=== PATIENT | male | born 1940 | race Caucasian/White ===

== ENCOUNTER 2017-05-02 10:47 | Inpatient (IN) | payer MEDICARE, OTHER ==
[~2017-05-02] VITALS: Ht 167.6 cm; Wt 56.2 kg
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
[2017-05-02 11:37] LABS: BASO # 0.2 x10^3/uL (0.0-0.2); BASO % 1 % (0-3); EOS # 0.7 x10^3/uL (0.0-0.7); EOS % 4 % (0-3); HEMATOCRIT 43.5 % (39.0-53.0); HEMOGLOBIN 13.3 g/dL (13.0-17.5); LYMPH # 1.3 x10^3/uL (1.0-4.8); LYMPH % 8 % (24-48); MEAN CORPUSCULAR HEMOGLOBIN 23 pg (25-35); MEAN CORPUSCULAR HGB CONC 31 g/dL (31-37); MEAN CORPUSCULAR VOLUME 74 fL (79-100); MONO # 1.1 x10^3/uL (0.0-1.1); MONO % 7 % (0-9); NEUT # 12.2 x10^3uL (1.8-7.7); NEUT % 79 % (31-73); PLATELET COUNT 682 x10^3/uL (140-400); RED BLOOD COUNT 5.87 x10^6/uL (4.30-5.70); RED CELL DISTRIBUTION WIDTH 20.4 % (11.5-14.5); WHITE BLOOD COUNT 15.5 x10^3/uL (4.0-11.0)
[2017-05-02 11:49] LABS: ALBUMIN 3.2 g/dL (3.4-5.0); ALBUMIN/GLOBULIN RATIO 0.8 (1.0-1.7); CALCIUM 8.3 mg/dL (8.5-10.1); CREATININE 1.1 mg/dL (0.7-1.3); DIRECT BILIRUBIN 0.2 mg/dL (0.0-0.2); GFR 64.9; MAGNESIUM 1.8 mg/dL (1.8-2.4); POTASSIUM 3.6 mmol/L (3.5-5.1); TOTAL BILIRUBIN 0.5 mg/dL (0.2-1.0); TOTAL PROTEIN 7.1 g/dL (6.4-8.2)
[2017-05-02 11:50] LABS: ACETAMIN < 2 mcg/mL (10-30); SALIC 1.7 mg/dL (2.8-20.0)
[2017-05-02 11:51] LABS: ETHANOL < 10 mg/dL (0-10)
[2017-05-02 11:55] LABS: COLOR,URINE YELLOW
[2017-05-02 11:56] LABS: AMORPHOUS SEDIMENT,UR PRESENT /HPF; BACTERIA,URINE 0 /HPF (0-FEW); BILIRUBIN,URINE NEG (NEG); CLARITY,URINE CLEAR; GLUCOSE,URINE NEG (NEG); GRANULAR CASTS,URINE OCC /HPF; HYALINE CASTS, URINE OCC /HPF; NITRITE,URINE NEG (NEG); RBC,URINE 0 /HPF (0-2); SQUAMOUS EPITHELIAL CELL,UR OCC /LPF; UROBILINOGEN,URINE 0.2 mg/dL (0.2 mg/dL)
[2017-05-02] MEDS ORDERED: IV NORMAL SALINE 1,000ML 1,000 ML IV ONE (12:00)
[2017-05-02] MEDS ORDERED: HALOPERIDOL LACT 5 MG/ML VIAL. IVP ONE (12:00)
[2017-05-02] MEDS ORDERED: LORazepam 2 MG/ML VIAL IV ONE (12:00)
--- NOTE | 2017-05-02 12:10 | ACF ---
Admission Criteria Forms MENTAL STATUS CHANGE Clinical Indications for Inpatient Care (Place 'X' for any and all applicable criteria): Ongoing inpatient care may be needed for 1 or more of the following(1)(2)(3)(5)( 6): [ ]I. Suspected serious etiology (eg, medical disorder, MOLD SETTER event) of altered mental status [X]II. Danger to self or others not manageable at lower level of care [ ]III. Grave disability (eg, inability to perform self care necessary at lower level of care) [ ]IV. Agitation or inappropriate behavior interfering with care for primary condition (eg, attempting to discontinue lines or drains prematurely, unable to cooperate with respiratory care) [ ]V. Delirium [A] [D][E] as described by 1 or more of the following(26): [ ]a) Delirium due to alcohol or sedative [F] withdrawal [ ]b) Delirium of uncertain etiology that has not responded to appropriate empiric treatment [ ]c) Delirium that prevents performance of a life-sustaining function (eg, feeding or hydrating oneself) [ ]. General contraindications and/or Inappropriate clinical situations for Observational Care in patients with Mental Status Change, when ANY ONE of the following is required: [ ]a) Prediction of prolongation of LOS based on ANY ONE of the following may be considered as a contraindication for observational care 2, 3, 4, 5, 6, 7, 8, 9, 10, 11 [ ]i) Age > 65 yrs. [ ]ii) Patient arriving by ambulance [ ]iii) Patient with high acuity [ ]iv) Patient requiring vital sign monitoring [ ]v) Patient on IV medication [ ]b) Systolic blood pressures greater than or equal to 180mmHg 3, 12 [ ]c) Patient with altered mental status including delirium and other alteration of consciousness, (3) [ ]d) Patient whose discharge disposition will be to a usp home or rehabilitation home should not be managed in Emergency Department Observation Unit. CMS rule requires 3 days hospital stay before such placement.3,13 [ ]e) Patient with failure to thrive due to broad array of etiologies 3,16,17 [ ]f) Inability to ambulate 3,14 Extended stay beyond goal length of stay for the primary condition may be needed until ALL of the following are present(3)(5): [ ]a) Underlying medical etiology of mental status change is absent, or has been established and adequately treated [ ]b) Danger to self or others is absent or manageable at lower level of care. [ ]c) Behavior crisis management, including physical or chemical restraints, is not required or available at lower level of car [ ]d) Substance or alcohol withdrawal is absent or manageable at lower level of care. [ ]e) Behavioral symptoms (eg, agitation, somnolence, inappropriate behavior) are absent, or are manageable at lower level of care. The original [facility] [employer] content created by [employer] has been revised. The portions of the content which have been revised are identified through the use of italic text or in bold, and [facility] has neither reviewed nor approved the modified material. All other unmodified content is copyright [employer]. Please see references footnoted in the original [employer] edition 2016 Admission Criteria Met?: Yes JOSSUE PIÑA May 02, 2017 12:10
--- NOTE | 2017-05-02 12:13 | EKG ---
[address] [address] Test Date: 2017-05-02 Test Time: 11:12:56 Pat Name: BRITTANY HOLLINGSWORTH Department: Room: Gender: M Area Secretary: : [id number] Requested By: JHON ANDERSEN Order Number: [id number] Reading MD: Ben Ruano Measurements Intervals [place] Rate: 78 P: 54 IN: 150 QRS: 23 QRSD: 98 T: 46 QT: 378 QTc: 434 Interpretive Statements SINUS RHYTHM QRS(T) CONTOUR ABNORMALITY Electronically Signed On 05-27-2017 16:36:46 CDT by Ben Ruano
[2017-05-02 12:46] LABS: % BANDS 0 % (0-9); % BASOS 6 % (0-3); % EOS 3 % (0-5); % LYMPHS 6 % (24-48); % MONOS 2 % (0-10); % SEGS 83 % (35-66); ANISOCYTOSIS SLIGHT; HYPOCHROMIA SLIGHT; MICROCYTOSIS PRESENT; PLT ESTIMATE INCREASED (ADEQUATE)
[2017-05-02 12:47] LABS: OVALOCYTES PRESENT; TOXIC VACUOLATION PRESENT
[2017-05-02] MEDS ORDERED: METHYL SALICYLATE/MENTHOL TOPICAL OINTMENT 29GM TUBE. TP PRN (14:45)
[2017-05-02] MEDS ORDERED: MAG HYDROX/AL HYDROX/SIMETH 30 ML ORAL.SUSP PO PRN (14:45)
[2017-05-02] MEDS ORDERED: MAGNESIUM HYDROXIDE 2,400 MG/30 ML ORAL.SUSP. PO PRN (14:45)
[2017-05-02] MEDS ORDERED: HYDR500C16 PO (15:57)
[2017-05-02 16:23] VITALS: BP 142/76
--- NOTE | 2017-05-02 21:34 | PDOC ---
Exam Ivan Demential Exam: Ivan Note: Please also refer to the separate dictated note~for this date of service dictated separately.~Patient seen individually. Discussed the patient with Nursing staff reviewed the chart.~Reviewed interim history and current functioning. Reviewed vital signs,~Labs/ Radiology~and current medications noted below. Continue current treatment with the changes noted in the dictated addendum note Assessment: Vital Signs: Vital Signs Date Time Temp Pulse Resp B/P (MAP) Pulse Ox O2 Delivery O2 Flow Rate FiO2 05/02/17 16:23 97.9 78 18 142/76 (98) 97 05/02/17 11:00 Room Air Labs: Laboratory Tests Test 05/02/17 11:20 05/02/17 11:35 White Blood Count 15.5 x10^3/uL (4.0-11.0) H Red Blood Count 5.87 x10^6/uL (4.30-5.70) H Hemoglobin 13.3 g/dL (13.0-17.5) Hematocrit 43.5 % (39.0-53.0) Mean Corpuscular Volume 74 fL (79-100) L Mean Corpuscular Hemoglobin 23 pg (25-35) L Mean Corpuscular Hemoglobin Concent 31 g/dL (31-37) Red Cell Distribution Width 20.4 % (11.5-14.5) H Platelet Count 682 x10^3/uL (140-400) H Neutrophils (%) (Auto) 79 % (31-73) H Lymphocytes (%) (Auto) 8 % (24-48) L Monocytes (%) (Auto) 7 % (0-9) Eosinophils (%) (Auto) 4 % (0-3) H Basophils (%) (Auto) 1 % (0-3) Neutrophils # (Auto) 12.2 x10^3uL (1.8-7.7) H Lymphocytes # (Auto) 1.3 x10^3/uL (1.0-4.8) Monocytes # (Auto) 1.1 x10^3/uL (0.0-1.1) Eosinophils # (Auto) 0.7 x10^3/uL (0.0-0.7) Basophils # (Auto) 0.2 x10^3/uL (0.0-0.2) Segmented Neutrophils % 83 % (35-66) H Band Neutrophils % 0 % (0-9) Lymphocytes % 6 % (24-48) L Monocytes % 2 % (0-10) Eosinophils % 3 % (0-5) Basophils % 6 % (0-3) H Toxic Vacuolation Present Platelet Estimate Increased (ADEQUATE) Hypochromasia Slight Anisocytosis Slight Microcytosis Present Ovalocytes Present Sodium Level 140 mmol/L (136-145) Potassium Level 3.6 mmol/L (3.5-5.1) Chloride Level 105 mmol/L (98-107) Carbon Dioxide Level 27 mmol/L (21-32) Anion Gap 8 (6-14) Blood Urea Nitrogen 22 mg/dL (8-26) Creatinine 1.1 mg/dL (0.7-1.3) Estimated GFR (Cockcroft-Gault) 64.9 BUN/Creatinine Ratio 20 (6-20) Glucose Level 97 mg/dL (70-99) Calcium Level 8.3 mg/dL (8.5-10.1) L Magnesium Level 1.8 mg/dL (1.8-2.4) Iron Level 14 ug/dL (65-175) L Total Iron Binding Capacity 263 ug/dL (250-450) Iron Saturation 5 % (15-34) L Total Bilirubin 0.5 mg/dL (0.2-1.0) Direct Bilirubin 0.2 mg/dL (0.0-0.2) Aspartate Amino Transferase (AST) 16 U/L (15-37) Alanine Aminotransferase (ALT) 7 U/L (16-63) L Alkaline Phosphatase 117 U/L (46-116) H Troponin I Quantitative < 0.017 ng/mL (0-0.055) Total Protein 7.1 g/dL (6.4-8.2) Albumin 3.2 g/dL (3.4-5.0) L Albumin/Globulin Ratio 0.8 (1.0-1.7) L Salicylates Level 1.7 mg/dL (2.8-20.0) L Salicylate Last Dose Date Unk Salicylate Last Dose Time Unk Acetaminophen Level < 2 mcg/mL (10-30) L Acetaminophen Last Dose Date Unk Acetaminophen Last Dose Time Unk Ethyl Alcohol Level < 10 mg/dL (0-10) Urine Collection Type Unknown Urine Color Yellow Urine Clarity Clear Urine pH 5.0 Urine Specific [place] 1.025 Urine Protein 30 mg/dl (NEG-TRACE) Urine Glucose (UA) Neg mg/dL (NEG) Urine Ketones (Stick) Trace mg/dL (NEG) Urine Blood Neg (NEG) Urine Nitrite Neg (NEG) Urine Bilirubin Neg (NEG) Urine Urobilinogen Dipstick 0.2 mg/dL (0.2 mg/dL) Urine Leukocyte Esterase Neg (NEG) Urine RBC 0 /HPF (0-2) Urine WBC 1-4 /HPF (0-4) Urine Squamous Epithelial Cells Occ /LPF Urine Amorphous Sediment Present /HPF Urine Bacteria 0 /HPF (0-FEW) Urine Hyaline Casts Occ /HPF Urine Granular Casts Occ /HPF Urine Mucus Mod /LPF Current Medications: Meds: Current Medications Sodium Chloride 1,000 ml @ 1,000 mls/hr 1X ONCE IV ; Start 05/02/17 at 12:00; Stop 05/02/17 at 12:59; Status DC Haloperidol Lactate (Haldol) 5 mg 1X ONCE IVP ; Start 05/02/17 at 12:00; Stop at 12:01; Status DC Lorazepam (Ativan) 2 mg 1X ONCE IV ; Start 05/02/17 at 12:00; Stop 05/02/17 at 12 :01; Status DC Acetaminophen (Tylenol) 650 mg PRN Q6HRS PRN PO PAIN / TEMP; Start 05/02/17 at 14:45 Multi-Ingredient Ointment (Analgesic [place]) 1 savanna PRN QID PRN TP MUSCLE PAIN; Start 05/02/17 at 14:45 Al Hydroxide/Mg Hydroxide (Mylanta Plus Xs) 15 ml PRN AFTMEALHC PRN PO DYSPEPSIA; Start 05/02/17 at 14:45 Magnesium Hydroxide (Milk Of Magnesia) 2,400 mg PRN QHS PRN PO CONSTIPATION; Start 05/02/17 at 14:45 Olanzapine (ZyPREXA ZYDIS) 2.5 mg PRN Q2HR PRN PO PSYCHOSIS; Start 05/02/17 at 15:45 Hydroxyurea (Hydrea) 1,000 mg DAILY PO ; Start 05/03/17 at 09:00; Stop 05/03/17 at 09:00; Status DC Hydroxyurea (Hydrea) 1,000 mg DAILY PO ; Start 05/03/17 at 09:00 Active Scripts Active Reported Hydroxyurea 500 Mg Capsule 1,000 Mg PO DAILY CECILIA PARR MD May 02, 2017 21:34
[2017-05-03 06:23] VITALS: BP 150/79
[2017-05-03] MEDS: HYDROXYUREA 500 MG CAPSULE PO SCH (07:56)
[2017-05-03] MEDS ORDERED: HYDROXYUREA 500 MG CAPSULE PO SCH (09:00)
[2017-05-03] MEDS: ACETAMINOPHEN 325 MG TABLET PO PRN (09:13)
[2017-05-03 11:57] LABS: THYROID STIM HORMONE (TSH) 4.763 uIU/mL (0.358-3.740)
--- NOTE | 2017-05-03 15:59 | RAD ---
CT of the head without contrast, 05/03/2017: History: Mental status change There is moderate cerebral atrophy. There are mild patchy lucencies in the deep white matter bilaterally compatible with chronic ischemic change. The ventricles are mildly prominent on a compensatory basis. There is no shift of the midline structures. There is no evidence of acute intracranial hemorrhage or mass effect. IMPRESSION: 1. Moderate cerebral atrophy. 2. Mild bilateral dependent matter lucencies compatible with chronic ischemic change. 3. No acute intracranial abnormality is detected. PQRS Compliance Statement: One or more of the following individualized dose reduction techniques were utilized for this examination: 1. Automated exposure control 2. Adjustment of the mA and/or kV according to patient size 3. Use of iterative reconstruction technique
[2017-05-03 16:00] VITALS: BP 123/75
[2017-05-03] MEDS: CYPROHEPTADINE 4 MG TABLET. PO SCH (21:04)
--- NOTE | 2017-05-03 21:19 | PDOC ---
Exam Ivan Demential Exam: Ivan Note: Please also refer to the separate dictated note~for this date of service dictated separately.~Patient seen individually. Discussed the patient with Nursing staff reviewed the chart.~Reviewed interim history and current functioning. Reviewed vital signs,~Labs/ Radiology~and current medications noted below. Continue current treatment with the changes noted in the dictated addendum note Assessment: Vital Signs: Vital Signs Date Time Temp Pulse Resp B/P (MAP) Pulse Ox O2 Delivery O2 Flow Rate FiO2 05/03/17 16:00 97.7 67 16 123/75 (91) 99 05/02/17 11:00 Room Air I&O Intake and Output 05/03/17 07:00 Intake Total 120 ml Balance 120 ml Intake Oral 120 ml Current Medications: Meds: Current Medications Sodium Chloride 1,000 ml @ 1,000 mls/hr 1X ONCE IV ; Start 05/02/17 at 12:00; Stop 05/02/17 at 12:59; Status DC Haloperidol Lactate (Haldol) 5 mg 1X ONCE IVP ; Start 05/02/17 at 12:00; Stop at 12:01; Status DC Lorazepam (Ativan) 2 mg 1X ONCE IV ; Start 05/02/17 at 12:00; Stop 05/02/17 at 12 :01; Status DC Acetaminophen (Tylenol) 650 mg PRN Q6HRS PRN PO PAIN / TEMP Last administered on 05/03/17 09:13; Start 05/02/17 at 14:45 Multi-Ingredient Ointment (Analgesic [place]) 1 savanna PRN QID PRN TP MUSCLE PAIN; Start 05/02/17 at 14:45 Al Hydroxide/Mg Hydroxide (Mylanta Plus Xs) 15 ml PRN AFTMEALHC PRN PO DYSPEPSIA; Start 05/02/17 at 14:45 Magnesium Hydroxide (Milk Of Magnesia) 2,400 mg PRN QHS PRN PO CONSTIPATION; Start 05/02/17 at 14:45 Olanzapine (ZyPREXA ZYDIS) 2.5 mg PRN Q2HR PRN PO PSYCHOSIS Last administered on 05/03/17 21:04; Start 05/02/17 at 15:45 Hydroxyurea (Hydrea) 1,000 mg DAILY PO ; Start 05/03/17 at 09:00; Stop 05/03/17 at 09:00; Status DC Hydroxyurea (Hydrea) 1,000 mg DAILY PO Last administered on 05/03/17 07:56; Start 05/03/17 at 09:00 Aspirin (Oneil Aspirin) 325 mg DAILYWBKFT PO ; Start 05/04/17 at 08:00 Ferrous Sulfate (Feosol) 325 mg DAILYWBKFT PO ; Start 05/04/17 at 08:00 Cyproheptadine HCl (Periactin) 4 mg QHS PO Last administered on 05/03/17 21:04 ; Start 05/03/17 at 21:00 Active Scripts Active Reported Hydroxyurea 500 Mg Capsule 1,000 Mg PO DAILY Diagnosis: Problems: (1) Altered mental status CECILIA PARR MD May 03, 2017 21:19
[2017-05-04 06:48] VITALS: BP 128/66
[2017-05-04] MEDS: ASPIRIN 325 MG TABLET PO SCH (10:24)
[2017-05-04] MEDS: FERROUS SULFATE 325 MG TABLET PO SCH (10:24)
[2017-05-04] MEDS: HYDROXYUREA 500 MG CAPSULE PO SCH (10:25)
[2017-05-04 15:53] VITALS: BP 116/89
[2017-05-04] MEDS: MIRTAZAPINE 7.5 MG TABLET. PO SCH (19:41)
[2017-05-04] MEDS: CYPROHEPTADINE 4 MG TABLET. PO SCH (19:41)
--- NOTE | 2017-05-04 21:12 | PDOC ---
Exam Ivan Demential Exam: Ivan Note: Please also refer to the separate dictated note~for this date of service dictated separately.~Patient seen individually. Discussed the patient with Nursing staff reviewed the chart.~Reviewed interim history and current functioning. Reviewed vital signs,~Labs/ Radiology~and current medications noted below. Continue current treatment with the changes noted in the dictated addendum note Assessment: Vital Signs: Vital Signs Date Time Temp Pulse Resp B/P (MAP) Pulse Ox O2 Delivery O2 Flow Rate FiO2 05/04/17 15:53 98.1 66 16 116/89 (98) 96 Room Air I&O Intake and Output 05/04/17 07:00 Intake Total 840 ml Balance 840 ml Intake Oral 840 ml # Voids 4 Current Medications: Meds: Current Medications Sodium Chloride 1,000 ml @ 1,000 mls/hr 1X ONCE IV ; Start 05/02/17 at 12:00; Stop 05/02/17 at 12:59; Status DC Haloperidol Lactate (Haldol) 5 mg 1X ONCE IVP ; Start 05/02/17 at 12:00; Stop at 12:01; Status DC Lorazepam (Ativan) 2 mg 1X ONCE IV ; Start 05/02/17 at 12:00; Stop 05/02/17 at 12 :01; Status DC Acetaminophen (Tylenol) 650 mg PRN Q6HRS PRN PO PAIN / TEMP Last administered on 05/03/17 09:13; Start 05/02/17 at 14:45 Multi-Ingredient Ointment (Analgesic [place]) 1 savanna PRN QID PRN TP MUSCLE PAIN; Start 05/02/17 at 14:45 Al Hydroxide/Mg Hydroxide (Mylanta Plus Xs) 15 ml PRN AFTMEALHC PRN PO DYSPEPSIA; Start 05/02/17 at 14:45 Magnesium Hydroxide (Milk Of Magnesia) 2,400 mg PRN QHS PRN PO CONSTIPATION; Start 05/02/17 at 14:45 Olanzapine (ZyPREXA ZYDIS) 2.5 mg PRN Q2HR PRN PO PSYCHOSIS Last administered on 05/03/17 21:04; Start 05/02/17 at 15:45 Hydroxyurea (Hydrea) 1,000 mg DAILY PO ; Start 05/03/17 at 09:00; Stop 05/03/17 at 09:00; Status DC Hydroxyurea (Hydrea) 1,000 mg DAILY PO Last administered on 05/04/17 10:25; Start 05/03/17 at 09:00 Aspirin (Oneil Aspirin) 325 mg DAILYWBKFT PO Last administered on 05/04/17 10: 24; Start 05/04/17 at 08:00 Ferrous Sulfate (Feosol) 325 mg DAILYWBKFT PO Last administered on 05/04/17 10: 24; Start 05/04/17 at 08:00 Cyproheptadine HCl (Periactin) 4 mg QHS PO Last administered on 05/04/17 19:41 ; Start 05/03/17 at 21:00 Sertraline HCl (Zoloft) 25 mg DAILY PO ; Start 05/05/17 at 09:00 Mirtazapine (Remeron) 7.5 mg QHS PO Last administered on 05/04/17 19:41; Start 05/04/17 at 21:00 Active Scripts Active Reported Hydroxyurea 500 Mg Capsule 1,000 Mg PO DAILY Diagnosis: Problems: (1) Altered mental status (2) Anxiety disorder (3) Impulse control disorder (4) Dementia, vascular, with depression (5) Dementia, vascular, with delusions (6) Dementia in Alzheimer's disease with depression (7) Dementia in Alzheimer's disease with delusions CECILIA PARR MD May 04, 2017 21:12
[2017-05-05 06:06] VITALS: BP 147/82
[2017-05-05 07:58] LABS: BASO # 0.5 x10^3/uL (0.0-0.2); BASO % 3 % (0-3); EOS # 1.1 x10^3/uL (0.0-0.7); EOS % 8 % (0-3); HEMATOCRIT 41.9 % (39.0-53.0); HEMOGLOBIN 13.1 g/dL (13.0-17.5); LYMPH # 1.5 x10^3/uL (1.0-4.8); LYMPH % 10 % (24-48); MEAN CORPUSCULAR HEMOGLOBIN 23 pg (25-35); MEAN CORPUSCULAR HGB CONC 31 g/dL (31-37); MEAN CORPUSCULAR VOLUME 74 fL (79-100); MONO # 0.7 x10^3/uL (0.0-1.1); MONO % 5 % (0-9); NEUT # 11.2 x10^3uL (1.8-7.7); NEUT % 75 % (31-73); PLATELET COUNT 797 x10^3/uL (140-400); RED BLOOD COUNT 5.68 x10^6/uL (4.30-5.70); RED CELL DISTRIBUTION WIDTH 20.6 % (11.5-14.5)
[2017-05-05] MEDS: FERROUS SULFATE 325 MG TABLET PO SCH (08:02)
[2017-05-05] MEDS: ASPIRIN 325 MG TABLET PO SCH (08:02)
[2017-05-05] MEDS: HYDROXYUREA 500 MG CAPSULE PO SCH (08:09)
[2017-05-05 08:15] LABS: ALBUMIN/GLOBULIN RATIO 0.9 (1.0-1.7); CALCIUM 8.2 mg/dL (8.5-10.1); GFR 72.5; POTASSIUM 3.9 mmol/L (3.5-5.1); TOTAL BILIRUBIN 0.4 mg/dL (0.2-1.0); TOTAL PROTEIN 6.5 g/dL (6.4-8.2)
[2017-05-05 08:55] LABS: % BANDS 0 % (0-9); % BASOS 6 % (0-3); % EOS 6 % (0-5); % LYMPHS 17 % (24-48); % MONOS 4 % (0-10); % SEGS 67 % (35-66); ANISOCYTOSIS SLIGHT; HYPOCHROMIA PRESENT; MICROCYTOSIS PRESENT; PLT ESTIMATE INCREASED (ADEQUATE)
[2017-05-05 08:56] LABS: OVALOCYTES PRESENT
[2017-05-05] MEDS ORDERED: SERTRALINE 25 MG TABLET. PO SCH (09:00)
[2017-05-05 16:27] VITALS: BP 154/88
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
[2017-05-05] MEDS: traZODone 50 MG TABLET. PO PRN (20:28)
[2017-05-05] MEDS: MIRTAZAPINE 7.5 MG TABLET. PO SCH (20:28)
[2017-05-05] MEDS: CYPROHEPTADINE 4 MG TABLET. PO SCH (20:28)
--- NOTE | 2017-05-05 20:47 | PDOC ---
Exam Ivan Demential Exam: Ivan Note: Please also refer to the separate dictated note~for this date of service dictated separately.~Patient seen individually. Discussed the patient with Nursing staff reviewed the chart.~Reviewed interim history and current functioning. Reviewed vital signs,~Labs/ Radiology~and current medications noted below. Continue current treatment with the changes noted in the dictated addendum note Assessment: Vital Signs: Vital Signs Date Time Temp Pulse Resp B/P (MAP) Pulse Ox O2 Delivery O2 Flow Rate FiO2 05/05/17 16:27 97.6 62 18 154/88 (110) 99 05/04/17 15:53 Room Air I&O Intake and Output 05/05/17 07:00 Intake Total 720 ml Balance 720 ml Intake Oral 720 ml # Voids 2 Labs: Laboratory Tests Test 05/05/17 07:27 White Blood Count 15.0 x10^3/uL (4.0-11.0) H Red Blood Count 5.68 x10^6/uL (4.30-5.70) Hemoglobin 13.1 g/dL (13.0-17.5) Hematocrit 41.9 % (39.0-53.0) Mean Corpuscular Volume 74 fL (79-100) L Mean Corpuscular Hemoglobin 23 pg (25-35) L Mean Corpuscular Hemoglobin Concent 31 g/dL (31-37) Red Cell Distribution Width 20.6 % (11.5-14.5) H Platelet Count 797 x10^3/uL (140-400) H Neutrophils (%) (Auto) 75 % (31-73) H Lymphocytes (%) (Auto) 10 % (24-48) L Monocytes (%) (Auto) 5 % (0-9) Eosinophils (%) (Auto) 8 % (0-3) H Basophils (%) (Auto) 3 % (0-3) Neutrophils # (Auto) 11.2 x10^3uL (1.8-7.7) H Lymphocytes # (Auto) 1.5 x10^3/uL (1.0-4.8) Monocytes # (Auto) 0.7 x10^3/uL (0.0-1.1) Eosinophils # (Auto) 1.1 x10^3/uL (0.0-0.7) H Basophils # (Auto) 0.5 x10^3/uL (0.0-0.2) H Segmented Neutrophils % 67 % (35-66) H Band Neutrophils % 0 % (0-9) Lymphocytes % 17 % (24-48) L Monocytes % 4 % (0-10) Eosinophils % 6 % (0-5) H Basophils % 6 % (0-3) H Platelet Estimate Increased (ADEQUATE) Hypochromasia Present Anisocytosis Slight Microcytosis Present Ovalocytes Present Sodium Level 143 mmol/L (136-145) Potassium Level 3.9 mmol/L (3.5-5.1) Chloride Level 107 mmol/L (98-107) Carbon Dioxide Level 30 mmol/L (21-32) Anion Gap 6 (6-14) Blood Urea Nitrogen 15 mg/dL (8-26) Creatinine 1.0 mg/dL (0.7-1.3) Estimated GFR (Cockcroft-Gault) 72.5 BUN/Creatinine Ratio 15 (6-20) Glucose Level 91 mg/dL (70-99) Calcium Level 8.2 mg/dL (8.5-10.1) L Total Bilirubin 0.4 mg/dL (0.2-1.0) Aspartate Amino Transferase (AST) 9 U/L (15-37) L Alanine Aminotransferase (ALT) 8 U/L (16-63) L Alkaline Phosphatase 100 U/L (46-116) Total Protein 6.5 g/dL (6.4-8.2) Albumin 3.0 g/dL (3.4-5.0) L Albumin/Globulin Ratio 0.9 (1.0-1.7) L Free Thyroxine 0.91 ng/dL (0.76-1.46) Free Triiodothyronine (T3) pg/mL 1.96 pg/mL (2.18-3.98) L Current Medications: Meds: Current Medications Sodium Chloride 1,000 ml @ 1,000 mls/hr 1X ONCE IV ; Start 05/02/17 at 12:00; Stop 05/02/17 at 12:59; Status DC Haloperidol Lactate (Haldol) 5 mg 1X ONCE IVP ; Start 05/02/17 at 12:00; Stop at 12:01; Status DC Lorazepam (Ativan) 2 mg 1X ONCE IV ; Start 05/02/17 at 12:00; Stop 05/02/17 at 12 :01; Status DC Acetaminophen (Tylenol) 650 mg PRN Q6HRS PRN PO PAIN / TEMP Last administered on 05/03/17 09:13; Start 05/02/17 at 14:45 Multi-Ingredient Ointment (Analgesic [place]) 1 savanna PRN QID PRN TP MUSCLE PAIN; Start 05/02/17 at 14:45 Al Hydroxide/Mg Hydroxide (Mylanta Plus Xs) 15 ml PRN AFTMEALHC PRN PO DYSPEPSIA; Start 05/02/17 at 14:45 Magnesium Hydroxide (Milk Of Magnesia) 2,400 mg PRN QHS PRN PO CONSTIPATION; Start 05/02/17 at 14:45 Olanzapine (ZyPREXA ZYDIS) 2.5 mg PRN Q2HR PRN PO PSYCHOSIS Last administered on 05/05/17 01:34; Start 05/02/17 at 15:45 Hydroxyurea (Hydrea) 1,000 mg DAILY PO ; Start 05/03/17 at 09:00; Stop 05/03/17 at 09:00; Status DC Hydroxyurea (Hydrea) 1,000 mg DAILY PO Last administered on 05/05/17 08:09; Start 05/03/17 at 09:00 Aspirin (Oneil Aspirin) 325 mg DAILYWBKFT PO Last administered on 05/05/17 08: 02; Start 05/04/17 at 08:00 Ferrous Sulfate (Feosol) 325 mg DAILYWBKFT PO Last administered on 05/05/17 08: 02; Start 05/04/17 at 08:00 Cyproheptadine HCl (Periactin) 4 mg QHS PO Last administered on 05/05/17 20:28 ; Start 05/03/17 at 21:00 Sertraline HCl (Zoloft) 25 mg DAILY PO Last administered on 05/05/17 08:03; Start 05/05/17 at 09:00; Stop 05/05/17 at 18:27; Status DC Mirtazapine (Remeron) 7.5 mg QHS PO Last administered on 05/05/17 20:28; Start 05/04/17 at 21:00 Sertraline HCl (Zoloft) 50 mg DAILY PO ; Start 05/06/17 at 09:00 Trazodone HCl (Desyrel) 50 mg QHS PRN PO INSOMNIA, MAY REPEAT X1 Last administered on 05/05/17t 20:28; Start 05/05/17 at 18:30 Active Scripts Active Reported Hydroxyurea 500 Mg Capsule 1,000 Mg PO DAILY Diagnosis: Problems: (1) Altered mental status (2) Anxiety disorder (3) Impulse control disorder (4) Dementia, vascular, with depression (5) Dementia, vascular, with delusions (6) Dementia in Alzheimer's disease with depression (7) Dementia in Alzheimer's disease with delusions CECILIA PARR MD May 05, 2017 20:47
[2017-05-06 06:01] VITALS: BP 140/77
[2017-05-06] MEDS: FERROUS SULFATE 325 MG TABLET PO SCH (08:07)
[2017-05-06] MEDS: HYDROXYUREA 500 MG CAPSULE PO SCH (08:07)
[2017-05-06] MEDS: ASPIRIN 325 MG TABLET PO SCH (08:07)
[2017-05-06] MEDS: SERTRALINE 25 MG TABLET. PO SCH (08:08)
[2017-05-06 16:13] VITALS: BP 131/71
--- NOTE | 2017-05-06 19:53 | PDOC ---
Exam Ivan Demential Exam: Ivan Note: Please also refer to the separate dictated note~for this date of service dictated separately.~Patient seen individually. Discussed the patient with Nursing staff reviewed the chart.~Reviewed interim history and current functioning. Reviewed vital signs,~Labs/ Radiology~and current medications noted below. Continue current treatment with the changes noted in the dictated addendum note Assessment: Vital Signs: Vital Signs Date Time Temp Pulse Resp B/P (MAP) Pulse Ox O2 Delivery O2 Flow Rate FiO2 05/06/17 16:13 97.8 75 18 131/71 (91) 96 05/04/17 15:53 Room Air I&O Intake and Output 05/06/17 07:00 Intake Total 1260 ml Balance 1260 ml Intake Oral 1260 ml Current Medications: Meds: Current Medications Sodium Chloride 1,000 ml @ 1,000 mls/hr 1X ONCE IV ; Start 05/02/17 at 12:00; Stop 05/02/17 at 12:59; Status DC Haloperidol Lactate (Haldol) 5 mg 1X ONCE IVP ; Start 05/02/17 at 12:00; Stop at 12:01; Status DC Lorazepam (Ativan) 2 mg 1X ONCE IV ; Start 05/02/17 at 12:00; Stop 05/02/17 at 12 :01; Status DC Acetaminophen (Tylenol) 650 mg PRN Q6HRS PRN PO PAIN / TEMP Last administered on 05/03/17 09:13; Start 05/02/17 at 14:45 Multi-Ingredient Ointment (Analgesic [place]) 1 savanna PRN QID PRN TP MUSCLE PAIN; Start 05/02/17 at 14:45 Al Hydroxide/Mg Hydroxide (Mylanta Plus Xs) 15 ml PRN AFTMEALHC PRN PO DYSPEPSIA; Start 05/02/17 at 14:45 Magnesium Hydroxide (Milk Of Magnesia) 2,400 mg PRN QHS PRN PO CONSTIPATION; Start 05/02/17 at 14:45 Olanzapine (ZyPREXA ZYDIS) 2.5 mg PRN Q2HR PRN PO PSYCHOSIS Last administered on 05/05/17 01:34; Start 05/02/17 at 15:45 Hydroxyurea (Hydrea) 1,000 mg DAILY PO ; Start 05/03/17 at 09:00; Stop 05/03/17 at 09:00; Status DC Hydroxyurea (Hydrea) 1,000 mg DAILY PO Last administered on 05/06/17 08:07; Start 05/03/17 at 09:00 Aspirin (Oneil Aspirin) 325 mg DAILYWBKFT PO Last administered on 05/06/17 08: 07; Start 05/04/17 at 08:00 Ferrous Sulfate (Feosol) 325 mg DAILYWBKFT PO Last administered on 05/06/17 08: 07; Start 05/04/17 at 08:00; Stop 05/06/17 at 18:23; Status DC Cyproheptadine HCl (Periactin) 4 mg QHS PO Last administered on 05/05/17 20:28 ; Start 05/03/17 at 21:00 Sertraline HCl (Zoloft) 25 mg DAILY PO Last administered on 05/05/17 08:03; Start 05/05/17 at 09:00; Stop 05/05/17 at 18:27; Status DC Mirtazapine (Remeron) 7.5 mg QHS PO Last administered on 05/05/17 20:28; Start 05/04/17 at 21:00 Sertraline HCl (Zoloft) 50 mg DAILY PO Last administered on 05/06/17 08:08; Start 05/06/17 at 09:00 Trazodone HCl (Desyrel) 50 mg QHS PRN PO INSOMNIA, MAY REPEAT X1 Last administered on 05/05/17 20:28; Start 05/05/17 at 18:30 Active Scripts Active Reported Hydroxyurea 500 Mg Capsule 1,000 Mg PO DAILY Diagnosis: Problems: (1) Anxiety disorder (2) Altered mental status (3) Impulse control disorder (4) Dementia, vascular, with depression (5) Dementia, vascular, with delusions (6) Dementia in Alzheimer's disease with depression (7) Dementia in Alzheimer's disease with delusions CECILIA PARR MD May 06, 2017 19:53
[2017-05-06] MEDS: CYPROHEPTADINE 4 MG TABLET. PO SCH (20:48)
[2017-05-06] MEDS: MIRTAZAPINE 7.5 MG TABLET. PO SCH (20:48)
[2017-05-07 06:10] VITALS: BP 163/83
[2017-05-07] MEDS: ASPIRIN 325 MG TABLET PO SCH (08:06)
[2017-05-07] MEDS: SERTRALINE 25 MG TABLET. PO SCH (08:07)
[2017-05-07] MEDS: HYDROXYUREA 500 MG CAPSULE PO SCH (08:08)
[2017-05-07 15:32] VITALS: BP 157/74
[2017-05-07] MEDS: traZODone 50 MG TABLET. PO PRN (19:22)
[2017-05-07] MEDS: MIRTAZAPINE 7.5 MG TABLET. PO SCH (19:22)
[2017-05-07] MEDS: CYPROHEPTADINE 4 MG TABLET. PO SCH (19:22)
--- NOTE | 2017-05-07 20:15 | PDOC ---
Exam Ivan Demential Exam: Ivan Note: Please also refer to the separate dictated note~for this date of service dictated separately.~Patient seen individually. Discussed the patient with Nursing staff reviewed the chart.~Reviewed interim history and current functioning. Reviewed vital signs,~Labs/ Radiology~and current medications noted below. Continue current treatment with the changes noted in the dictated addendum note S/O: This is a late entry for date of service 05/04/2017. This note covers elements not covered in my initial note of May 04. I met with the patient in the evening of May 04. Per nursing report, the patient remains confused. Otherwise, pleasant, cooperative. Does not answer questions. No PRNs have been given. He slept 4 hours. Last night, he was agitated, received a PRN Zyprexa with positive results. Review of Systems: No CV, , Pulmonary, Eye, ENT system symptoms on review. Reliability poor. MSE: Oriented to himself. Insight, judgment, recent and remote memory, attention, concentration, fund of knowledge are poor consistent with his diagnosis. Imp: Major neurocognitive disorder, Alzheimer's vascular with delusion, depression, behavioral disturbance. Anxiety disorder, unspecified. Impulse control disorder, unspecified. Plan: Continue Zyprexa p.r.n., Periactin 4 mg h.s. Start Remeron 7.5 mg h.s. since he slept 4 hours and this should help both the insomnia and anxiety. Start Zoloft 25 mg a day. I do not see a benefit from adding cholinesterase inhibitor or Namenda at this stage of his dementia. Adjust further as clinically indicated. Assessment: Vital Signs: Vital Signs Date Time Temp Pulse Resp B/P (MAP) Pulse Ox O2 Delivery O2 Flow Rate FiO2 05/07/17 15:32 98.2 65 20 157/74 (101) 96 05/07/17 06:10 Room Air I&O Intake and Output 05/07/17 07:00 Intake Total 1080 ml Balance 1080 ml Intake Oral 1080 ml Current Medications: Meds: Current Medications Sodium Chloride 1,000 ml @ 1,000 mls/hr 1X ONCE IV ; Start 05/02/17 at 12:00; Stop 05/02/17 at 12:59; Status DC Haloperidol Lactate (Haldol) 5 mg 1X ONCE IVP ; Start 05/02/17 at 12:00; Stop at 12:01; Status DC Lorazepam (Ativan) 2 mg 1X ONCE IV ; Start 05/02/17 at 12:00; Stop 05/02/17 at 12 :01; Status DC Acetaminophen (Tylenol) 650 mg PRN Q6HRS PRN PO PAIN / TEMP Last administered on 05/03/17 09:13; Start 05/02/17 at 14:45 Multi-Ingredient Ointment (Analgesic [place]) 1 savanna PRN QID PRN TP MUSCLE PAIN; Start 05/02/17 at 14:45 Al Hydroxide/Mg Hydroxide (Mylanta Plus Xs) 15 ml PRN AFTMEALHC PRN PO DYSPEPSIA; Start 05/02/17 at 14:45 Magnesium Hydroxide (Milk Of Magnesia) 2,400 mg PRN QHS PRN PO CONSTIPATION; Start 05/02/17 at 14:45 Olanzapine (ZyPREXA ZYDIS) 2.5 mg PRN Q2HR PRN PO PSYCHOSIS Last administered on 05/05/17 01:34; Start 05/02/17 at 15:45 Hydroxyurea (Hydrea) 1,000 mg DAILY PO ; Start 05/03/17 at 09:00; Stop 05/03/17 at 09:00; Status DC Hydroxyurea (Hydrea) 1,000 mg DAILY PO Last administered on 05/07/17 08:08; Start 05/03/17 at 09:00 Aspirin (Oneil Aspirin) 325 mg DAILYWBKFT PO Last administered on 05/07/17 08: 06; Start 05/04/17 at 08:00 Ferrous Sulfate (Feosol) 325 mg DAILYWBKFT PO Last administered on 05/06/17 08: 07; Start 05/04/17 at 08:00; Stop 05/06/17 at 18:23; Status DC Cyproheptadine HCl (Periactin) 4 mg QHS PO Last administered on 05/07/17 19:22 ; Start 05/03/17 at 21:00 Sertraline HCl (Zoloft) 25 mg DAILY PO Last administered on 05/05/17 08:03; Start 05/05/17 at 09:00; Stop 05/05/17 at 18:27; Status DC Mirtazapine (Remeron) 7.5 mg QHS PO Last administered on 05/07/17 19:22; Start 05/04/17 at 21:00 Sertraline HCl (Zoloft) 50 mg DAILY PO Last administered on 05/07/17 08:07; Start 05/06/17 at 09:00; Stop 05/07/17 at 13:23; Status DC Trazodone HCl (Desyrel) 50 mg QHS PRN PO INSOMNIA, MAY REPEAT X1 Last administered on 05/07/17 19:22; Start 05/05/17 at 18:30 Sertraline HCl (Zoloft) 50 mg DAILY PO ; Start 05/08/17 at 09:00 Active Scripts Active Reported Hydroxyurea 500 Mg Capsule 1,000 Mg PO DAILY CECILIA PARR MD May 07, 2017 20:15
--- NOTE | 2017-05-07 20:50 | PDOC ---
Exam Ivan Demential Exam: Ivan Note: Please also refer to the separate dictated note~for this date of service dictated separately.~Patient seen individually. Discussed the patient with Nursing staff reviewed the chart.~Reviewed interim history and current functioning. Reviewed vital signs,~Labs/ Radiology~and current medications noted below. Continue current treatment with the changes noted in the dictated addendum note DATE OF SERVICE: 05/05/2017. PSYCHIATRIC PROGRESS NOTE This is a late entry for Date of Service 05/05/2017. The patient seen individually on rounds the evening of 05/05/2017. Discussed with nursing staff. Reviewed the chart. Per nursing report last night the patient was having active hallucination, seeing little boys in the light sockets and today he was seeing them in the wall. I met with the patient evening of 05/05/2017. No CV, , pulmonary, eye , ENT systems symptoms on review. Reliability poor. MENTAL STATUS EXAM: Oriented to herself. Insight and judgment, recent and remote memory, attention and concentration, fund of knowledge poor consistent with his diagnoses mentioned in my initial note. PLAN: The patient slept just 2-1/2 hours last night. Will add trazodone 50 mg h.s. p.r.n. insomnia, may repeat x1. Increase Zoloft from 25 mg a day to 50 mg a day. Continue Remeron 7.5 mg h.s., Zyprexa p.r.n. Assessment: Vital Signs: Vital Signs Date Time Temp Pulse Resp B/P (MAP) Pulse Ox O2 Delivery O2 Flow Rate FiO2 05/07/17 15:32 98.2 65 20 157/74 (101) 96 05/07/17 06:10 Room Air I&O Intake and Output 05/07/17 07:00 Intake Total 1080 ml Balance 1080 ml Intake Oral 1080 ml Current Medications: Meds: Current Medications Sodium Chloride 1,000 ml @ 1,000 mls/hr 1X ONCE IV ; Start 05/02/17 at 12:00; Stop 05/02/17 at 12:59; Status DC Haloperidol Lactate (Haldol) 5 mg 1X ONCE IVP ; Start 05/02/17 at 12:00; Stop at 12:01; Status DC Lorazepam (Ativan) 2 mg 1X ONCE IV ; Start 05/02/17 at 12:00; Stop 05/02/17 at 12 :01; Status DC Acetaminophen (Tylenol) 650 mg PRN Q6HRS PRN PO PAIN / TEMP Last administered on 05/03/17 09:13; Start 05/02/17 at 14:45 Multi-Ingredient Ointment (Analgesic [place]) 1 savanna PRN QID PRN TP MUSCLE PAIN; Start 05/02/17 at 14:45 Al Hydroxide/Mg Hydroxide (Mylanta Plus Xs) 15 ml PRN AFTMEALHC PRN PO DYSPEPSIA; Start 05/02/17 at 14:45 Magnesium Hydroxide (Milk Of Magnesia) 2,400 mg PRN QHS PRN PO CONSTIPATION; Start 05/02/17 at 14:45 Olanzapine (ZyPREXA ZYDIS) 2.5 mg PRN Q2HR PRN PO PSYCHOSIS Last administered on 05/05/17 01:34; Start 05/02/17 at 15:45 Hydroxyurea (Hydrea) 1,000 mg DAILY PO ; Start 05/03/17 at 09:00; Stop 05/03/17 at 09:00; Status DC Hydroxyurea (Hydrea) 1,000 mg DAILY PO Last administered on 05/07/17 08:08; Start 05/03/17 at 09:00 Aspirin (Oneil Aspirin) 325 mg DAILYWBKFT PO Last administered on 05/07/17 08: 06; Start 05/04/17 at 08:00 Ferrous Sulfate (Feosol) 325 mg DAILYWBKFT PO Last administered on 05/06/17 08: 07; Start 05/04/17 at 08:00; Stop 05/06/17 at 18:23; Status DC Cyproheptadine HCl (Periactin) 4 mg QHS PO Last administered on 05/07/17 19:22 ; Start 05/03/17 at 21:00 Sertraline HCl (Zoloft) 25 mg DAILY PO Last administered on 05/05/17 08:03; Start 05/05/17 at 09:00; Stop 05/05/17 at 18:27; Status DC Mirtazapine (Remeron) 7.5 mg QHS PO Last administered on 05/07/17 19:22; Start 05/04/17 at 21:00 Sertraline HCl (Zoloft) 50 mg DAILY PO Last administered on 05/07/17 08:07; Start 05/06/17 at 09:00; Stop 05/07/17 at 13:23; Status DC Trazodone HCl (Desyrel) 50 mg QHS PRN PO INSOMNIA, MAY REPEAT X1 Last administered on 05/07/17 19:22; Start 05/05/17 at 18:30 Sertraline HCl (Zoloft) 50 mg DAILY PO ; Start 05/08/17 at 09:00 Active Scripts Active Reported Hydroxyurea 500 Mg Capsule 1,000 Mg PO DAILY CECILIA PARR MD May 07, 2017 20:50
--- NOTE | 2017-05-07 21:18 | PDOC ---
Exam Ivan Demential Exam: Ivan Note: Please also refer to the separate dictated note~for this date of service dictated separately.~Patient seen individually. Discussed the patient with Nursing staff reviewed the chart.~Reviewed interim history and current functioning. Reviewed vital signs,~Labs/ Radiology~and current medications noted below. Continue current treatment with the changes noted in the dictated addendum note Assessment: Vital Signs: Vital Signs Date Time Temp Pulse Resp B/P (MAP) Pulse Ox O2 Delivery O2 Flow Rate FiO2 05/07/17 15:32 98.2 65 20 157/74 (101) 96 05/07/17 06:10 Room Air I&O Intake and Output 05/07/17 07:00 Intake Total 1080 ml Balance 1080 ml Intake Oral 1080 ml Current Medications: Meds: Current Medications Sodium Chloride 1,000 ml @ 1,000 mls/hr 1X ONCE IV ; Start 05/02/17 at 12:00; Stop 05/02/17 at 12:59; Status DC Haloperidol Lactate (Haldol) 5 mg 1X ONCE IVP ; Start 05/02/17 at 12:00; Stop at 12:01; Status DC Lorazepam (Ativan) 2 mg 1X ONCE IV ; Start 05/02/17 at 12:00; Stop 05/02/17 at 12 :01; Status DC Acetaminophen (Tylenol) 650 mg PRN Q6HRS PRN PO PAIN / TEMP Last administered on 05/03/17 09:13; Start 05/02/17 at 14:45 Multi-Ingredient Ointment (Analgesic [place]) 1 savanna PRN QID PRN TP MUSCLE PAIN; Start 05/02/17 at 14:45 Al Hydroxide/Mg Hydroxide (Mylanta Plus Xs) 15 ml PRN AFTMEALHC PRN PO DYSPEPSIA; Start 05/02/17 at 14:45 Magnesium Hydroxide (Milk Of Magnesia) 2,400 mg PRN QHS PRN PO CONSTIPATION; Start 05/02/17 at 14:45 Olanzapine (ZyPREXA ZYDIS) 2.5 mg PRN Q2HR PRN PO PSYCHOSIS Last administered on 05/05/17 01:34; Start 05/02/17 at 15:45 Hydroxyurea (Hydrea) 1,000 mg DAILY PO ; Start 05/03/17 at 09:00; Stop 05/03/17 at 09:00; Status DC Hydroxyurea (Hydrea) 1,000 mg DAILY PO Last administered on 05/07/17 08:08; Start 05/03/17 at 09:00 Aspirin (Oneil Aspirin) 325 mg DAILYWBKFT PO Last administered on 05/07/17 08: 06; Start 05/04/17 at 08:00 Ferrous Sulfate (Feosol) 325 mg DAILYWBKFT PO Last administered on 05/06/17 08: 07; Start 05/04/17 at 08:00; Stop 05/06/17 at 18:23; Status DC Cyproheptadine HCl (Periactin) 4 mg QHS PO Last administered on 05/07/17 19:22 ; Start 05/03/17 at 21:00 Sertraline HCl (Zoloft) 25 mg DAILY PO Last administered on 05/05/17 08:03; Start 05/05/17 at 09:00; Stop 05/05/17 at 18:27; Status DC Mirtazapine (Remeron) 7.5 mg QHS PO Last administered on 05/07/17 19:22; Start 05/04/17 at 21:00 Sertraline HCl (Zoloft) 50 mg DAILY PO Last administered on 05/07/17 08:07; Start 05/06/17 at 09:00; Stop 05/07/17 at 13:23; Status DC Trazodone HCl (Desyrel) 50 mg QHS PRN PO INSOMNIA, MAY REPEAT X1 Last administered on 05/07/17 19:22; Start 05/05/17 at 18:30 Sertraline HCl (Zoloft) 50 mg DAILY PO ; Start 05/08/17 at 09:00 Active Scripts Active Reported Hydroxyurea 500 Mg Capsule 1,000 Mg PO DAILY Diagnosis: Problems: (1) Altered mental status (2) Anxiety disorder (3) Impulse control disorder (4) Dementia, vascular, with depression (5) Dementia, vascular, with delusions (6) Dementia in Alzheimer's disease with depression (7) Dementia in Alzheimer's disease with delusions CECILIA PARR MD May 07, 2017 21:18
[2017-05-08 05:48] VITALS: BP 141/77
[2017-05-08] MEDS: ASPIRIN 325 MG TABLET PO SCH (08:18)
[2017-05-08] MEDS: HYDROXYUREA 500 MG CAPSULE PO SCH (08:19)
[2017-05-08] MEDS: SERTRALINE 50 MG TABLET. PO SCH (08:19)
[2017-05-08 13:47] LABS: BASO # 0.4 x10^3/uL (0.0-0.2); BASO % 3 % (0-3); EOS # 0.8 x10^3/uL (0.0-0.7); EOS % 6 % (0-3); HEMATOCRIT 43.7 % (39.0-53.0); HEMOGLOBIN 13.7 g/dL (13.0-17.5); LYMPH # 1.5 x10^3/uL (1.0-4.8); LYMPH % 10 % (24-48); MEAN CORPUSCULAR HEMOGLOBIN 23 pg (25-35); MEAN CORPUSCULAR HGB CONC 31 g/dL (31-37); MEAN CORPUSCULAR VOLUME 74 fL (79-100); MONO # 0.4 x10^3/uL (0.0-1.1); MONO % 3 % (0-9); NEUT # 11.7 x10^3uL (1.8-7.7); NEUT % 79 % (31-73); RED BLOOD COUNT 5.87 x10^6/uL (4.30-5.70); RED CELL DISTRIBUTION WIDTH 20.4 % (11.5-14.5); WHITE BLOOD COUNT 14.8 x10^3/uL (4.0-11.0)
[2017-05-08 13:53] LABS: ALBUMIN 3.5 g/dL (3.4-5.0); ALBUMIN/GLOBULIN RATIO 0.9 (1.0-1.7); CALCIUM 8.6 mg/dL (8.5-10.1); CREATININE 1.2 mg/dL (0.7-1.3); GFR 58.7; PLATELET COUNT 1172 x10^3/uL (140-400); POTASSIUM 4.7 mmol/L (3.5-5.1); TOTAL BILIRUBIN 0.4 mg/dL (0.2-1.0); TOTAL PROTEIN 7.4 g/dL (6.4-8.2)
[2017-05-08 15:59] VITALS: BP 133/77
--- NOTE | 2017-05-08 20:10 | PDOC ---
Exam Ivan Demential Exam: Ivan Note: Please also refer to the separate dictated note~for this date of service dictated separately.~Patient seen individually. Discussed the patient with Nursing staff reviewed the chart.~Reviewed interim history and current functioning. Reviewed vital signs,~Labs/ Radiology~and current medications noted below. Continue current treatment with the changes noted in the dictated addendum note Assessment: Vital Signs: Vital Signs Date Time Temp Pulse Resp B/P (MAP) Pulse Ox O2 Delivery O2 Flow Rate FiO2 05/08/17 15:59 98.2 67 16 133/77 (95) 95 05/07/17 06:10 Room Air I&O Intake and Output 05/08/17 07:00 Intake Total 1440 ml Balance 1440 ml Intake Oral 1440 ml Labs: Laboratory Tests Test 05/08/17 13:15 White Blood Count 14.8 x10^3/uL (4.0-11.0) H Red Blood Count 5.87 x10^6/uL (4.30-5.70) H Hemoglobin 13.7 g/dL (13.0-17.5) Hematocrit 43.7 % (39.0-53.0) Mean Corpuscular Volume 74 fL (79-100) L Mean Corpuscular Hemoglobin 23 pg (25-35) L Mean Corpuscular Hemoglobin Concent 31 g/dL (31-37) Red Cell Distribution Width 20.4 % (11.5-14.5) H Platelet Count 1172 x10^3/uL (140-400) *H Neutrophils (%) (Auto) 79 % (31-73) H Lymphocytes (%) (Auto) 10 % (24-48) L Monocytes (%) (Auto) 3 % (0-9) Eosinophils (%) (Auto) 6 % (0-3) H Basophils (%) (Auto) 3 % (0-3) Neutrophils # (Auto) 11.7 x10^3uL (1.8-7.7) H Lymphocytes # (Auto) 1.5 x10^3/uL (1.0-4.8) Monocytes # (Auto) 0.4 x10^3/uL (0.0-1.1) Eosinophils # (Auto) 0.8 x10^3/uL (0.0-0.7) H Basophils # (Auto) 0.4 x10^3/uL (0.0-0.2) H Sodium Level 140 mmol/L (136-145) Potassium Level 4.7 mmol/L (3.5-5.1) Chloride Level 102 mmol/L (98-107) Carbon Dioxide Level 33 mmol/L (21-32) H Anion Gap 5 (6-14) L Blood Urea Nitrogen 23 mg/dL (8-26) Creatinine 1.2 mg/dL (0.7-1.3) Estimated GFR (Cockcroft-Gault) 58.7 BUN/Creatinine Ratio 19 (6-20) Glucose Level 104 mg/dL (70-99) H Calcium Level 8.6 mg/dL (8.5-10.1) Total Bilirubin 0.4 mg/dL (0.2-1.0) Aspartate Amino Transferase (AST) 15 U/L (15-37) Alanine Aminotransferase (ALT) 10 U/L (16-63) L Alkaline Phosphatase 111 U/L (46-116) Total Protein 7.4 g/dL (6.4-8.2) Albumin 3.5 g/dL (3.4-5.0) Albumin/Globulin Ratio 0.9 (1.0-1.7) L Current Medications: Meds: Current Medications Sodium Chloride 1,000 ml @ 1,000 mls/hr 1X ONCE IV ; Start 05/02/17 at 12:00; Stop 05/02/17 at 12:59; Status DC Haloperidol Lactate (Haldol) 5 mg 1X ONCE IVP ; Start 05/02/17 at 12:00; Stop at 12:01; Status DC Lorazepam (Ativan) 2 mg 1X ONCE IV ; Start 05/02/17 at 12:00; Stop 05/02/17 at 12 :01; Status DC Acetaminophen (Tylenol) 650 mg PRN Q6HRS PRN PO PAIN / TEMP Last administered on 05/03/17t 09:13; Start 05/02/17 at 14:45 Multi-Ingredient Ointment (Analgesic [place]) 1 savanna PRN QID PRN TP MUSCLE PAIN; Start 05/02/17 at 14:45 Al Hydroxide/Mg Hydroxide (Mylanta Plus Xs) 15 ml PRN AFTMEALHC PRN PO DYSPEPSIA; Start 05/02/17 at 14:45 Magnesium Hydroxide (Milk Of Magnesia) 2,400 mg PRN QHS PRN PO CONSTIPATION; Start 05/02/17 at 14:45 Olanzapine (ZyPREXA ZYDIS) 2.5 mg PRN Q2HR PRN PO PSYCHOSIS Last administered on 05/05/17 01:34; Start 05/02/17 at 15:45 Hydroxyurea (Hydrea) 1,000 mg DAILY PO ; Start 05/03/17 at 09:00; Stop 05/03/17 at 09:00; Status DC Hydroxyurea (Hydrea) 1,000 mg DAILY PO Last administered on 05/08/17 08:19; Start 05/03/17 at 09:00; Stop 05/08/17 at 16:14; Status DC Aspirin (Oneil Aspirin) 325 mg DAILYWBKFT PO Last administered on 05/08/17 08: 18; Start 05/04/17 at 08:00 Ferrous Sulfate (Feosol) 325 mg DAILYWBKFT PO Last administered on 05/06/17 08: 07; Start 05/04/17 at 08:00; Stop 05/06/17 at 18:23; Status DC Cyproheptadine HCl (Periactin) 4 mg QHS PO Last administered on 05/07/17 19:22 ; Start 05/03/17 at 21:00 Sertraline HCl (Zoloft) 25 mg DAILY PO Last administered on 05/05/17 08:03; Start 05/05/17 at 09:00; Stop 05/05/17 at 18:27; Status DC Mirtazapine (Remeron) 7.5 mg QHS PO Last administered on 05/07/17 19:22; Start 05/04/17 at 21:00 Sertraline HCl (Zoloft) 50 mg DAILY PO Last administered on 05/07/17 08:07; Start 05/06/17 at 09:00; Stop 05/07/17 at 13:23; Status DC Trazodone HCl (Desyrel) 50 mg QHS PRN PO INSOMNIA, MAY REPEAT X1 Last administered on 05/07/17 19:22; Start 05/05/17 at 18:30 Sertraline HCl (Zoloft) 50 mg DAILY PO Last administered on 05/08/17 08:19; Start 05/08/17 at 09:00 Hydroxyurea (Hydrea) 1,500 mg DAILY PO ; Start 05/09/17 at 09:00 Active Scripts Active Reported Hydroxyurea 500 Mg Capsule 1,000 Mg PO DAILY Diagnosis: Problems: (1) Altered mental status (2) Anxiety disorder (3) Impulse control disorder (4) Dementia, vascular, with depression (5) Dementia, vascular, with delusions (6) Dementia in Alzheimer's disease with depression (7) Dementia in Alzheimer's disease with delusions CECILIA PARR MD May 08, 2017 20:09
[2017-05-08] MEDS: MIRTAZAPINE 7.5 MG TABLET. PO SCH (21:14)
[2017-05-08] MEDS: CYPROHEPTADINE 4 MG TABLET. PO SCH (21:14)
[2017-05-09 06:14] VITALS: BP 135/71
[2017-05-09] MEDS: SERTRALINE 50 MG TABLET. PO SCH (08:34)
[2017-05-09] MEDS: ASPIRIN 325 MG TABLET PO SCH (08:34)
[2017-05-09] MEDS: HYDROXYUREA 500 MG CAPSULE PO SCH (08:37)
[2017-05-09 15:55] VITALS: BP 138/70
[2017-05-09] MEDS: CYPROHEPTADINE 4 MG TABLET. PO SCH (20:01)
[2017-05-09] MEDS: MIRTAZAPINE 7.5 MG TABLET. PO SCH (20:01)
[2017-05-09] MEDS: traZODone 50 MG TABLET. PO PRN (20:01)
--- NOTE | 2017-05-09 23:22 | PDOC ---
Exam Ivan Demential Exam: Ivan Note: Please also refer to the separate dictated note~for this date of service dictated separately.~Patient seen individually. Discussed the patient with Nursing staff reviewed the chart.~Reviewed interim history and current functioning. Reviewed vital signs,~Labs/ Radiology~and current medications noted below. Continue current treatment with the changes noted in the dictated addendum note Assessment: Vital Signs: Vital Signs Date Time Temp Pulse Resp B/P (MAP) Pulse Ox O2 Delivery O2 Flow Rate FiO2 05/09/17 15:55 98.0 70 18 138/70 (92) 96 Room Air I&O Intake and Output 05/09/17 07:00 Intake Total 960 ml Balance 960 ml Intake Oral 960 ml # Voids 1 Current Medications: Meds: Current Medications Sodium Chloride 1,000 ml @ 1,000 mls/hr 1X ONCE IV ; Start 05/02/17 at 12:00; Stop 05/02/17 at 12:59; Status DC Haloperidol Lactate (Haldol) 5 mg 1X ONCE IVP ; Start 05/02/17 at 12:00; Stop at 12:01; Status DC Lorazepam (Ativan) 2 mg 1X ONCE IV ; Start 05/02/17 at 12:00; Stop 05/02/17 at 12 :01; Status DC Acetaminophen (Tylenol) 650 mg PRN Q6HRS PRN PO PAIN / TEMP Last administered on 05/03/17 09:13; Start 05/02/17 at 14:45 Multi-Ingredient Ointment (Analgesic [place]) 1 savanna PRN QID PRN TP MUSCLE PAIN; Start 05/02/17 at 14:45 Al Hydroxide/Mg Hydroxide (Mylanta Plus Xs) 15 ml PRN AFTMEALHC PRN PO DYSPEPSIA; Start 05/02/17 at 14:45 Magnesium Hydroxide (Milk Of Magnesia) 2,400 mg PRN QHS PRN PO CONSTIPATION; Start 05/02/17 at 14:45 Olanzapine (ZyPREXA ZYDIS) 2.5 mg PRN Q2HR PRN PO PSYCHOSIS Last administered on 05/05/17 01:34; Start 05/02/17 at 15:45 Hydroxyurea (Hydrea) 1,000 mg DAILY PO ; Start 05/03/17 at 09:00; Stop 05/03/17 at 09:00; Status DC Hydroxyurea (Hydrea) 1,000 mg DAILY PO Last administered on 05/08/17 08:19; Start 05/03/17 at 09:00; Stop 05/08/17 at 16:14; Status DC Aspirin (Oneli Aspirin) 325 mg DAILYWBKFT PO Last administered on 05/09/17 08: 34; Start 05/04/17 at 08:00 Ferrous Sulfate (Feosol) 325 mg DAILYWBKFT PO Last administered on 05/06/17 08: 07; Start 05/04/17 at 08:00; Stop 05/06/17 at 18:23; Status DC Cyproheptadine HCl (Periactin) 4 mg QHS PO Last administered on 05/09/17 20:01 ; Start 05/03/17 at 21:00 Sertraline HCl (Zoloft) 25 mg DAILY PO Last administered on 05/05/17 08:03; Start 05/05/17 at 09:00; Stop 05/05/17 at 18:27; Status DC Mirtazapine (Remeron) 7.5 mg QHS PO Last administered on 05/09/17 20:01; Start 05/04/17 at 21:00 Sertraline HCl (Zoloft) 50 mg DAILY PO Last administered on 05/07/17 08:07; Start 05/06/17 at 09:00; Stop 05/07/17 at 13:23; Status DC Trazodone HCl (Desyrel) 50 mg QHS PRN PO INSOMNIA, MAY REPEAT X1 Last administered on 05/09/17 20:01; Start 05/05/17 at 18:30 Sertraline HCl (Zoloft) 50 mg DAILY PO Last administered on 05/09/17 08:34; Start 05/08/17 at 09:00 Hydroxyurea (Hydrea) 1,500 mg DAILY PO Last administered on 05/09/17 08:37; Start 05/09/17 at 09:00 Active Scripts Active Reported Hydroxyurea 500 Mg Capsule 1,000 Mg PO DAILY Diagnosis: Problems: (1) Altered mental status (2) Anxiety disorder (3) Impulse control disorder (4) Dementia, vascular, with depression (5) Dementia, vascular, with delusions (6) Dementia in Alzheimer's disease with depression (7) Dementia in Alzheimer's disease with delusions CECILIA PARR MD May 09, 2017 23:22
[2017-05-10 06:27] VITALS: BP 156/78
[2017-05-10] MEDS: SERTRALINE 50 MG TABLET. PO SCH (07:59)
[2017-05-10] MEDS: ASPIRIN 325 MG TABLET PO SCH (07:59)
[2017-05-10] MEDS: HYDROXYUREA 500 MG CAPSULE PO SCH (08:00)
[2017-05-10 16:46] VITALS: BP 135/69
--- NOTE | 2017-05-10 20:19 | PDOC ---
Exam Ivan Demential Exam: Ivan Note: Please also refer to the separate dictated note~for this date of service dictated separately.~Patient seen individually. Discussed the patient with Nursing staff reviewed the chart.~Reviewed interim history and current functioning. Reviewed vital signs,~Labs/ Radiology~and current medications noted below. Continue current treatment with the changes noted in the dictated addendum note Assessment: Vital Signs: Vital Signs Date Time Temp Pulse Resp B/P (MAP) Pulse Ox O2 Delivery O2 Flow Rate FiO2 05/10/17 16:46 98.7 77 20 135/69 (91) 98 05/10/17 06:27 Room Air I&O Intake and Output 05/10/17 07:00 Intake Total 960 ml Balance 960 ml Intake Oral 960 ml # Voids 1 Current Medications: Meds: Current Medications Sodium Chloride 1,000 ml @ 1,000 mls/hr 1X ONCE IV ; Start 05/02/17 at 12:00; Stop 05/02/17 at 12:59; Status DC Haloperidol Lactate (Haldol) 5 mg 1X ONCE IVP ; Start 05/02/17 at 12:00; Stop at 12:01; Status DC Lorazepam (Ativan) 2 mg 1X ONCE IV ; Start 05/02/17 at 12:00; Stop 05/02/17 at 12 :01; Status DC Acetaminophen (Tylenol) 650 mg PRN Q6HRS PRN PO PAIN / TEMP Last administered on 05/03/17 09:13; Start 05/02/17 at 14:45 Multi-Ingredient Ointment (Analgesic [place]) 1 savanna PRN QID PRN TP MUSCLE PAIN; Start 05/02/17 at 14:45 Al Hydroxide/Mg Hydroxide (Mylanta Plus Xs) 15 ml PRN AFTMEALHC PRN PO DYSPEPSIA; Start 05/02/17 at 14:45 Magnesium Hydroxide (Milk Of Magnesia) 2,400 mg PRN QHS PRN PO CONSTIPATION; Start 05/02/17 at 14:45 Olanzapine (ZyPREXA ZYDIS) 2.5 mg PRN Q2HR PRN PO PSYCHOSIS Last administered on 05/05/17 01:34; Start 05/02/17 at 15:45 Hydroxyurea (Hydrea) 1,000 mg DAILY PO ; Start 05/03/17 at 09:00; Stop 05/03/17 at 09:00; Status DC Hydroxyurea (Hydrea) 1,000 mg DAILY PO Last administered on 05/08/17 08:19; Start 05/03/17 at 09:00; Stop 05/08/17 at 16:14; Status DC Aspirin (Oneil Aspirin) 325 mg DAILYWBKFT PO Last administered on 05/10/17 07: 59; Start 05/04/17 at 08:00 Ferrous Sulfate (Feosol) 325 mg DAILYWBKFT PO Last administered on 05/06/17 08: 07; Start 05/04/17 at 08:00; Stop 05/06/17 at 18:23; Status DC Cyproheptadine HCl (Periactin) 4 mg QHS PO Last administered on 05/09/17 20:01 ; Start 05/03/17 at 21:00 Sertraline HCl (Zoloft) 25 mg DAILY PO Last administered on 05/05/17 08:03; Start 05/05/17 at 09:00; Stop 05/05/17 at 18:27; Status DC Mirtazapine (Remeron) 7.5 mg QHS PO Last administered on 05/09/17 20:01; Start 05/04/17 at 21:00 Sertraline HCl (Zoloft) 50 mg DAILY PO Last administered on 05/07/17 08:07; Start 05/06/17 at 09:00; Stop 05/07/17 at 13:23; Status DC Trazodone HCl (Desyrel) 50 mg QHS PRN PO INSOMNIA, MAY REPEAT X1 Last administered on 05/09/17 20:01; Start 05/05/17 at 18:30 Sertraline HCl (Zoloft) 50 mg DAILY PO Last administered on 05/10/17 07:59; Start 05/08/17 at 09:00 Hydroxyurea (Hydrea) 1,500 mg DAILY PO Last administered on 05/10/17 08:00; Start 05/09/17 at 09:00 Active Scripts Active Reported Hydroxyurea 500 Mg Capsule 1,000 Mg PO DAILY Diagnosis: Problems: (1) Anxiety disorder (2) Altered mental status (3) Impulse control disorder (4) Dementia, vascular, with depression (5) Dementia, vascular, with delusions (6) Dementia in Alzheimer's disease with depression (7) Dementia in Alzheimer's disease with delusions CECILIA PARR MD May 10, 2017 20:18
[2017-05-10] MEDS: CYPROHEPTADINE 4 MG TABLET. PO SCH (20:29)
[2017-05-10] MEDS: traZODone 50 MG TABLET. PO PRN (20:29)
[2017-05-10] MEDS: MIRTAZAPINE 7.5 MG TABLET. PO SCH (20:29)
[2017-05-11 05:56] VITALS: BP 121/70
[2017-05-11 06:43] LABS: BASO # 0.4 x10^3/uL (0.0-0.2); BASO % 4 % (0-3); EOS # 0.5 x10^3/uL (0.0-0.7); EOS % 6 % (0-3); HEMATOCRIT 45.1 % (39.0-53.0); HEMOGLOBIN 14.2 g/dL (13.0-17.5); LYMPH # 1.3 x10^3/uL (1.0-4.8); LYMPH % 16 % (24-48); MEAN CORPUSCULAR HEMOGLOBIN 23 pg (25-35); MEAN CORPUSCULAR HGB CONC 31 g/dL (31-37); MEAN CORPUSCULAR VOLUME 74 fL (79-100); MONO # 0.2 x10^3/uL (0.0-1.1); MONO % 3 % (0-9); NEUT # 6.1 x10^3uL (1.8-7.7); NEUT % 71 % (31-73); RED BLOOD COUNT 6.06 x10^6/uL (4.30-5.70); RED CELL DISTRIBUTION WIDTH 20.4 % (11.5-14.5); WHITE BLOOD COUNT 8.5 x10^3/uL (4.0-11.0)
[2017-05-11 06:55] LABS: ALBUMIN 3.4 g/dL (3.4-5.0); ALBUMIN/GLOBULIN RATIO 0.9 (1.0-1.7); CALCIUM 8.7 mg/dL (8.5-10.1); CREATININE 1.1 mg/dL (0.7-1.3); GFR 64.9; POTASSIUM 4.5 mmol/L (3.5-5.1); TOTAL BILIRUBIN 0.8 mg/dL (0.2-1.0); TOTAL PROTEIN 7.2 g/dL (6.4-8.2)
[2017-05-11] MEDS: ASPIRIN 325 MG TABLET PO SCH (08:30)
[2017-05-11 08:33] LABS: PLT ESTIMATE INCREASED (ADEQUATE)
[2017-05-11] MEDS: HYDROXYUREA 500 MG CAPSULE PO SCH (08:35)
[2017-05-11] MEDS: SERTRALINE 50 MG TABLET. PO SCH (08:35)
[2017-05-11 08:38] LABS: ANISOCYTOSIS MOD; POIKILOCYTOSIS MOD
[2017-05-11 08:39] LABS: OVALOCYTES MOD; TEAR DROP CELLS OCC
[2017-05-11 08:40] LABS: HYPOCHROMIA SLIGHT; MICROCYTOSIS SLIGHT
[2017-05-11 08:41] LABS: POLYCHROMASIA SLIGHT
[2017-05-11 15:38] VITALS: BP 133/73
[2017-05-11] MEDS: MIRTAZAPINE 7.5 MG TABLET. PO SCH (19:28)
[2017-05-11] MEDS: CYPROHEPTADINE 4 MG TABLET. PO SCH (19:28)
--- NOTE | 2017-05-11 20:23 | PDOC ---
Exam Ivan Demential Exam: Ivan Note: Please also refer to the separate dictated note~for this date of service dictated separately.~Patient seen individually. Discussed the patient with Nursing staff reviewed the chart.~Reviewed interim history and current functioning. Reviewed vital signs,~Labs/ Radiology~and current medications noted below. Continue current treatment with the changes noted in the dictated addendum note Assessment: Vital Signs: Vital Signs Date Time Temp Pulse Resp B/P (MAP) Pulse Ox O2 Delivery O2 Flow Rate FiO2 05/11/17 15:38 98.5 72 18 133/73 (93) 96 05/10/17 06:27 Room Air I&O Intake and Output 05/11/17 07:00 Intake Total 1200 ml Balance 1200 ml Intake Oral 1200 ml Labs: Laboratory Tests Test 05/11/17 06:21 White Blood Count 8.5 x10^3/uL (4.0-11.0) Red Blood Count 6.06 x10^6/uL (4.30-5.70) H Hemoglobin 14.2 g/dL (13.0-17.5) Hematocrit 45.1 % (39.0-53.0) Mean Corpuscular Volume 74 fL (79-100) L Mean Corpuscular Hemoglobin 23 pg (25-35) L Mean Corpuscular Hemoglobin Concent 31 g/dL (31-37) Red Cell Distribution Width 20.4 % (11.5-14.5) H Platelet Count 1065 x10^3/uL (140-400) *H Neutrophils (%) (Auto) 71 % (31-73) Lymphocytes (%) (Auto) 16 % (24-48) L Monocytes (%) (Auto) 3 % (0-9) Eosinophils (%) (Auto) 6 % (0-3) H Basophils (%) (Auto) 4 % (0-3) H Neutrophils # (Auto) 6.1 x10^3uL (1.8-7.7) Lymphocytes # (Auto) 1.3 x10^3/uL (1.0-4.8) Monocytes # (Auto) 0.2 x10^3/uL (0.0-1.1) Eosinophils # (Auto) 0.5 x10^3/uL (0.0-0.7) Basophils # (Auto) 0.4 x10^3/uL (0.0-0.2) H Platelet Estimate Increased (ADEQUATE) Large Platelets Few Giant Platelets Occ Polychromasia Slight Hypochromasia Slight Poikilocytosis Mod Anisocytosis Mod Microcytosis Slight Tear Drop Cells Occ Ovalocytes Mod Sodium Level 141 mmol/L (136-145) Potassium Level 4.5 mmol/L (3.5-5.1) Chloride Level 104 mmol/L (98-107) Carbon Dioxide Level 33 mmol/L (21-32) H Anion Gap 4 (6-14) L Blood Urea Nitrogen 22 mg/dL (8-26) Creatinine 1.1 mg/dL (0.7-1.3) Estimated GFR (Cockcroft-Gault) 64.9 BUN/Creatinine Ratio 20 (6-20) Glucose Level 88 mg/dL (70-99) Calcium Level 8.7 mg/dL (8.5-10.1) Total Bilirubin 0.8 mg/dL (0.2-1.0) Aspartate Amino Transferase (AST) 17 U/L (15-37) Alanine Aminotransferase (ALT) 9 U/L (16-63) L Alkaline Phosphatase 99 U/L (46-116) Total Protein 7.2 g/dL (6.4-8.2) Albumin 3.4 g/dL (3.4-5.0) Albumin/Globulin Ratio 0.9 (1.0-1.7) L Current Medications: Meds: Current Medications Sodium Chloride 1,000 ml @ 1,000 mls/hr 1X ONCE IV ; Start 05/02/17 at 12:00; Stop 05/02/17 at 12:59; Status DC Haloperidol Lactate (Haldol) 5 mg 1X ONCE IVP ; Start 05/02/17 at 12:00; Stop at 12:01; Status DC Lorazepam (Ativan) 2 mg 1X ONCE IV ; Start 05/02/17 at 12:00; Stop 05/02/17 at 12 :01; Status DC Acetaminophen (Tylenol) 650 mg PRN Q6HRS PRN PO PAIN / TEMP Last administered on 05/03/17t 09:13; Start 05/02/17 at 14:45 Multi-Ingredient Ointment (Analgesic [place]) 1 savanna PRN QID PRN TP MUSCLE PAIN; Start 05/02/17 at 14:45 Al Hydroxide/Mg Hydroxide (Mylanta Plus Xs) 15 ml PRN AFTMEALHC PRN PO DYSPEPSIA; Start 05/02/17 at 14:45 Magnesium Hydroxide (Milk Of Magnesia) 2,400 mg PRN QHS PRN PO CONSTIPATION; Start 05/02/17 at 14:45 Olanzapine (ZyPREXA ZYDIS) 2.5 mg PRN Q2HR PRN PO PSYCHOSIS Last administered on 05/11/17 19:29; Start 05/02/17 at 15:45 Hydroxyurea (Hydrea) 1,000 mg DAILY PO ; Start 05/03/17 at 09:00; Stop 05/03/17 at 09:00; Status DC Hydroxyurea (Hydrea) 1,000 mg DAILY PO Last administered on 05/08/17 08:19; Start 05/03/17 at 09:00; Stop 05/08/17 at 16:14; Status DC Aspirin (Oneil Aspirin) 325 mg DAILYWBKFT PO Last administered on 05/11/17 08: 30; Start 05/04/17 at 08:00 Ferrous Sulfate (Feosol) 325 mg DAILYWBKFT PO Last administered on 05/06/17 08: 07; Start 05/04/17 at 08:00; Stop 05/06/17 at 18:23; Status DC Cyproheptadine HCl (Periactin) 4 mg QHS PO Last administered on 05/11/17 19:28 ; Start 05/03/17 at 21:00 Sertraline HCl (Zoloft) 25 mg DAILY PO Last administered on 05/05/17 08:03; Start 05/05/17 at 09:00; Stop 05/05/17 at 18:27; Status DC Mirtazapine (Remeron) 7.5 mg QHS PO Last administered on 05/11/17 19:28; Start 05/04/17 at 21:00 Sertraline HCl (Zoloft) 50 mg DAILY PO Last administered on 05/07/17 08:07; Start 05/06/17 at 09:00; Stop 05/07/17 at 13:23; Status DC Trazodone HCl (Desyrel) 50 mg QHS PRN PO INSOMNIA, MAY REPEAT X1 Last administered on 7/9/17at 20:29; Start 05/05/17 at 18:30 Sertraline HCl (Zoloft) 50 mg DAILY PO Last administered on 05/11/17 08:35; Start 05/08/17 at 09:00 Hydroxyurea (Hydrea) 1,500 mg DAILY PO Last administered on 05/11/17 08:35; Start 05/09/17 at 09:00 Active Scripts Active Reported Hydroxyurea 500 Mg Capsule 1,000 Mg PO DAILY Diagnosis: Problems: (1) Altered mental status (2) Anxiety disorder (3) Impulse control disorder (4) Dementia, vascular, with depression (5) Dementia, vascular, with delusions (6) Dementia in Alzheimer's disease with depression (7) Dementia in Alzheimer's disease with delusions CECILIA PARR MD May 11, 2017 20:23
--- NOTE | 2017-05-11 21:03 | PDOC ---
Exam Ivan Demential Exam: Ivan Note: Please also refer to the separate dictated note~for this date of service dictated separately.~Patient seen individually. Discussed the patient with Nursing staff reviewed the chart.~Reviewed interim history and current functioning. Reviewed vital signs,~Labs/ Radiology~and current medications noted below. Continue current treatment with the changes noted in the dictated addendum note PSYCHIATRIC PROGRESS NOTE This is a late entry for Date of Service 05/06/2017. The patient seen individually. Discussed with nursing staff. Reviewed the chart evening of May 06, 2017. This note covers elements not covered in my initial of 05/06/2017. Per nursing report the patient had no hallucinations last night or today. Somewhat delusional this morning. Blamed his daughter for putting him here, somewhat intrusive. Slept 5-1/2 hours, received trazodone. No CV, , pulmonary, eye, ENT systems symptoms on review. Reliability poor. MENTAL STATUS EXAM: Oriented to himself. Insight and judgment, recent and remote memory, attention and concentration, fund of knowledge poor consistent with his diagnoses mentioned in my initial note. PLAN: Continue psychotropics mentioned in my initial note, adjust as clinically indicated. Assessment: Vital Signs: Vital Signs Date Time Temp Pulse Resp B/P (MAP) Pulse Ox O2 Delivery O2 Flow Rate FiO2 05/11/17 15:38 98.5 72 18 133/73 (93) 96 05/10/17 06:27 Room Air I&O Intake and Output 05/11/17 07:00 Intake Total 1200 ml Balance 1200 ml Intake Oral 1200 ml Labs: Laboratory Tests Test 05/11/17 06:21 White Blood Count 8.5 x10^3/uL (4.0-11.0) Red Blood Count 6.06 x10^6/uL (4.30-5.70) H Hemoglobin 14.2 g/dL (13.0-17.5) Hematocrit 45.1 % (39.0-53.0) Mean Corpuscular Volume 74 fL (79-100) L Mean Corpuscular Hemoglobin 23 pg (25-35) L Mean Corpuscular Hemoglobin Concent 31 g/dL (31-37) Red Cell Distribution Width 20.4 % (11.5-14.5) H Platelet Count 1065 x10^3/uL (140-400) *H Neutrophils (%) (Auto) 71 % (31-73) Lymphocytes (%) (Auto) 16 % (24-48) L Monocytes (%) (Auto) 3 % (0-9) Eosinophils (%) (Auto) 6 % (0-3) H Basophils (%) (Auto) 4 % (0-3) H Neutrophils # (Auto) 6.1 x10^3uL (1.8-7.7) Lymphocytes # (Auto) 1.3 x10^3/uL (1.0-4.8) Monocytes # (Auto) 0.2 x10^3/uL (0.0-1.1) Eosinophils # (Auto) 0.5 x10^3/uL (0.0-0.7) Basophils # (Auto) 0.4 x10^3/uL (0.0-0.2) H Platelet Estimate Increased (ADEQUATE) Large Platelets Few Giant Platelets Occ Polychromasia Slight Hypochromasia Slight Poikilocytosis Mod Anisocytosis Mod Microcytosis Slight Tear Drop Cells Occ Ovalocytes Mod Sodium Level 141 mmol/L (136-145) Potassium Level 4.5 mmol/L (3.5-5.1) Chloride Level 104 mmol/L (98-107) Carbon Dioxide Level 33 mmol/L (21-32) H Anion Gap 4 (6-14) L Blood Urea Nitrogen 22 mg/dL (8-26) Creatinine 1.1 mg/dL (0.7-1.3) Estimated GFR (Cockcroft-Gault) 64.9 BUN/Creatinine Ratio 20 (6-20) Glucose Level 88 mg/dL (70-99) Calcium Level 8.7 mg/dL (8.5-10.1) Total Bilirubin 0.8 mg/dL (0.2-1.0) Aspartate Amino Transferase (AST) 17 U/L (15-37) Alanine Aminotransferase (ALT) 9 U/L (16-63) L Alkaline Phosphatase 99 U/L (46-116) Total Protein 7.2 g/dL (6.4-8.2) Albumin 3.4 g/dL (3.4-5.0) Albumin/Globulin Ratio 0.9 (1.0-1.7) L Current Medications: Meds: Current Medications Sodium Chloride 1,000 ml @ 1,000 mls/hr 1X ONCE IV ; Start 05/02/17 at 12:00; Stop 05/02/17 at 12:59; Status DC Haloperidol Lactate (Haldol) 5 mg 1X ONCE IVP ; Start 05/02/17 at 12:00; Stop at 12:01; Status DC Lorazepam (Ativan) 2 mg 1X ONCE IV ; Start 05/02/17 at 12:00; Stop 05/02/17 at 12 :01; Status DC Acetaminophen (Tylenol) 650 mg PRN Q6HRS PRN PO PAIN / TEMP Last administered on 05/03/17 09:13; Start 05/02/17 at 14:45 Multi-Ingredient Ointment (Analgesic [place]) 1 savanna PRN QID PRN TP MUSCLE PAIN; Start 05/02/17 at 14:45 Al Hydroxide/Mg Hydroxide (Mylanta Plus Xs) 15 ml PRN AFTMEALHC PRN PO DYSPEPSIA; Start 05/02/17 at 14:45 Magnesium Hydroxide (Milk Of Magnesia) 2,400 mg PRN QHS PRN PO CONSTIPATION; Start 05/02/17 at 14:45 Olanzapine (ZyPREXA ZYDIS) 2.5 mg PRN Q2HR PRN PO PSYCHOSIS Last administered on 05/11/17 19:29; Start 05/02/17 at 15:45 Hydroxyurea (Hydrea) 1,000 mg DAILY PO ; Start 05/03/17 at 09:00; Stop 05/03/17 at 09:00; Status DC Hydroxyurea (Hydrea) 1,000 mg DAILY PO Last administered on 05/08/17 08:19; Start 05/03/17 at 09:00; Stop 05/08/17 at 16:14; Status DC Aspirin (Oneil Aspirin) 325 mg DAILYWBKFT PO Last administered on 05/11/17 08: 30; Start 05/04/17 at 08:00 Ferrous Sulfate (Feosol) 325 mg DAILYWBKFT PO Last administered on 05/06/17 08: 07; Start 05/04/17 at 08:00; Stop 05/06/17 at 18:23; Status DC Cyproheptadine HCl (Periactin) 4 mg QHS PO Last administered on 05/11/17 19:28 ; Start 05/03/17 at 21:00 Sertraline HCl (Zoloft) 25 mg DAILY PO Last administered on 05/05/17 08:03; Start 05/05/17 at 09:00; Stop 05/05/17 at 18:27; Status DC Mirtazapine (Remeron) 7.5 mg QHS PO Last administered on 05/11/17 19:28; Start 05/04/17 at 21:00 Sertraline HCl (Zoloft) 50 mg DAILY PO Last administered on 05/07/17 08:07; Start 05/06/17 at 09:00; Stop 05/07/17 at 13:23; Status DC Trazodone HCl (Desyrel) 50 mg QHS PRN PO INSOMNIA, MAY REPEAT X1 Last administered on 05/10/17 20:29; Start 05/05/17 at 18:30 Sertraline HCl (Zoloft) 50 mg DAILY PO Last administered on 05/11/17 08:35; Start 05/08/17 at 09:00 Hydroxyurea (Hydrea) 1,500 mg DAILY PO Last administered on 05/11/17 08:35; Start 05/09/17 at 09:00 Active Scripts Active Reported Hydroxyurea 500 Mg Capsule 1,000 Mg PO DAILY CECILIA PARR MD May 11, 2017 21:03
[2017-05-12 06:08] VITALS: BP 146/84
[2017-05-12] MEDS: ASPIRIN 325 MG TABLET PO SCH (08:07)
[2017-05-12] MEDS: SERTRALINE 50 MG TABLET. PO SCH (08:07)
[2017-05-12] MEDS: HYDROXYUREA 500 MG CAPSULE PO SCH (08:07)
[2017-05-12 10:34] LABS: PLATELET COUNT 1065 x10^3/uL (140-400)
[2017-05-12 16:01] VITALS: BP 149/82
[2017-05-12] MEDS: MIRTAZAPINE 7.5 MG TABLET. PO SCH (19:40)
[2017-05-12] MEDS: CYPROHEPTADINE 4 MG TABLET. PO SCH (19:40)
--- NOTE | 2017-05-12 20:16 | PDOC ---
Exam Ivan Demential Exam: Ivan Note: Please also refer to the separate dictated note~for this date of service dictated separately.~Patient seen individually. Discussed the patient with Nursing staff reviewed the chart.~Reviewed interim history and current functioning. Reviewed vital signs,~Labs/ Radiology~and current medications noted below. Continue current treatment with the changes noted in the dictated addendum note Assessment: Vital Signs: Vital Signs Date Time Temp Pulse Resp B/P (MAP) Pulse Ox O2 Delivery O2 Flow Rate FiO2 05/12/17 16:01 97.4 77 16 149/82 (104) 97 Room Air I&O Intake and Output 05/12/17 07:00 Intake Total 1640 ml Balance 1640 ml Intake Oral 1640 ml Current Medications: Meds: Current Medications Sodium Chloride 1,000 ml @ 1,000 mls/hr 1X ONCE IV ; Start 05/02/17 at 12:00; Stop 05/02/17 at 12:59; Status DC Haloperidol Lactate (Haldol) 5 mg 1X ONCE IVP ; Start 05/02/17 at 12:00; Stop at 12:01; Status DC Lorazepam (Ativan) 2 mg 1X ONCE IV ; Start 05/02/17 at 12:00; Stop 05/02/17 at 12 :01; Status DC Acetaminophen (Tylenol) 650 mg PRN Q6HRS PRN PO PAIN / TEMP Last administered on 05/03/17 09:13; Start 05/02/17 at 14:45 Multi-Ingredient Ointment (Analgesic [place]) 1 savanna PRN QID PRN TP MUSCLE PAIN; Start 05/02/17 at 14:45 Al Hydroxide/Mg Hydroxide (Mylanta Plus Xs) 15 ml PRN AFTMEALHC PRN PO DYSPEPSIA; Start 05/02/17 at 14:45 Magnesium Hydroxide (Milk Of Magnesia) 2,400 mg PRN QHS PRN PO CONSTIPATION; Start 05/02/17 at 14:45 Olanzapine (ZyPREXA ZYDIS) 2.5 mg PRN Q2HR PRN PO PSYCHOSIS Last administered on 05/11/17 19:29; Start 05/02/17 at 15:45 Hydroxyurea (Hydrea) 1,000 mg DAILY PO ; Start 05/03/17 at 09:00; Stop 05/03/17 at 09:00; Status DC Hydroxyurea (Hydrea) 1,000 mg DAILY PO Last administered on 05/08/17 08:19; Start 05/03/17 at 09:00; Stop 05/08/17 at 16:14; Status DC Aspirin (Oneil Aspirin) 325 mg DAILYWBKFT PO Last administered on 05/12/17 08: 07; Start 05/04/17 at 08:00 Ferrous Sulfate (Feosol) 325 mg DAILYWBKFT PO Last administered on 05/06/17 08: 07; Start 05/04/17 at 08:00; Stop 05/06/17 at 18:23; Status DC Cyproheptadine HCl (Periactin) 4 mg QHS PO Last administered on 05/12/17 19:40 ; Start 05/03/17 at 21:00 Sertraline HCl (Zoloft) 25 mg DAILY PO Last administered on 05/05/17 08:03; Start 05/05/17 at 09:00; Stop 05/05/17 at 18:27; Status DC Mirtazapine (Remeron) 7.5 mg QHS PO Last administered on 05/12/17 19:40; Start 05/04/17 at 21:00 Sertraline HCl (Zoloft) 50 mg DAILY PO Last administered on 05/07/17 08:07; Start 05/06/17 at 09:00; Stop 05/07/17 at 13:23; Status DC Trazodone HCl (Desyrel) 50 mg QHS PRN PO INSOMNIA, MAY REPEAT X1 Last administered on 05/10/17 20:29; Start 05/05/17 at 18:30 Sertraline HCl (Zoloft) 50 mg DAILY PO Last administered on 05/12/17 08:07; Start 05/08/17 at 09:00 Hydroxyurea (Hydrea) 1,500 mg DAILY PO Last administered on 05/12/17 08:07; Start 05/09/17 at 09:00 Active Scripts Active Reported Hydroxyurea 500 Mg Capsule 1,000 Mg PO DAILY Diagnosis: Problems: (1) Anxiety disorder (2) Impulse control disorder (3) Dementia, vascular, with depression (4) Dementia, vascular, with delusions (5) Dementia in Alzheimer's disease with depression (6) Dementia in Alzheimer's disease with delusions KESHAV,MAN M MD May 12, 2017 20:16
--- NOTE | 2017-05-12 20:52 | PDOC ---
Exam Ivan Demential Exam: Ivan Note: Please also refer to the separate dictated note~for this date of service dictated separately.~Patient seen individually. Discussed the patient with Nursing staff reviewed the chart.~Reviewed interim history and current functioning. Reviewed vital signs,~Labs/ Radiology~and current medications noted below. Continue current treatment with the changes noted in the dictated addendum note S/O: This is a late entry for date of service 05/07/2017 and covers elements not covered in my initial note. The patient was staffed with the entire team in morning of 05/07/2017 and seen individually in evening of 05/07/2017. At the treatment team meeting, we had a lengthy meeting with the patient's daughter, Lynnette, attending. Reviewed at length the patient's progress and diagnosis. 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 We discussed at length living arrangements at home, safety issues, and placement options. Sleeping about 4 hours on average, he slept 6 hours previous night. Review of Systems: No CV, , Pulmonary, Eye, ENT system symptoms on review. Reliability is poor. MSE: Oriented to himself. Insight, judgment, and recent and remote memory. Attention and concentration. Fund of knowledge poor. Consistent with his diagnosis mentioned in my initial note. Plan: Continue current psychotropics, differ medical management to Dr. Cast/ Dr. Gamez. Adjust further as clinically indicated. Assessment: Vital Signs: Vital Signs Date Time Temp Pulse Resp B/P (MAP) Pulse Ox O2 Delivery O2 Flow Rate FiO2 05/12/17 16:01 97.4 77 16 149/82 (104) 97 Room Air I&O Intake and Output 05/12/17 07:00 Intake Total 1640 ml Balance 1640 ml Intake Oral 1640 ml Current Medications: Meds: Current Medications Sodium Chloride 1,000 ml @ 1,000 mls/hr 1X ONCE IV ; Start 05/02/17 at 12:00; Stop 05/02/17 at 12:59; Status DC Haloperidol Lactate (Haldol) 5 mg 1X ONCE IVP ; Start 05/02/17 at 12:00; Stop at 12:01; Status DC Lorazepam (Ativan) 2 mg 1X ONCE IV ; Start 05/02/17 at 12:00; Stop 05/02/17 at 12 :01; Status DC Acetaminophen (Tylenol) 650 mg PRN Q6HRS PRN PO PAIN / TEMP Last administered on 05/03/17 09:13; Start 05/02/17 at 14:45 Multi-Ingredient Ointment (Analgesic [place]) 1 savanna PRN QID PRN TP MUSCLE PAIN; Start 05/02/17 at 14:45 Al Hydroxide/Mg Hydroxide (Mylanta Plus Xs) 15 ml PRN AFTMEALHC PRN PO DYSPEPSIA; Start 05/02/17 at 14:45 Magnesium Hydroxide (Milk Of Magnesia) 2,400 mg PRN QHS PRN PO CONSTIPATION; Start 05/02/17 at 14:45 Olanzapine (ZyPREXA ZYDIS) 2.5 mg PRN Q2HR PRN PO PSYCHOSIS Last administered on 05/11/17 19:29; Start 05/02/17 at 15:45 Hydroxyurea (Hydrea) 1,000 mg DAILY PO ; Start 05/03/17 at 09:00; Stop 05/03/17 at 09:00; Status DC Hydroxyurea (Hydrea) 1,000 mg DAILY PO Last administered on 05/08/17 08:19; Start 05/03/17 at 09:00; Stop 05/08/17 at 16:14; Status DC Aspirin (Oneil Aspirin) 325 mg DAILYWBKFT PO Last administered on 05/12/17 08: 07; Start 05/04/17 at 08:00 Ferrous Sulfate (Feosol) 325 mg DAILYWBKFT PO Last administered on 05/06/17 08: 07; Start 05/04/17 at 08:00; Stop 05/06/17 at 18:23; Status DC Cyproheptadine HCl (Periactin) 4 mg QHS PO Last administered on 05/12/17 19:40 ; Start 05/03/17 at 21:00 Sertraline HCl (Zoloft) 25 mg DAILY PO Last administered on 05/05/17 08:03; Start 05/05/17 at 09:00; Stop 05/05/17 at 18:27; Status DC Mirtazapine (Remeron) 7.5 mg QHS PO Last administered on 05/12/17 19:40; Start 05/04/17 at 21:00 Sertraline HCl (Zoloft) 50 mg DAILY PO Last administered on 05/07/17 08:07; Start 05/06/17 at 09:00; Stop 05/07/17 at 13:23; Status DC Trazodone HCl (Desyrel) 50 mg QHS PRN PO INSOMNIA, MAY REPEAT X1 Last administered on 05/10/17 20:29; Start 05/05/17 at 18:30 Sertraline HCl (Zoloft) 50 mg DAILY PO Last administered on 05/12/17 08:07; Start 05/08/17 at 09:00 Hydroxyurea (Hydrea) 1,500 mg DAILY PO Last administered on 05/12/17 08:07; Start 05/09/17 at 09:00 Active Scripts Active Reported Hydroxyurea 500 Mg Capsule 1,000 Mg PO DAILY CECILIA PRAR MD May 12, 2017 20:52
--- NOTE | 2017-05-12 21:25 | PDOC ---
Exam Ivan Demential Exam: Ivan Note: Please also refer to the separate dictated note~for this date of service dictated separately.~Patient seen individually. Discussed the patient with Nursing staff reviewed the chart.~Reviewed interim history and current functioning. Reviewed vital signs,~Labs/ Radiology~and current medications noted below. Continue current treatment with the changes noted in the dictated addendum note S/O: This is a late entry for date of service 05/08/2017. The patient was seen individually in the evening of May 08, discussed with nursing staff, and reviewed the chart. This note covers elements not covered in my initial note. Per nursing report, the patient's platelet count is elevated. Dr. Gamez is addressing this. He has been confused, but not aggressive. Review of Systems: No CV, , Pulmonary, Eye, ENT system symptoms on review. Reliability poor. MSE: Oriented to himself. Insight, judgment, recent and remote memory, attention, concentration, fund of knowledge are poor consistent with his diagnosis. He is otherwise pleasant, cooperative, and following me around the unit. Labs: Reviewed. Imp: Unchanged from initial note. Plan: Continue psychotropics mentioned in my initial note. Adjust as indicated. Assessment: Vital Signs: Vital Signs Date Time Temp Pulse Resp B/P (MAP) Pulse Ox O2 Delivery O2 Flow Rate FiO2 05/12/17 16:01 97.4 77 16 149/82 (104) 97 Room Air I&O Intake and Output 05/12/17 07:00 Intake Total 1640 ml Balance 1640 ml Intake Oral 1640 ml Current Medications: Meds: Current Medications Sodium Chloride 1,000 ml @ 1,000 mls/hr 1X ONCE IV ; Start 05/02/17 at 12:00; Stop 05/02/17 at 12:59; Status DC Haloperidol Lactate (Haldol) 5 mg 1X ONCE IVP ; Start 05/02/17 at 12:00; Stop at 12:01; Status DC Lorazepam (Ativan) 2 mg 1X ONCE IV ; Start 05/02/17 at 12:00; Stop 05/02/17 at 12 :01; Status DC Acetaminophen (Tylenol) 650 mg PRN Q6HRS PRN PO PAIN / TEMP Last administered on 05/03/17t 09:13; Start 05/02/17 at 14:45 Multi-Ingredient Ointment (Analgesic [place]) 1 savanna PRN QID PRN TP MUSCLE PAIN; Start 05/02/17 at 14:45 Al Hydroxide/Mg Hydroxide (Mylanta Plus Xs) 15 ml PRN AFTMEALHC PRN PO DYSPEPSIA; Start 05/02/17 at 14:45 Magnesium Hydroxide (Milk Of Magnesia) 2,400 mg PRN QHS PRN PO CONSTIPATION; Start 05/02/17 at 14:45 Olanzapine (ZyPREXA ZYDIS) 2.5 mg PRN Q2HR PRN PO PSYCHOSIS Last administered on 05/11/17 19:29; Start 05/02/17 at 15:45 Hydroxyurea (Hydrea) 1,000 mg DAILY PO ; Start 05/03/17 at 09:00; Stop 05/03/17 at 09:00; Status DC Hydroxyurea (Hydrea) 1,000 mg DAILY PO Last administered on 05/08/17 08:19; Start 05/03/17 at 09:00; Stop 05/08/17 at 16:14; Status DC Aspirin (Oneil Aspirin) 325 mg DAILYWBKFT PO Last administered on 05/12/17 08: 07; Start 05/04/17 at 08:00 Ferrous Sulfate (Feosol) 325 mg DAILYWBKFT PO Last administered on 05/06/17 08: 07; Start 05/04/17 at 08:00; Stop 05/06/17 at 18:23; Status DC Cyproheptadine HCl (Periactin) 4 mg QHS PO Last administered on 05/12/17 19:40 ; Start 05/03/17 at 21:00 Sertraline HCl (Zoloft) 25 mg DAILY PO Last administered on 05/05/17 08:03; Start 05/05/17 at 09:00; Stop 05/05/17 at 18:27; Status DC Mirtazapine (Remeron) 7.5 mg QHS PO Last administered on 05/12/17 19:40; Start 05/04/17 at 21:00 Sertraline HCl (Zoloft) 50 mg DAILY PO Last administered on 05/07/17 08:07; Start 05/06/17 at 09:00; Stop 05/07/17 at 13:23; Status DC Trazodone HCl (Desyrel) 50 mg QHS PRN PO INSOMNIA, MAY REPEAT X1 Last administered on 05/10/17 20:29; Start 05/05/17 at 18:30 Sertraline HCl (Zoloft) 50 mg DAILY PO Last administered on 05/12/17 08:07; Start 05/08/17 at 09:00 Hydroxyurea (Hydrea) 1,500 mg DAILY PO Last administered on 05/12/17 08:07; Start 05/09/17 at 09:00 Active Scripts Active Reported Hydroxyurea 500 Mg Capsule 1,000 Mg PO DAILY CECILIA PARR MD May 12, 2017 21:25
[2017-05-13 05:56] VITALS: BP 138/65
[2017-05-13] MEDS: HYDROXYUREA 500 MG CAPSULE PO SCH (08:02)
[2017-05-13] MEDS: ASPIRIN 325 MG TABLET PO SCH (08:03)
[2017-05-13] MEDS: SERTRALINE 50 MG TABLET. PO SCH (08:03)
[2017-05-13 16:11] VITALS: BP 131/81
--- NOTE | 2017-05-13 19:54 | PDOC ---
Exam Ivan Demential Exam: Ivan Note: Please also refer to the separate dictated note~for this date of service dictated separately.~Patient seen individually. Discussed the patient with Nursing staff reviewed the chart.~Reviewed interim history and current functioning. Reviewed vital signs,~Labs/ Radiology~and current medications noted below. Continue current treatment with the changes noted in the dictated addendum note Assessment: Vital Signs: Vital Signs Date Time Temp Pulse Resp B/P (MAP) Pulse Ox O2 Delivery O2 Flow Rate FiO2 05/13/17 16:11 98.1 71 16 131/81 (98) 95 Room Air I&O Intake and Output 05/13/17 07:00 Intake Total 1520 ml Balance 1520 ml Intake Oral 1520 ml Current Medications: Meds: Current Medications Sodium Chloride 1,000 ml @ 1,000 mls/hr 1X ONCE IV ; Start 05/02/17 at 12:00; Stop 05/02/17 at 12:59; Status DC Haloperidol Lactate (Haldol) 5 mg 1X ONCE IVP ; Start 05/02/17 at 12:00; Stop at 12:01; Status DC Lorazepam (Ativan) 2 mg 1X ONCE IV ; Start 05/02/17 at 12:00; Stop 05/02/17 at 12 :01; Status DC Acetaminophen (Tylenol) 650 mg PRN Q6HRS PRN PO PAIN / TEMP Last administered on 05/03/17 09:13; Start 05/02/17 at 14:45 Multi-Ingredient Ointment (Analgesic [place]) 1 savanna PRN QID PRN TP MUSCLE PAIN; Start 05/02/17 at 14:45 Al Hydroxide/Mg Hydroxide (Mylanta Plus Xs) 15 ml PRN AFTMEALHC PRN PO DYSPEPSIA; Start 05/02/17 at 14:45 Magnesium Hydroxide (Milk Of Magnesia) 2,400 mg PRN QHS PRN PO CONSTIPATION; Start 05/02/17 at 14:45 Olanzapine (ZyPREXA ZYDIS) 2.5 mg PRN Q2HR PRN PO PSYCHOSIS Last administered on 05/11/17 19:29; Start 05/02/17 at 15:45 Hydroxyurea (Hydrea) 1,000 mg DAILY PO ; Start 05/03/17 at 09:00; Stop 05/03/17 at 09:00; Status DC Hydroxyurea (Hydrea) 1,000 mg DAILY PO Last administered on 05/08/17 08:19; Start 05/03/17 at 09:00; Stop 05/08/17 at 16:14; Status DC Aspirin (Oneil Aspirin) 325 mg DAILYWBKFT PO Last administered on 05/13/17 08: 03; Start 05/04/17 at 08:00 Ferrous Sulfate (Feosol) 325 mg DAILYWBKFT PO Last administered on 05/06/17 08: 07; Start 05/04/17 at 08:00; Stop 05/06/17 at 18:23; Status DC Cyproheptadine HCl (Periactin) 4 mg QHS PO Last administered on 05/12/17 19:40 ; Start 05/03/17 at 21:00 Sertraline HCl (Zoloft) 25 mg DAILY PO Last administered on 05/05/17 08:03; Start 05/05/17 at 09:00; Stop 05/05/17 at 18:27; Status DC Mirtazapine (Remeron) 7.5 mg QHS PO Last administered on 05/12/17 19:40; Start 05/04/17 at 21:00 Sertraline HCl (Zoloft) 50 mg DAILY PO Last administered on 05/07/17 08:07; Start 05/06/17 at 09:00; Stop 05/07/17 at 13:23; Status DC Trazodone HCl (Desyrel) 50 mg QHS PRN PO INSOMNIA, MAY REPEAT X1 Last administered on 05/10/17 20:29; Start 05/05/17 at 18:30 Sertraline HCl (Zoloft) 50 mg DAILY PO Last administered on 05/13/17 08:03; Start 05/08/17 at 09:00 Hydroxyurea (Hydrea) 1,500 mg DAILY PO Last administered on 05/13/17 08:02; Start 05/09/17 at 09:00 Buspirone HCl (Buspar) 5 mg BID92 PO ; Start 05/14/17 at 09:00 Active Scripts Active Reported Hydroxyurea 500 Mg Capsule 1,000 Mg PO DAILY Diagnosis: Problems: (1) Altered mental status (2) Anxiety disorder (3) Impulse control disorder (4) Dementia, vascular, with depression (5) Dementia, vascular, with delusions (6) Dementia in Alzheimer's disease with depression (7) Dementia in Alzheimer's disease with delusions CECILIA PARR MD May 13, 2017 19:54
[2017-05-13] MEDS: CYPROHEPTADINE 4 MG TABLET. PO SCH (20:13)
[2017-05-13] MEDS: MIRTAZAPINE 7.5 MG TABLET. PO SCH (20:13)
[2017-05-13] MEDS: traZODone 50 MG TABLET. PO PRN (20:13)
--- NOTE | 2017-05-13 20:21 | PDOC ---
Exam Ivan Demential Exam: Ivan Note: Please also refer to the separate dictated note~for this date of service dictated separately.~Patient seen individually. Discussed the patient with Nursing staff reviewed the chart.~Reviewed interim history and current functioning. Reviewed vital signs,~Labs/ Radiology~and current medications noted below. Continue current treatment with the changes noted in the dictated addendum note S/O: This is a late entry for date of service 05/09/2017 and covers elements not covered in my initial note. I met with the patient on the evening of . Per nursing note, the patient is pleasantly confused, compliant, and cooperative. No hallucinations noted. He has been wandering. No CV, , Pulmonary, Eye, ENT system symptoms on review. Reliability poor. MSE: Oriented to himself. Insight, judgment, recent and remote memory, attention and concentration, fund of knowledge are poor consistent with his diagnosis mentioned in my initial note. Plan: Continue psychotropics mentioned in my initial note and adjust further as clinically indicated. Assessment: Vital Signs: Vital Signs Date Time Temp Pulse Resp B/P (MAP) Pulse Ox O2 Delivery O2 Flow Rate FiO2 05/13/17 16:11 98.1 71 16 131/81 (98) 95 Room Air I&O Intake and Output 05/13/17 07:00 Intake Total 1520 ml Balance 1520 ml Intake Oral 1520 ml Current Medications: Meds: Current Medications Sodium Chloride 1,000 ml @ 1,000 mls/hr 1X ONCE IV ; Start 05/02/17 at 12:00; Stop 05/02/17 at 12:59; Status DC Haloperidol Lactate (Haldol) 5 mg 1X ONCE IVP ; Start 05/02/17 at 12:00; Stop at 12:01; Status DC Lorazepam (Ativan) 2 mg 1X ONCE IV ; Start 05/02/17 at 12:00; Stop 05/02/17 at 12 :01; Status DC Acetaminophen (Tylenol) 650 mg PRN Q6HRS PRN PO PAIN / TEMP Last administered on 05/03/17t 09:13; Start 05/02/17 at 14:45 Multi-Ingredient Ointment (Analgesic [place]) 1 savanna PRN QID PRN TP MUSCLE PAIN; Start 05/02/17 at 14:45 Al Hydroxide/Mg Hydroxide (Mylanta Plus Xs) 15 ml PRN AFTMEALHC PRN PO DYSPEPSIA; Start 05/02/17 at 14:45 Magnesium Hydroxide (Milk Of Magnesia) 2,400 mg PRN QHS PRN PO CONSTIPATION; Start 05/02/17 at 14:45 Olanzapine (ZyPREXA ZYDIS) 2.5 mg PRN Q2HR PRN PO PSYCHOSIS Last administered on 05/11/17 19:29; Start 05/02/17 at 15:45 Hydroxyurea (Hydrea) 1,000 mg DAILY PO ; Start 05/03/17 at 09:00; Stop 05/03/17 at 09:00; Status DC Hydroxyurea (Hydrea) 1,000 mg DAILY PO Last administered on 05/08/17 08:19; Start 05/03/17 at 09:00; Stop 05/08/17 at 16:14; Status DC Aspirin (Oneil Aspirin) 325 mg DAILYWBKFT PO Last administered on 05/13/17 08: 03; Start 05/04/17 at 08:00 Ferrous Sulfate (Feosol) 325 mg DAILYWBKFT PO Last administered on 05/06/17 08: 07; Start 05/04/17 at 08:00; Stop 05/06/17 at 18:23; Status DC Cyproheptadine HCl (Periactin) 4 mg QHS PO Last administered on 05/13/17 20:13 ; Start 05/03/17 at 21:00 Sertraline HCl (Zoloft) 25 mg DAILY PO Last administered on 05/05/17 08:03; Start 05/05/17 at 09:00; Stop 05/05/17 at 18:27; Status DC Mirtazapine (Remeron) 7.5 mg QHS PO Last administered on 05/13/17 20:13; Start 05/04/17 at 21:00 Sertraline HCl (Zoloft) 50 mg DAILY PO Last administered on 05/07/17 08:07; Start 05/06/17 at 09:00; Stop 05/07/17 at 13:23; Status DC Trazodone HCl (Desyrel) 50 mg QHS PRN PO INSOMNIA, MAY REPEAT X1 Last administered on 05/13/17 20:13; Start 05/05/17 at 18:30 Sertraline HCl (Zoloft) 50 mg DAILY PO Last administered on 05/13/17 08:03; Start 05/08/17 at 09:00 Hydroxyurea (Hydrea) 1,500 mg DAILY PO Last administered on 05/13/17 08:02; Start 05/09/17 at 09:00 Buspirone HCl (Buspar) 5 mg BID92 PO ; Start 05/14/17 at 09:00 Active Scripts Active Reported Hydroxyurea 500 Mg Capsule 1,000 Mg PO DAILY CECILIA PARR MD May 13, 2017 20:21
--- NOTE | 2017-05-13 20:56 | PDOC ---
Exam Ivan Demential Exam: Ivan Note: Please also refer to the separate dictated note~for this date of service dictated separately.~Patient seen individually. Discussed the patient with Nursing staff reviewed the chart.~Reviewed interim history and current functioning. Reviewed vital signs,~Labs/ Radiology~and current medications noted below. Continue current treatment with the changes noted in the dictated addendum note S/O: This is a late entry for date of service 05/10/2017 and covers elements not covered in my initial note. The patient was seen individually in the evening of 05/10/2017. Per nursing report, the patient is presently confused, compliant, cooperative, and no hallucinations noted. Review of Systems: No CV, , Pulmonary, Eye, ENT system symptoms on review. Reliability poor. MSE: Oriented to himself. Insight, judgment, recent and remote memory, attention, concentration, fund of knowledge are poor consistent with his diagnosis mentioned in my initial note. Plan: Continue psychotropics mentioned in my initial note and transition to a lower level of care early this week. Assessment: Vital Signs: Vital Signs Date Time Temp Pulse Resp B/P (MAP) Pulse Ox O2 Delivery O2 Flow Rate FiO2 05/13/17 16:11 98.1 71 16 131/81 (98) 95 Room Air I&O Intake and Output 05/13/17 07:00 Intake Total 1520 ml Balance 1520 ml Intake Oral 1520 ml Current Medications: Meds: Current Medications Sodium Chloride 1,000 ml @ 1,000 mls/hr 1X ONCE IV ; Start 05/02/17 at 12:00; Stop 05/02/17 at 12:59; Status DC Haloperidol Lactate (Haldol) 5 mg 1X ONCE IVP ; Start 05/02/17 at 12:00; Stop at 12:01; Status DC Lorazepam (Ativan) 2 mg 1X ONCE IV ; Start 05/02/17 at 12:00; Stop 05/02/17 at 12 :01; Status DC Acetaminophen (Tylenol) 650 mg PRN Q6HRS PRN PO PAIN / TEMP Last administered on 05/03/17t 09:13; Start 05/02/17 at 14:45 Multi-Ingredient Ointment (Analgesic [place]) 1 [place] PRN QID PRN TP MUSCLE PAIN; Start 05/02/17 at 14:45 Al Hydroxide/Mg Hydroxide (Mylanta Plus Xs) 15 ml PRN AFTMEALHC PRN PO DYSPEPSIA; Start 05/02/17 at 14:45 Magnesium Hydroxide (Milk Of Magnesia) 2,400 mg PRN QHS PRN PO CONSTIPATION; Start 05/02/17 at 14:45 Olanzapine (ZyPREXA ZYDIS) 2.5 mg PRN Q2HR PRN PO PSYCHOSIS Last administered on 05/11/17 19:29; Start 05/02/17 at 15:45 Hydroxyurea (Hydrea) 1,000 mg DAILY PO ; Start 05/03/17 at 09:00; Stop 05/03/17 at 09:00; Status DC Hydroxyurea (Hydrea) 1,000 mg DAILY PO Last administered on 05/08/17 08:19; Start 05/03/17 at 09:00; Stop 05/08/17 at 16:14; Status DC Aspirin (Oneil Aspirin) 325 mg DAILYWBKFT PO Last administered on 05/13/17 08: 03; Start 05/04/17 at 08:00 Ferrous Sulfate (Feosol) 325 mg DAILYWBKFT PO Last administered on 05/06/17 08: 07; Start 05/04/17 at 08:00; Stop 05/06/17 at 18:23; Status DC Cyproheptadine HCl (Periactin) 4 mg QHS PO Last administered on 05/13/17 20:13 ; Start 05/03/17 at 21:00 Sertraline HCl (Zoloft) 25 mg DAILY PO Last administered on 05/05/17 08:03; Start 05/05/17 at 09:00; Stop 05/05/17 at 18:27; Status DC Mirtazapine (Remeron) 7.5 mg QHS PO Last administered on 05/13/17 20:13; Start 05/04/17 at 21:00 Sertraline HCl (Zoloft) 50 mg DAILY PO Last administered on 05/07/17 08:07; Start 05/06/17 at 09:00; Stop 05/07/17 at 13:23; Status DC Trazodone HCl (Desyrel) 50 mg QHS PRN PO INSOMNIA, MAY REPEAT X1 Last administered on 05/13/17 20:13; Start 05/05/17 at 18:30 Sertraline HCl (Zoloft) 50 mg DAILY PO Last administered on 05/13/17 08:03; Start 05/08/17 at 09:00 Hydroxyurea (Hydrea) 1,500 mg DAILY PO Last administered on 05/13/17 08:02; Start 05/09/17 at 09:00 Buspirone HCl (Buspar) 5 mg BID92 PO ; Start 05/14/17 at 09:00 Active Scripts Active Reported Hydroxyurea 500 Mg Capsule 1,000 Mg PO DAILY CECILIA PARR MD May 13, 2017 20:56
[2017-05-13] MEDS ORDERED: MAGN2400 PO (23:55)
[2017-05-13] MEDS ORDERED: SERT50TA PO (23:55)
[2017-05-13] MEDS ORDERED: OLAN5TAB9 PO (23:55)
[2017-05-13] MEDS ORDERED: BUSP5TAB PO (23:55)
[2017-05-13] MEDS ORDERED: CYPR4TAB37 PO (23:55)
[2017-05-13] MEDS ORDERED: METH29OI TP (23:55)
[2017-05-13] MEDS ORDERED: MAG30ORA2 PO (23:55)
[2017-05-13] MEDS ORDERED: ASPI325T8 PO (23:55)
[2017-05-13] MEDS ORDERED: ACET325T9 PO (23:55)
[2017-05-13] MEDS ORDERED: TRAZ50TA15 PO (23:55)
[2017-05-13] MEDS ORDERED: MIRT15TA PO (23:55)
[2017-05-14 05:59] VITALS: BP 119/63
[2017-05-14 06:47] LABS: BASO # 0.3 x10^3/uL (0.0-0.2); BASO % 6 % (0-3); EOS # 0.3 x10^3/uL (0.0-0.7); EOS % 6 % (0-3); HEMATOCRIT 42.2 % (39.0-53.0); HEMOGLOBIN 13.1 g/dL (13.0-17.5); LYMPH # 1.1 x10^3/uL (1.0-4.8); LYMPH % 19 % (24-48); MEAN CORPUSCULAR HEMOGLOBIN 23 pg (25-35); MEAN CORPUSCULAR HGB CONC 31 g/dL (31-37); MEAN CORPUSCULAR VOLUME 74 fL (79-100); MONO # 0.1 x10^3/uL (0.0-1.1); MONO % 2 % (0-9); NEUT # 3.8 x10^3uL (1.8-7.7); NEUT % 67 % (31-73); PLATELET COUNT 757 x10^3/uL (140-400); RED BLOOD COUNT 5.68 x10^6/uL (4.30-5.70); RED CELL DISTRIBUTION WIDTH 20.8 % (11.5-14.5); WHITE BLOOD COUNT 5.6 x10^3/uL (4.0-11.0)
[2017-05-14 07:01] LABS: ALBUMIN 3.3 g/dL (3.4-5.0); ALBUMIN/GLOBULIN RATIO 0.9 (1.0-1.7); CALCIUM 8.3 mg/dL (8.5-10.1); CREATININE 0.9 mg/dL (0.7-1.3); GFR 81.8; POTASSIUM 4.1 mmol/L (3.5-5.1); TOTAL BILIRUBIN 0.6 mg/dL (0.2-1.0); TOTAL PROTEIN 6.8 g/dL (6.4-8.2)
[2017-05-14] MEDS: HYDROXYUREA 500 MG CAPSULE PO SCH (08:30)
[2017-05-14] MEDS: SERTRALINE 50 MG TABLET. PO SCH (08:30)
[2017-05-14] MEDS: ASPIRIN 325 MG TABLET PO SCH (08:30)
[2017-05-14] MEDS ORDERED: busPIRone 5 MG TABLET. PO SCH (09:00)
[2017-05-14] MEDS: busPIRone 5 MG TABLET. PO SCH (14:32)
[2017-05-14 15:35] VITALS: BP 127/74
[2017-05-14] MEDS: MIRTAZAPINE 7.5 MG TABLET. PO SCH (20:00)
[2017-05-14] MEDS: CYPROHEPTADINE 4 MG TABLET. PO SCH (20:00)
[2017-05-14] MEDS: traZODone 50 MG TABLET. PO PRN (20:01)
--- NOTE | 2017-05-14 20:06 | PDOC ---
Exam Ivan Demential Exam: Ivan Note: Please also refer to the separate dictated note~for this date of service dictated separately.~Patient seen individually. Discussed the patient with Nursing staff reviewed the chart.~Reviewed interim history and current functioning. Reviewed vital signs,~Labs/ Radiology~and current medications noted below. Continue current treatment with the changes noted in the dictated addendum note Assessment: Vital Signs: Vital Signs Date Time Temp Pulse Resp B/P (MAP) Pulse Ox O2 Delivery O2 Flow Rate FiO2 05/14/17 15:35 98.1 66 18 127/74 (91) 96 05/13/17 16:11 Room Air I&O Intake and Output 05/14/17 07:00 Intake Total 1040 ml Balance 1040 ml Intake Oral 1040 ml Labs: Laboratory Tests Test 05/14/17 06:30 White Blood Count 5.6 x10^3/uL (4.0-11.0) Red Blood Count 5.68 x10^6/uL (4.30-5.70) Hemoglobin 13.1 g/dL (13.0-17.5) Hematocrit 42.2 % (39.0-53.0) Mean Corpuscular Volume 74 fL (79-100) L Mean Corpuscular Hemoglobin 23 pg (25-35) L Mean Corpuscular Hemoglobin Concent 31 g/dL (31-37) Red Cell Distribution Width 20.8 % (11.5-14.5) H Platelet Count 757 x10^3/uL (140-400) H Neutrophils (%) (Auto) 67 % (31-73) Lymphocytes (%) (Auto) 19 % (24-48) L Monocytes (%) (Auto) 2 % (0-9) Eosinophils (%) (Auto) 6 % (0-3) H Basophils (%) (Auto) 6 % (0-3) H Neutrophils # (Auto) 3.8 x10^3uL (1.8-7.7) Lymphocytes # (Auto) 1.1 x10^3/uL (1.0-4.8) Monocytes # (Auto) 0.1 x10^3/uL (0.0-1.1) Eosinophils # (Auto) 0.3 x10^3/uL (0.0-0.7) Basophils # (Auto) 0.3 x10^3/uL (0.0-0.2) H Sodium Level 139 mmol/L (136-145) Potassium Level 4.1 mmol/L (3.5-5.1) Chloride Level 104 mmol/L (98-107) Carbon Dioxide Level 30 mmol/L (21-32) Anion Gap 5 (6-14) L Blood Urea Nitrogen 27 mg/dL (8-26) H Creatinine 0.9 mg/dL (0.7-1.3) Estimated GFR (Cockcroft-Gault) 81.8 BUN/Creatinine Ratio 30 (6-20) H Glucose Level 93 mg/dL (70-99) Calcium Level 8.3 mg/dL (8.5-10.1) L Total Bilirubin 0.6 mg/dL (0.2-1.0) Aspartate Amino Transferase (AST) 10 U/L (15-37) L Alanine Aminotransferase (ALT) 11 U/L (16-63) L Alkaline Phosphatase 83 U/L (46-116) Total Protein 6.8 g/dL (6.4-8.2) Albumin 3.3 g/dL (3.4-5.0) L Albumin/Globulin Ratio 0.9 (1.0-1.7) L Current Medications: Meds: Current Medications Sodium Chloride 1,000 ml @ 1,000 mls/hr 1X ONCE IV ; Start 05/02/17 at 12:00; Stop 05/02/17 at 12:59; Status DC Haloperidol Lactate (Haldol) 5 mg 1X ONCE IVP ; Start 05/02/17 at 12:00; Stop at 12:01; Status DC Lorazepam (Ativan) 2 mg 1X ONCE IV ; Start 05/02/17 at 12:00; Stop 05/02/17 at 12 :01; Status DC Acetaminophen (Tylenol) 650 mg PRN Q6HRS PRN PO PAIN / TEMP Last administered on 05/03/17 09:13; Start 05/02/17 at 14:45 Multi-Ingredient Ointment (Analgesic [place]) 1 mia PRN QID PRN TP MUSCLE PAIN; Start 05/02/17 at 14:45 Al Hydroxide/Mg Hydroxide (Mylanta Plus Xs) 15 ml PRN AFTMEALHC PRN PO DYSPEPSIA Last administered on 05/14/17 11:46; Start 05/02/17 at 14:45 Magnesium Hydroxide (Milk Of Magnesia) 2,400 mg PRN QHS PRN PO CONSTIPATION; Start 05/02/17 at 14:45 Olanzapine (ZyPREXA ZYDIS) 2.5 mg PRN Q2HR PRN PO PSYCHOSIS Last administered on 05/11/17 19:29; Start 05/02/17 at 15:45 Hydroxyurea (Hydrea) 1,000 mg DAILY PO ; Start 05/03/17 at 09:00; Stop 05/03/17 at 09:00; Status DC Hydroxyurea (Hydrea) 1,000 mg DAILY PO Last administered on 05/08/17 08:19; Start 05/03/17 at 09:00; Stop 05/08/17 at 16:14; Status DC Aspirin (Oneil Aspirin) 325 mg DAILYWBKFT PO Last administered on 05/14/17 08: 30; Start 05/04/17 at 08:00 Ferrous Sulfate (Feosol) 325 mg DAILYWBKFT PO Last administered on 05/06/17 08: 07; Start 05/04/17 at 08:00; Stop 05/06/17 at 18:23; Status DC Cyproheptadine HCl (Periactin) 4 mg QHS PO Last administered on 05/14/17 20:00 ; Start 05/03/17 at 21:00 Sertraline HCl (Zoloft) 25 mg DAILY PO Last administered on 05/05/17 08:03; Start 05/05/17 at 09:00; Stop 05/05/17 at 18:27; Status DC Mirtazapine (Remeron) 7.5 mg QHS PO Last administered on 05/14/17 20:00; Start 05/04/17 at 21:00 Sertraline HCl (Zoloft) 50 mg DAILY PO Last administered on 05/07/17 08:07; Start 05/06/17 at 09:00; Stop 05/07/17 at 13:23; Status DC Trazodone HCl (Desyrel) 50 mg QHS PRN PO INSOMNIA, MAY REPEAT X1 Last administered on 05/14/17 20:01; Start 05/05/17 at 18:30 Sertraline HCl (Zoloft) 50 mg DAILY PO Last administered on 05/14/17 08:30; Start 05/08/17 at 09:00 Hydroxyurea (Hydrea) 1,500 mg DAILY PO Last administered on 05/14/17 08:30; Start 05/09/17 at 09:00 Buspirone HCl (Buspar) 5 mg BID92 PO Last administered on 05/14/17 09:35; Start 05/14/17 at 09:00; Stop 05/14/17 at 09:43; Status DC Buspirone HCl (Buspar) 10 mg BID92 PO Last administered on 05/14/17 14:32; Start 05/14/17 at 14:00 Active Scripts Active Reported Trazodone Hcl 50 Mg Tablet 50 Mg PO PRN QHS PRN Buspirone Hcl 5 Mg Tablet 5 Mg PO BID92 Zoloft (Sertraline Hcl) 50 Mg Tablet 50 Mg PO DAILY Olanzapine 5 Mg Tablet 2.5 Mg PO PRN Q2HR PRN Remeron (Mirtazapine) 15 Mg Tablet 7.5 Mg PO QHS Analgesic [place] (Methyl Salicylate/Menthol) 28 Gm Oint...g. 1 Mia TP PRN QID PRN Milk Of Magnesia (Magnesium Hydroxide) 2,400 Mg/10 Ml Oral.susp 2,400 Mg PO PRN QHS PRN Mag-Al Plus Xs Suspension (Mag Hydrox/Al Hydrox/Simeth) 30 Ml Oral.susp 15 Ml PO PRN AFTMEALHC PRN Cyproheptadine Hcl 4 Mg Tablet 4 Mg PO QHS Aspirin 325 Mg Tablet 325 Mg PO DAILYWBKFT Tylenol (Acetaminophen) 325 Mg Tablet 650 Mg PO PRN Q6HRS PRN Hydroxyurea 500 Mg Capsule 1,500 Mg PO DAILY Diagnosis: Problems: (1) Altered mental status (2) Anxiety disorder (3) Impulse control disorder (4) Dementia, vascular, with depression (5) Dementia, vascular, with delusions (6) Dementia in Alzheimer's disease with depression (7) Dementia in Alzheimer's disease with delusions CECILIA PARR MD May 14, 2017 20:06
--- NOTE | 2017-05-14 20:29 | PDOC ---
Exam Ivan Demential Exam: Ivan Note: Please also refer to the separate dictated note~for this date of service dictated separately.~Patient seen individually. Discussed the patient with Nursing staff reviewed the chart.~Reviewed interim history and current functioning. Reviewed vital signs,~Labs/ Radiology~and current medications noted below. Continue current treatment with the changes noted in the dictated addendum note S/O: This is a late entry for 05/11/2017 and covers elements not covered in my initial note. Met with the patient on the evening of 05/11/2017. The patient did well last night, remains confused but otherwise cooperative and pleasant during the day today, not aggressive. Platelets are critical, we will differ to Dr. Cast. Review of Systems: No CV, , Pulmonary, Eye system symptoms on review. Reliability is poor. MSE: Oriented to himself. Insight and judgment, recent and remote memory, attention and concentration, fund of knowledge poor consistent with his diagnosis mentioned in my initial note. PLAN: Continue current psychotropics, adjust as indicated. Assessment: Vital Signs: Vital Signs Date Time Temp Pulse Resp B/P (MAP) Pulse Ox O2 Delivery O2 Flow Rate FiO2 05/14/17 15:35 98.1 66 18 127/74 (91) 96 05/13/17 16:11 Room Air I&O Intake and Output 05/14/17 07:00 Intake Total 1040 ml Balance 1040 ml Intake Oral 1040 ml Labs: Laboratory Tests Test 05/14/17 06:30 White Blood Count 5.6 x10^3/uL (4.0-11.0) Red Blood Count 5.68 x10^6/uL (4.30-5.70) Hemoglobin 13.1 g/dL (13.0-17.5) Hematocrit 42.2 % (39.0-53.0) Mean Corpuscular Volume 74 fL (79-100) L Mean Corpuscular Hemoglobin 23 pg (25-35) L Mean Corpuscular Hemoglobin Concent 31 g/dL (31-37) Red Cell Distribution Width 20.8 % (11.5-14.5) H Platelet Count 757 x10^3/uL (140-400) H Neutrophils (%) (Auto) 67 % (31-73) Lymphocytes (%) (Auto) 19 % (24-48) L Monocytes (%) (Auto) 2 % (0-9) Eosinophils (%) (Auto) 6 % (0-3) H Basophils (%) (Auto) 6 % (0-3) H Neutrophils # (Auto) 3.8 x10^3uL (1.8-7.7) Lymphocytes # (Auto) 1.1 x10^3/uL (1.0-4.8) Monocytes # (Auto) 0.1 x10^3/uL (0.0-1.1) Eosinophils # (Auto) 0.3 x10^3/uL (0.0-0.7) Basophils # (Auto) 0.3 x10^3/uL (0.0-0.2) H Sodium Level 139 mmol/L (136-145) Potassium Level 4.1 mmol/L (3.5-5.1) Chloride Level 104 mmol/L (98-107) Carbon Dioxide Level 30 mmol/L (21-32) Anion Gap 5 (6-14) L Blood Urea Nitrogen 27 mg/dL (8-26) H Creatinine 0.9 mg/dL (0.7-1.3) Estimated GFR (Cockcroft-Gault) 81.8 BUN/Creatinine Ratio 30 (6-20) H Glucose Level 93 mg/dL (70-99) Calcium Level 8.3 mg/dL (8.5-10.1) L Total Bilirubin 0.6 mg/dL (0.2-1.0) Aspartate Amino Transferase (AST) 10 U/L (15-37) L Alanine Aminotransferase (ALT) 11 U/L (16-63) L Alkaline Phosphatase 83 U/L (46-116) Total Protein 6.8 g/dL (6.4-8.2) Albumin 3.3 g/dL (3.4-5.0) L Albumin/Globulin Ratio 0.9 (1.0-1.7) L Current Medications: Meds: Current Medications Sodium Chloride 1,000 ml @ 1,000 mls/hr 1X ONCE IV ; Start 05/02/17 at 12:00; Stop 05/02/17 at 12:59; Status DC Haloperidol Lactate (Haldol) 5 mg 1X ONCE IVP ; Start 05/02/17 at 12:00; Stop at 12:01; Status DC Lorazepam (Ativan) 2 mg 1X ONCE IV ; Start 05/02/17 at 12:00; Stop 05/02/17 at 12 :01; Status DC Acetaminophen (Tylenol) 650 mg PRN Q6HRS PRN PO PAIN / TEMP Last administered on 05/03/17 09:13; Start 05/02/17 at 14:45 Multi-Ingredient Ointment (Analgesic [place]) 1 mia PRN QID PRN TP MUSCLE PAIN; Start 05/02/17 at 14:45 Al Hydroxide/Mg Hydroxide (Mylanta Plus Xs) 15 ml PRN AFTMEALHC PRN PO DYSPEPSIA Last administered on 05/14/17 11:46; Start 05/02/17 at 14:45 Magnesium Hydroxide (Milk Of Magnesia) 2,400 mg PRN QHS PRN PO CONSTIPATION; Start 05/02/17 at 14:45 Olanzapine (ZyPREXA ZYDIS) 2.5 mg PRN Q2HR PRN PO PSYCHOSIS Last administered on 05/11/17 19:29; Start 05/02/17 at 15:45 Hydroxyurea (Hydrea) 1,000 mg DAILY PO ; Start 05/03/17 at 09:00; Stop 05/03/17 at 09:00; Status DC Hydroxyurea (Hydrea) 1,000 mg DAILY PO Last administered on 05/08/17 08:19; Start 05/03/17 at 09:00; Stop 05/08/17 at 16:14; Status DC Aspirin (Oneil Aspirin) 325 mg DAILYWBKFT PO Last administered on 05/14/17 08: 30; Start 05/04/17 at 08:00 Ferrous Sulfate (Feosol) 325 mg DAILYWBKFT PO Last administered on 05/06/17 08: 07; Start 05/04/17 at 08:00; Stop 05/06/17 at 18:23; Status DC Cyproheptadine HCl (Periactin) 4 mg QHS PO Last administered on 05/14/17 20:00 ; Start 05/03/17 at 21:00 Sertraline HCl (Zoloft) 25 mg DAILY PO Last administered on 05/05/17 08:03; Start 05/05/17 at 09:00; Stop 05/05/17 at 18:27; Status DC Mirtazapine (Remeron) 7.5 mg QHS PO Last administered on 05/14/17 20:00; Start 05/04/17 at 21:00 Sertraline HCl (Zoloft) 50 mg DAILY PO Last administered on 05/07/17 08:07; Start 05/06/17 at 09:00; Stop 05/07/17 at 13:23; Status DC Trazodone HCl (Desyrel) 50 mg QHS PRN PO INSOMNIA, MAY REPEAT X1 Last administered on 05/14/17 20:01; Start 05/05/17 at 18:30 Sertraline HCl (Zoloft) 50 mg DAILY PO Last administered on 05/14/17 08:30; Start 05/08/17 at 09:00 Hydroxyurea (Hydrea) 1,500 mg DAILY PO Last administered on 05/14/17 08:30; Start 05/09/17 at 09:00 Buspirone HCl (Buspar) 5 mg BID92 PO Last administered on 05/14/17 09:35; Start 05/14/17 at 09:00; Stop 05/14/17 at 09:43; Status DC Buspirone HCl (Buspar) 10 mg BID92 PO Last administered on 05/14/17 14:32; Start 05/14/17 at 14:00 Active Scripts Active Reported Trazodone Hcl 50 Mg Tablet 50 Mg PO PRN QHS PRN Buspirone Hcl 5 Mg Tablet 5 Mg PO BID92 Zoloft (Sertraline Hcl) 50 Mg Tablet 50 Mg PO DAILY Olanzapine 5 Mg Tablet 2.5 Mg PO PRN Q2HR PRN Remeron (Mirtazapine) 15 Mg Tablet 7.5 Mg PO QHS Analgesic [place] (Methyl Salicylate/Menthol) 28 Gm Oint...g. 1 Mia TP PRN QID PRN Milk Of Magnesia (Magnesium Hydroxide) 2,400 Mg/10 Ml Oral.susp 2,400 Mg PO PRN QHS PRN Mag-Al Plus Xs Suspension (Mag Hydrox/Al Hydrox/Simeth) 30 Ml Oral.susp 15 Ml PO PRN AFTMEALHC PRN Cyproheptadine Hcl 4 Mg Tablet 4 Mg PO QHS Aspirin 325 Mg Tablet 325 Mg PO DAILYWBKFT Tylenol (Acetaminophen) 325 Mg Tablet 650 Mg PO PRN Q6HRS PRN Hydroxyurea 500 Mg Capsule 1,500 Mg PO DAILY CECILIA PARR MD May 14, 2017 20:29
--- NOTE | 2017-05-14 21:02 | PDOC ---
Exam Ivan Demential Exam: Ivan Note: Please also refer to the separate dictated note~for this date of service dictated separately.~Patient seen individually. Discussed the patient with Nursing staff reviewed the chart.~Reviewed interim history and current functioning. Reviewed vital signs,~Labs/ Radiology~and current medications noted below. Continue current treatment with the changes noted in the dictated addendum note S/O: This is a late entry for date of service 05/12/2017 and covers elements not covered in my initial note. The patient was seen individually on the evening of 05/12/2017. The patient remains withdrawn, but not agitated and aggressive. He is certainly quite confused and met with him in his room. Review of Systems: No CV, , Eye, ENT, Pulmonary system symptoms on review. Reliability poor. MSE: Oriented to himself. Insight, judgment, recent and remote memory, attention and concentration, and fund of knowledge poor consistent with his diagnosis mentioned in my initial note. Plan: Continue current psychotropics. Transition to lower level of care as soon as arranged by social service staff. Assessment: Vital Signs: Vital Signs Date Time Temp Pulse Resp B/P (MAP) Pulse Ox O2 Delivery O2 Flow Rate FiO2 05/14/17 15:35 98.1 66 18 127/74 (91) 96 05/13/17 16:11 Room Air I&O Intake and Output 05/14/17 07:00 Intake Total 1040 ml Balance 1040 ml Intake Oral 1040 ml Labs: Laboratory Tests Test 05/14/17 06:30 White Blood Count 5.6 x10^3/uL (4.0-11.0) Red Blood Count 5.68 x10^6/uL (4.30-5.70) Hemoglobin 13.1 g/dL (13.0-17.5) Hematocrit 42.2 % (39.0-53.0) Mean Corpuscular Volume 74 fL (79-100) L Mean Corpuscular Hemoglobin 23 pg (25-35) L Mean Corpuscular Hemoglobin Concent 31 g/dL (31-37) Red Cell Distribution Width 20.8 % (11.5-14.5) H Platelet Count 757 x10^3/uL (140-400) H Neutrophils (%) (Auto) 67 % (31-73) Lymphocytes (%) (Auto) 19 % (24-48) L Monocytes (%) (Auto) 2 % (0-9) Eosinophils (%) (Auto) 6 % (0-3) H Basophils (%) (Auto) 6 % (0-3) H Neutrophils # (Auto) 3.8 x10^3uL (1.8-7.7) Lymphocytes # (Auto) 1.1 x10^3/uL (1.0-4.8) Monocytes # (Auto) 0.1 x10^3/uL (0.0-1.1) Eosinophils # (Auto) 0.3 x10^3/uL (0.0-0.7) Basophils # (Auto) 0.3 x10^3/uL (0.0-0.2) H Sodium Level 139 mmol/L (136-145) Potassium Level 4.1 mmol/L (3.5-5.1) Chloride Level 104 mmol/L (98-107) Carbon Dioxide Level 30 mmol/L (21-32) Anion Gap 5 (6-14) L Blood Urea Nitrogen 27 mg/dL (8-26) H Creatinine 0.9 mg/dL (0.7-1.3) Estimated GFR (Cockcroft-Gault) 81.8 BUN/Creatinine Ratio 30 (6-20) H Glucose Level 93 mg/dL (70-99) Calcium Level 8.3 mg/dL (8.5-10.1) L Total Bilirubin 0.6 mg/dL (0.2-1.0) Aspartate Amino Transferase (AST) 10 U/L (15-37) L Alanine Aminotransferase (ALT) 11 U/L (16-63) L Alkaline Phosphatase 83 U/L (46-116) Total Protein 6.8 g/dL (6.4-8.2) Albumin 3.3 g/dL (3.4-5.0) L Albumin/Globulin Ratio 0.9 (1.0-1.7) L Current Medications: Meds: Current Medications Sodium Chloride 1,000 ml @ 1,000 mls/hr 1X ONCE IV ; Start 05/02/17 at 12:00; Stop 05/02/17 at 12:59; Status DC Haloperidol Lactate (Haldol) 5 mg 1X ONCE IVP ; Start 05/02/17 at 12:00; Stop at 12:01; Status DC Lorazepam (Ativan) 2 mg 1X ONCE IV ; Start 05/02/17 at 12:00; Stop 05/02/17 at 12 :01; Status DC Acetaminophen (Tylenol) 650 mg PRN Q6HRS PRN PO PAIN / TEMP Last administered on 05/03/17 09:13; Start 05/02/17 at 14:45 Multi-Ingredient Ointment (Analgesic [place]) 1 mia PRN QID PRN TP MUSCLE PAIN; Start 05/02/17 at 14:45 Al Hydroxide/Mg Hydroxide (Mylanta Plus Xs) 15 ml PRN AFTMEALHC PRN PO DYSPEPSIA Last administered on 05/14/17 11:46; Start 05/02/17 at 14:45 Magnesium Hydroxide (Milk Of Magnesia) 2,400 mg PRN QHS PRN PO CONSTIPATION; Start 05/02/17 at 14:45 Olanzapine (ZyPREXA ZYDIS) 2.5 mg PRN Q2HR PRN PO PSYCHOSIS Last administered on 05/11/17 19:29; Start 05/02/17 at 15:45 Hydroxyurea (Hydrea) 1,000 mg DAILY PO ; Start 05/03/17 at 09:00; Stop 05/03/17 at 09:00; Status DC Hydroxyurea (Hydrea) 1,000 mg DAILY PO Last administered on 05/08/17 08:19; Start 05/03/17 at 09:00; Stop 05/08/17 at 16:14; Status DC Aspirin (Oneil Aspirin) 325 mg DAILYWBKFT PO Last administered on 05/14/17 08: 30; Start 05/04/17 at 08:00 Ferrous Sulfate (Feosol) 325 mg DAILYWBKFT PO Last administered on 05/06/17 08: 07; Start 05/04/17 at 08:00; Stop 05/06/17 at 18:23; Status DC Cyproheptadine HCl (Periactin) 4 mg QHS PO Last administered on 05/14/17 20:00 ; Start 05/03/17 at 21:00 Sertraline HCl (Zoloft) 25 mg DAILY PO Last administered on 05/05/17 08:03; Start 05/05/17 at 09:00; Stop 05/05/17 at 18:27; Status DC Mirtazapine (Remeron) 7.5 mg QHS PO Last administered on 05/14/17 20:00; Start 05/04/17 at 21:00 Sertraline HCl (Zoloft) 50 mg DAILY PO Last administered on 05/07/17 08:07; Start 05/06/17 at 09:00; Stop 05/07/17 at 13:23; Status DC Trazodone HCl (Desyrel) 50 mg QHS PRN PO INSOMNIA, MAY REPEAT X1 Last administered on 05/14/17 20:01; Start 05/05/17 at 18:30 Sertraline HCl (Zoloft) 50 mg DAILY PO Last administered on 05/14/17 08:30; Start 05/08/17 at 09:00 Hydroxyurea (Hydrea) 1,500 mg DAILY PO Last administered on 05/14/17 08:30; Start 05/09/17 at 09:00 Buspirone HCl (Buspar) 5 mg BID92 PO Last administered on 05/14/17 09:35; Start 05/14/17 at 09:00; Stop 05/14/17 at 09:43; Status DC Buspirone HCl (Buspar) 10 mg BID92 PO Last administered on 05/14/17 14:32; Start 05/14/17 at 14:00 Active Scripts Active Reported Trazodone Hcl 50 Mg Tablet 50 Mg PO PRN QHS PRN Buspirone Hcl 5 Mg Tablet 5 Mg PO BID92 Zoloft (Sertraline Hcl) 50 Mg Tablet 50 Mg PO DAILY Olanzapine 5 Mg Tablet 2.5 Mg PO PRN Q2HR PRN Remeron (Mirtazapine) 15 Mg Tablet 7.5 Mg PO QHS Analgesic [place] (Methyl Salicylate/Menthol) 28 Gm Oint...g. 1 Mia TP PRN QID PRN Milk Of Magnesia (Magnesium Hydroxide) 2,400 Mg/10 Ml Oral.susp 2,400 Mg PO PRN QHS PRN Mag-Al Plus Xs Suspension (Mag Hydrox/Al Hydrox/Simeth) 30 Ml Oral.susp 15 Ml PO PRN AFTMEALHC PRN Cyproheptadine Hcl 4 Mg Tablet 4 Mg PO QHS Aspirin 325 Mg Tablet 325 Mg PO DAILYWBKFT Tylenol (Acetaminophen) 325 Mg Tablet 650 Mg PO PRN Q6HRS PRN Hydroxyurea 500 Mg Capsule 1,500 Mg PO DAILY CECILIA PARR MD May 14, 2017 21:02
[2017-05-15 06:24] VITALS: BP 136/76
[2017-05-15] MEDS: busPIRone 5 MG TABLET. PO SCH ×2 (07:48→13:29)
[2017-05-15] MEDS: ASPIRIN 325 MG TABLET PO SCH (07:48)
[2017-05-15] MEDS: SERTRALINE 50 MG TABLET. PO SCH (07:48)
[2017-05-15] MEDS: HYDROXYUREA 500 MG CAPSULE PO SCH (07:49)
[2017-05-15 16:34] VITALS: BP 128/72
[2017-05-15] MEDS: CYPROHEPTADINE 4 MG TABLET. PO SCH (19:48)
[2017-05-15] MEDS: MIRTAZAPINE 7.5 MG TABLET. PO SCH (19:48)
[2017-05-15] MEDS: traZODone 50 MG TABLET. PO PRN (19:48)
--- NOTE | 2017-05-15 20:09 | PDOC ---
Exam Ivan Demential Exam: Ivan Note: Please also refer to the separate dictated note~for this date of service dictated separately.~Patient seen individually. Discussed the patient with Nursing staff reviewed the chart.~Reviewed interim history and current functioning. Reviewed vital signs,~Labs/ Radiology~and current medications noted below. Continue current treatment with the changes noted in the dictated addendum note Assessment: Vital Signs: Vital Signs Date Time Temp Pulse Resp B/P (MAP) Pulse Ox O2 Delivery O2 Flow Rate FiO2 05/15/17 16:34 98.2 69 18 128/72 (90) 96 05/13/17 16:11 Room Air I&O Intake and Output 05/15/17 07:00 Intake Total 1160 ml Balance 1160 ml Intake Oral 1160 ml # Voids 1 Current Medications: Meds: Current Medications Sodium Chloride 1,000 ml @ 1,000 mls/hr 1X ONCE IV ; Start 05/02/17 at 12:00; Stop 05/02/17 at 12:59; Status DC Haloperidol Lactate (Haldol) 5 mg 1X ONCE IVP ; Start 05/02/17 at 12:00; Stop at 12:01; Status DC Lorazepam (Ativan) 2 mg 1X ONCE IV ; Start 05/02/17 at 12:00; Stop 05/02/17 at 12 :01; Status DC Acetaminophen (Tylenol) 650 mg PRN Q6HRS PRN PO PAIN / TEMP Last administered on 05/03/17 09:13; Start 05/02/17 at 14:45 Multi-Ingredient Ointment (Analgesic [place]) 1 mia PRN QID PRN TP MUSCLE PAIN; Start 05/02/17 at 14:45 Al Hydroxide/Mg Hydroxide (Mylanta Plus Xs) 15 ml PRN AFTMEALHC PRN PO DYSPEPSIA Last administered on 05/14/17 11:46; Start 05/02/17 at 14:45 Magnesium Hydroxide (Milk Of Magnesia) 2,400 mg PRN QHS PRN PO CONSTIPATION; Start 05/02/17 at 14:45 Olanzapine (ZyPREXA ZYDIS) 2.5 mg PRN Q2HR PRN PO PSYCHOSIS Last administered on 05/11/17 19:29; Start 05/02/17 at 15:45 Hydroxyurea (Hydrea) 1,000 mg DAILY PO ; Start 05/03/17 at 09:00; Stop 05/03/17 at 09:00; Status DC Hydroxyurea (Hydrea) 1,000 mg DAILY PO Last administered on 05/08/17 08:19; Start 05/03/17 at 09:00; Stop 05/08/17 at 16:14; Status DC Aspirin (Oneil Aspirin) 325 mg DAILYWBKFT PO Last administered on 05/15/17 07: 48; Start 05/04/17 at 08:00 Ferrous Sulfate (Feosol) 325 mg DAILYWBKFT PO Last administered on 05/06/17 08: 07; Start 05/04/17 at 08:00; Stop 05/06/17 at 18:23; Status DC Cyproheptadine HCl (Periactin) 4 mg QHS PO Last administered on 05/15/17 19:48 ; Start 05/03/17 at 21:00 Sertraline HCl (Zoloft) 25 mg DAILY PO Last administered on 05/05/17 08:03; Start 05/05/17 at 09:00; Stop 05/05/17 at 18:27; Status DC Mirtazapine (Remeron) 7.5 mg QHS PO Last administered on 05/15/17 19:48; Start 05/04/17 at 21:00 Sertraline HCl (Zoloft) 50 mg DAILY PO Last administered on 05/07/17 08:07; Start 05/06/17 at 09:00; Stop 05/07/17 at 13:23; Status DC Trazodone HCl (Desyrel) 50 mg QHS PRN PO INSOMNIA, MAY REPEAT X1 Last administered on 05/15/17 19:48; Start 05/05/17 at 18:30 Sertraline HCl (Zoloft) 50 mg DAILY PO Last administered on 05/15/17 07:48; Start 05/08/17 at 09:00 Hydroxyurea (Hydrea) 1,500 mg DAILY PO Last administered on 05/15/17 07:49; Start 05/09/17 at 09:00 Buspirone HCl (Buspar) 5 mg BID92 PO Last administered on 05/14/17 09:35; Start 05/14/17 at 09:00; Stop 05/14/17 at 09:43; Status DC Buspirone HCl (Buspar) 10 mg BID92 PO Last administered on 05/15/17t 13:29; Start 05/14/17 at 14:00 Active Scripts Active Reported Trazodone Hcl 50 Mg Tablet 50 Mg PO PRN QHS PRN Buspirone Hcl 5 Mg Tablet 5 Mg PO [id number] Zoloft (Sertraline Hcl) 50 Mg Tablet 50 Mg PO DAILY Olanzapine 5 Mg Tablet 2.5 Mg PO PRN Q2HR PRN Remeron (Mirtazapine) 15 Mg Tablet 7.5 Mg PO QHS Analgesic [place] (Methyl Salicylate/Menthol) 28 Gm Oint...g. 1 Mia TP PRN QID PRN Milk Of Magnesia (Magnesium Hydroxide) 2,400 Mg/10 Ml Oral.susp 2,400 Mg PO PRN QHS PRN Mag-Al Plus Xs Suspension (Mag Hydrox/Al Hydrox/Simeth) 30 Ml Oral.susp 15 Ml PO PRN AFTMEALHC PRN Cyproheptadine Hcl 4 Mg Tablet 4 Mg PO QHS Aspirin 325 Mg Tablet 325 Mg PO DAILYWBKFT Tylenol (Acetaminophen) 325 Mg Tablet 650 Mg PO PRN Q6HRS PRN Hydroxyurea 500 Mg Capsule 1,500 Mg PO DAILY Diagnosis: Problems: (1) Altered mental status (2) Anxiety disorder (3) Impulse control disorder (4) Dementia, vascular, with depression (5) Dementia, vascular, with delusions (6) Dementia in Alzheimer's disease with depression (7) Dementia in Alzheimer's disease with delusions CECILIA PARR MD May 15, 2017 20:08
--- NOTE | 2017-05-15 20:44 | PDOC ---
Exam Ivan Demential Exam: Ivan Note: Please also refer to the separate dictated note~for this date of service dictated separately.~Patient seen individually. Discussed the patient with Nursing staff reviewed the chart.~Reviewed interim history and current functioning. Reviewed vital signs,~Labs/ Radiology~and current medications noted below. Continue current treatment with the changes noted in the dictated addendum note S/O: This is late entry on 05/13/2017 covers elements not covered in my initial note. I met with the patient on evening of 05/13/2017. The patient remains confused, slept 6 hours, somewhat suspicious, anxious especially when his daughter visited. He believes she is stealing from him and the daughter shared with staff that he made vague suicidal statements wanting to kill himself , but certainly did reiterate this as I questioned him and as the nursing staff have questioned him. Review of systems: No CV, , Pulmonary, Eye, ENT system symptoms on review. Reliability is poor. MSE: Oriented to himself. Insight, judgment, recent and remote memory, attention, concentration, fund of knowledge is poor, consistent with his diagnosis mentioned in my initial note. Impression: Unchanged from initial note. Plan: Continue current psychotropics. Assessment: Vital Signs: Vital Signs Date Time Temp Pulse Resp B/P (MAP) Pulse Ox O2 Delivery O2 Flow Rate FiO2 05/15/17 16:34 98.2 69 18 128/72 (90) 96 05/13/17 16:11 Room Air I&O Intake and Output 05/15/17 07:00 Intake Total 1160 ml Balance 1160 ml Intake Oral 1160 ml # Voids 1 Current Medications: Meds: Current Medications Sodium Chloride 1,000 ml @ 1,000 mls/hr 1X ONCE IV ; Start 05/02/17 at 12:00; Stop 05/02/17 at 12:59; Status DC Haloperidol Lactate (Haldol) 5 mg 1X ONCE IVP ; Start 05/02/17 at 12:00; Stop at 12:01; Status DC Lorazepam (Ativan) 2 mg 1X ONCE IV ; Start 05/02/17 at 12:00; Stop 05/02/17 at 12 :01; Status DC Acetaminophen (Tylenol) 650 mg PRN Q6HRS PRN PO PAIN / TEMP Last administered on 05/03/17 09:13; Start 05/02/17 at 14:45 Multi-Ingredient Ointment (Analgesic [place]) 1 mia PRN QID PRN TP MUSCLE PAIN; Start 05/02/17 at 14:45 Al Hydroxide/Mg Hydroxide (Mylanta Plus Xs) 15 ml PRN AFTMEALHC PRN PO DYSPEPSIA Last administered on 05/14/17 11:46; Start 05/02/17 at 14:45 Magnesium Hydroxide (Milk Of Magnesia) 2,400 mg PRN QHS PRN PO CONSTIPATION; Start 05/02/17 at 14:45 Olanzapine (ZyPREXA ZYDIS) 2.5 mg PRN Q2HR PRN PO PSYCHOSIS Last administered on 05/11/17 19:29; Start 05/02/17 at 15:45 Hydroxyurea (Hydrea) 1,000 mg DAILY PO ; Start 05/03/17 at 09:00; Stop 05/03/17 at 09:00; Status DC Hydroxyurea (Hydrea) 1,000 mg DAILY PO Last administered on 05/08/17 08:19; Start 05/03/17 at 09:00; Stop 05/08/17 at 16:14; Status DC Aspirin (Oneil Aspirin) 325 mg DAILYWBKFT PO Last administered on 05/15/17 07: 48; Start 05/04/17 at 08:00 Ferrous Sulfate (Feosol) 325 mg DAILYWBKFT PO Last administered on 05/06/17 08: 07; Start 05/04/17 at 08:00; Stop 05/06/17 at 18:23; Status DC Cyproheptadine HCl (Periactin) 4 mg QHS PO Last administered on 05/15/17 19:48 ; Start 05/03/17 at 21:00 Sertraline HCl (Zoloft) 25 mg DAILY PO Last administered on 05/05/17 08:03; Start 05/05/17 at 09:00; Stop 05/05/17 at 18:27; Status DC Mirtazapine (Remeron) 7.5 mg QHS PO Last administered on 05/15/17 19:48; Start 05/04/17 at 21:00 Sertraline HCl (Zoloft) 50 mg DAILY PO Last administered on 7/6/17at 08:07; Start 05/06/17 at 09:00; Stop 05/07/17 at 13:23; Status DC Trazodone HCl (Desyrel) 50 mg QHS PRN PO INSOMNIA, MAY REPEAT X1 Last administered on 05/15/17 19:48; Start 05/05/17 at 18:30 Sertraline HCl (Zoloft) 50 mg DAILY PO Last administered on 05/15/17 07:48; Start 05/08/17 at 09:00 Hydroxyurea (Hydrea) 1,500 mg DAILY PO Last administered on 05/15/17 07:49; Start 05/09/17 at 09:00 Buspirone HCl (Buspar) 5 mg BID92 PO Last administered on 05/14/17 09:35; Start 05/14/17 at 09:00; Stop 05/14/17 at 09:43; Status DC Buspirone HCl (Buspar) 10 mg BID92 PO Last administered on 05/15/17 13:29; Start 05/14/17 at 14:00 Active Scripts Active Reported Trazodone Hcl 50 Mg Tablet 50 Mg PO PRN QHS PRN Buspirone Hcl 5 Mg Tablet 5 Mg PO BID92 Zoloft (Sertraline Hcl) 50 Mg Tablet 50 Mg PO DAILY Olanzapine 5 Mg Tablet 2.5 Mg PO PRN Q2HR PRN Remeron (Mirtazapine) 15 Mg Tablet 7.5 Mg PO QHS Analgesic [place] (Methyl Salicylate/Menthol) 28 Gm Oint...g. 1 Mia TP PRN QID PRN Milk Of Magnesia (Magnesium Hydroxide) 2,400 Mg/10 Ml Oral.susp 2,400 Mg PO PRN QHS PRN Mag-Al Plus Xs Suspension (Mag Hydrox/Al Hydrox/Simeth) 30 Ml Oral.susp 15 Ml PO PRN AFTMEALHC PRN Cyproheptadine Hcl 4 Mg Tablet 4 Mg PO QHS Aspirin 325 Mg Tablet 325 Mg PO DAILYWBKFT Tylenol (Acetaminophen) 325 Mg Tablet 650 Mg PO PRN Q6HRS PRN Hydroxyurea 500 Mg Capsule 1,500 Mg PO DAILY CECILIA PARR MD May 15, 2017 20:44
[2017-05-16 06:08] VITALS: BP 114/63
[2017-05-16] MEDS: ASPIRIN 325 MG TABLET PO SCH (08:10)
[2017-05-16] MEDS: SERTRALINE 50 MG TABLET. PO SCH (08:10)
[2017-05-16] MEDS: busPIRone 5 MG TABLET. PO SCH ×2 (08:10→13:06)
[2017-05-16] MEDS: HYDROXYUREA 500 MG CAPSULE PO SCH (08:14)
[2017-05-16 16:15] VITALS: BP 148/74
--- NOTE | 2017-05-16 19:34 | PDOC ---
Exam Ivan Demential Exam: Ivan Note: ~Patient seen individually. Discussed the patient with Nursing staff reviewed the chart.~Reviewed interim history and current functioning. Reviewed vital signs,~Labs/ Radiology~and current medications noted below. Continue current treatment with the changes noted I met with the patient evening of 05/16. Per nursing report patient remains confused gets paranoid about his daughter but otherwise seems appropriate other than his significant memory deficits. Review of systems: No CVA GI pulmonary EYE ENT system symptoms on review. Reliability poor due to his dementia. Mental status examination: Patient is oriented to himself. Insight and judgment recent and remote memory attention concentration fund of knowledge are poor consistent with his diagnosis. No active psychotic symptoms other then when conversing about his daughter. No suicidal or homicidal ideation. Intellect impaired consequent to his dementia Plan: Continue current psychotropics mentioned below. Transition to a lower level of care early next week Assessment: Vital Signs: Vital Signs Date Time Temp Pulse Resp B/P (MAP) Pulse Ox O2 Delivery O2 Flow Rate FiO2 05/16/17 16:15 97.6 73 20 148/74 (98) 95 Room Air I&O Intake and Output 05/16/17 07:00 Intake Total 1440 ml Balance 1440 ml Intake Oral 1440 ml Current Medications: Meds: Current Medications Sodium Chloride 1,000 ml @ 1,000 mls/hr 1X ONCE IV ; Start 05/02/17 at 12:00; Stop 05/02/17 at 12:59; Status DC Haloperidol Lactate (Haldol) 5 mg 1X ONCE IVP ; Start 05/02/17 at 12:00; Stop at 12:01; Status DC Lorazepam (Ativan) 2 mg 1X ONCE IV ; Start 05/02/17 at 12:00; Stop 05/02/17 at 12 :01; Status DC Acetaminophen (Tylenol) 650 mg PRN Q6HRS PRN PO PAIN / TEMP Last administered on 05/03/17 09:13; Start 05/02/17 at 14:45 Multi-Ingredient Ointment (Analgesic [place]) 1 mia PRN QID PRN TP MUSCLE PAIN; Start 05/02/17 at 14:45 Al Hydroxide/Mg Hydroxide (Mylanta Plus Xs) 15 ml PRN AFTMEALHC PRN PO DYSPEPSIA Last administered on 05/14/17 11:46; Start 05/02/17 at 14:45 Magnesium Hydroxide (Milk Of Magnesia) 2,400 mg PRN QHS PRN PO CONSTIPATION; Start 05/02/17 at 14:45 Olanzapine (ZyPREXA ZYDIS) 2.5 mg PRN Q2HR PRN PO PSYCHOSIS Last administered on 05/11/17 19:29; Start 05/02/17 at 15:45 Hydroxyurea (Hydrea) 1,000 mg DAILY PO ; Start 05/03/17 at 09:00; Stop 05/03/17 at 09:00; Status DC Hydroxyurea (Hydrea) 1,000 mg DAILY PO Last administered on 05/08/17 08:19; Start 05/03/17 at 09:00; Stop 05/08/17 at 16:14; Status DC Aspirin (Oneil Aspirin) 325 mg DAILYWBKFT PO Last administered on 05/16/17 08: 10; Start 05/04/17 at 08:00 Ferrous Sulfate (Feosol) 325 mg DAILYWBKFT PO Last administered on 05/06/17 08: 07; Start 05/04/17 at 08:00; Stop 05/06/17 at 18:23; Status DC Cyproheptadine HCl (Periactin) 4 mg QHS PO Last administered on 05/15/17 19:48 ; Start 05/03/17 at 21:00 Sertraline HCl (Zoloft) 25 mg DAILY PO Last administered on 05/05/17 08:03; Start 05/05/17 at 09:00; Stop 05/05/17 at 18:27; Status DC Mirtazapine (Remeron) 7.5 mg QHS PO Last administered on 05/15/17 19:48; Start 05/04/17 at 21:00 Sertraline HCl (Zoloft) 50 mg DAILY PO Last administered on 05/07/17 08:07; Start 05/06/17 at 09:00; Stop 05/07/17 at 13:23; Status DC Trazodone HCl (Desyrel) 50 mg QHS PRN PO INSOMNIA, MAY REPEAT X1 Last administered on 05/15/17 19:48; Start 05/05/17 at 18:30 Sertraline HCl (Zoloft) 50 mg DAILY PO Last administered on 05/16/17 08:10; Start 05/08/17 at 09:00 Hydroxyurea (Hydrea) 1,500 mg DAILY PO Last administered on 05/16/17 08:14; Start 05/09/17 at 09:00 Buspirone HCl (Buspar) 5 mg BID92 PO Last administered on 05/14/17 09:35; Start 05/14/17 at 09:00; Stop 05/14/17 at 09:43; Status DC Buspirone HCl (Buspar) 10 mg BID92 PO Last administered on 05/16/17 13:06; Start 05/14/17 at 14:00 Active Scripts Active Reported Trazodone Hcl 50 Mg Tablet 50 Mg PO PRN QHS PRN Buspirone Hcl 5 Mg Tablet 5 Mg PO BID92 Zoloft (Sertraline Hcl) 50 Mg Tablet 50 Mg PO DAILY Olanzapine 5 Mg Tablet 2.5 Mg PO PRN Q2HR PRN Remeron (Mirtazapine) 15 Mg Tablet 7.5 Mg PO QHS Analgesic [place] (Methyl Salicylate/Menthol) 28 Gm Oint...g. 1 Mia TP PRN QID PRN Milk Of Magnesia (Magnesium Hydroxide) 2,400 Mg/10 Ml Oral.susp 2,400 Mg PO PRN QHS PRN Mag-Al Plus Xs Suspension (Mag Hydrox/Al Hydrox/Simeth) 30 Ml Oral.susp 15 Ml PO PRN AFTMEALHC PRN Cyproheptadine Hcl 4 Mg Tablet 4 Mg PO QHS Aspirin 325 Mg Tablet 325 Mg PO DAILYWBKFT Tylenol (Acetaminophen) 325 Mg Tablet 650 Mg PO PRN Q6HRS PRN Hydroxyurea 500 Mg Capsule 1,500 Mg PO DAILY Diagnosis: Problems: (1) Dementia in Alzheimer's disease with delusions (2) Dementia in Alzheimer's disease with depression (3) Dementia, vascular, with delusions (4) Dementia, vascular, with depression (5) Impulse control disorder (6) Anxiety disorder CECILIA PARR MD May 16, 2017 19:34
[2017-05-16] MEDS: MIRTAZAPINE 7.5 MG TABLET. PO SCH (19:36)
[2017-05-16] MEDS: CYPROHEPTADINE 4 MG TABLET. PO SCH (19:36)
[2017-05-16] MEDS: traZODone 50 MG TABLET. PO PRN (19:36)
[2017-05-17 06:42] VITALS: BP 151/90
[2017-05-17] MEDS: ASPIRIN 325 MG TABLET PO SCH (07:30)
[2017-05-17] MEDS: busPIRone 5 MG TABLET. PO SCH ×2 (07:30→13:35)
[2017-05-17] MEDS: SERTRALINE 50 MG TABLET. PO SCH (07:30)
[2017-05-17] MEDS: HYDROXYUREA 500 MG CAPSULE PO SCH (07:36)
[2017-05-17 10:19] LABS: BASO # 0.3 x10^3/uL (0.0-0.2); BASO % 9 % (0-3); EOS # 0.2 x10^3/uL (0.0-0.7); EOS % 5 % (0-3); HEMATOCRIT 42.3 % (39.0-53.0); HEMOGLOBIN 13.1 g/dL (13.0-17.5); LYMPH % 31 % (24-48); MEAN CORPUSCULAR HEMOGLOBIN 23 pg (25-35); MEAN CORPUSCULAR HGB CONC 31 g/dL (31-37); MEAN CORPUSCULAR VOLUME 75 fL (79-100); MONO # 0.1 x10^3/uL (0.0-1.1); MONO % 2 % (0-9); NEUT # 1.7 x10^3uL (1.8-7.7); NEUT % 53 % (31-73); PLATELET COUNT 448 x10^3/uL (140-400); RED BLOOD COUNT 5.66 x10^6/uL (4.30-5.70); RED CELL DISTRIBUTION WIDTH 20.6 % (11.5-14.5); WHITE BLOOD COUNT 3.2 x10^3/uL (4.0-11.0)
[2017-05-17 10:35] LABS: ALBUMIN 3.4 g/dL (3.4-5.0); ALBUMIN/GLOBULIN RATIO 0.9 (1.0-1.7); CALCIUM 8.6 mg/dL (8.5-10.1); CREATININE 1.2 mg/dL (0.7-1.3); GFR 58.7; TOTAL BILIRUBIN 0.6 mg/dL (0.2-1.0)
[2017-05-17 16:01] VITALS: BP 128/71
[2017-05-17] MEDS: traZODone 50 MG TABLET. PO PRN (19:15)
[2017-05-17] MEDS: CYPROHEPTADINE 4 MG TABLET. PO SCH (19:15)
[2017-05-17] MEDS: MIRTAZAPINE 7.5 MG TABLET. PO SCH (19:15)
--- NOTE | 2017-05-17 20:06 | PDOC ---
Exam Ivan Demential Exam: Ivan Note: Please also refer to the separate dictated note~for this date of service dictated separately.~Patient seen individually. Discussed the patient with Nursing staff reviewed the chart.~Reviewed interim history and current functioning. Reviewed vital signs,~Labs/ Radiology~and current medications noted below. Continue current treatment with the changes noted in the dictated addendum note Assessment: Vital Signs: Vital Signs Date Time Temp Pulse Resp B/P (MAP) Pulse Ox O2 Delivery O2 Flow Rate FiO2 05/17/17 16:01 98.4 76 18 128/71 (90) 96 05/16/17 16:15 Room Air I&O Intake and Output 05/17/17 07:00 Intake Total 1020 ml Balance 1020 ml Intake Oral 1020 ml Labs: Laboratory Tests Test 05/17/17 09:27 White Blood Count 3.2 x10^3/uL (4.0-11.0) L Red Blood Count 5.66 x10^6/uL (4.30-5.70) Hemoglobin 13.1 g/dL (13.0-17.5) Hematocrit 42.3 % (39.0-53.0) Mean Corpuscular Volume 75 fL (79-100) L Mean Corpuscular Hemoglobin 23 pg (25-35) L Mean Corpuscular Hemoglobin Concent 31 g/dL (31-37) Red Cell Distribution Width 20.6 % (11.5-14.5) H Platelet Count 448 x10^3/uL (140-400) H Neutrophils (%) (Auto) 53 % (31-73) Lymphocytes (%) (Auto) 31 % (24-48) Monocytes (%) (Auto) 2 % (0-9) Eosinophils (%) (Auto) 5 % (0-3) H Basophils (%) (Auto) 9 % (0-3) H Neutrophils # (Auto) 1.7 x10^3uL (1.8-7.7) L Lymphocytes # (Auto) 1.0 x10^3/uL (1.0-4.8) Monocytes # (Auto) 0.1 x10^3/uL (0.0-1.1) Eosinophils # (Auto) 0.2 x10^3/uL (0.0-0.7) Basophils # (Auto) 0.3 x10^3/uL (0.0-0.2) H Sodium Level 139 mmol/L (136-145) Potassium Level 4.0 mmol/L (3.5-5.1) Chloride Level 104 mmol/L (98-107) Carbon Dioxide Level 29 mmol/L (21-32) Anion Gap 6 (6-14) Blood Urea Nitrogen 27 mg/dL (8-26) H Creatinine 1.2 mg/dL (0.7-1.3) Estimated GFR (Cockcroft-Gault) 58.7 BUN/Creatinine Ratio 23 (6-20) H Glucose Level 97 mg/dL (70-99) Calcium Level 8.6 mg/dL (8.5-10.1) Total Bilirubin 0.6 mg/dL (0.2-1.0) Aspartate Amino Transferase (AST) 13 U/L (15-37) L Alanine Aminotransferase (ALT) 13 U/L (16-63) L Alkaline Phosphatase 79 U/L (46-116) Total Protein 7.0 g/dL (6.4-8.2) Albumin 3.4 g/dL (3.4-5.0) Albumin/Globulin Ratio 0.9 (1.0-1.7) L Current Medications: Meds: Current Medications Sodium Chloride 1,000 ml @ 1,000 mls/hr 1X ONCE IV ; Start 05/02/17 at 12:00; Stop 05/02/17 at 12:59; Status DC Haloperidol Lactate (Haldol) 5 mg 1X ONCE IVP ; Start 05/02/17 at 12:00; Stop at 12:01; Status DC Lorazepam (Ativan) 2 mg 1X ONCE IV ; Start 05/02/17 at 12:00; Stop 05/02/17 at 12 :01; Status DC Acetaminophen (Tylenol) 650 mg PRN Q6HRS PRN PO PAIN / TEMP Last administered on 05/03/17 09:13; Start 05/02/17 at 14:45 Multi-Ingredient Ointment (Analgesic [place]) 1 mia PRN QID PRN TP MUSCLE PAIN; Start 05/02/17 at 14:45 Al Hydroxide/Mg Hydroxide (Mylanta Plus Xs) 15 ml PRN AFTMEALHC PRN PO DYSPEPSIA Last administered on 05/14/17 11:46; Start 05/02/17 at 14:45 Magnesium Hydroxide (Milk Of Magnesia) 2,400 mg PRN QHS PRN PO CONSTIPATION; Start 05/02/17 at 14:45 Olanzapine (ZyPREXA ZYDIS) 2.5 mg PRN Q2HR PRN PO PSYCHOSIS Last administered on 05/11/17 19:29; Start 05/02/17 at 15:45 Hydroxyurea (Hydrea) 1,000 mg DAILY PO ; Start 05/03/17 at 09:00; Stop 05/03/17 at 09:00; Status DC Hydroxyurea (Hydrea) 1,000 mg DAILY PO Last administered on 05/08/17 08:19; Start 05/03/17 at 09:00; Stop 05/08/17 at 16:14; Status DC Aspirin (Oneil Aspirin) 325 mg DAILYWBKFT PO Last administered on 05/17/17 07: 30; Start 05/04/17 at 08:00 Ferrous Sulfate (Feosol) 325 mg DAILYWBKFT PO Last administered on 05/06/17 08: 07; Start 05/04/17 at 08:00; Stop 05/06/17 at 18:23; Status DC Cyproheptadine HCl (Periactin) 4 mg QHS PO Last administered on 05/17/17 19:15 ; Start 05/03/17 at 21:00 Sertraline HCl (Zoloft) 25 mg DAILY PO Last administered on 05/05/17 08:03; Start 05/05/17 at 09:00; Stop 05/05/17 at 18:27; Status DC Mirtazapine (Remeron) 7.5 mg QHS PO Last administered on 05/17/17 19:15; Start 05/04/17 at 21:00 Sertraline HCl (Zoloft) 50 mg DAILY PO Last administered on 05/07/17 08:07; Start 05/06/17 at 09:00; Stop 05/07/17 at 13:23; Status DC Trazodone HCl (Desyrel) 50 mg QHS PRN PO INSOMNIA, MAY REPEAT X1 Last administered on 05/17/17 19:15; Start 05/05/17 at 18:30 Sertraline HCl (Zoloft) 50 mg DAILY PO Last administered on 05/17/17 07:30; Start 05/08/17 at 09:00 Hydroxyurea (Hydrea) 1,500 mg DAILY PO Last administered on 05/17/17 07:36; Start 05/09/17 at 09:00 Buspirone HCl (Buspar) 5 mg BID92 PO Last administered on 05/14/17 09:35; Start 05/14/17 at 09:00; Stop 05/14/17 at 09:43; Status DC Buspirone HCl (Buspar) 10 mg BID92 PO Last administered on 05/17/17 13:35; Start 05/14/17 at 14:00 Active Scripts Active Reported Trazodone Hcl 50 Mg Tablet 50 Mg PO PRN QHS PRN Buspirone Hcl 5 Mg Tablet 5 Mg PO BID92 Zoloft (Sertraline Hcl) 50 Mg Tablet 50 Mg PO DAILY Olanzapine 5 Mg Tablet 2.5 Mg PO PRN Q2HR PRN Remeron (Mirtazapine) 15 Mg Tablet 7.5 Mg PO QHS Analgesic [place] (Methyl Salicylate/Menthol) 28 Gm Oint...g. 1 Mia TP PRN QID PRN Milk Of Magnesia (Magnesium Hydroxide) 2,400 Mg/10 Ml Oral.susp 2,400 Mg PO PRN QHS PRN Mag-Al Plus Xs Suspension (Mag Hydrox/Al Hydrox/Simeth) 30 Ml Oral.susp 15 Ml PO PRN AFTMEALHC PRN Cyproheptadine Hcl 4 Mg Tablet 4 Mg PO QHS Aspirin 325 Mg Tablet 325 Mg PO DAILYWBKFT Tylenol (Acetaminophen) 325 Mg Tablet 650 Mg PO PRN Q6HRS PRN Hydroxyurea 500 Mg Capsule 1,500 Mg PO DAILY Diagnosis: Problems: (1) Altered mental status (2) Anxiety disorder (3) Impulse control disorder (4) Dementia, vascular, with depression (5) Dementia, vascular, with delusions (6) Dementia in Alzheimer's disease with depression (7) Dementia in Alzheimer's disease with delusions CECILIA PARR MD May 17, 2017 20:06
[2017-05-18 06:11] VITALS: BP 124/58
[2017-05-18] MEDS: busPIRone 5 MG TABLET. PO SCH ×2 (08:12→14:41)
[2017-05-18] MEDS: ASPIRIN 325 MG TABLET PO SCH (08:12)
[2017-05-18] MEDS: SERTRALINE 50 MG TABLET. PO SCH (08:12)
[2017-05-18] MEDS: HYDROXYUREA 500 MG CAPSULE PO SCH (08:17)
[2017-05-18 15:32] VITALS: BP 133/82
[2017-05-18] MEDS: CYPROHEPTADINE 4 MG TABLET. PO SCH (19:48)
[2017-05-18] MEDS: MIRTAZAPINE 7.5 MG TABLET. PO SCH (19:48)
--- NOTE | 2017-05-18 20:09 | PDOC ---
Exam Ivan Demential Exam: Ivan Note: Please also refer to the separate dictated note~for this date of service dictated separately.~Patient seen individually. Discussed the patient with Nursing staff reviewed the chart.~Reviewed interim history and current functioning. Reviewed vital signs,~Labs/ Radiology~and current medications noted below. Continue current treatment with the changes noted in the dictated addendum note Assessment: Vital Signs: Vital Signs Date Time Temp Pulse Resp B/P (MAP) Pulse Ox O2 Delivery O2 Flow Rate FiO2 05/18/17 15:32 98.4 84 20 133/82 (99) 96 Room Air I&O Intake and Output 05/18/17 07:00 Intake Total 960 ml Balance 960 ml Intake Oral 960 ml # Bowel Movements 1 Current Medications: Meds: Current Medications Sodium Chloride 1,000 ml @ 1,000 mls/hr 1X ONCE IV ; Start 05/02/17 at 12:00; Stop 05/02/17 at 12:59; Status DC Haloperidol Lactate (Haldol) 5 mg 1X ONCE IVP ; Start 05/02/17 at 12:00; Stop at 12:01; Status DC Lorazepam (Ativan) 2 mg 1X ONCE IV ; Start 05/02/17 at 12:00; Stop 05/02/17 at 12 :01; Status DC Acetaminophen (Tylenol) 650 mg PRN Q6HRS PRN PO PAIN / TEMP Last administered on 05/03/17 09:13; Start 05/02/17 at 14:45 Multi-Ingredient Ointment (Analgesic [place]) 1 mia PRN QID PRN TP MUSCLE PAIN; Start 05/02/17 at 14:45 Al Hydroxide/Mg Hydroxide (Mylanta Plus Xs) 15 ml PRN AFTMEALHC PRN PO DYSPEPSIA Last administered on 05/14/17 11:46; Start 05/02/17 at 14:45 Magnesium Hydroxide (Milk Of Magnesia) 2,400 mg PRN QHS PRN PO CONSTIPATION; Start 05/02/17 at 14:45 Olanzapine (ZyPREXA ZYDIS) 2.5 mg PRN Q2HR PRN PO PSYCHOSIS Last administered on 05/11/17 19:29; Start 05/02/17 at 15:45 Hydroxyurea (Hydrea) 1,000 mg DAILY PO ; Start 05/03/17 at 09:00; Stop 05/03/17 at 09:00; Status DC Hydroxyurea (Hydrea) 1,000 mg DAILY PO Last administered on 05/08/17 08:19; Start 05/03/17 at 09:00; Stop 05/08/17 at 16:14; Status DC Aspirin (Oneil Aspirin) 325 mg DAILYWBKFT PO Last administered on 05/18/17 08: 12; Start 05/04/17 at 08:00 Ferrous Sulfate (Feosol) 325 mg DAILYWBKFT PO Last administered on 05/06/17 08: 07; Start 05/04/17 at 08:00; Stop 05/06/17 at 18:23; Status DC Cyproheptadine HCl (Periactin) 4 mg QHS PO Last administered on 05/18/17 19:48 ; Start 05/03/17 at 21:00 Sertraline HCl (Zoloft) 25 mg DAILY PO Last administered on 05/05/17 08:03; Start 05/05/17 at 09:00; Stop 05/05/17 at 18:27; Status DC Mirtazapine (Remeron) 7.5 mg QHS PO Last administered on 05/18/17 19:48; Start 05/04/17 at 21:00 Sertraline HCl (Zoloft) 50 mg DAILY PO Last administered on 05/07/17 08:07; Start 05/06/17 at 09:00; Stop 05/07/17 at 13:23; Status DC Trazodone HCl (Desyrel) 50 mg QHS PRN PO INSOMNIA, MAY REPEAT X1 Last administered on 05/17/17 19:15; Start 05/05/17 at 18:30 Sertraline HCl (Zoloft) 50 mg DAILY PO Last administered on 05/18/17 08:12; Start 05/08/17 at 09:00 Hydroxyurea (Hydrea) 1,500 mg DAILY PO Last administered on 05/18/17 08:17; Start 05/09/17 at 09:00 Buspirone HCl (Buspar) 5 mg BID92 PO Last administered on 05/14/17 09:35; Start 05/14/17 at 09:00; Stop 05/14/17 at 09:43; Status DC Buspirone HCl (Buspar) 10 mg BID92 PO Last administered on 05/18/17t 14:41; Start 05/14/17 at 14:00 Active Scripts Active Reported Trazodone Hcl 50 Mg Tablet 50 Mg PO PRN QHS PRN Buspirone Hcl 5 Mg Tablet 5 Mg PO [id number] Zoloft (Sertraline Hcl) 50 Mg Tablet 50 Mg PO DAILY Olanzapine 5 Mg Tablet 2.5 Mg PO PRN Q2HR PRN Remeron (Mirtazapine) 15 Mg Tablet 7.5 Mg PO QHS Analgesic [place] (Methyl Salicylate/Menthol) 28 Gm Oint...g. 1 Mia TP PRN QID PRN Milk Of Magnesia (Magnesium Hydroxide) 2,400 Mg/10 Ml Oral.susp 2,400 Mg PO PRN QHS PRN Mag-Al Plus Xs Suspension (Mag Hydrox/Al Hydrox/Simeth) 30 Ml Oral.susp 15 Ml PO PRN AFTMEALHC PRN Cyproheptadine Hcl 4 Mg Tablet 4 Mg PO QHS Aspirin 325 Mg Tablet 325 Mg PO [id number] Tylenol (Acetaminophen) 325 Mg Tablet 650 Mg PO PRN Q6HRS PRN Hydroxyurea 500 Mg Capsule 1,500 Mg PO DAILY Diagnosis: Problems: (1) Anxiety disorder (2) Altered mental status (3) Impulse control disorder (4) Dementia, vascular, with depression (5) Dementia, vascular, with delusions (6) Dementia in Alzheimer's disease with depression (7) Dementia in Alzheimer's disease with delusions CECILIA PARR MD May 18, 2017 20:09
--- NOTE | 2017-05-18 20:45 | PDOC ---
Exam Ivan Demential Exam: Ivan Note: Please also refer to the separate dictated note~for this date of service dictated separately.~Patient seen individually. Discussed the patient with Nursing staff reviewed the chart.~Reviewed interim history and current functioning. Reviewed vital signs,~Labs/ Radiology~and current medications noted below. Continue current treatment with the changes noted in the dictated addendum note S/O: This is a late entry for 05/14/2017 and covers elements not covered in my initial note. The patient's staff had treatment team meeting with the entire team morning of May 14 and seen individually in the evening of May 14. Appetite is 90% and sleeping about 5 hours. Review of Systems: Ambulation impaired. No CV, , Pulmonary, Eye, ENT system symptoms on review. Reliability poor. MSE: Oriented to himself. Insight, judgment, recent and remote memory, attention, concentration, and fund of knowledge are poor consistent with his diagnosis mentioned in my initial note. Plan: Increase BuSpar from 5 mg twice a day to 10 mg twice a day. Rest of psychotropics continued, unchanged. Assessment: Vital Signs: Vital Signs Date Time Temp Pulse Resp B/P (MAP) Pulse Ox O2 Delivery O2 Flow Rate FiO2 05/18/17 15:32 98.4 84 20 133/82 (99) 96 Room Air I&O Intake and Output 05/18/17 07:00 Intake Total 960 ml Balance 960 ml Intake Oral 960 ml # Bowel Movements 1 Current Medications: Meds: Current Medications Sodium Chloride 1,000 ml @ 1,000 mls/hr 1X ONCE IV ; Start 05/02/17 at 12:00; Stop 05/02/17 at 12:59; Status DC Haloperidol Lactate (Haldol) 5 mg 1X ONCE IVP ; Start 05/02/17 at 12:00; Stop at 12:01; Status DC Lorazepam (Ativan) 2 mg 1X ONCE IV ; Start 05/02/17 at 12:00; Stop 05/02/17 at 12 :01; Status DC Acetaminophen (Tylenol) 650 mg PRN Q6HRS PRN PO PAIN / TEMP Last administered on 05/03/17t 09:13; Start 05/02/17 at 14:45 Multi-Ingredient Ointment (Analgesic [place]) 1 mia PRN QID PRN TP MUSCLE PAIN; Start 05/02/17 at 14:45 Al Hydroxide/Mg Hydroxide (Mylanta Plus Xs) 15 ml PRN AFTMEALHC PRN PO DYSPEPSIA Last administered on 05/14/17 11:46; Start 05/02/17 at 14:45 Magnesium Hydroxide (Milk Of Magnesia) 2,400 mg PRN QHS PRN PO CONSTIPATION; Start 05/02/17 at 14:45 Olanzapine (ZyPREXA ZYDIS) 2.5 mg PRN Q2HR PRN PO PSYCHOSIS Last administered on 05/11/17 19:29; Start 05/02/17 at 15:45 Hydroxyurea (Hydrea) 1,000 mg DAILY PO ; Start 05/03/17 at 09:00; Stop 05/03/17 at 09:00; Status DC Hydroxyurea (Hydrea) 1,000 mg DAILY PO Last administered on 05/08/17 08:19; Start 05/03/17 at 09:00; Stop 05/08/17 at 16:14; Status DC Aspirin (Oneil Aspirin) 325 mg DAILYWBKFT PO Last administered on 05/18/17 08: 12; Start 05/04/17 at 08:00 Ferrous Sulfate (Feosol) 325 mg DAILYWBKFT PO Last administered on 05/06/17 08: 07; Start 05/04/17 at 08:00; Stop 05/06/17 at 18:23; Status DC Cyproheptadine HCl (Periactin) 4 mg QHS PO Last administered on 05/18/17 19:48 ; Start 05/03/17 at 21:00 Sertraline HCl (Zoloft) 25 mg DAILY PO Last administered on 05/05/17 08:03; Start 05/05/17 at 09:00; Stop 05/05/17 at 18:27; Status DC Mirtazapine (Remeron) 7.5 mg QHS PO Last administered on 05/18/17 19:48; Start 05/04/17 at 21:00 Sertraline HCl (Zoloft) 50 mg DAILY PO Last administered on 05/07/17 08:07; Start 05/06/17 at 09:00; Stop 05/07/17 at 13:23; Status DC Trazodone HCl (Desyrel) 50 mg QHS PRN PO INSOMNIA, MAY REPEAT X1 Last administered on 05/17/17 19:15; Start 05/05/17 at 18:30 Sertraline HCl (Zoloft) 50 mg DAILY PO Last administered on 05/18/17 08:12; Start 05/08/17 at 09:00 Hydroxyurea (Hydrea) 1,500 mg DAILY PO Last administered on 05/18/17 08:17; Start 05/09/17 at 09:00 Buspirone HCl (Buspar) 5 mg BID92 PO Last administered on 05/14/17 09:35; Start 05/14/17 at 09:00; Stop 05/14/17 at 09:43; Status DC Buspirone HCl (Buspar) 10 mg BID92 PO Last administered on 05/18/17 14:41; Start 05/14/17 at 14:00 Active Scripts Active Reported Trazodone Hcl 50 Mg Tablet 50 Mg PO PRN QHS PRN Buspirone Hcl 5 Mg Tablet 5 Mg PO BID92 Zoloft (Sertraline Hcl) 50 Mg Tablet 50 Mg PO DAILY Olanzapine 5 Mg Tablet 2.5 Mg PO PRN Q2HR PRN Remeron (Mirtazapine) 15 Mg Tablet 7.5 Mg PO QHS Analgesic [place] (Methyl Salicylate/Menthol) 28 Gm Oint...g. 1 Mia TP PRN QID PRN Milk Of Magnesia (Magnesium Hydroxide) 2,400 Mg/10 Ml Oral.susp 2,400 Mg PO PRN QHS PRN Mag-Al Plus Xs Suspension (Mag Hydrox/Al Hydrox/Simeth) 30 Ml Oral.susp 15 Ml PO PRN AFTMEALHC PRN Cyproheptadine Hcl 4 Mg Tablet 4 Mg PO QHS Aspirin 325 Mg Tablet 325 Mg PO DAILYWBKFT Tylenol (Acetaminophen) 325 Mg Tablet 650 Mg PO PRN Q6HRS PRN Hydroxyurea 500 Mg Capsule 1,500 Mg PO DAILY CECILIA PARR MD May 18, 2017 20:45
[2017-05-19 05:56] VITALS: BP 135/78
[2017-05-19] MEDS: busPIRone 5 MG TABLET. PO SCH ×2 (07:45→15:01)
[2017-05-19] MEDS: SERTRALINE 50 MG TABLET. PO SCH (07:45)
[2017-05-19] MEDS: HYDROXYUREA 500 MG CAPSULE PO SCH (07:46)
[2017-05-19] MEDS: ASPIRIN 325 MG TABLET PO SCH (07:46)
[2017-05-19 16:07] VITALS: BP 152/79
[2017-05-19] MEDS: CYPROHEPTADINE 4 MG TABLET. PO SCH (20:02)
[2017-05-19] MEDS: MIRTAZAPINE 7.5 MG TABLET. PO SCH (20:02)
[2017-05-19] MEDS: traZODone 50 MG TABLET. PO PRN (20:02)
--- NOTE | 2017-05-19 20:32 | PDOC ---
Exam Ivan Demential Exam: Ivan Note: Please also refer to the separate dictated note~for this date of service dictated separately.~Patient seen individually. Discussed the patient with Nursing staff reviewed the chart.~Reviewed interim history and current functioning. Reviewed vital signs,~Labs/ Radiology~and current medications noted below. Continue current treatment with the changes noted in the dictated addendum note Assessment: Vital Signs: Vital Signs Date Time Temp Pulse Resp B/P (MAP) Pulse Ox O2 Delivery O2 Flow Rate FiO2 05/19/17 16:07 98.0 84 18 152/79 (103) 98 05/18/17 15:32 Room Air I&O Intake and Output 05/19/17 07:00 Intake Total 1200 ml Balance 1200 ml Intake Oral 1200 ml Current Medications: Meds: Current Medications Sodium Chloride 1,000 ml @ 1,000 mls/hr 1X ONCE IV ; Start 05/02/17 at 12:00; Stop 05/02/17 at 12:59; Status DC Haloperidol Lactate (Haldol) 5 mg 1X ONCE IVP ; Start 05/02/17 at 12:00; Stop at 12:01; Status DC Lorazepam (Ativan) 2 mg 1X ONCE IV ; Start 05/02/17 at 12:00; Stop 05/02/17 at 12 :01; Status DC Acetaminophen (Tylenol) 650 mg PRN Q6HRS PRN PO PAIN / TEMP Last administered on 05/03/17 09:13; Start 05/02/17 at 14:45 Multi-Ingredient Ointment (Analgesic [place]) 1 mia PRN QID PRN TP MUSCLE PAIN; Start 05/02/17 at 14:45 Al Hydroxide/Mg Hydroxide (Mylanta Plus Xs) 15 ml PRN AFTMEALHC PRN PO DYSPEPSIA Last administered on 05/14/17 11:46; Start 05/02/17 at 14:45 Magnesium Hydroxide (Milk Of Magnesia) 2,400 mg PRN QHS PRN PO CONSTIPATION; Start 05/02/17 at 14:45 Olanzapine (ZyPREXA ZYDIS) 2.5 mg PRN Q2HR PRN PO PSYCHOSIS Last administered on 05/11/17 19:29; Start 05/02/17 at 15:45 Hydroxyurea (Hydrea) 1,000 mg DAILY PO ; Start 05/03/17 at 09:00; Stop 05/03/17 at 09:00; Status DC Hydroxyurea (Hydrea) 1,000 mg DAILY PO Last administered on 05/08/17 08:19; Start 05/03/17 at 09:00; Stop 05/08/17 at 16:14; Status DC Aspirin (Oneil Aspirin) 325 mg DAILYWBKFT PO Last administered on 05/19/17 07: 46; Start 05/04/17 at 08:00 Ferrous Sulfate (Feosol) 325 mg DAILYWBKFT PO Last administered on 05/06/17 08: 07; Start 05/04/17 at 08:00; Stop 05/06/17 at 18:23; Status DC Cyproheptadine HCl (Periactin) 4 mg QHS PO Last administered on 05/19/17 20:02 ; Start 05/03/17 at 21:00 Sertraline HCl (Zoloft) 25 mg DAILY PO Last administered on 05/05/17 08:03; Start 05/05/17 at 09:00; Stop 05/05/17 at 18:27; Status DC Mirtazapine (Remeron) 7.5 mg QHS PO Last administered on 05/19/17 20:02; Start 05/04/17 at 21:00 Sertraline HCl (Zoloft) 50 mg DAILY PO Last administered on 05/07/17 08:07; Start 05/06/17 at 09:00; Stop 05/07/17 at 13:23; Status DC Trazodone HCl (Desyrel) 50 mg QHS PRN PO INSOMNIA, MAY REPEAT X1 Last administered on 05/19/17 20:02; Start 05/05/17 at 18:30 Sertraline HCl (Zoloft) 50 mg DAILY PO Last administered on 05/19/17 07:45; Start 05/08/17 at 09:00 Hydroxyurea (Hydrea) 1,500 mg DAILY PO Last administered on 05/18/17 08:17; Start 05/09/17 at 09:00 Buspirone HCl (Buspar) 5 mg BID92 PO Last administered on 05/14/17 09:35; Start 05/14/17 at 09:00; Stop 05/14/17 at 09:43; Status DC Buspirone HCl (Buspar) 10 mg BID92 PO Last administered on 05/19/17t 15:01; Start 05/14/17 at 14:00 Active Scripts Active Reported Trazodone Hcl 50 Mg Tablet 50 Mg PO PRN QHS PRN Buspirone Hcl 5 Mg Tablet 5 Mg PO BID92 Zoloft (Sertraline Hcl) 50 Mg Tablet 50 Mg PO DAILY Olanzapine 5 Mg Tablet 2.5 Mg PO PRN Q2HR PRN Remeron (Mirtazapine) 15 Mg Tablet 7.5 Mg PO QHS Analgesic [place] (Methyl Salicylate/Menthol) 28 Gm Oint...g. 1 Mia TP PRN QID PRN Milk Of Magnesia (Magnesium Hydroxide) 2,400 Mg/10 Ml Oral.susp 2,400 Mg PO PRN QHS PRN Mag-Al Plus Xs Suspension (Mag Hydrox/Al Hydrox/Simeth) 30 Ml Oral.susp 15 Ml PO PRN AFTMEALHC PRN Cyproheptadine Hcl 4 Mg Tablet 4 Mg PO QHS Aspirin 325 Mg Tablet 325 Mg PO DAILYWBKFT Tylenol (Acetaminophen) 325 Mg Tablet 650 Mg PO PRN Q6HRS PRN Hydroxyurea 500 Mg Capsule 1,500 Mg PO DAILY Diagnosis: Problems: (1) Altered mental status (2) Anxiety disorder (3) Impulse control disorder (4) Dementia, vascular, with depression (5) Dementia, vascular, with delusions (6) Dementia in Alzheimer's disease with depression (7) Dementia in Alzheimer's disease with delusions CECILIA PARR MD May 19, 2017 20:32
[2017-05-20 05:30] VITALS: BP 104/68
[2017-05-20 07:04] LABS: BASO # 0.3 x10^3/uL (0.0-0.2); BASO % 9 % (0-3); EOS # 0.1 x10^3/uL (0.0-0.7); EOS % 5 % (0-3); HEMATOCRIT 42.1 % (39.0-53.0); HEMOGLOBIN 12.9 g/dL (13.0-17.5); LYMPH # 1.5 x10^3/uL (1.0-4.8); LYMPH % 50 % (24-48); MEAN CORPUSCULAR HEMOGLOBIN 23 pg (25-35); MEAN CORPUSCULAR HGB CONC 31 g/dL (31-37); MEAN CORPUSCULAR VOLUME 76 fL (79-100); MONO # 0.1 x10^3/uL (0.0-1.1); MONO % 3 % (0-9); NEUT % 33 % (31-73); PLATELET COUNT 219 x10^3/uL (140-400); RED BLOOD COUNT 5.53 x10^6/uL (4.30-5.70); WHITE BLOOD COUNT 2.9 x10^3/uL (4.0-11.0)
[2017-05-20 07:18] LABS: ALBUMIN 3.4 g/dL (3.4-5.0); CALCIUM 8.6 mg/dL (8.5-10.1); CREATININE 1.1 mg/dL (0.7-1.3); GFR 64.9; POTASSIUM 4.4 mmol/L (3.5-5.1); TOTAL BILIRUBIN 0.7 mg/dL (0.2-1.0); TOTAL PROTEIN 6.9 g/dL (6.4-8.2)
[2017-05-20] MEDS: HYDROXYUREA 500 MG CAPSULE PO SCH (09:00)
[2017-05-20] MEDS: SERTRALINE 50 MG TABLET. PO SCH (09:07)
[2017-05-20] MEDS: busPIRone 5 MG TABLET. PO SCH ×2 (09:07→14:00)
[2017-05-20] MEDS: ASPIRIN 325 MG TABLET PO SCH (09:07)
[2017-05-20 16:01] VITALS: BP 136/81
[2017-05-20] MEDS: MIRTAZAPINE 7.5 MG TABLET. PO SCH (19:27)
[2017-05-20] MEDS: traZODone 50 MG TABLET. PO PRN (19:27)
[2017-05-20] MEDS: CYPROHEPTADINE 4 MG TABLET. PO SCH (19:27)
[2017-05-20] MEDS: FAMOTIDINE 20 MG TABLET PO SCH (19:37)
--- NOTE | 2017-05-20 20:29 | PDOC ---
Exam Ivan Demential Exam: Ivan Note: Please also refer to the separate dictated note~for this date of service dictated separately.~Patient seen individually. Discussed the patient with Nursing staff reviewed the chart.~Reviewed interim history and current functioning. Reviewed vital signs,~Labs/ Radiology~and current medications noted below. Continue current treatment with the changes noted in the dictated addendum note Patient was seen individually the evening of 05/20. Per nursing report he remains confused with short-term memory deficits but otherwise not aggressive. He has been ruminating less about his daughter and less paranoia is evident regarding his daughter. Review of systems no CV GI/ pulmonary eye ENT integumentary system symptoms on review. Reliability poor. Mental status examination: Patient is oriented to himself. Insight and judgment recent remote memory attention concentration fund of knowledge are poor consistent with his diagnosis. Speech is coherent thought processes somewhat lose memory is impaired. No active suicidal or homicidal ideation. Impression: As noted below Plan: Continue current psychotropics mentioned below alternative placement is being sought by social service staff. Assessment: Vital Signs: Vital Signs Date Time Temp Pulse Resp B/P (MAP) Pulse Ox O2 Delivery O2 Flow Rate FiO2 05/20/17 16:01 97.6 66 18 136/81 (99) 97 05/18/17 15:32 Room Air I&O Intake and Output 05/20/17 07:00 Intake Total 960 ml Balance 960 ml Intake Oral 960 ml Labs: Laboratory Tests Test 05/20/17 06:39 White Blood Count 2.9 x10^3/uL (4.0-11.0) L Red Blood Count 5.53 x10^6/uL (4.30-5.70) Hemoglobin 12.9 g/dL (13.0-17.5) L Hematocrit 42.1 % (39.0-53.0) Mean Corpuscular Volume 76 fL (79-100) L Mean Corpuscular Hemoglobin 23 pg (25-35) L Mean Corpuscular Hemoglobin Concent 31 g/dL (31-37) Red Cell Distribution Width 21.0 % (11.5-14.5) H Platelet Count 219 x10^3/uL (140-400) Neutrophils (%) (Auto) 33 % (31-73) Lymphocytes (%) (Auto) 50 % (24-48) H Monocytes (%) (Auto) 3 % (0-9) Eosinophils (%) (Auto) 5 % (0-3) H Basophils (%) (Auto) 9 % (0-3) H Neutrophils # (Auto) 1.0 x10^3uL (1.8-7.7) L Lymphocytes # (Auto) 1.5 x10^3/uL (1.0-4.8) Monocytes # (Auto) 0.1 x10^3/uL (0.0-1.1) Eosinophils # (Auto) 0.1 x10^3/uL (0.0-0.7) Basophils # (Auto) 0.3 x10^3/uL (0.0-0.2) H Sodium Level 140 mmol/L (136-145) Potassium Level 4.4 mmol/L (3.5-5.1) Chloride Level 103 mmol/L (98-107) Carbon Dioxide Level 31 mmol/L (21-32) Anion Gap 6 (6-14) Blood Urea Nitrogen 22 mg/dL (8-26) Creatinine 1.1 mg/dL (0.7-1.3) Estimated GFR (Cockcroft-Gault) 64.9 BUN/Creatinine Ratio 20 (6-20) Glucose Level 90 mg/dL (70-99) Calcium Level 8.6 mg/dL (8.5-10.1) Total Bilirubin 0.7 mg/dL (0.2-1.0) Aspartate Amino Transferase (AST) 16 U/L (15-37) Alanine Aminotransferase (ALT) 15 U/L (16-63) L Alkaline Phosphatase 81 U/L (46-116) Total Protein 6.9 g/dL (6.4-8.2) Albumin 3.4 g/dL (3.4-5.0) Albumin/Globulin Ratio 1.0 (1.0-1.7) Current Medications: Meds: Current Medications Sodium Chloride 1,000 ml @ 1,000 mls/hr 1X ONCE IV ; Start 05/02/17 at 12:00; Stop 05/02/17 at 12:59; Status DC Haloperidol Lactate (Haldol) 5 mg 1X ONCE IVP ; Start 05/02/17 at 12:00; Stop at 12:01; Status DC Lorazepam (Ativan) 2 mg 1X ONCE IV ; Start 05/02/17 at 12:00; Stop 05/02/17 at 12 :01; Status DC Acetaminophen (Tylenol) 650 mg PRN Q6HRS PRN PO PAIN / TEMP Last administered on 05/03/17 09:13; Start 05/02/17 at 14:45 Multi-Ingredient Ointment (Analgesic [place]) 1 mia PRN QID PRN TP MUSCLE PAIN; Start 05/02/17 at 14:45 Al Hydroxide/Mg Hydroxide (Mylanta Plus Xs) 15 ml PRN AFTMEALHC PRN PO DYSPEPSIA Last administered on 05/14/17 11:46; Start 05/02/17 at 14:45 Magnesium Hydroxide (Milk Of Magnesia) 2,400 mg PRN QHS PRN PO CONSTIPATION; Start 05/02/17 at 14:45 Olanzapine (ZyPREXA ZYDIS) 2.5 mg PRN Q2HR PRN PO PSYCHOSIS Last administered on 05/11/17 19:29; Start 05/02/17 at 15:45 Hydroxyurea (Hydrea) 1,000 mg DAILY PO ; Start 05/03/17 at 09:00; Stop 05/03/17 at 09:00; Status DC Hydroxyurea (Hydrea) 1,000 mg DAILY PO Last administered on 05/08/17 08:19; Start 05/03/17 at 09:00; Stop 05/08/17 at 16:14; Status DC Aspirin (Oneil Aspirin) 325 mg DAILYWBKFT PO Last administered on 05/20/17 09: 07; Start 05/04/17 at 08:00 Ferrous Sulfate (Feosol) 325 mg DAILYWBKFT PO Last administered on 05/06/17 08: 07; Start 05/04/17 at 08:00; Stop 05/06/17 at 18:23; Status DC Cyproheptadine HCl (Periactin) 4 mg QHS PO Last administered on 05/20/17 19:27 ; Start 05/03/17 at 21:00 Sertraline HCl (Zoloft) 25 mg DAILY PO Last administered on 05/05/17 08:03; Start 05/05/17 at 09:00; Stop 05/05/17 at 18:27; Status DC Mirtazapine (Remeron) 7.5 mg QHS PO Last administered on 05/20/17 19:27; Start 05/04/17 at 21:00 Sertraline HCl (Zoloft) 50 mg DAILY PO Last administered on 05/07/17 08:07; Start 05/06/17 at 09:00; Stop 05/07/17 at 13:23; Status DC Trazodone HCl (Desyrel) 50 mg QHS PRN PO INSOMNIA, MAY REPEAT X1 Last administered on 05/20/17 19:27; Start 05/05/17 at 18:30 Sertraline HCl (Zoloft) 50 mg DAILY PO Last administered on 05/20/17 09:07; Start 05/08/17 at 09:00 Hydroxyurea (Hydrea) 1,500 mg DAILY PO Last administered on 05/18/17 08:17; Start 05/09/17 at 09:00 Buspirone HCl (Buspar) 5 mg BID92 PO Last administered on 05/14/17 09:35; Start 05/14/17 at 09:00; Stop 05/14/17 at 09:43; Status DC Buspirone HCl (Buspar) 10 mg BID92 PO Last administered on 05/20/17 14:00; Start 05/14/17 at 14:00 Famotidine (Pepcid) 20 mg BID PO Last administered on 05/20/17 19:37; Start at 21:00 Active Scripts Active Reported Trazodone Hcl 50 Mg Tablet 50 Mg PO PRN QHS PRN Buspirone Hcl 5 Mg Tablet 5 Mg PO BID92 Zoloft (Sertraline Hcl) 50 Mg Tablet 50 Mg PO DAILY Olanzapine 5 Mg Tablet 2.5 Mg PO PRN Q2HR PRN Remeron (Mirtazapine) 15 Mg Tablet 7.5 Mg PO QHS Analgesic [place] (Methyl Salicylate/Menthol) 28 Gm Oint...g. 1 Mia TP PRN QID PRN Milk Of Magnesia (Magnesium Hydroxide) 2,400 Mg/10 Ml Oral.susp 2,400 Mg PO PRN QHS PRN Mag-Al Plus Xs Suspension (Mag Hydrox/Al Hydrox/Simeth) 30 Ml Oral.susp 15 Ml PO PRN AFTMEALHC PRN Cyproheptadine Hcl 4 Mg Tablet 4 Mg PO QHS Aspirin 325 Mg Tablet 325 Mg PO DAILYWBKFT Tylenol (Acetaminophen) 325 Mg Tablet 650 Mg PO PRN Q6HRS PRN Hydroxyurea 500 Mg Capsule 1,500 Mg PO DAILY Diagnosis: Problems: (1) Altered mental status (2) Anxiety disorder (3) Impulse control disorder (4) Dementia, vascular, with depression (5) Dementia, vascular, with delusions (6) Dementia in Alzheimer's disease with depression (7) Dementia in Alzheimer's disease with delusions CECILIA PARR MD May 20, 2017 20:29
--- NOTE | 2017-05-20 20:52 | PDOC ---
Exam Ivan Demential Exam: Ivan Note: Please also refer to the separate dictated note~for this date of service dictated separately.~Patient seen individually. Discussed the patient with Nursing staff reviewed the chart.~Reviewed interim history and current functioning. Reviewed vital signs,~Labs/ Radiology~and current medications noted below. Continue current treatment with the changes noted in the dictated addendum note S/O: This is a late entry for May 15 covers elements not covered in my initial note. I met with patient in the evening of May 15. The patient remains confused, forgetful, but otherwise pleasant, gets agitated, somewhat delusional if the topic of his daughter, Maida, is brought up. He believes she is stolen from him. His son visited and he did well during this visit. Discussed the social service staff, placement is still being secured in coordination with the daughter, which has been somewhat challenging per social service report. Yesterday, he was exit-seeking on May 14 but not May 15. I met with him in his room. Review of Systems: No CV, , Eye, ENT, Pulmonary system symptoms on review. Reliability poor. MSE: Oriented to himself. Insight, judgment, recent and remote memory, attention, concentration, and fund of knowledge are poor consistent with his diagnosis mentioned in my initial note. Plan: Continue current psychotropics and adjust as clinically indicated. Assessment: Vital Signs: Vital Signs Date Time Temp Pulse Resp B/P (MAP) Pulse Ox O2 Delivery O2 Flow Rate FiO2 05/20/17 16:01 97.6 66 18 136/81 (99) 97 05/18/17 15:32 Room Air I&O Intake and Output 05/20/17 07:00 Intake Total 960 ml Balance 960 ml Intake Oral 960 ml Labs: Laboratory Tests Test 05/20/17 06:39 White Blood Count 2.9 x10^3/uL (4.0-11.0) L Red Blood Count 5.53 x10^6/uL (4.30-5.70) Hemoglobin 12.9 g/dL (13.0-17.5) L Hematocrit 42.1 % (39.0-53.0) Mean Corpuscular Volume 76 fL (79-100) L Mean Corpuscular Hemoglobin 23 pg (25-35) L Mean Corpuscular Hemoglobin Concent 31 g/dL (31-37) Red Cell Distribution Width 21.0 % (11.5-14.5) H Platelet Count 219 x10^3/uL (140-400) Neutrophils (%) (Auto) 33 % (31-73) Lymphocytes (%) (Auto) 50 % (24-48) H Monocytes (%) (Auto) 3 % (0-9) Eosinophils (%) (Auto) 5 % (0-3) H Basophils (%) (Auto) 9 % (0-3) H Neutrophils # (Auto) 1.0 x10^3uL (1.8-7.7) L Lymphocytes # (Auto) 1.5 x10^3/uL (1.0-4.8) Monocytes # (Auto) 0.1 x10^3/uL (0.0-1.1) Eosinophils # (Auto) 0.1 x10^3/uL (0.0-0.7) Basophils # (Auto) 0.3 x10^3/uL (0.0-0.2) H Sodium Level 140 mmol/L (136-145) Potassium Level 4.4 mmol/L (3.5-5.1) Chloride Level 103 mmol/L (98-107) Carbon Dioxide Level 31 mmol/L (21-32) Anion Gap 6 (6-14) Blood Urea Nitrogen 22 mg/dL (8-26) Creatinine 1.1 mg/dL (0.7-1.3) Estimated GFR (Cockcroft-Gault) 64.9 BUN/Creatinine Ratio 20 (6-20) Glucose Level 90 mg/dL (70-99) Calcium Level 8.6 mg/dL (8.5-10.1) Total Bilirubin 0.7 mg/dL (0.2-1.0) Aspartate Amino Transferase (AST) 16 U/L (15-37) Alanine Aminotransferase (ALT) 15 U/L (16-63) L Alkaline Phosphatase 81 U/L (46-116) Total Protein 6.9 g/dL (6.4-8.2) Albumin 3.4 g/dL (3.4-5.0) Albumin/Globulin Ratio 1.0 (1.0-1.7) Current Medications: Meds: Current Medications Sodium Chloride 1,000 ml @ 1,000 mls/hr 1X ONCE IV ; Start 05/02/17 at 12:00; Stop 05/02/17 at 12:59; Status DC Haloperidol Lactate (Haldol) 5 mg 1X ONCE IVP ; Start 05/02/17 at 12:00; Stop at 12:01; Status DC Lorazepam (Ativan) 2 mg 1X ONCE IV ; Start 05/02/17 at 12:00; Stop 05/02/17 at 12 :01; Status DC Acetaminophen (Tylenol) 650 mg PRN Q6HRS PRN PO PAIN / TEMP Last administered on 05/03/17 09:13; Start 05/02/17 at 14:45 Multi-Ingredient Ointment (Analgesic [place]) 1 mia PRN QID PRN TP MUSCLE PAIN; Start 05/02/17 at 14:45 Al Hydroxide/Mg Hydroxide (Mylanta Plus Xs) 15 ml PRN AFTMEALHC PRN PO DYSPEPSIA Last administered on 05/14/17 11:46; Start 05/02/17 at 14:45 Magnesium Hydroxide (Milk Of Magnesia) 2,400 mg PRN QHS PRN PO CONSTIPATION; Start 05/02/17 at 14:45 Olanzapine (ZyPREXA ZYDIS) 2.5 mg PRN Q2HR PRN PO PSYCHOSIS Last administered on 05/11/17 19:29; Start 05/02/17 at 15:45 Hydroxyurea (Hydrea) 1,000 mg DAILY PO ; Start 05/03/17 at 09:00; Stop 05/03/17 at 09:00; Status DC Hydroxyurea (Hydrea) 1,000 mg DAILY PO Last administered on 05/08/17 08:19; Start 05/03/17 at 09:00; Stop 05/08/17 at 16:14; Status DC Aspirin (Oneil Aspirin) 325 mg DAILYWBKFT PO Last administered on 05/20/17 09: 07; Start 05/04/17 at 08:00 Ferrous Sulfate (Feosol) 325 mg DAILYWBKFT PO Last administered on 05/06/17 08: 07; Start 05/04/17 at 08:00; Stop 05/06/17 at 18:23; Status DC Cyproheptadine HCl (Periactin) 4 mg QHS PO Last administered on 05/20/17 19:27 ; Start 05/03/17 at 21:00 Sertraline HCl (Zoloft) 25 mg DAILY PO Last administered on 05/05/17 08:03; Start 05/05/17 at 09:00; Stop 05/05/17 at 18:27; Status DC Mirtazapine (Remeron) 7.5 mg QHS PO Last administered on 05/20/17 19:27; Start 05/04/17 at 21:00 Sertraline HCl (Zoloft) 50 mg DAILY PO Last administered on 05/07/17 08:07; Start 05/06/17 at 09:00; Stop 05/07/17 at 13:23; Status DC Trazodone HCl (Desyrel) 50 mg QHS PRN PO INSOMNIA, MAY REPEAT X1 Last administered on 05/20/17 19:27; Start 05/05/17 at 18:30 Sertraline HCl (Zoloft) 50 mg DAILY PO Last administered on 05/20/17 09:07; Start 05/08/17 at 09:00 Hydroxyurea (Hydrea) 1,500 mg DAILY PO Last administered on 05/18/17 08:17; Start 05/09/17 at 09:00 Buspirone HCl (Buspar) 5 mg BID92 PO Last administered on 05/14/17 09:35; Start 05/14/17 at 09:00; Stop 05/14/17 at 09:43; Status DC Buspirone HCl (Buspar) 10 mg BID92 PO Last administered on 05/20/17 14:00; Start 05/14/17 at 14:00 Famotidine (Pepcid) 20 mg BID PO Last administered on 05/20/17 19:37; Start at 21:00 Active Scripts Active Reported Trazodone Hcl 50 Mg Tablet 50 Mg PO PRN QHS PRN Buspirone Hcl 5 Mg Tablet 5 Mg PO [id number] Zoloft (Sertraline Hcl) 50 Mg Tablet 50 Mg PO DAILY Olanzapine 5 Mg Tablet 2.5 Mg PO PRN Q2HR PRN Remeron (Mirtazapine) 15 Mg Tablet 7.5 Mg PO QHS Analgesic [place] (Methyl Salicylate/Menthol) 28 Gm Oint...g. 1 Mia TP PRN QID PRN Milk Of Magnesia (Magnesium Hydroxide) 2,400 Mg/10 Ml Oral.susp 2,400 Mg PO PRN QHS PRN Mag-Al Plus Xs Suspension (Mag Hydrox/Al Hydrox/Simeth) 30 Ml Oral.susp 15 Ml PO PRN AFTMEALHC PRN Cyproheptadine Hcl 4 Mg Tablet 4 Mg PO QHS Aspirin 325 Mg Tablet 325 Mg PO DAILYWBKFT Tylenol (Acetaminophen) 325 Mg Tablet 650 Mg PO PRN Q6HRS PRN Hydroxyurea 500 Mg Capsule 1,500 Mg PO DAILY CECILIA PARR MD May 20, 2017 20:52
--- NOTE | 2017-05-20 21:23 | PDOC ---
Exam Ivan Demential Exam: Ivan Note: Please also refer to the separate dictated note~for this date of service dictated separately.~Patient seen individually. Discussed the patient with Nursing staff reviewed the chart.~Reviewed interim history and current functioning. Reviewed vital signs,~Labs/ Radiology~and current medications noted below. Continue current treatment with the changes noted in the dictated addendum note S/O: This is a late entry for date of service 05/17/2017. I met with the patient individually on evening of May 17, discussed with nursing staff, and reviewed the chart. Per nursing report, the patient slept 6 hours last night. Less agitated when daughter visited him this afternoon which is an improvement. Platelets have reduced. I will defer to Dr. Gamez. This note covers elements not covered in my initial note. Review of Systems: No CV, , Pulmonary, Eye, ENT system symptoms on review. Reliability poor. MSE: Oriented to himself. Insight and judgment, recent and remote memory, attention and concentration, fund of knowledge poor consistent with his diagnosis. Plan: Reviewed current psychotropics, drug interactions, favor no change at this time. Assessment: Vital Signs: Vital Signs Date Time Temp Pulse Resp B/P (MAP) Pulse Ox O2 Delivery O2 Flow Rate FiO2 05/20/17 16:01 97.6 66 18 136/81 (99) 97 05/18/17 15:32 Room Air I&O Intake and Output 05/20/17 07:00 Intake Total 960 ml Balance 960 ml Intake Oral 960 ml Labs: Laboratory Tests Test 05/20/17 06:39 White Blood Count 2.9 x10^3/uL (4.0-11.0) L Red Blood Count 5.53 x10^6/uL (4.30-5.70) Hemoglobin 12.9 g/dL (13.0-17.5) L Hematocrit 42.1 % (39.0-53.0) Mean Corpuscular Volume 76 fL (79-100) L Mean Corpuscular Hemoglobin 23 pg (25-35) L Mean Corpuscular Hemoglobin Concent 31 g/dL (31-37) Red Cell Distribution Width 21.0 % (11.5-14.5) H Platelet Count 219 x10^3/uL (140-400) Neutrophils (%) (Auto) 33 % (31-73) Lymphocytes (%) (Auto) 50 % (24-48) H Monocytes (%) (Auto) 3 % (0-9) Eosinophils (%) (Auto) 5 % (0-3) H Basophils (%) (Auto) 9 % (0-3) H Neutrophils # (Auto) 1.0 x10^3uL (1.8-7.7) L Lymphocytes # (Auto) 1.5 x10^3/uL (1.0-4.8) Monocytes # (Auto) 0.1 x10^3/uL (0.0-1.1) Eosinophils # (Auto) 0.1 x10^3/uL (0.0-0.7) Basophils # (Auto) 0.3 x10^3/uL (0.0-0.2) H Sodium Level 140 mmol/L (136-145) Potassium Level 4.4 mmol/L (3.5-5.1) Chloride Level 103 mmol/L (98-107) Carbon Dioxide Level 31 mmol/L (21-32) Anion Gap 6 (6-14) Blood Urea Nitrogen 22 mg/dL (8-26) Creatinine 1.1 mg/dL (0.7-1.3) Estimated GFR (Cockcroft-Gault) 64.9 BUN/Creatinine Ratio 20 (6-20) Glucose Level 90 mg/dL (70-99) Calcium Level 8.6 mg/dL (8.5-10.1) Total Bilirubin 0.7 mg/dL (0.2-1.0) Aspartate Amino Transferase (AST) 16 U/L (15-37) Alanine Aminotransferase (ALT) 15 U/L (16-63) L Alkaline Phosphatase 81 U/L (46-116) Total Protein 6.9 g/dL (6.4-8.2) Albumin 3.4 g/dL (3.4-5.0) Albumin/Globulin Ratio 1.0 (1.0-1.7) Current Medications: Meds: Current Medications Sodium Chloride 1,000 ml @ 1,000 mls/hr 1X ONCE IV ; Start 05/02/17 at 12:00; Stop 05/02/17 at 12:59; Status DC Haloperidol Lactate (Haldol) 5 mg 1X ONCE IVP ; Start 05/02/17 at 12:00; Stop at 12:01; Status DC Lorazepam (Ativan) 2 mg 1X ONCE IV ; Start 05/02/17 at 12:00; Stop 05/02/17 at 12 :01; Status DC Acetaminophen (Tylenol) 650 mg PRN Q6HRS PRN PO PAIN / TEMP Last administered on 05/03/17 09:13; Start 05/02/17 at 14:45 Multi-Ingredient Ointment (Analgesic [place]) 1 mia PRN QID PRN TP MUSCLE PAIN; Start 05/02/17 at 14:45 Al Hydroxide/Mg Hydroxide (Mylanta Plus Xs) 15 ml PRN AFTMEALHC PRN PO DYSPEPSIA Last administered on 05/14/17 11:46; Start 05/02/17 at 14:45 Magnesium Hydroxide (Milk Of Magnesia) 2,400 mg PRN QHS PRN PO CONSTIPATION; Start 05/02/17 at 14:45 Olanzapine (ZyPREXA ZYDIS) 2.5 mg PRN Q2HR PRN PO PSYCHOSIS Last administered on 05/11/17 19:29; Start 05/02/17 at 15:45 Hydroxyurea (Hydrea) 1,000 mg DAILY PO ; Start 05/03/17 at 09:00; Stop 05/03/17 at 09:00; Status DC Hydroxyurea (Hydrea) 1,000 mg DAILY PO Last administered on 05/08/17 08:19; Start 05/03/17 at 09:00; Stop 05/08/17 at 16:14; Status DC Aspirin (Oneil Aspirin) 325 mg DAILYWBKFT PO Last administered on 05/20/17 09: 07; Start 05/04/17 at 08:00 Ferrous Sulfate (Feosol) 325 mg DAILYWBKFT PO Last administered on 05/06/17 08: 07; Start 05/04/17 at 08:00; Stop 05/06/17 at 18:23; Status DC Cyproheptadine HCl (Periactin) 4 mg QHS PO Last administered on 05/20/17 19:27 ; Start 05/03/17 at 21:00 Sertraline HCl (Zoloft) 25 mg DAILY PO Last administered on 05/05/17 08:03; Start 05/05/17 at 09:00; Stop 05/05/17 at 18:27; Status DC Mirtazapine (Remeron) 7.5 mg QHS PO Last administered on 05/20/17 19:27; Start 05/04/17 at 21:00 Sertraline HCl (Zoloft) 50 mg DAILY PO Last administered on 05/07/17 08:07; Start 05/06/17 at 09:00; Stop 05/07/17 at 13:23; Status DC Trazodone HCl (Desyrel) 50 mg QHS PRN PO INSOMNIA, MAY REPEAT X1 Last administered on 05/20/17 19:27; Start 05/05/17 at 18:30 Sertraline HCl (Zoloft) 50 mg DAILY PO Last administered on 05/20/17 09:07; Start 05/08/17 at 09:00 Hydroxyurea (Hydrea) 1,500 mg DAILY PO Last administered on 05/18/17 08:17; Start 05/09/17 at 09:00 Buspirone HCl (Buspar) 5 mg BID92 PO Last administered on 05/14/17 09:35; Start 05/14/17 at 09:00; Stop 05/14/17 at 09:43; Status DC Buspirone HCl (Buspar) 10 mg BID92 PO Last administered on 05/20/17 14:00; Start 05/14/17 at 14:00 Famotidine (Pepcid) 20 mg BID PO Last administered on 05/20/17 19:37; Start at 21:00 Active Scripts Active Reported Trazodone Hcl 50 Mg Tablet 50 Mg PO PRN QHS PRN Buspirone Hcl 5 Mg Tablet 5 Mg PO [id number] Zoloft (Sertraline Hcl) 50 Mg Tablet 50 Mg PO DAILY Olanzapine 5 Mg Tablet 2.5 Mg PO PRN Q2HR PRN Remeron (Mirtazapine) 15 Mg Tablet 7.5 Mg PO QHS Analgesic [place] (Methyl Salicylate/Menthol) 28 Gm Oint...g. 1 Mia TP PRN QID PRN Milk Of Magnesia (Magnesium Hydroxide) 2,400 Mg/10 Ml Oral.susp 2,400 Mg PO PRN QHS PRN Mag-Al Plus Xs Suspension (Mag Hydrox/Al Hydrox/Simeth) 30 Ml Oral.susp 15 Ml PO PRN AFTMEALHC PRN Cyproheptadine Hcl 4 Mg Tablet 4 Mg PO QHS Aspirin 325 Mg Tablet 325 Mg PO DAILYWBKFT Tylenol (Acetaminophen) 325 Mg Tablet 650 Mg PO PRN Q6HRS PRN Hydroxyurea 500 Mg Capsule 1,500 Mg PO DAILY CECILIA PARR MD May 20, 2017 21:23
[2017-05-21 05:37] VITALS: BP 135/79
[2017-05-21] MEDS: HYDROXYUREA 500 MG CAPSULE PO SCH (09:00)
[2017-05-21] MEDS: ASPIRIN 325 MG TABLET PO SCH (09:43)
[2017-05-21] MEDS: FAMOTIDINE 20 MG TABLET PO SCH ×2 (09:43→19:42)
[2017-05-21] MEDS: busPIRone 5 MG TABLET. PO SCH (09:43)
[2017-05-21] MEDS: SERTRALINE 50 MG TABLET. PO SCH (09:43)
[2017-05-21] MEDS: busPIRone 10 MG TABLET. PO SCH (14:19)
[2017-05-21 16:04] VITALS: BP 130/72
[2017-05-21] MEDS: traZODone 50 MG TABLET. PO PRN (19:42)
[2017-05-21] MEDS: MIRTAZAPINE 7.5 MG TABLET. PO SCH (19:42)
[2017-05-21] MEDS: CYPROHEPTADINE 4 MG TABLET. PO SCH (19:42)
--- NOTE | 2017-05-21 20:08 | PDOC ---
Exam Ivan Demential Exam: Ivan Note: Please also refer to the separate dictated note~for this date of service dictated separately.~Patient seen individually. Discussed the patient with Nursing staff reviewed the chart.~Reviewed interim history and current functioning. Reviewed vital signs,~Labs/ Radiology~and current medications noted below. Continue current treatment with the changes noted in the dictated addendum note Assessment: Vital Signs: Vital Signs Date Time Temp Pulse Resp B/P (MAP) Pulse Ox O2 Delivery O2 Flow Rate FiO2 05/21/17 16:04 97.2 83 20 130/72 (91) 96 05/18/17 15:32 Room Air I&O Intake and Output 05/21/17 07:00 Intake Total 660 ml Balance 660 ml Intake Oral 660 ml # Bowel Movements 1 Current Medications: Meds: Current Medications Sodium Chloride 1,000 ml @ 1,000 mls/hr 1X ONCE IV ; Start 05/02/17 at 12:00; Stop 05/02/17 at 12:59; Status DC Haloperidol Lactate (Haldol) 5 mg 1X ONCE IVP ; Start 05/02/17 at 12:00; Stop at 12:01; Status DC Lorazepam (Ativan) 2 mg 1X ONCE IV ; Start 05/02/17 at 12:00; Stop 05/02/17 at 12 :01; Status DC Acetaminophen (Tylenol) 650 mg PRN Q6HRS PRN PO PAIN / TEMP Last administered on 05/03/17 09:13; Start 05/02/17 at 14:45 Multi-Ingredient Ointment (Analgesic [place]) 1 mia PRN QID PRN TP MUSCLE PAIN; Start 05/02/17 at 14:45 Al Hydroxide/Mg Hydroxide (Mylanta Plus Xs) 15 ml PRN AFTMEALHC PRN PO DYSPEPSIA Last administered on 05/14/17 11:46; Start 05/02/17 at 14:45 Magnesium Hydroxide (Milk Of Magnesia) 2,400 mg PRN QHS PRN PO CONSTIPATION; Start 05/02/17 at 14:45 Olanzapine (ZyPREXA ZYDIS) 2.5 mg PRN Q2HR PRN PO PSYCHOSIS Last administered on 05/11/17 19:29; Start 05/02/17 at 15:45 Hydroxyurea (Hydrea) 1,000 mg DAILY PO ; Start 05/03/17 at 09:00; Stop 05/03/17 at 09:00; Status DC Hydroxyurea (Hydrea) 1,000 mg DAILY PO Last administered on 05/08/17 08:19; Start 05/03/17 at 09:00; Stop 05/08/17 at 16:14; Status DC Aspirin (Oneil Aspirin) 325 mg DAILYWBKFT PO Last administered on 05/21/17 09: 43; Start 05/04/17 at 08:00 Ferrous Sulfate (Feosol) 325 mg DAILYWBKFT PO Last administered on 05/06/17 08: 07; Start 05/04/17 at 08:00; Stop 05/06/17 at 18:23; Status DC Cyproheptadine HCl (Periactin) 4 mg QHS PO Last administered on 05/21/17 19:42 ; Start 05/03/17 at 21:00 Sertraline HCl (Zoloft) 25 mg DAILY PO Last administered on 05/05/17 08:03; Start 05/05/17 at 09:00; Stop 05/05/17 at 18:27; Status DC Mirtazapine (Remeron) 7.5 mg QHS PO Last administered on 05/21/17 19:42; Start 05/04/17 at 21:00 Sertraline HCl (Zoloft) 50 mg DAILY PO Last administered on 05/07/17 08:07; Start 05/06/17 at 09:00; Stop 05/07/17 at 13:23; Status DC Trazodone HCl (Desyrel) 50 mg QHS PRN PO INSOMNIA, MAY REPEAT X1 Last administered on 05/21/17 19:42; Start 05/05/17 at 18:30 Sertraline HCl (Zoloft) 50 mg DAILY PO Last administered on 05/21/17 09:43; Start 05/08/17 at 09:00 Hydroxyurea (Hydrea) 1,500 mg DAILY PO Last administered on 05/18/17 08:17; Start 05/09/17 at 09:00; Stop 05/21/17 at 11:11; Status DC Buspirone HCl (Buspar) 5 mg BID92 PO Last administered on 05/14/17 09:35; Start 05/14/17 at 09:00; Stop 05/14/17 at 09:43; Status DC Buspirone HCl (Buspar) 10 mg BID92 PO Last administered on 05/21/17 09:43; Start 05/14/17 at 14:00; Stop 05/21/17 at 09:51; Status DC Famotidine (Pepcid) 20 mg BID PO Last administered on 05/21/17 19:42; Start at 21:00 Buspirone HCl (Buspar) 10 mg BID92 PO Last administered on 05/21/17 14:19; Start 05/21/17 at 14:00 Hydroxyurea (Hydrea) 500 mg DAILY PO ; Start 05/22/17 at 09:00; Status Future Hold Active Scripts Active Reported Trazodone Hcl 50 Mg Tablet 50 Mg PO PRN QHS PRN Buspirone Hcl 5 Mg Tablet 5 Mg PO [id number] Zoloft (Sertraline Hcl) 50 Mg Tablet 50 Mg PO DAILY Olanzapine 5 Mg Tablet 2.5 Mg PO PRN Q2HR PRN Remeron (Mirtazapine) 15 Mg Tablet 7.5 Mg PO QHS Analgesic [place] (Methyl Salicylate/Menthol) 28 Gm Oint...g. 1 Mia TP PRN QID PRN Milk Of Magnesia (Magnesium Hydroxide) 2,400 Mg/10 Ml Oral.susp 2,400 Mg PO PRN QHS PRN Mag-Al Plus Xs Suspension (Mag Hydrox/Al Hydrox/Simeth) 30 Ml Oral.susp 15 Ml PO PRN AFTMEALHC PRN Cyproheptadine Hcl 4 Mg Tablet 4 Mg PO QHS Aspirin 325 Mg Tablet 325 Mg PO DAILYWBKFT Tylenol (Acetaminophen) 325 Mg Tablet 650 Mg PO PRN Q6HRS PRN Hydroxyurea 500 Mg Capsule 1,500 Mg PO DAILY Diagnosis: Problems: (1) Altered mental status (2) Anxiety disorder (3) Impulse control disorder (4) Dementia, vascular, with depression (5) Dementia, vascular, with delusions (6) Dementia in Alzheimer's disease with depression (7) Dementia in Alzheimer's disease with delusions CECILIA PARR MD May 21, 2017 20:08
--- NOTE | 2017-05-21 21:08 | PDOC ---
Exam Ivan Demential Exam: Ivan Note: Please also refer to the separate dictated note~for this date of service dictated separately.~Patient seen individually. Discussed the patient with Nursing staff reviewed the chart.~Reviewed interim history and current functioning. Reviewed vital signs,~Labs/ Radiology~and current medications noted below. Continue current treatment with the changes noted in the dictated addendum note S/O: This is a late entry of May 18 covers element not covered in my initial note. Per nursing report, the patient remains confused, did well till family visited. He is paranoid and delusional as I met with him, believing a lady stealing his things and mistakes his daughter for being some other lady. Review of systems: No CV, , Pulmonary, Eye, ENT system symptoms on review. Reliability poor. MSE: Oriented to himself, insight, judgment, recent, remote memory, attention, concentration, and fund of knowledge are poor consistent with his diagnosis mentioned in my initial note. Plan: Continued current psychotropics. Transition to [facility] tomorrow. Assessment: Vital Signs: Vital Signs Date Time Temp Pulse Resp B/P (MAP) Pulse Ox O2 Delivery O2 Flow Rate FiO2 05/21/17 16:04 97.2 83 20 130/72 (91) 96 05/18/17 15:32 Room Air I&O Intake and Output 05/21/17 07:00 Intake Total 660 ml Balance 660 ml Intake Oral 660 ml # Bowel Movements 1 Current Medications: Meds: Current Medications Sodium Chloride 1,000 ml @ 1,000 mls/hr 1X ONCE IV ; Start 05/02/17 at 12:00; Stop 05/02/17 at 12:59; Status DC Haloperidol Lactate (Haldol) 5 mg 1X ONCE IVP ; Start 05/02/17 at 12:00; Stop at 12:01; Status DC Lorazepam (Ativan) 2 mg 1X ONCE IV ; Start 05/02/17 at 12:00; Stop 05/02/17 at 12 :01; Status DC Acetaminophen (Tylenol) 650 mg PRN Q6HRS PRN PO PAIN / TEMP Last administered on 05/03/17t 09:13; Start 05/02/17 at 14:45 Multi-Ingredient Ointment (Analgesic [place]) 1 mia PRN QID PRN TP MUSCLE PAIN; Start 05/02/17 at 14:45 Al Hydroxide/Mg Hydroxide (Mylanta Plus Xs) 15 ml PRN AFTMEALHC PRN PO DYSPEPSIA Last administered on 05/14/17 11:46; Start 05/02/17 at 14:45 Magnesium Hydroxide (Milk Of Magnesia) 2,400 mg PRN QHS PRN PO CONSTIPATION; Start 05/02/17 at 14:45 Olanzapine (ZyPREXA ZYDIS) 2.5 mg PRN Q2HR PRN PO PSYCHOSIS Last administered on 05/11/17 19:29; Start 05/02/17 at 15:45 Hydroxyurea (Hydrea) 1,000 mg DAILY PO ; Start 05/03/17 at 09:00; Stop 05/03/17 at 09:00; Status DC Hydroxyurea (Hydrea) 1,000 mg DAILY PO Last administered on 05/08/17 08:19; Start 05/03/17 at 09:00; Stop 05/08/17 at 16:14; Status DC Aspirin (Oneil Aspirin) 325 mg DAILYWBKFT PO Last administered on 05/21/17 09: 43; Start 05/04/17 at 08:00 Ferrous Sulfate (Feosol) 325 mg DAILYWBKFT PO Last administered on 05/06/17 08: 07; Start 05/04/17 at 08:00; Stop 05/06/17 at 18:23; Status DC Cyproheptadine HCl (Periactin) 4 mg QHS PO Last administered on 05/21/17 19:42 ; Start 05/03/17 at 21:00 Sertraline HCl (Zoloft) 25 mg DAILY PO Last administered on 05/05/17 08:03; Start 05/05/17 at 09:00; Stop 05/05/17 at 18:27; Status DC Mirtazapine (Remeron) 7.5 mg QHS PO Last administered on 05/21/17 19:42; Start 05/04/17 at 21:00 Sertraline HCl (Zoloft) 50 mg DAILY PO Last administered on 05/07/17 08:07; Start 05/06/17 at 09:00; Stop 05/07/17 at 13:23; Status DC Trazodone HCl (Desyrel) 50 mg QHS PRN PO INSOMNIA, MAY REPEAT X1 Last administered on 05/21/17 19:42; Start 05/05/17 at 18:30 Sertraline HCl (Zoloft) 50 mg DAILY PO Last administered on 05/21/17 09:43; Start 05/08/17 at 09:00 Hydroxyurea (Hydrea) 1,500 mg DAILY PO Last administered on 05/18/17 08:17; Start 05/09/17 at 09:00; Stop 05/21/17 at 11:11; Status DC Buspirone HCl (Buspar) 5 mg BID92 PO Last administered on 05/14/17 09:35; Start 05/14/17 at 09:00; Stop 05/14/17 at 09:43; Status DC Buspirone HCl (Buspar) 10 mg BID92 PO Last administered on 05/21/17 09:43; Start 05/14/17 at 14:00; Stop 05/21/17 at 09:51; Status DC Famotidine (Pepcid) 20 mg BID PO Last administered on 05/21/17 19:42; Start at 21:00 Buspirone HCl (Buspar) 10 mg BID92 PO Last administered on 05/21/17 14:19; Start 05/21/17 at 14:00 Hydroxyurea (Hydrea) 500 mg DAILY PO ; Start 05/22/17 at 09:00; Status Future Hold Active Scripts Active Reported Trazodone Hcl 50 Mg Tablet 50 Mg PO PRN QHS PRN Buspirone Hcl 5 Mg Tablet 5 Mg PO BID92 Zoloft (Sertraline Hcl) 50 Mg Tablet 50 Mg PO DAILY Olanzapine 5 Mg Tablet 2.5 Mg PO PRN Q2HR PRN Remeron (Mirtazapine) 15 Mg Tablet 7.5 Mg PO QHS Analgesic [place] (Methyl Salicylate/Menthol) 28 Gm Oint...g. 1 Mia TP PRN QID PRN Milk Of Magnesia (Magnesium Hydroxide) 2,400 Mg/10 Ml Oral.susp 2,400 Mg PO PRN QHS PRN Mag-Al Plus Xs Suspension (Mag Hydrox/Al Hydrox/Simeth) 30 Ml Oral.susp 15 Ml PO PRN AFTMEALHC PRN Cyproheptadine Hcl 4 Mg Tablet 4 Mg PO QHS Aspirin 325 Mg Tablet 325 Mg PO DAILYWBKFT Tylenol (Acetaminophen) 325 Mg Tablet 650 Mg PO PRN Q6HRS PRN Hydroxyurea 500 Mg Capsule 1,500 Mg PO DAILY CECILIA PARR MD May 21, 2017 21:08
[2017-05-22 06:08] LABS: BASO # 0.2 x10^3/uL (0.0-0.2); BASO % 9 % (0-3); EOS # 0.1 x10^3/uL (0.0-0.7); EOS % 4 % (0-3); HEMATOCRIT 40.1 % (39.0-53.0); HEMOGLOBIN 12.3 g/dL (13.0-17.5); LYMPH # 1.2 x10^3/uL (1.0-4.8); LYMPH % 52 % (24-48); MEAN CORPUSCULAR HEMOGLOBIN 23 pg (25-35); MEAN CORPUSCULAR HGB CONC 31 g/dL (31-37); MEAN CORPUSCULAR VOLUME 75 fL (79-100); MONO # 0.1 x10^3/uL (0.0-1.1); MONO % 4 % (0-9); NEUT # 0.7 x10^3uL (1.8-7.7); NEUT % 31 % (31-73); PLATELET COUNT 104 x10^3/uL (140-400); RED BLOOD COUNT 5.39 x10^6/uL (4.30-5.70); RED CELL DISTRIBUTION WIDTH 20.9 % (11.5-14.5); WHITE BLOOD COUNT 2.4 x10^3/uL (4.0-11.0)
[2017-05-22 06:23] LABS: ALBUMIN 3.2 g/dL (3.4-5.0); ALBUMIN/GLOBULIN RATIO 0.9 (1.0-1.7); CALCIUM 8.3 mg/dL (8.5-10.1); CREATININE 1.1 mg/dL (0.7-1.3); GFR 64.9; POTASSIUM 4.2 mmol/L (3.5-5.1); TOTAL BILIRUBIN 0.6 mg/dL (0.2-1.0); TOTAL PROTEIN 6.8 g/dL (6.4-8.2)
[2017-05-22 06:29] VITALS: BP 117/76
[2017-05-22] MEDS ORDERED: HYDROXYUREA 500 MG CAPSULE PO SCH (09:00)
[2017-05-22] MEDS: FAMOTIDINE 20 MG TABLET PO SCH ×2 (09:03→19:52)
[2017-05-22] MEDS: SERTRALINE 50 MG TABLET. PO SCH (09:03)
[2017-05-22] MEDS: ASPIRIN 325 MG TABLET PO SCH (09:03)
[2017-05-22] MEDS: busPIRone 10 MG TABLET. PO SCH ×2 (09:03→14:05)
[2017-05-22 15:53] VITALS: BP 135/77
[2017-05-22] MEDS: CYPROHEPTADINE 4 MG TABLET. PO SCH (19:52)
[2017-05-22] MEDS: MIRTAZAPINE 7.5 MG TABLET. PO SCH (19:52)
[2017-05-22] MEDS: traZODone 50 MG TABLET. PO PRN (19:53)
--- NOTE | 2017-05-22 21:59 | PDOC ---
Exam Ivan Demential Exam: Ivan Note: Please also refer to the separate dictated note~for this date of service dictated separately.~Patient seen individually. Discussed the patient with Nursing staff reviewed the chart.~Reviewed interim history and current functioning. Reviewed vital signs,~Labs/ Radiology~and current medications noted below. Continue current treatment with the changes noted in the dictated addendum note Assessment: Vital Signs: Vital Signs Date Time Temp Pulse Resp B/P (MAP) Pulse Ox O2 Delivery O2 Flow Rate FiO2 05/22/17 15:53 98.8 58 19 135/77 (96) 96 05/18/17 15:32 Room Air I&O Intake and Output 05/22/17 07:00 Intake Total 1440 ml Balance 1440 ml Intake Oral 1440 ml # Bowel Movements 1 Labs: Laboratory Tests Test 05/22/17 05:57 White Blood Count 2.4 x10^3/uL (4.0-11.0) L Red Blood Count 5.39 x10^6/uL (4.30-5.70) Hemoglobin 12.3 g/dL (13.0-17.5) L Hematocrit 40.1 % (39.0-53.0) Mean Corpuscular Volume 75 fL (79-100) L Mean Corpuscular Hemoglobin 23 pg (25-35) L Mean Corpuscular Hemoglobin Concent 31 g/dL (31-37) Red Cell Distribution Width 20.9 % (11.5-14.5) H Platelet Count 104 x10^3/uL (140-400) L Neutrophils (%) (Auto) 31 % (31-73) Lymphocytes (%) (Auto) 52 % (24-48) H Monocytes (%) (Auto) 4 % (0-9) Eosinophils (%) (Auto) 4 % (0-3) H Basophils (%) (Auto) 9 % (0-3) H Neutrophils # (Auto) 0.7 x10^3uL (1.8-7.7) L Lymphocytes # (Auto) 1.2 x10^3/uL (1.0-4.8) Monocytes # (Auto) 0.1 x10^3/uL (0.0-1.1) Eosinophils # (Auto) 0.1 x10^3/uL (0.0-0.7) Basophils # (Auto) 0.2 x10^3/uL (0.0-0.2) Sodium Level 140 mmol/L (136-145) Potassium Level 4.2 mmol/L (3.5-5.1) Chloride Level 105 mmol/L (98-107) Carbon Dioxide Level 30 mmol/L (21-32) Anion Gap 5 (6-14) L Blood Urea Nitrogen 24 mg/dL (8-26) Creatinine 1.1 mg/dL (0.7-1.3) Estimated GFR (Cockcroft-Gault) 64.9 BUN/Creatinine Ratio 22 (6-20) H Glucose Level 90 mg/dL (70-99) Calcium Level 8.3 mg/dL (8.5-10.1) L Magnesium Level 1.8 mg/dL (1.8-2.4) Total Bilirubin 0.6 mg/dL (0.2-1.0) Aspartate Amino Transferase (AST) 16 U/L (15-37) Alanine Aminotransferase (ALT) 18 U/L (16-63) Alkaline Phosphatase 87 U/L (46-116) Total Protein 6.8 g/dL (6.4-8.2) Albumin 3.2 g/dL (3.4-5.0) L Albumin/Globulin Ratio 0.9 (1.0-1.7) L Current Medications: Meds: Current Medications Sodium Chloride 1,000 ml @ 1,000 mls/hr 1X ONCE IV ; Start 05/02/17 at 12:00; Stop 05/02/17 at 12:59; Status DC Haloperidol Lactate (Haldol) 5 mg 1X ONCE IVP ; Start 05/02/17 at 12:00; Stop at 12:01; Status DC Lorazepam (Ativan) 2 mg 1X ONCE IV ; Start 05/02/17 at 12:00; Stop 05/02/17 at 12 :01; Status DC Acetaminophen (Tylenol) 650 mg PRN Q6HRS PRN PO PAIN / TEMP Last administered on 05/03/17t 09:13; Start 05/02/17 at 14:45 Multi-Ingredient Ointment (Analgesic [place]) 1 mia PRN QID PRN TP MUSCLE PAIN; Start 05/02/17 at 14:45 Al Hydroxide/Mg Hydroxide (Mylanta Plus Xs) 15 ml PRN AFTMEALHC PRN PO DYSPEPSIA Last administered on 05/14/17 11:46; Start 05/02/17 at 14:45 Magnesium Hydroxide (Milk Of Magnesia) 2,400 mg PRN QHS PRN PO CONSTIPATION; Start 05/02/17 at 14:45 Olanzapine (ZyPREXA ZYDIS) 2.5 mg PRN Q2HR PRN PO PSYCHOSIS Last administered on 05/11/17 19:29; Start 05/02/17 at 15:45 Hydroxyurea (Hydrea) 1,000 mg DAILY PO ; Start 05/03/17 at 09:00; Stop 05/03/17 at 09:00; Status DC Hydroxyurea (Hydrea) 1,000 mg DAILY PO Last administered on 05/08/17 08:19; Start 05/03/17 at 09:00; Stop 05/08/17 at 16:14; Status DC Aspirin (Oneil Aspirin) 325 mg DAILYWBKFT PO Last administered on 05/22/17 09: 03; Start 05/04/17 at 08:00 Ferrous Sulfate (Feosol) 325 mg DAILYWBKFT PO Last administered on 05/06/17 08: 07; Start 05/04/17 at 08:00; Stop 05/06/17 at 18:23; Status DC Cyproheptadine HCl (Periactin) 4 mg QHS PO Last administered on 05/22/17 19:52 ; Start 05/03/17 at 21:00 Sertraline HCl (Zoloft) 25 mg DAILY PO Last administered on 05/05/17 08:03; Start 05/05/17 at 09:00; Stop 05/05/17 at 18:27; Status DC Mirtazapine (Remeron) 7.5 mg QHS PO Last administered on 05/22/17 19:52; Start 05/04/17 at 21:00 Sertraline HCl (Zoloft) 50 mg DAILY PO Last administered on 05/07/17 08:07; Start 05/06/17 at 09:00; Stop 05/07/17 at 13:23; Status DC Trazodone HCl (Desyrel) 50 mg QHS PRN PO INSOMNIA, MAY REPEAT X1 Last administered on 05/22/17 19:53; Start 05/05/17 at 18:30 Sertraline HCl (Zoloft) 50 mg DAILY PO Last administered on 05/22/17 09:03; Start 05/08/17 at 09:00 Hydroxyurea (Hydrea) 1,500 mg DAILY PO Last administered on 05/18/17 08:17; Start 05/09/17 at 09:00; Stop 05/21/17 at 11:11; Status DC Buspirone HCl (Buspar) 5 mg BID92 PO Last administered on 05/14/17 09:35; Start 05/14/17 at 09:00; Stop 05/14/17 at 09:43; Status DC Buspirone HCl (Buspar) 10 mg BID92 PO Last administered on 05/21/17 09:43; Start 05/14/17 at 14:00; Stop 05/21/17 at 09:51; Status DC Famotidine (Pepcid) 20 mg BID PO Last administered on 05/22/17 19:52; Start at 21:00 Buspirone HCl (Buspar) 10 mg BID92 PO Last administered on 05/22/17 14:05; Start 05/21/17 at 14:00 Hydroxyurea (Hydrea) 500 mg DAILY PO ; Start 05/22/17 at 09:00; Status Future Hold Active Scripts Active Reported Trazodone Hcl 50 Mg Tablet 50 Mg PO PRN QHS PRN Buspirone Hcl 5 Mg Tablet 5 Mg PO [id number] Zoloft (Sertraline Hcl) 50 Mg Tablet 50 Mg PO DAILY Olanzapine 5 Mg Tablet 2.5 Mg PO PRN Q2HR PRN Remeron (Mirtazapine) 15 Mg Tablet 7.5 Mg PO QHS Analgesic [place] (Methyl Salicylate/Menthol) 28 Gm Oint...g. 1 Mia TP PRN QID PRN Milk Of Magnesia (Magnesium Hydroxide) 2,400 Mg/10 Ml Oral.susp 2,400 Mg PO PRN QHS PRN Mag-Al Plus Xs Suspension (Mag Hydrox/Al Hydrox/Simeth) 30 Ml Oral.susp 15 Ml PO PRN AFTMEALHC PRN Cyproheptadine Hcl 4 Mg Tablet 4 Mg PO QHS Aspirin 325 Mg Tablet 325 Mg PO DAILYWBKFT Tylenol (Acetaminophen) 325 Mg Tablet 650 Mg PO PRN Q6HRS PRN Hydroxyurea 500 Mg Capsule 1,500 Mg PO DAILY Diagnosis: Problems: (1) Altered mental status (2) Anxiety disorder (3) Impulse control disorder (4) Dementia, vascular, with depression (5) Dementia, vascular, with delusions (6) Dementia in Alzheimer's disease with depression (7) Dementia in Alzheimer's disease with delusions CECILIA PARR MD May 22, 2017 21:59
--- NOTE | 2017-05-22 22:20 | PN ---
DATE: 05/21/2017 This note covers the elements not covered in my initial note. SUBJECTIVE: The patient was seen individually evening of 05/21/2017 staffed at a treatment team meeting with the entire team morning of 05/21/2017. Review of the patient's diagnosis, progress, placement options, social service staff and looking at another fpc placements since prior one failed. In the meantime, he has been cooperative, confused, gets agitated with his daughter, otherwise, redirectable. REVIEW OF SYSTEMS: No CV, , eye, ENT or pulmonary system symptoms on review. Reliability poor. MENTAL STATUS EXAM: Oriented to herself. Insight, judgment, recent and remote memory, attention, concentration, fund of knowledge poor, consistent with his diagnosis mentioned in my initial note. PLAN: Continue current psychotropics. Adjust as indicated. MAN Gerard PARR MD DR: INDIRA/jose alberto JOB#: [id number] / [id number]
[2017-05-23 05:56] VITALS: BP 120/69
[2017-05-23] MEDS: SERTRALINE 50 MG TABLET. PO SCH (08:04)
[2017-05-23] MEDS: ASPIRIN 325 MG TABLET PO SCH (08:04)
[2017-05-23] MEDS: FAMOTIDINE 20 MG TABLET PO SCH ×2 (08:04→19:33)
[2017-05-23] MEDS: busPIRone 10 MG TABLET. PO SCH ×2 (08:04→13:53)
--- NOTE | 2017-05-23 09:56 | PN ---
DATE: 05/22/2017 This late entry 05/22/2017 covers elements not covered in my initial note. SUBJECTIVE: The patient was seen individually evening of 05/22/2017. Overall, he has been calmer, remains confused, little paranoid, suspicious, as I met with him at some length individually. REVIEW OF SYSTEMS: No CV, , pulmonary, eye, ENT system symptoms on review. Reliability poor. He has not been aggressive per nursing report. MENTAL STATUS EXAM: Oriented to himself. Insight, judgment, recent and remote memory, attention, concentration, fund of knowledge poor, consistent with his diagnosis mentioned in my initial note. PLAN: Continue current psychotropics. Adjust further as clinically indicated. MAN Gerard PARR MD DR: INDIRA/jose alberto JOB#: [id number] / [id number]
--- NOTE | 2017-05-23 11:49 | PDOC ---
Exam Ivan Demential Exam: Ivan Note: Please also refer to the separate dictated note~for this date of service dictated separately.~Patient seen individually. Discussed the patient with Nursing staff reviewed the chart.~Reviewed interim history and current functioning. Reviewed vital signs,~Labs/ Radiology~and current medications noted below. Continue current treatment with the changes noted in the dictated addendum note Assessment: Vital Signs: Vital Signs Date Time Temp Pulse Resp B/P (MAP) Pulse Ox O2 Delivery O2 Flow Rate FiO2 05/23/17 05:56 98.2 64 20 120/69 (86) 97 05/18/17 15:32 Room Air I&O Intake and Output 05/23/17 07:00 Intake Total 1440 ml Balance 1440 ml Intake Oral 1440 ml Current Medications: Meds: Current Medications Sodium Chloride 1,000 ml @ 1,000 mls/hr 1X ONCE IV ; Start 05/02/17 at 12:00; Stop 05/02/17 at 12:59; Status DC Haloperidol Lactate (Haldol) 5 mg 1X ONCE IVP ; Start 05/02/17 at 12:00; Stop at 12:01; Status DC Lorazepam (Ativan) 2 mg 1X ONCE IV ; Start 05/02/17 at 12:00; Stop 05/02/17 at 12 :01; Status DC Acetaminophen (Tylenol) 650 mg PRN Q6HRS PRN PO PAIN / TEMP Last administered on 05/03/17 09:13; Start 05/02/17 at 14:45 Multi-Ingredient Ointment (Analgesic [place]) 1 mia PRN QID PRN TP MUSCLE PAIN; Start 05/02/17 at 14:45 Al Hydroxide/Mg Hydroxide (Mylanta Plus Xs) 15 ml PRN AFTMEALHC PRN PO DYSPEPSIA Last administered on 05/14/17 11:46; Start 05/02/17 at 14:45 Magnesium Hydroxide (Milk Of Magnesia) 2,400 mg PRN QHS PRN PO CONSTIPATION; Start 05/02/17 at 14:45 Olanzapine (ZyPREXA ZYDIS) 2.5 mg PRN Q2HR PRN PO PSYCHOSIS Last administered on 05/11/17 19:29; Start 05/02/17 at 15:45 Hydroxyurea (Hydrea) 1,000 mg DAILY PO ; Start 05/03/17 at 09:00; Stop 05/03/17 at 09:00; Status DC Hydroxyurea (Hydrea) 1,000 mg DAILY PO Last administered on 05/08/17 08:19; Start 05/03/17 at 09:00; Stop 05/08/17 at 16:14; Status DC Aspirin (Oneil Aspirin) 325 mg DAILYWBKFT PO Last administered on 05/23/17 08: 04; Start 05/04/17 at 08:00 Ferrous Sulfate (Feosol) 325 mg DAILYWBKFT PO Last administered on 05/06/17 08: 07; Start 05/04/17 at 08:00; Stop 05/06/17 at 18:23; Status DC Cyproheptadine HCl (Periactin) 4 mg QHS PO Last administered on 05/22/17 19:52 ; Start 05/03/17 at 21:00 Sertraline HCl (Zoloft) 25 mg DAILY PO Last administered on 05/05/17 08:03; Start 05/05/17 at 09:00; Stop 05/05/17 at 18:27; Status DC Mirtazapine (Remeron) 7.5 mg QHS PO Last administered on 05/22/17 19:52; Start 05/04/17 at 21:00 Sertraline HCl (Zoloft) 50 mg DAILY PO Last administered on 05/07/17 08:07; Start 05/06/17 at 09:00; Stop 05/07/17 at 13:23; Status DC Trazodone HCl (Desyrel) 50 mg QHS PRN PO INSOMNIA, MAY REPEAT X1 Last administered on 05/22/17 19:53; Start 05/05/17 at 18:30 Sertraline HCl (Zoloft) 50 mg DAILY PO Last administered on 05/23/17 08:04; Start 05/08/17 at 09:00 Hydroxyurea (Hydrea) 1,500 mg DAILY PO Last administered on 05/18/17 08:17; Start 05/09/17 at 09:00; Stop 05/21/17 at 11:11; Status DC Buspirone HCl (Buspar) 5 mg BID92 PO Last administered on 05/14/17 09:35; Start 05/14/17 at 09:00; Stop 05/14/17 at 09:43; Status DC Buspirone HCl (Buspar) 10 mg BID92 PO Last administered on 05/21/17 09:43; Start 05/14/17 at 14:00; Stop 05/21/17 at 09:51; Status DC Famotidine (Pepcid) 20 mg BID PO Last administered on 05/23/17 08:04; Start at 21:00 Buspirone HCl (Buspar) 10 mg BID92 PO Last administered on 05/23/17 08:04; Start 05/21/17 at 14:00 Hydroxyurea (Hydrea) 500 mg DAILY PO ; Start 05/22/17 at 09:00; Status Future Hold Active Scripts Active Reported Trazodone Hcl 50 Mg Tablet 50 Mg PO PRN QHS PRN Buspirone Hcl 5 Mg Tablet 5 Mg PO BID92 Zoloft (Sertraline Hcl) 50 Mg Tablet 50 Mg PO DAILY Olanzapine 5 Mg Tablet 2.5 Mg PO PRN Q2HR PRN Remeron (Mirtazapine) 15 Mg Tablet 7.5 Mg PO QHS Analgesic [place] (Methyl Salicylate/Menthol) 28 Gm Oint...g. 1 Mia TP PRN QID PRN Milk Of Magnesia (Magnesium Hydroxide) 2,400 Mg/10 Ml Oral.susp 2,400 Mg PO PRN QHS PRN Mag-Al Plus Xs Suspension (Mag Hydrox/Al Hydrox/Simeth) 30 Ml Oral.susp 15 Ml PO PRN AFTMEALHC PRN Cyproheptadine Hcl 4 Mg Tablet 4 Mg PO QHS Aspirin 325 Mg Tablet 325 Mg PO DAILYWBKFT Tylenol (Acetaminophen) 325 Mg Tablet 650 Mg PO PRN Q6HRS PRN Hydroxyurea 500 Mg Capsule 1,500 Mg PO DAILY Diagnosis: Problems: (1) Altered mental status (2) Anxiety disorder (3) Impulse control disorder (4) Dementia, vascular, with depression (5) Dementia, vascular, with delusions (6) Dementia in Alzheimer's disease with depression (7) Dementia in Alzheimer's disease with delusions CECILIA PARR MD May 23, 2017 11:49
[2017-05-23 15:33] VITALS: BP 124/79
[2017-05-23] MEDS: CYPROHEPTADINE 4 MG TABLET. PO SCH (19:33)
[2017-05-23] MEDS: MIRTAZAPINE 7.5 MG TABLET. PO SCH (19:33)
[2017-05-23] MEDS: traZODone 50 MG TABLET. PO PRN (19:33)
[2017-05-24 06:01] VITALS: BP 126/72
[2017-05-24] MEDS: ASPIRIN 325 MG TABLET PO SCH (07:44)
[2017-05-24] MEDS: busPIRone 10 MG TABLET. PO SCH ×2 (07:45→13:33)
[2017-05-24] MEDS: FAMOTIDINE 20 MG TABLET PO SCH ×2 (07:45→19:23)
[2017-05-24] MEDS: SERTRALINE 50 MG TABLET. PO SCH (07:45)
--- NOTE | 2017-05-24 11:10 | PN ---
DATE: 05/23/2017 This is late entry 05/23/2017, covers elements not covered in my initial note. SUBJECTIVE: The patient was seen individually evening of 05/23/2017. He remains confused, gets little paranoid about his daughter, resistive to medications morning of 05/23/2017, the rest of the day, he did better. REVIEW OF SYSTEMS: No CV, , pulmonary, eye, ENT system symptoms on review. Reliability poor. MENTAL STATUS EXAM: Oriented to himself. Insight, judgment, recent and remote memory, attention, concentration, fund of knowledge poor, consistent with his diagnosis mentioned in my initial note. PLAN: Continue current psychotropics, Zyprexa p.r.n., Periactin, Zoloft, Remeron, BuSpar, trazodone, may adjust further as clinically indicated. MAN Gerard PARR MD DR: INDIRA/jose alberto JOB#: [id number] / [id number]
[2017-05-24 16:06] VITALS: BP 150/76
[2017-05-24] MEDS: CYPROHEPTADINE 4 MG TABLET. PO SCH (19:23)
[2017-05-24] MEDS: MIRTAZAPINE 7.5 MG TABLET. PO SCH (19:23)
[2017-05-24] MEDS: traZODone 50 MG TABLET. PO PRN (19:24)
--- NOTE | 2017-05-24 19:56 | PDOC ---
Exam Ivan Demential Exam: Ivan Note: Please also refer to the separate dictated note~for this date of service dictated separately.~Patient seen individually. Discussed the patient with Nursing staff reviewed the chart.~Reviewed interim history and current functioning. Reviewed vital signs,~Labs/ Radiology~and current medications noted below. Continue current treatment with the changes noted in the dictated addendum note Assessment: Vital Signs: Vital Signs Date Time Temp Pulse Resp B/P (MAP) Pulse Ox O2 Delivery O2 Flow Rate FiO2 05/24/17 16:06 97.5 84 20 150/76 (100) 95 05/18/17 15:32 Room Air I&O Intake and Output 05/24/17 07:00 Intake Total 960 ml Balance 960 ml Intake Oral 960 ml # Voids 2 Current Medications: Meds: Current Medications Sodium Chloride 1,000 ml @ 1,000 mls/hr 1X ONCE IV ; Start 05/02/17 at 12:00; Stop 05/02/17 at 12:59; Status DC Haloperidol Lactate (Haldol) 5 mg 1X ONCE IVP ; Start 05/02/17 at 12:00; Stop at 12:01; Status DC Lorazepam (Ativan) 2 mg 1X ONCE IV ; Start 05/02/17 at 12:00; Stop 05/02/17 at 12 :01; Status DC Acetaminophen (Tylenol) 650 mg PRN Q6HRS PRN PO PAIN / TEMP Last administered on 05/03/17 09:13; Start 05/02/17 at 14:45 Multi-Ingredient Ointment (Analgesic [place]) 1 mia PRN QID PRN TP MUSCLE PAIN; Start 05/02/17 at 14:45 Al Hydroxide/Mg Hydroxide (Mylanta Plus Xs) 15 ml PRN AFTMEALHC PRN PO DYSPEPSIA Last administered on 05/14/17 11:46; Start 05/02/17 at 14:45 Magnesium Hydroxide (Milk Of Magnesia) 2,400 mg PRN QHS PRN PO CONSTIPATION; Start 05/02/17 at 14:45 Olanzapine (ZyPREXA ZYDIS) 2.5 mg PRN Q2HR PRN PO PSYCHOSIS Last administered on 05/11/17 19:29; Start 05/02/17 at 15:45 Hydroxyurea (Hydrea) 1,000 mg DAILY PO ; Start 05/03/17 at 09:00; Stop 05/03/17 at 09:00; Status DC Hydroxyurea (Hydrea) 1,000 mg DAILY PO Last administered on 05/08/17 08:19; Start 05/03/17 at 09:00; Stop 05/08/17 at 16:14; Status DC Aspirin (Oneil Aspirin) 325 mg DAILYWBKFT PO Last administered on 05/24/17 07: 44; Start 05/04/17 at 08:00 Ferrous Sulfate (Feosol) 325 mg DAILYWBKFT PO Last administered on 05/06/17 08: 07; Start 05/04/17 at 08:00; Stop 05/06/17 at 18:23; Status DC Cyproheptadine HCl (Periactin) 4 mg QHS PO Last administered on 05/24/17 19:23 ; Start 05/03/17 at 21:00 Sertraline HCl (Zoloft) 25 mg DAILY PO Last administered on 05/05/17 08:03; Start 05/05/17 at 09:00; Stop 05/05/17 at 18:27; Status DC Mirtazapine (Remeron) 7.5 mg QHS PO Last administered on 05/24/17 19:23; Start 05/04/17 at 21:00 Sertraline HCl (Zoloft) 50 mg DAILY PO Last administered on 05/07/17 08:07; Start 05/06/17 at 09:00; Stop 05/07/17 at 13:23; Status DC Trazodone HCl (Desyrel) 50 mg QHS PRN PO INSOMNIA, MAY REPEAT X1 Last administered on 05/24/17 19:24; Start 05/05/17 at 18:30 Sertraline HCl (Zoloft) 50 mg DAILY PO Last administered on 05/24/17 07:45; Start 05/08/17 at 09:00 Hydroxyurea (Hydrea) 1,500 mg DAILY PO Last administered on 05/18/17 08:17; Start 05/09/17 at 09:00; Stop 05/21/17 at 11:11; Status DC Buspirone HCl (Buspar) 5 mg BID92 PO Last administered on 05/14/17 09:35; Start 05/14/17 at 09:00; Stop 05/14/17 at 09:43; Status DC Buspirone HCl (Buspar) 10 mg BID92 PO Last administered on 05/21/17 09:43; Start 05/14/17 at 14:00; Stop 05/21/17 at 09:51; Status DC Famotidine (Pepcid) 20 mg BID PO Last administered on 05/24/17 19:23; Start at 21:00 Buspirone HCl (Buspar) 10 mg BID92 PO Last administered on 05/24/17 13:33; Start 05/21/17 at 14:00 Hydroxyurea (Hydrea) 500 mg DAILY PO ; Start 05/22/17 at 09:00; Status Future Hold Active Scripts Active Reported Trazodone Hcl 50 Mg Tablet 50 Mg PO PRN QHS PRN Buspirone Hcl 5 Mg Tablet 5 Mg PO BID92 Zoloft (Sertraline Hcl) 50 Mg Tablet 50 Mg PO DAILY Olanzapine 5 Mg Tablet 2.5 Mg PO PRN Q2HR PRN Remeron (Mirtazapine) 15 Mg Tablet 7.5 Mg PO QHS Analgesic [place] (Methyl Salicylate/Menthol) 28 Gm Oint...g. 1 Mia TP PRN QID PRN Milk Of Magnesia (Magnesium Hydroxide) 2,400 Mg/10 Ml Oral.susp 2,400 Mg PO PRN QHS PRN Mag-Al Plus Xs Suspension (Mag Hydrox/Al Hydrox/Simeth) 30 Ml Oral.susp 15 Ml PO PRN AFTMEALHC PRN Cyproheptadine Hcl 4 Mg Tablet 4 Mg PO QHS Aspirin 325 Mg Tablet 325 Mg PO DAILYWBKFT Tylenol (Acetaminophen) 325 Mg Tablet 650 Mg PO PRN Q6HRS PRN Hydroxyurea 500 Mg Capsule 1,500 Mg PO DAILY Diagnosis: Problems: (1) Anxiety disorder (2) Impulse control disorder (3) Dementia, vascular, with depression (4) Dementia, vascular, with delusions (5) Dementia in Alzheimer's disease with depression (6) Dementia in Alzheimer's disease with delusions CECILIA PARR MD May 24, 2017 19:56
--- NOTE | 2017-05-24 20:35 | PDOC ---
Exam Ivan Demential Exam: Ivan Note: Please also refer to the separate dictated note~for this date of service dictated separately.~Patient seen individually. Discussed the patient with Nursing staff reviewed the chart.~Reviewed interim history and current functioning. Reviewed vital signs,~Labs/ Radiology~and current medications noted below. Continue current treatment with the changes noted in the dictated addendum note S/O: This is a late entry for date of service May 19 and covers the elements not covered in my initial note of May 19. The patient was seen individually evening of May 19. Per nursing report the patient has been confused, wandering, still gets delusional about his daughter but, otherwise, better. Review of Systems: No CV, , Pulmonary, Eye, ENT system symptoms on review. Reliability is poor. MSE: Oriented to himself. Insight and judgment, recent and remote memory, attention and concentration, fund of knowledge poor consistent with his diagnosis mentioned in my initial note. Plan: Continue current psychotropics. Transition to a lower level of care as soon as arranged by social service staff. Assessment: Vital Signs: Vital Signs Date Time Temp Pulse Resp B/P (MAP) Pulse Ox O2 Delivery O2 Flow Rate FiO2 05/24/17 16:06 97.5 84 20 150/76 (100) 95 05/18/17 15:32 Room Air I&O Intake and Output 05/24/17 07:00 Intake Total 960 ml Balance 960 ml Intake Oral 960 ml # Voids 2 Current Medications: Meds: Current Medications Sodium Chloride 1,000 ml @ 1,000 mls/hr 1X ONCE IV ; Start 05/02/17 at 12:00; Stop 05/02/17 at 12:59; Status DC Haloperidol Lactate (Haldol) 5 mg 1X ONCE IVP ; Start 05/02/17 at 12:00; Stop at 12:01; Status DC Lorazepam (Ativan) 2 mg 1X ONCE IV ; Start 05/02/17 at 12:00; Stop 05/02/17 at 12 :01; Status DC Acetaminophen (Tylenol) 650 mg PRN Q6HRS PRN PO PAIN / TEMP Last administered on 05/03/17t 09:13; Start 05/02/17 at 14:45 Multi-Ingredient Ointment (Analgesic [place]) 1 mia PRN QID PRN TP MUSCLE PAIN; Start 05/02/17 at 14:45 Al Hydroxide/Mg Hydroxide (Mylanta Plus Xs) 15 ml PRN AFTMEALHC PRN PO DYSPEPSIA Last administered on 05/14/17 11:46; Start 05/02/17 at 14:45 Magnesium Hydroxide (Milk Of Magnesia) 2,400 mg PRN QHS PRN PO CONSTIPATION; Start 05/02/17 at 14:45 Olanzapine (ZyPREXA ZYDIS) 2.5 mg PRN Q2HR PRN PO PSYCHOSIS Last administered on 05/11/17 19:29; Start 05/02/17 at 15:45 Hydroxyurea (Hydrea) 1,000 mg DAILY PO ; Start 05/03/17 at 09:00; Stop 05/03/17 at 09:00; Status DC Hydroxyurea (Hydrea) 1,000 mg DAILY PO Last administered on 05/08/17 08:19; Start 05/03/17 at 09:00; Stop 05/08/17 at 16:14; Status DC Aspirin (Oneil Aspirin) 325 mg DAILYWBKFT PO Last administered on 05/24/17 07: 44; Start 05/04/17 at 08:00 Ferrous Sulfate (Feosol) 325 mg DAILYWBKFT PO Last administered on 05/06/17 08: 07; Start 05/04/17 at 08:00; Stop 05/06/17 at 18:23; Status DC Cyproheptadine HCl (Periactin) 4 mg QHS PO Last administered on 05/24/17 19:23 ; Start 05/03/17 at 21:00 Sertraline HCl (Zoloft) 25 mg DAILY PO Last administered on 05/05/17 08:03; Start 05/05/17 at 09:00; Stop 05/05/17 at 18:27; Status DC Mirtazapine (Remeron) 7.5 mg QHS PO Last administered on 05/24/17 19:23; Start 05/04/17 at 21:00 Sertraline HCl (Zoloft) 50 mg DAILY PO Last administered on 05/07/17 08:07; Start 05/06/17 at 09:00; Stop 05/07/17 at 13:23; Status DC Trazodone HCl (Desyrel) 50 mg QHS PRN PO INSOMNIA, MAY REPEAT X1 Last administered on 05/24/17 19:24; Start 05/05/17 at 18:30 Sertraline HCl (Zoloft) 50 mg DAILY PO Last administered on 05/24/17 07:45; Start 05/08/17 at 09:00 Hydroxyurea (Hydrea) 1,500 mg DAILY PO Last administered on 05/18/17 08:17; Start 05/09/17 at 09:00; Stop 05/21/17 at 11:11; Status DC Buspirone HCl (Buspar) 5 mg BID92 PO Last administered on 05/14/17 09:35; Start 05/14/17 at 09:00; Stop 05/14/17 at 09:43; Status DC Buspirone HCl (Buspar) 10 mg BID92 PO Last administered on 05/21/17 09:43; Start 05/14/17 at 14:00; Stop 05/21/17 at 09:51; Status DC Famotidine (Pepcid) 20 mg BID PO Last administered on 05/24/17 19:23; Start at 21:00 Buspirone HCl (Buspar) 10 mg BID92 PO Last administered on 05/24/17 13:33; Start 05/21/17 at 14:00 Hydroxyurea (Hydrea) 500 mg DAILY PO ; Start 05/22/17 at 09:00; Status Future Hold Active Scripts Active Reported Trazodone Hcl 50 Mg Tablet 50 Mg PO PRN QHS PRN Buspirone Hcl 5 Mg Tablet 5 Mg PO BID92 Zoloft (Sertraline Hcl) 50 Mg Tablet 50 Mg PO DAILY Olanzapine 5 Mg Tablet 2.5 Mg PO PRN Q2HR PRN Remeron (Mirtazapine) 15 Mg Tablet 7.5 Mg PO QHS Analgesic [place] (Methyl Salicylate/Menthol) 28 Gm Oint...g. 1 Mia TP PRN QID PRN Milk Of Magnesia (Magnesium Hydroxide) 2,400 Mg/10 Ml Oral.susp 2,400 Mg PO PRN QHS PRN Mag-Al Plus Xs Suspension (Mag Hydrox/Al Hydrox/Simeth) 30 Ml Oral.susp 15 Ml PO PRN AFTMEALHC PRN Cyproheptadine Hcl 4 Mg Tablet 4 Mg PO QHS Aspirin 325 Mg Tablet 325 Mg PO DAILYWBKFT Tylenol (Acetaminophen) 325 Mg Tablet 650 Mg PO PRN Q6HRS PRN Hydroxyurea 500 Mg Capsule 1,500 Mg PO DAILY CECILIA PARR MD May 24, 2017 20:34
[2017-05-25] MEDS ORDERED: FAMO20TA5 PO (00:26)
[2017-05-25] MEDS ORDERED: MAGN400O7 PO (00:27)
[2017-05-25] MEDS ORDERED: BUSP10TA PO (00:30)
[2017-05-25 06:33] VITALS: BP 121/61
[2017-05-25 07:04] LABS: BASO # 0.1 x10^3/uL (0.0-0.2); BASO % 1 % (0-3); EOS # 0.2 x10^3/uL (0.0-0.7); EOS % 5 % (0-3); HEMATOCRIT 42.8 % (39.0-53.0); HEMOGLOBIN 13.5 g/dL (13.0-17.5); LYMPH # 1.2 x10^3/uL (1.0-4.8); LYMPH % 29 % (24-48); MEAN CORPUSCULAR HEMOGLOBIN 24 pg (25-35); MEAN CORPUSCULAR HGB CONC 32 g/dL (31-37); MEAN CORPUSCULAR VOLUME 75 fL (79-100); MONO # 0.2 x10^3/uL (0.0-1.1); MONO % 6 % (0-9); NEUT # 2.5 x10^3uL (1.8-7.7); NEUT % 58 % (31-73); RED BLOOD COUNT 5.68 x10^6/uL (4.30-5.70); RED CELL DISTRIBUTION WIDTH 21.9 % (11.5-14.5)
[2017-05-25 07:20] LABS: ALBUMIN 3.6 g/dL (3.4-5.0); ALBUMIN/GLOBULIN RATIO 0.9 (1.0-1.7); CALCIUM 8.7 mg/dL (8.5-10.1); CREATININE 1.2 mg/dL (0.7-1.3); GFR 58.7; POTASSIUM 4.4 mmol/L (3.5-5.1); TOTAL BILIRUBIN 0.5 mg/dL (0.2-1.0); TOTAL PROTEIN 7.5 g/dL (6.4-8.2)
[2017-05-25] MEDS: FAMOTIDINE 20 MG TABLET PO SCH ×2 (08:12→20:14)
[2017-05-25] MEDS: SERTRALINE 50 MG TABLET. PO SCH (08:12)
[2017-05-25] MEDS: ASPIRIN 325 MG TABLET PO SCH (08:12)
[2017-05-25] MEDS: busPIRone 10 MG TABLET. PO SCH ×2 (08:12→12:40)
[2017-05-25 11:16] LABS: WHITE BLOOD COUNT 4.2 x10^3/uL (4.0-11.0)
[2017-05-25 11:39] LABS: % BANDS 3 % (0-9); % BASOS 5 % (0-3); % EOS 5 % (0-5); % LYMPHS 35 % (24-48); % MONOS 3 % (0-10); % SEGS 48 % (35-66); PLT ESTIMATE DECREASED (ADEQUATE)
[2017-05-25 11:40] LABS: ANISOCYTOSIS MOD; HYPOCHROMIA SLIGHT; MICROCYTOSIS SLIGHT; OVALOCYTES MOD; POIKILOCYTOSIS MOD; TEAR DROP CELLS OCC
[2017-05-25] MEDS: CHOLECALCIFEROL (VITAMIN D3) 1,000 UNIT TABLET PO SCH (12:40)
[2017-05-25 16:34] VITALS: BP 114/74
--- NOTE | 2017-05-25 19:49 | PDOC ---
Exam Ivan Demential Exam: Ivan Note: Please also refer to the separate dictated note~for this date of service dictated separately.~Patient seen individually. Discussed the patient with Nursing staff reviewed the chart.~Reviewed interim history and current functioning. Reviewed vital signs,~Labs/ Radiology~and current medications noted below. Continue current treatment with the changes noted in the dictated addendum note Assessment: Vital Signs: Vital Signs Date Time Temp Pulse Resp B/P (MAP) Pulse Ox O2 Delivery O2 Flow Rate FiO2 05/25/17 16:34 97.7 86 20 114/74 (87) 97 Room Air I&O Intake and Output 05/25/17 07:00 Intake Total 1320 ml Balance 1320 ml Intake Oral 1320 ml Labs: Laboratory Tests Test 05/25/17 06:34 White Blood Count 4.2 x10^3/uL (4.0-11.0) # Red Blood Count 5.68 x10^6/uL (4.30-5.70) Hemoglobin 13.5 g/dL (13.0-17.5) Hematocrit 42.8 % (39.0-53.0) Mean Corpuscular Volume 75 fL (79-100) L Mean Corpuscular Hemoglobin 24 pg (25-35) L Mean Corpuscular Hemoglobin Concent 32 g/dL (31-37) Red Cell Distribution Width 21.9 % (11.5-14.5) H Platelet Count 36 x10^3/uL (140-400) L Neutrophils (%) (Auto) 58 % (31-73) Lymphocytes (%) (Auto) 29 % (24-48) Monocytes (%) (Auto) 6 % (0-9) Eosinophils (%) (Auto) 5 % (0-3) H Basophils (%) (Auto) 1 % (0-3) Neutrophils # (Auto) 2.5 x10^3uL (1.8-7.7) Lymphocytes # (Auto) 1.2 x10^3/uL (1.0-4.8) Monocytes # (Auto) 0.2 x10^3/uL (0.0-1.1) Eosinophils # (Auto) 0.2 x10^3/uL (0.0-0.7) Basophils # (Auto) 0.1 x10^3/uL (0.0-0.2) Segmented Neutrophils % 48 % (35-66) Band Neutrophils % 3 % (0-9) Lymphocytes % 35 % (24-48) Monocytes % 3 % (0-10) Eosinophils % 5 % (0-5) Basophils % 5 % (0-3) H Platelet Estimate Decreased (ADEQUATE) Large Platelets Occ Hypochromasia Slight Poikilocytosis Mod Anisocytosis Mod Microcytosis Slight Tear Drop Cells Occ Ovalocytes Mod Sodium Level 141 mmol/L (136-145) Potassium Level 4.4 mmol/L (3.5-5.1) Chloride Level 103 mmol/L (98-107) Carbon Dioxide Level 34 mmol/L (21-32) H Anion Gap 4 (6-14) L Blood Urea Nitrogen 20 mg/dL (8-26) Creatinine 1.2 mg/dL (0.7-1.3) Estimated GFR (Cockcroft-Gault) 58.7 BUN/Creatinine Ratio 17 (6-20) Glucose Level 87 mg/dL (70-99) Calcium Level 8.7 mg/dL (8.5-10.1) Total Bilirubin 0.5 mg/dL (0.2-1.0) Aspartate Amino Transferase (AST) 19 U/L (15-37) Alanine Aminotransferase (ALT) 24 U/L (16-63) Alkaline Phosphatase 103 U/L (46-116) Total Protein 7.5 g/dL (6.4-8.2) Albumin 3.6 g/dL (3.4-5.0) Albumin/Globulin Ratio 0.9 (1.0-1.7) L Current Medications: Meds: Current Medications Sodium Chloride 1,000 ml @ 1,000 mls/hr 1X ONCE IV ; Start 05/02/17 at 12:00; Stop 05/02/17 at 12:59; Status DC Haloperidol Lactate (Haldol) 5 mg 1X ONCE IVP ; Start 05/02/17 at 12:00; Stop at 12:01; Status DC Lorazepam (Ativan) 2 mg 1X ONCE IV ; Start 05/02/17 at 12:00; Stop 05/02/17 at 12 :01; Status DC Acetaminophen (Tylenol) 650 mg PRN Q6HRS PRN PO PAIN / TEMP Last administered on 05/03/17t 09:13; Start 05/02/17 at 14:45 Multi-Ingredient Ointment (Analgesic [place]) 1 mia PRN QID PRN TP MUSCLE PAIN; Start 05/02/17 at 14:45 Al Hydroxide/Mg Hydroxide (Mylanta Plus Xs) 15 ml PRN AFTMEALHC PRN PO DYSPEPSIA Last administered on 05/14/17 11:46; Start 05/02/17 at 14:45 Magnesium Hydroxide (Milk Of Magnesia) 2,400 mg PRN QHS PRN PO CONSTIPATION; Start 05/02/17 at 14:45 Olanzapine (ZyPREXA ZYDIS) 2.5 mg PRN Q2HR PRN PO PSYCHOSIS Last administered on 05/11/17 19:29; Start 05/02/17 at 15:45 Hydroxyurea (Hydrea) 1,000 mg DAILY PO ; Start 05/03/17 at 09:00; Stop 05/03/17 at 09:00; Status DC Hydroxyurea (Hydrea) 1,000 mg DAILY PO Last administered on 05/08/17 08:19; Start 05/03/17 at 09:00; Stop 05/08/17 at 16:14; Status DC Aspirin (Oneil Aspirin) 325 mg DAILYWBKFT PO Last administered on 05/25/17 08: 12; Start 05/04/17 at 08:00 Ferrous Sulfate (Feosol) 325 mg DAILYWBKFT PO Last administered on 05/06/17 08: 07; Start 05/04/17 at 08:00; Stop 05/06/17 at 18:23; Status DC Cyproheptadine HCl (Periactin) 4 mg QHS PO Last administered on 05/24/17 19:23 ; Start 05/03/17 at 21:00 Sertraline HCl (Zoloft) 25 mg DAILY PO Last administered on 05/05/17 08:03; Start 05/05/17 at 09:00; Stop 05/05/17 at 18:27; Status DC Mirtazapine (Remeron) 7.5 mg QHS PO Last administered on 05/24/17 19:23; Start 05/04/17 at 21:00 Sertraline HCl (Zoloft) 50 mg DAILY PO Last administered on 05/07/17 08:07; Start 05/06/17 at 09:00; Stop 05/07/17 at 13:23; Status DC Trazodone HCl (Desyrel) 50 mg QHS PRN PO INSOMNIA, MAY REPEAT X1 Last administered on 05/24/17 19:24; Start 05/05/17 at 18:30 Sertraline HCl (Zoloft) 50 mg DAILY PO Last administered on 05/25/17 08:12; Start 05/08/17 at 09:00 Hydroxyurea (Hydrea) 1,500 mg DAILY PO Last administered on 05/18/17 08:17; Start 05/09/17 at 09:00; Stop 05/21/17 at 11:11; Status DC Buspirone HCl (Buspar) 5 mg BID92 PO Last administered on 05/14/17 09:35; Start 05/14/17 at 09:00; Stop 05/14/17 at 09:43; Status DC Buspirone HCl (Buspar) 10 mg BID92 PO Last administered on 05/21/17 09:43; Start 05/14/17 at 14:00; Stop 05/21/17 at 09:51; Status DC Famotidine (Pepcid) 20 mg BID PO Last administered on 05/25/17 08:12; Start at 21:00 Buspirone HCl (Buspar) 10 mg BID92 PO Last administered on 05/25/17 12:40; Start 05/21/17 at 14:00 Hydroxyurea (Hydrea) 500 mg DAILY PO ; Start 05/22/17 at 09:00; Status Future Hold Vitamin D (Vitamin D3) 2,000 unit DAILY PO Last administered on 05/25/17 12:40 ; Start 05/25/17 at 12:30 Active Scripts Active Reported Buspirone Hcl 10 Mg Tablet 10 Mg PO BID92 Milk Of Magnesia (Magnesium Hydroxide) 400 Mg/5 Ml Oral.susp 2,400 Mg PO PRN QHS PRN Famotidine 20 Mg Tablet 20 Mg PO BID Trazodone Hcl 50 Mg Tablet 50 Mg PO PRN QHS PRN Zoloft (Sertraline Hcl) 50 Mg Tablet 50 Mg PO DAILY Olanzapine 5 Mg Tablet 2.5 Mg PO PRN Q2HR PRN Remeron (Mirtazapine) 15 Mg Tablet 7.5 Mg PO QHS MDD 7.5mg Analgesic [place] (Methyl Salicylate/Menthol) 28 Gm Oint...g. 1 Mia TP PRN QID PRN Mag-Al Plus Xs Suspension (Mag Hydrox/Al Hydrox/Simeth) 30 Ml Oral.susp 15 Ml PO PRN AFTMEALHC PRN Cyproheptadine Hcl 4 Mg Tablet 4 Mg PO QHS Aspirin 325 Mg Tablet 325 Mg PO DAILYWBKFT Tylenol (Acetaminophen) 325 Mg Tablet 650 Mg PO PRN Q6HRS PRN Hydroxyurea 500 Mg Capsule 500 Mg PO DAILY Diagnosis: Problems: (1) Altered mental status (2) Anxiety disorder (3) Impulse control disorder (4) Dementia, vascular, with depression (5) Dementia, vascular, with delusions (6) Dementia in Alzheimer's disease with depression (7) Dementia in Alzheimer's disease with delusions CECILIA PARR MD May 25, 2017 19:49
[2017-05-25] MEDS: traZODone 50 MG TABLET. PO PRN (20:13)
[2017-05-25] MEDS: MIRTAZAPINE 7.5 MG TABLET. PO SCH (20:13)
[2017-05-25] MEDS: CYPROHEPTADINE 4 MG TABLET. PO SCH (20:14)
--- NOTE | 2017-05-25 23:30 | PN ---
DATE: 05/24/2017 PSYCHIATRIC PROGRESS NOTE This is a late entry of 05/24/2017 covers elements not covered in my initial note of 05/24/2017. SUBJECTIVE: The patient was seen on rounds the evening of 05/24/2017. Discussed with nursing staff, reviewed the chart. The patient remains confused, otherwise calm, compliant, pleasant, slept 5-3/4 hours previous night. REVIEW OF SYSTEMS: No CV, , pulmonary, eye, ENT system symptoms on review. Reliability poor. MENTAL STATUS EXAM: Oriented to himself. Insight, judgment, recent and remote memory, attention, concentration, fund of knowledge poor, consistent with his diagnosis mentioned in my initial note. LABORATORY DATA: Reviewed. IMPRESSION: Unchanged from my initial note. PLAN: Continue psychotropics mentioned in my initial note. Adjust as clinically indicated. MAN Gerard PARR MD DR: INDIRA/jose alberto JOB#: [id number] / [id number]
[2017-05-26 06:44] LABS: BASO # 0.1 x10^3/uL (0.0-0.2); BASO % 1 % (0-3); EOS # 0.2 x10^3/uL (0.0-0.7); EOS % 4 % (0-3); HEMATOCRIT 41.8 % (39.0-53.0); LYMPH # 1.2 x10^3/uL (1.0-4.8); LYMPH % 26 % (24-48); MEAN CORPUSCULAR HEMOGLOBIN 24 pg (25-35); MEAN CORPUSCULAR HGB CONC 31 g/dL (31-37); MEAN CORPUSCULAR VOLUME 76 fL (79-100); MONO # 0.4 x10^3/uL (0.0-1.1); MONO % 8 % (0-9); NEUT # 2.8 x10^3uL (1.8-7.7); NEUT % 60 % (31-73); PLATELET COUNT 29 x10^3/uL (140-400); RED BLOOD COUNT 5.51 x10^6/uL (4.30-5.70); RED CELL DISTRIBUTION WIDTH 21.9 % (11.5-14.5); WHITE BLOOD COUNT 4.7 x10^3/uL (4.0-11.0)
[2017-05-26 06:56] VITALS: BP 114/64
[2017-05-26] MEDS: ASPIRIN 325 MG TABLET PO SCH (08:46)
[2017-05-26] MEDS: CHOLECALCIFEROL (VITAMIN D3) 1,000 UNIT TABLET PO SCH (08:47)
[2017-05-26] MEDS: FAMOTIDINE 20 MG TABLET PO SCH ×2 (08:47→20:01)
[2017-05-26] MEDS: busPIRone 10 MG TABLET. PO SCH ×2 (08:47→13:06)
[2017-05-26] MEDS: SERTRALINE 50 MG TABLET. PO SCH (08:47)
[2017-05-26 16:03] VITALS: BP 112/72
--- NOTE | 2017-05-26 19:54 | PDOC ---
Exam Ivan Demential Exam: Ivan Note: Please also refer to the separate dictated note~for this date of service dictated separately.~Patient seen individually. Discussed the patient with Nursing staff reviewed the chart.~Reviewed interim history and current functioning. Reviewed vital signs,~Labs/ Radiology~and current medications noted below. Continue current treatment with the changes noted in the dictated addendum note Assessment: Vital Signs: Vital Signs Date Time Temp Pulse Resp B/P (MAP) Pulse Ox O2 Delivery O2 Flow Rate FiO2 05/26/17 16:03 98.6 81 20 112/72 (85) 96 05/25/17 16:34 Room Air I&O Intake and Output 05/26/17 07:00 Intake Total 1640 ml Balance 1640 ml Intake Oral 1640 ml Labs: Laboratory Tests Test 05/26/17 06:35 White Blood Count 4.7 x10^3/uL (4.0-11.0) Red Blood Count 5.51 x10^6/uL (4.30-5.70) Hemoglobin 13.0 g/dL (13.0-17.5) Hematocrit 41.8 % (39.0-53.0) Mean Corpuscular Volume 76 fL (79-100) L Mean Corpuscular Hemoglobin 24 pg (25-35) L Mean Corpuscular Hemoglobin Concent 31 g/dL (31-37) Red Cell Distribution Width 21.9 % (11.5-14.5) H Platelet Count 29 x10^3/uL (140-400) L Neutrophils (%) (Auto) 60 % (31-73) Lymphocytes (%) (Auto) 26 % (24-48) Monocytes (%) (Auto) 8 % (0-9) Eosinophils (%) (Auto) 4 % (0-3) H Basophils (%) (Auto) 1 % (0-3) Neutrophils # (Auto) 2.8 x10^3uL (1.8-7.7) Lymphocytes # (Auto) 1.2 x10^3/uL (1.0-4.8) Monocytes # (Auto) 0.4 x10^3/uL (0.0-1.1) Eosinophils # (Auto) 0.2 x10^3/uL (0.0-0.7) Basophils # (Auto) 0.1 x10^3/uL (0.0-0.2) Current Medications: Meds: Current Medications Sodium Chloride 1,000 ml @ 1,000 mls/hr 1X ONCE IV ; Start 05/02/17 at 12:00; Stop 05/02/17 at 12:59; Status DC Haloperidol Lactate (Haldol) 5 mg 1X ONCE IVP ; Start 05/02/17 at 12:00; Stop at 12:01; Status DC Lorazepam (Ativan) 2 mg 1X ONCE IV ; Start 05/02/17 at 12:00; Stop 05/02/17 at 12 :01; Status DC Acetaminophen (Tylenol) 650 mg PRN Q6HRS PRN PO PAIN / TEMP Last administered on 05/03/17 09:13; Start 05/02/17 at 14:45 Multi-Ingredient Ointment (Analgesic [place]) 1 mia PRN QID PRN TP MUSCLE PAIN; Start 05/02/17 at 14:45 Al Hydroxide/Mg Hydroxide (Mylanta Plus Xs) 15 ml PRN AFTMEALHC PRN PO DYSPEPSIA Last administered on 05/14/17 11:46; Start 05/02/17 at 14:45 Magnesium Hydroxide (Milk Of Magnesia) 2,400 mg PRN QHS PRN PO CONSTIPATION; Start 05/02/17 at 14:45 Olanzapine (ZyPREXA ZYDIS) 2.5 mg PRN Q2HR PRN PO PSYCHOSIS Last administered on 05/11/17 19:29; Start 05/02/17 at 15:45 Hydroxyurea (Hydrea) 1,000 mg DAILY PO ; Start 05/03/17 at 09:00; Stop 05/03/17 at 09:00; Status DC Hydroxyurea (Hydrea) 1,000 mg DAILY PO Last administered on 05/08/17 08:19; Start 05/03/17 at 09:00; Stop 05/08/17 at 16:14; Status DC Aspirin (Oneil Aspirin) 325 mg DAILYWBKFT PO Last administered on 05/25/17 08: 12; Start 05/04/17 at 08:00; Stop 05/26/17 at 08:46; Status DC Ferrous Sulfate (Feosol) 325 mg DAILYWBKFT PO Last administered on 05/06/17 08: 07; Start 05/04/17 at 08:00; Stop 05/06/17 at 18:23; Status DC Cyproheptadine HCl (Periactin) 4 mg QHS PO Last administered on 05/25/17 20:14 ; Start 05/03/17 at 21:00 Sertraline HCl (Zoloft) 25 mg DAILY PO Last administered on 05/05/17 08:03; Start 05/05/17 at 09:00; Stop 05/05/17 at 18:27; Status DC Mirtazapine (Remeron) 7.5 mg QHS PO Last administered on 05/25/17 20:13; Start 05/04/17 at 21:00 Sertraline HCl (Zoloft) 50 mg DAILY PO Last administered on 05/07/17 08:07; Start 05/06/17 at 09:00; Stop 05/07/17 at 13:23; Status DC Trazodone HCl (Desyrel) 50 mg QHS PRN PO INSOMNIA, MAY REPEAT X1 Last administered on 05/25/17 20:13; Start 05/05/17 at 18:30 Sertraline HCl (Zoloft) 50 mg DAILY PO Last administered on 05/26/17 08:47; Start 05/08/17 at 09:00 Hydroxyurea (Hydrea) 1,500 mg DAILY PO Last administered on 05/18/17 08:17; Start 05/09/17 at 09:00; Stop 05/21/17 at 11:11; Status DC Buspirone HCl (Buspar) 5 mg BID92 PO Last administered on 05/14/17 09:35; Start 05/14/17 at 09:00; Stop 05/14/17 at 09:43; Status DC Buspirone HCl (Buspar) 10 mg BID92 PO Last administered on 05/21/17 09:43; Start 05/14/17 at 14:00; Stop 05/21/17 at 09:51; Status DC Famotidine (Pepcid) 20 mg BID PO Last administered on 05/26/17 08:47; Start at 21:00 Buspirone HCl (Buspar) 10 mg BID92 PO Last administered on 05/26/17 13:06; Start 05/21/17 at 14:00 Hydroxyurea (Hydrea) 500 mg DAILY PO ; Start 05/22/17 at 09:00; Status Future Hold Vitamin D (Vitamin D3) 2,000 unit DAILY PO Last administered on 05/26/17t 08:47 ; Start 05/25/17 at 12:30 Active Scripts Active Reported Buspirone Hcl 10 Mg Tablet 10 Mg PO BID92 Milk Of Magnesia (Magnesium Hydroxide) 400 Mg/5 Ml Oral.susp 2,400 Mg PO PRN QHS PRN Famotidine 20 Mg Tablet 20 Mg PO BID Trazodone Hcl 50 Mg Tablet 50 Mg PO PRN QHS PRN Zoloft (Sertraline Hcl) 50 Mg Tablet 50 Mg PO DAILY Olanzapine 5 Mg Tablet 2.5 Mg PO PRN Q2HR PRN Remeron (Mirtazapine) 15 Mg Tablet 7.5 Mg PO QHS MDD 7.5mg Analgesic [place] (Methyl Salicylate/Menthol) 28 Gm Oint...g. 1 Mia TP PRN QID PRN Mag-Al Plus Xs Suspension (Mag Hydrox/Al Hydrox/Simeth) 30 Ml Oral.susp 15 Ml PO PRN AFTMEALHC PRN Cyproheptadine Hcl 4 Mg Tablet 4 Mg PO QHS Aspirin 325 Mg Tablet 325 Mg PO DAILYWBKFT Tylenol (Acetaminophen) 325 Mg Tablet 650 Mg PO PRN Q6HRS PRN Hydroxyurea 500 Mg Capsule 500 Mg PO DAILY Diagnosis: Problems: (1) Altered mental status (2) Anxiety disorder (3) Impulse control disorder (4) Dementia, vascular, with depression (5) Dementia, vascular, with delusions (6) Dementia in Alzheimer's disease with depression (7) Dementia in Alzheimer's disease with delusions CECILIA PARR MD May 26, 2017 19:54
[2017-05-26] MEDS: traZODone 50 MG TABLET. PO PRN (20:01)
[2017-05-26] MEDS: MIRTAZAPINE 7.5 MG TABLET. PO SCH (20:01)
[2017-05-26] MEDS: CYPROHEPTADINE 4 MG TABLET. PO SCH (20:02)
[2017-05-27 06:00] VITALS: BP 111/61
--- NOTE | 2017-05-27 06:44 | PN ---
DATE: 05/25/2017 This late entry for 05/25/2017 covers elements not covered in my initial note. Social service staff has been trying to transitioned the patient to medical with the daughter has not followed through with completing all the paperwork and transition has been postponed. I met with the patient evening of 05/25/2017. He remains confused, otherwise not agitated or aggressive. No CV, , eye, ENT, pulmonary system symptoms on review. Reliability poor. MENTAL STATUS EXAM: Oriented to himself. Insight, judgment, recent and remote memory, attention, concentration, fund of knowledge poor, consistent with his diagnosis mentioned in my initial note. PLAN: Continue current psychotropics, transitioned to alf as soon as arranged by social service staff. MAN Gerard PARR MD DR: INDIRA/jose alberto JOB#: [id number] / [id number]
[2017-05-27 07:19] LABS: BASO % 0 % (0-3); EOS # 0.2 x10^3/uL (0.0-0.7); EOS % 4 % (0-3); HEMATOCRIT 39.4 % (39.0-53.0); HEMOGLOBIN 12.4 g/dL (13.0-17.5); LYMPH # 1.1 x10^3/uL (1.0-4.8); LYMPH % 19 % (24-48); MEAN CORPUSCULAR HEMOGLOBIN 24 pg (25-35); MEAN CORPUSCULAR HGB CONC 31 g/dL (31-37); MEAN CORPUSCULAR VOLUME 76 fL (79-100); MONO # 0.4 x10^3/uL (0.0-1.1); MONO % 8 % (0-9); NEUT # 3.9 x10^3uL (1.8-7.7); NEUT % 69 % (31-73); PLATELET COUNT 50 x10^3/uL (140-400); RED BLOOD COUNT 5.19 x10^6/uL (4.30-5.70); RED CELL DISTRIBUTION WIDTH 22.3 % (11.5-14.5); WHITE BLOOD COUNT 5.7 x10^3/uL (4.0-11.0)
[2017-05-27] MEDS: busPIRone 10 MG TABLET. PO SCH ×2 (08:39→14:53)
[2017-05-27] MEDS: SERTRALINE 50 MG TABLET. PO SCH (08:39)
[2017-05-27] MEDS: FAMOTIDINE 20 MG TABLET PO SCH ×2 (08:39→19:34)
[2017-05-27] MEDS: CHOLECALCIFEROL (VITAMIN D3) 1,000 UNIT TABLET PO SCH (08:39)
[2017-05-27 16:00] VITALS: BP 117/73
[2017-05-27] MEDS: traZODone 50 MG TABLET. PO PRN (19:34)
[2017-05-27] MEDS: CYPROHEPTADINE 4 MG TABLET. PO SCH (19:34)
[2017-05-27] MEDS: MIRTAZAPINE 7.5 MG TABLET. PO SCH (19:34)
--- NOTE | 2017-05-27 19:55 | PDOC ---
Exam Ivan Demential Exam: Ivan Note: Please also refer to the separate dictated note~for this date of service dictated separately.~Patient seen individually. Discussed the patient with Nursing staff reviewed the chart.~Reviewed interim history and current functioning. Reviewed vital signs,~Labs/ Radiology~and current medications noted below. Continue current treatment with the changes noted in the dictated addendum note Assessment: Vital Signs: Vital Signs Date Time Temp Pulse Resp B/P (MAP) Pulse Ox O2 Delivery O2 Flow Rate FiO2 05/27/17 16:00 98.0 79 20 117/73 (88) 96 Room Air I&O Intake and Output 05/27/17 07:00 Intake Total 1260 ml Balance 1260 ml Intake Oral 1260 ml Labs: Laboratory Tests Test 05/27/17 07:01 White Blood Count 5.7 x10^3/uL (4.0-11.0) Red Blood Count 5.19 x10^6/uL (4.30-5.70) Hemoglobin 12.4 g/dL (13.0-17.5) L Hematocrit 39.4 % (39.0-53.0) Mean Corpuscular Volume 76 fL (79-100) L Mean Corpuscular Hemoglobin 24 pg (25-35) L Mean Corpuscular Hemoglobin Concent 31 g/dL (31-37) Red Cell Distribution Width 22.3 % (11.5-14.5) H Platelet Count 50 x10^3/uL (140-400) L Neutrophils (%) (Auto) 69 % (31-73) Lymphocytes (%) (Auto) 19 % (24-48) L Monocytes (%) (Auto) 8 % (0-9) Eosinophils (%) (Auto) 4 % (0-3) H Basophils (%) (Auto) 0 % (0-3) Neutrophils # (Auto) 3.9 x10^3uL (1.8-7.7) Lymphocytes # (Auto) 1.1 x10^3/uL (1.0-4.8) Monocytes # (Auto) 0.4 x10^3/uL (0.0-1.1) Eosinophils # (Auto) 0.2 x10^3/uL (0.0-0.7) Basophils # (Auto) 0.0 x10^3/uL (0.0-0.2) Current Medications: Meds: Current Medications Sodium Chloride 1,000 ml @ 1,000 mls/hr 1X ONCE IV ; Start 05/02/17 at 12:00; Stop 05/02/17 at 12:59; Status DC Haloperidol Lactate (Haldol) 5 mg 1X ONCE IVP ; Start 05/02/17 at 12:00; Stop at 12:01; Status DC Lorazepam (Ativan) 2 mg 1X ONCE IV ; Start 05/02/17 at 12:00; Stop 05/02/17 at 12 :01; Status DC Acetaminophen (Tylenol) 650 mg PRN Q6HRS PRN PO PAIN / TEMP Last administered on 05/03/17 09:13; Start 05/02/17 at 14:45 Multi-Ingredient Ointment (Analgesic [place]) 1 mia PRN QID PRN TP MUSCLE PAIN; Start 05/02/17 at 14:45 Al Hydroxide/Mg Hydroxide (Mylanta Plus Xs) 15 ml PRN AFTMEALHC PRN PO DYSPEPSIA Last administered on 05/14/17 11:46; Start 05/02/17 at 14:45 Magnesium Hydroxide (Milk Of Magnesia) 2,400 mg PRN QHS PRN PO CONSTIPATION; Start 05/02/17 at 14:45 Olanzapine (ZyPREXA ZYDIS) 2.5 mg PRN Q2HR PRN PO PSYCHOSIS Last administered on 05/11/17 19:29; Start 05/02/17 at 15:45 Hydroxyurea (Hydrea) 1,000 mg DAILY PO ; Start 05/03/17 at 09:00; Stop 05/03/17 at 09:00; Status DC Hydroxyurea (Hydrea) 1,000 mg DAILY PO Last administered on 05/08/17 08:19; Start 05/03/17 at 09:00; Stop 05/08/17 at 16:14; Status DC Aspirin (Oneil Aspirin) 325 mg DAILYWBKFT PO Last administered on 05/25/17 08: 12; Start 05/04/17 at 08:00; Stop 05/26/17 at 08:46; Status DC Ferrous Sulfate (Feosol) 325 mg DAILYWBKFT PO Last administered on 05/06/17 08: 07; Start 05/04/17 at 08:00; Stop 05/06/17 at 18:23; Status DC Cyproheptadine HCl (Periactin) 4 mg QHS PO Last administered on 05/27/17 19:34 ; Start 05/03/17 at 21:00 Sertraline HCl (Zoloft) 25 mg DAILY PO Last administered on 05/05/17 08:03; Start 05/05/17 at 09:00; Stop 05/05/17 at 18:27; Status DC Mirtazapine (Remeron) 7.5 mg QHS PO Last administered on 05/27/17 19:34; Start 05/04/17 at 21:00 Sertraline HCl (Zoloft) 50 mg DAILY PO Last administered on 05/07/17 08:07; Start 05/06/17 at 09:00; Stop 05/07/17 at 13:23; Status DC Trazodone HCl (Desyrel) 50 mg QHS PRN PO INSOMNIA, MAY REPEAT X1 Last administered on 05/27/17 19:34; Start 05/05/17 at 18:30 Sertraline HCl (Zoloft) 50 mg DAILY PO Last administered on 05/27/17 08:39; Start 05/08/17 at 09:00 Hydroxyurea (Hydrea) 1,500 mg DAILY PO Last administered on 05/18/17 08:17; Start 05/09/17 at 09:00; Stop 05/21/17 at 11:11; Status DC Buspirone HCl (Buspar) 5 mg BID92 PO Last administered on 05/14/17 09:35; Start 05/14/17 at 09:00; Stop 05/14/17 at 09:43; Status DC Buspirone HCl (Buspar) 10 mg BID92 PO Last administered on 05/21/17 09:43; Start 05/14/17 at 14:00; Stop 05/21/17 at 09:51; Status DC Famotidine (Pepcid) 20 mg BID PO Last administered on 05/27/17 19:34; Start at 21:00 Buspirone HCl (Buspar) 10 mg BID92 PO Last administered on 05/27/17 14:53; Start 05/21/17 at 14:00 Hydroxyurea (Hydrea) 500 mg DAILY PO ; Start 05/22/17 at 09:00; Status Future Hold Vitamin D (Vitamin D3) 2,000 unit DAILY PO Last administered on 05/27/17t 08:39 ; Start 05/25/17 at 12:30 Active Scripts Active Reported Buspirone Hcl 10 Mg Tablet 10 Mg PO BID92 Milk Of Magnesia (Magnesium Hydroxide) 400 Mg/5 Ml Oral.susp 2,400 Mg PO PRN QHS PRN Famotidine 20 Mg Tablet 20 Mg PO BID Trazodone Hcl 50 Mg Tablet 50 Mg PO PRN QHS PRN Zoloft (Sertraline Hcl) 50 Mg Tablet 50 Mg PO DAILY Olanzapine 5 Mg Tablet 2.5 Mg PO PRN Q2HR PRN Remeron (Mirtazapine) 15 Mg Tablet 7.5 Mg PO QHS MDD 7.5mg Analgesic [place] (Methyl Salicylate/Menthol) 28 Gm Oint...g. 1 Mia TP PRN QID PRN Mag-Al Plus Xs Suspension (Mag Hydrox/Al Hydrox/Simeth) 30 Ml Oral.susp 15 Ml PO PRN AFTMEALHC PRN Cyproheptadine Hcl 4 Mg Tablet 4 Mg PO QHS Aspirin 325 Mg Tablet 325 Mg PO DAILYWBKFT Tylenol (Acetaminophen) 325 Mg Tablet 650 Mg PO PRN Q6HRS PRN Hydroxyurea 500 Mg Capsule 500 Mg PO DAILY Diagnosis: Problems: (1) Altered mental status (2) Anxiety disorder (3) Impulse control disorder (4) Dementia, vascular, with depression (5) Dementia, vascular, with delusions (6) Dementia in Alzheimer's disease with depression (7) Dementia in Alzheimer's disease with delusions CECILIA PARR MD May 27, 2017 19:55
--- NOTE | 2017-05-27 21:51 | PN ---
DATE: 05/26/2017 PSYCHIATRIC PROGRESS NOTE This is a late entry for 05/26/2017, covers elements not covered in my initial note. SUBJECTIVE: The patient was seen individually the evening of 05/26/2017. Platelet counts are 29, I will defer to Dr. Cast. He remains confused, not aggressive. REVIEW OF SYSTEMS: No CV, , pulmonary, eye, ENT system symptoms on review. Reliability poor. MENTAL STATUS EXAM: Oriented to himself. Insight, judgment, recent and remote memory, attention, concentration, fund of knowledge poor, consistent with his diagnosis. He was less paranoid about his daughter as I met with him. LABORATORY DATA: Reviewed. IMPRESSION: Unchanged from initial note. PLAN: Continue current psychotropics. Transition to a lower level of care as arranged by social service staff unless he needs transfer for medical reasons for his platelet counts. I will defer this to Dr. Cats. MAN Gerard PARR MD DR: INDIRA/jose alberto JOB#: [id number] / [id number]
[2017-05-28 05:45] VITALS: BP 144/85
[2017-05-28 06:36] LABS: BASO # 0.1 x10^3/uL (0.0-0.2); BASO % 1 % (0-3); EOS # 0.2 x10^3/uL (0.0-0.7); EOS % 3 % (0-3); HEMATOCRIT 41.3 % (39.0-53.0); HEMOGLOBIN 13.1 g/dL (13.0-17.5); LYMPH # 1.3 x10^3/uL (1.0-4.8); LYMPH % 18 % (24-48); MEAN CORPUSCULAR HEMOGLOBIN 24 pg (25-35); MEAN CORPUSCULAR HGB CONC 32 g/dL (31-37); MEAN CORPUSCULAR VOLUME 76 fL (79-100); MONO # 0.8 x10^3/uL (0.0-1.1); MONO % 11 % (0-9); NEUT % 67 % (31-73); PLATELET COUNT 83 x10^3/uL (140-400); RED BLOOD COUNT 5.43 x10^6/uL (4.30-5.70); RED CELL DISTRIBUTION WIDTH 23.4 % (11.5-14.5); WHITE BLOOD COUNT 7.4 x10^3/uL (4.0-11.0)
[2017-05-28] MEDS: SERTRALINE 50 MG TABLET. PO SCH (08:23)
[2017-05-28] MEDS: FAMOTIDINE 20 MG TABLET PO SCH ×2 (08:23→19:21)
[2017-05-28] MEDS: busPIRone 10 MG TABLET. PO SCH ×2 (08:23→14:52)
[2017-05-28] MEDS: CHOLECALCIFEROL (VITAMIN D3) 1,000 UNIT TABLET PO SCH (08:23)
[2017-05-28 16:05] VITALS: BP 149/78
--- NOTE | 2017-05-28 16:10 | RAD ---
Right index finger, 3 views, 05/28/2017: History: Swollen, painful finger No fracture or dislocation is identified. No destructive bony lesion is seen. There is mild spurring at the PIP joint. There is diffuse soft tissue swelling about the finger. IMPRESSION: No acute bony abnormality is detected.
[2017-05-28] MEDS: traZODone 50 MG TABLET. PO PRN (19:21)
[2017-05-28] MEDS: MIRTAZAPINE 7.5 MG TABLET. PO SCH (19:21)
[2017-05-28] MEDS: ACETAMINOPHEN 325 MG TABLET PO PRN (19:22)
[2017-05-28] MEDS: CYPROHEPTADINE 4 MG TABLET. PO SCH (19:24)
--- NOTE | 2017-05-28 19:52 | PDOC ---
Exam Ivan Demential Exam: Ivan Note: Please also refer to the separate dictated note~for this date of service dictated separately.~Patient seen individually. Discussed the patient with Nursing staff reviewed the chart.~Reviewed interim history and current functioning. Reviewed vital signs,~Labs/ Radiology~and current medications noted below. Continue current treatment with the changes noted in the dictated addendum note Assessment: Vital Signs: Vital Signs Date Time Temp Pulse Resp B/P (MAP) Pulse Ox O2 Delivery O2 Flow Rate FiO2 05/28/17 16:05 98.1 81 16 149/78 (101) 97 Room Air I&O Intake and Output 05/28/17 07:00 Intake Total 960 ml Balance 960 ml Intake Oral 960 ml Labs: Laboratory Tests Test 05/28/17 06:18 05/28/17 15:32 White Blood Count 7.4 x10^3/uL (4.0-11.0) Red Blood Count 5.43 x10^6/uL (4.30-5.70) Hemoglobin 13.1 g/dL (13.0-17.5) Hematocrit 41.3 % (39.0-53.0) Mean Corpuscular Volume 76 fL (79-100) L Mean Corpuscular Hemoglobin 24 pg (25-35) L Mean Corpuscular Hemoglobin Concent 32 g/dL (31-37) Red Cell Distribution Width 23.4 % (11.5-14.5) H Platelet Count 83 x10^3/uL (140-400) L Neutrophils (%) (Auto) 67 % (31-73) Lymphocytes (%) (Auto) 18 % (24-48) L Monocytes (%) (Auto) 11 % (0-9) H Eosinophils (%) (Auto) 3 % (0-3) Basophils (%) (Auto) 1 % (0-3) Neutrophils # (Auto) 5.0 x10^3uL (1.8-7.7) Lymphocytes # (Auto) 1.3 x10^3/uL (1.0-4.8) Monocytes # (Auto) 0.8 x10^3/uL (0.0-1.1) Eosinophils # (Auto) 0.2 x10^3/uL (0.0-0.7) Basophils # (Auto) 0.1 x10^3/uL (0.0-0.2) Uric Acid 6.7 mg/dL (3.5-7.2) Erythrocyte Sedimentation Rate 11 (0-15) Current Medications: Meds: Current Medications Sodium Chloride 1,000 ml @ 1,000 mls/hr 1X ONCE IV ; Start 05/02/17 at 12:00; Stop 05/02/17 at 12:59; Status DC Haloperidol Lactate (Haldol) 5 mg 1X ONCE IVP ; Start 05/02/17 at 12:00; Stop at 12:01; Status DC Lorazepam (Ativan) 2 mg 1X ONCE IV ; Start 05/02/17 at 12:00; Stop 05/02/17 at 12 :01; Status DC Acetaminophen (Tylenol) 650 mg PRN Q6HRS PRN PO PAIN / TEMP Last administered on 05/28/17 19:22; Start 05/02/17 at 14:45 Multi-Ingredient Ointment (Analgesic [place]) 1 mia PRN QID PRN TP MUSCLE PAIN Last administered on 05/28/17 19:39; Start 05/02/17 at 14:45 Al Hydroxide/Mg Hydroxide (Mylanta Plus Xs) 15 ml PRN AFTMEALHC PRN PO DYSPEPSIA Last administered on 05/14/17 11:46; Start 05/02/17 at 14:45 Magnesium Hydroxide (Milk Of Magnesia) 2,400 mg PRN QHS PRN PO CONSTIPATION; Start 05/02/17 at 14:45 Olanzapine (ZyPREXA ZYDIS) 2.5 mg PRN Q2HR PRN PO PSYCHOSIS Last administered on 05/11/17 19:29; Start 05/02/17 at 15:45 Hydroxyurea (Hydrea) 1,000 mg DAILY PO ; Start 05/03/17 at 09:00; Stop 05/03/17 at 09:00; Status DC Hydroxyurea (Hydrea) 1,000 mg DAILY PO Last administered on 05/08/17 08:19; Start 05/03/17 at 09:00; Stop 05/08/17 at 16:14; Status DC Aspirin (Oneil Aspirin) 325 mg DAILYWBKFT PO Last administered on 05/25/17 08: 12; Start 05/04/17 at 08:00; Stop 05/26/17 at 08:46; Status DC Ferrous Sulfate (Feosol) 325 mg DAILYWBKFT PO Last administered on 05/06/17 08: 07; Start 05/04/17 at 08:00; Stop 05/06/17 at 18:23; Status DC Cyproheptadine HCl (Periactin) 4 mg QHS PO Last administered on 05/28/17 19:24 ; Start 05/03/17 at 21:00 Sertraline HCl (Zoloft) 25 mg DAILY PO Last administered on 05/05/17 08:03; Start 05/05/17 at 09:00; Stop 05/05/17 at 18:27; Status DC Mirtazapine (Remeron) 7.5 mg QHS PO Last administered on 05/28/17 19:21; Start 05/04/17 at 21:00 Sertraline HCl (Zoloft) 50 mg DAILY PO Last administered on 05/07/17 08:07; Start 05/06/17 at 09:00; Stop 05/07/17 at 13:23; Status DC Trazodone HCl (Desyrel) 50 mg QHS PRN PO INSOMNIA, MAY REPEAT X1 Last administered on 05/28/17 19:21; Start 05/05/17 at 18:30 Sertraline HCl (Zoloft) 50 mg DAILY PO Last administered on 05/28/17 08:23; Start 05/08/17 at 09:00 Hydroxyurea (Hydrea) 1,500 mg DAILY PO Last administered on 05/18/17 08:17; Start 05/09/17 at 09:00; Stop 05/21/17 at 11:11; Status DC Buspirone HCl (Buspar) 5 mg BID92 PO Last administered on 05/14/17 09:35; Start 05/14/17 at 09:00; Stop 05/14/17 at 09:43; Status DC Buspirone HCl (Buspar) 10 mg BID92 PO Last administered on 05/21/17 09:43; Start 05/14/17 at 14:00; Stop 05/21/17 at 09:51; Status DC Famotidine (Pepcid) 20 mg BID PO Last administered on 05/28/17 19:21; Start at 21:00 Buspirone HCl (Buspar) 10 mg BID92 PO Last administered on 05/28/17 14:52; Start 05/21/17 at 14:00 Hydroxyurea (Hydrea) 500 mg DAILY PO ; Start 05/22/17 at 09:00; Status Future Hold Vitamin D (Vitamin D3) 2,000 unit DAILY PO Last administered on 05/28/17 08:23 ; Start 05/25/17 at 12:30 Active Scripts Active Reported Buspirone Hcl 10 Mg Tablet 10 Mg PO BID92 Milk Of Magnesia (Magnesium Hydroxide) 400 Mg/5 Ml Oral.susp 2,400 Mg PO PRN QHS PRN Famotidine 20 Mg Tablet 20 Mg PO BID Trazodone Hcl 50 Mg Tablet 50 Mg PO PRN QHS PRN Zoloft (Sertraline Hcl) 50 Mg Tablet 50 Mg PO DAILY Olanzapine 5 Mg Tablet 2.5 Mg PO PRN Q2HR PRN Remeron (Mirtazapine) 15 Mg Tablet 7.5 Mg PO QHS MDD 7.5mg Analgesic [place] (Methyl Salicylate/Menthol) 28 Gm Oint...g. 1 Mia TP PRN QID PRN Mag-Al Plus Xs Suspension (Mag Hydrox/Al Hydrox/Simeth) 30 Ml Oral.susp 15 Ml PO PRN AFTMEALHC PRN Cyproheptadine Hcl 4 Mg Tablet 4 Mg PO QHS Aspirin 325 Mg Tablet 325 Mg PO DAILYWBKFT Tylenol (Acetaminophen) 325 Mg Tablet 650 Mg PO PRN Q6HRS PRN Hydroxyurea 500 Mg Capsule 500 Mg PO DAILY Diagnosis: Problems: (1) Altered mental status (2) Anxiety disorder (3) Impulse control disorder (4) Dementia, vascular, with depression (5) Dementia, vascular, with delusions (6) Dementia in Alzheimer's disease with depression (7) Dementia in Alzheimer's disease with delusions CECILIA PARR MD May 28, 2017 19:52
--- NOTE | 2017-05-28 23:33 | PN ---
DATE: 05/27/2017 PSYCHIATRIC PROGRESS NOTE This is a late entry 05/27/2017, covers elements not covered in my initial note. SUBJECTIVE: The patient seen individually the evening of 05/27/2017. He remains confused, but calm, compliant. At times, he still paranoid about his daughter, but less so than before. REVIEW OF SYSTEMS: No CV, , pulmonary, eye, ENT system symptoms on review. Reliability poor. MENTAL STATUS EXAM: Oriented to himself. Insight, judgment, recent and remote memory, attention, concentration, fund of knowledge poor, consistent with his diagnoses mentioned in my initial note. PLAN: Continue current psychotropics placement per social service staff. MAN Gerard PARR MD DR: INDIRA/jose alberto JOB#: [id number] / [id number]
[2017-05-29 06:12] VITALS: BP 132/72
[2017-05-29 06:31] LABS: BASO # 0.1 x10^3/uL (0.0-0.2); BASO % 1 % (0-3); EOS # 0.3 x10^3/uL (0.0-0.7); EOS % 3 % (0-3); HEMATOCRIT 43.7 % (39.0-53.0); HEMOGLOBIN 13.7 g/dL (13.0-17.5); LYMPH # 1.2 x10^3/uL (1.0-4.8); LYMPH % 13 % (24-48); MEAN CORPUSCULAR HEMOGLOBIN 24 pg (25-35); MEAN CORPUSCULAR HGB CONC 31 g/dL (31-37); MEAN CORPUSCULAR VOLUME 76 fL (79-100); MONO # 0.9 x10^3/uL (0.0-1.1); MONO % 10 % (0-9); NEUT # 6.9 x10^3uL (1.8-7.7); NEUT % 74 % (31-73); PLATELET COUNT 140 x10^3/uL (140-400); RED BLOOD COUNT 5.72 x10^6/uL (4.30-5.70); RED CELL DISTRIBUTION WIDTH 24.2 % (11.5-14.5); WHITE BLOOD COUNT 9.3 x10^3/uL (4.0-11.0)
[2017-05-29] MEDS: FAMOTIDINE 20 MG TABLET PO SCH (08:39)
[2017-05-29] MEDS: busPIRone 10 MG TABLET. PO SCH (08:39)
[2017-05-29] MEDS: SERTRALINE 50 MG TABLET. PO SCH (08:39)
[2017-05-29] MEDS: CHOLECALCIFEROL (VITAMIN D3) 1,000 UNIT TABLET PO SCH (08:40)
[2017-05-29] MEDS: ACETAMINOPHEN 325 MG TABLET PO PRN (08:43)
[2017-05-29] MEDS ORDERED: predniSONE 20 MG TABLET PO SCH (09:00)
--- NOTE | 2017-05-29 09:57 | PN ---
DATE: 05/28/2017 SUBJECTIVE: This is a 76-year-old male who could have been discharged from the [facility] well over a week ago; however, his hydroxyurea had been increased because of his markedly elevated platelet count of over 1 million. His platelet count then dropped down to as low as 36,000 and we kept him on the unit until he made recovery. His hydroxyurea was discontinued on 05/22/2017. He now has some pain and swelling over the right index finger without evidence of any type of injury. I believe he is slated to go to [facility] [place]. OBJECTIVE: VITAL SIGNS: Blood pressure 149/78, pulse 81, temperature 98.1. MUSCULOSKELETAL: Right index finger is red and swollen. He is able to move it, slight swelling of the third middle finger on the left. LABORATORY DATA: Uric acid was only 6.7 and today and his platelet count is 83,000. Sed rate was 11. ASSESSMENT: Right index finger inflammation, questionable etiology, does not have signs of infection. Sed rate is normal, may be pseudogout. PLAN: We will try prednisone taper starting with 20 mg a day for 5 days and then 10 mg for 5 days, low dose. MUKUL GOMEZ DO DR: JUD/jose alberto JOB#: [id number] / [id number]
[2017-05-29] MEDS ORDERED: CEPHALEXIN 500 MG CAPSULE PO SCH (14:00)
--- NOTE | 2017-05-30 00:40 | PN ---
DATE: 05/28/2017 This is a late entry for 05/28/2017 and covers the elements not covered in my initial note. SUBJECTIVE: The patient was staffed at a treatment team meeting with the entire team morning of 05/28/2017, discussed the patient's history, diagnosis, placement options and daughter has difficulty making decision about placement for the patient. This is being coordinated by social service staff. Met with the patient the evening of 05/28/2017. Sleeping about 5-3/4 hours. REVIEW OF SYSTEMS: No CV, , pulmonary, eye, ENT system symptoms on review. MENTAL STATUS EXAM: Oriented to himself. Insight, judgment, recent memory is impaired. Language function intact. Attention span short. Mood and affect, less anxious, less labile, less paranoid. LABORATORY DATA: Reviewed. IMPRESSION: Unchanged from initial note. PLAN: Continue current psychotropics mentioned in my initial note. Adjust further as clinically indicated. MAN Gerard PARR MD DR: INDIRA/jose alberto JOB#: [id number] / [id number]
[2017-05-30 06:52] LABS: PLATELET COUNT 36 x10^3/uL (140-400)
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
== END 2017-05-29 12:35 | DRG 884 ==
LOC: EDBD 10:47 → ER 10:47 → GEROPSY 14:00
PROVIDERS: ADMIT Psychiatry & Neurology Psychiatry; ATTEND Psychiatry & Neurology Psychiatry
DX: F01.51 Vascular dementia, unspecified severity, with behavioral disturbance (principal); F02.81 Dementia in other diseases classified elsewhere, unspecified severity, with behavioral disturbance; F23 Brief psychotic disorder; G30.9 Alzheimer's disease, unspecified; F22 Delusional disorders; F41.9 Anxiety disorder, unspecified; F43.20 Adjustment disorder, unspecified; F63.9 Impulse disorder, unspecified; G47.00 Insomnia, unspecified; I10 Essential (primary) hypertension; F32.9 Major depressive disorder, single episode, unspecified; D45 Polycythemia vera; K21.9 Gastro-esophageal reflux disease without esophagitis; Z66 Do not resuscitate; Z79.899 Other long term (current) drug therapy; Z86.73 Personal history of transient ischemic attack (TIA), and cerebral infarction without residual deficits; Z91.83 Wandering in diseases classified elsewhere; Z88.8 Allergy status to other drugs, medicaments and biological substances
CPT/HCPCS: 36415; 70450; 73140; 80048; 80053; 80061; 80076; 81001; 82306; 82607; 83036; 83540; 83550; 83735; 84439; 84443; 84481; 84484; 84550; 85007; 85008; 85027; 85651; 86592; 86593; 93005; G0480; J7512; 99285-25

== ENCOUNTER → 2017-07-13 | Outpatient (CLI) | payer MEDICARE, MEDICAID ==
[~2017-07-13] MED LIST: ACET325T9 PO; ASPI325T8 PO; BUSP10TA PO; BUSP5TAB PO; CYPR4TAB37 PO; FAMO20TA5 PO; HYDR500C16 PO; MAG30ORA2 PO; MAGN2400 PO; MAGN400O7 PO; METH29OI TP; MIRT15TA PO; OLAN5TAB9 PO; SERT50TA PO; TRAZ50TA15 PO
== END | disposition home or self-care (01) ==
LOC: LAB 19:53
PROVIDERS: ATTEND Internal Medicine Hematology & Oncology
DX: Z12.5 Encounter for screening for malignant neoplasm of prostate (principal); N40.1 Benign prostatic hyperplasia with lower urinary tract symptoms
CPT/HCPCS: G0103

== ENCOUNTER 2018-01-31 08:15 | Inpatient (IN) | payer MEDICARE, MEDICAID ==
[~2018-01-31] VITALS: Ht 167.6 cm; Wt 68.6 kg
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
[2018-01-31] MEDS ORDERED: LORazepam 2 MG/ML VIAL IV ONE (09:00)
[2018-01-31 09:01] LABS: BASO # 0.1 x10^3/uL (0.0-0.2); BASO % 1 % (0-3); EOS # 0.3 x10^3/uL (0.0-0.7); EOS % 2 % (0-3); HEMOGLOBIN 14.5 g/dL (13.0-17.5); LYMPH # 1.5 x10^3/uL (1.0-4.8); LYMPH % 8 % (24-48); MEAN CORPUSCULAR HEMOGLOBIN 26 pg (25-35); MEAN CORPUSCULAR HGB CONC 32 g/dL (31-37); MEAN CORPUSCULAR VOLUME 82 fL (79-100); MONO # 0.9 x10^3/uL (0.0-1.1); MONO % 5 % (0-9); NEUT # 14.8 x10^3uL (1.8-7.7); NEUT % 84 % (31-73); PLATELET COUNT 468 x10^3/uL (140-400); RED BLOOD COUNT 5.64 x10^6/uL (4.30-5.70); WHITE BLOOD COUNT 17.6 x10^3/uL (4.0-11.0)
[2018-01-31 09:33] LABS: % BANDS 0 % (0-9); % SEGS 82 % (35-66)
[2018-01-31 09:34] LABS: % BASOS 2 % (0-3); % EOS 0 % (0-5); % LYMPHS 12 % (24-48); % MONOS 4 % (0-10); ANISOCYTOSIS PRESENT; OVALOCYTES OCC; PLT ESTIMATE ADEQUATE (ADEQUATE)
[2018-01-31 09:36] LABS: ALBUMIN 3.4 g/dL (3.4-5.0); ALBUMIN/GLOBULIN RATIO 0.9 (1.0-1.7); CALCIUM 9.4 mg/dL (8.5-10.1); CREATININE 1.2 mg/dL (0.7-1.3); GFR 58.6; MAGNESIUM 1.8 mg/dL (1.8-2.4); POTASSIUM 5.6 mmol/L (3.5-5.1); TOTAL BILIRUBIN 1.7 mg/dL (0.2-1.0); TOTAL PROTEIN 7.2 g/dL (6.4-8.2)
[2018-01-31] MEDS ORDERED: ALBUTEROL SULFATE 2.5 MG/3 ML NEBU. CONT NEB ONE (10:00)
[2018-01-31] MEDS ORDERED: cefTRIAXone IV Push 1 GM VIAL. IVP ONE (10:15)
--- NOTE | 2018-01-31 10:18 | EKG ---
[address] [address] Test Date: 2018-01-31 Test Time: 09:30:52 Pat Name: BRITTANY HOLLINGSWORTH Department: Room: Gender: M Clinic Cma: PHAM : 1940 Requested By: NOLA FERRARI Order Number: [id number] Reading MD: Jose Corral MD Measurements Intervals [place] Rate: 80 P: 90 OR: 144 QRS: 1 QRSD: 94 T: 30 QT: 362 QTc: 421 Interpretive Statements SINUS RHYTHM Electronically Signed On 02-08-2018 15:28:43 CDT by Jose Corral MD
--- NOTE | 2018-01-31 10:36 | RAD ---
CT scan of the head without contrast January 31, 2018 Clinical History: Mental status changes. Technique: Unenhanced, contiguous, 5 mm axial sections were obtained through the head. One or more of the following individualized dose reduction techniques were utilized for this study: 1. Automated exposure control. 2. Adjustment of the mA and/or kV according to patient size. 3. Use of iterative reconstruction technique. Findings: Comparison study is dated 05/03/2017. There is generalized parenchymal atrophy. Small scattered areas of decreased attenuation are seen within the periventricular and subcortical white matter of both cerebral hemispheres consistent with areas of small vessel ischemic disease. No acute parenchymal abnormality is seen. No extra-axial fluid collection is noted. A 1 cm mucous retention cyst is seen involving the left maxillary sinus. No skull fracture is seen. Impression: No acute intracranial abnormality is seen.
--- NOTE | 2018-01-31 10:48 | RAD ---
AP portable chest radiograph January 31, 2018 Clinical History: Shortness of breath. An AP portable erect digital radiograph of the chest was obtained. No previous studies are available for comparison. The patient's left knee is bent superiorly and overlies the inferior left chest limiting its evaluation. The cardiac silhouette is normal in size. The thoracic aorta is mildly tortuous. No acute pulmonary infiltrate is seen. No pleural effusion or pneumothorax is noted. Degenerative changes are seen involving the thoracic spine and both shoulders. Impression: No acute abnormality is seen.
[2018-01-31 11:00] VITALS: BP 128/72
[2018-01-31] MEDS ORDERED: SCOP1PAT11 TP (11:48)
[2018-01-31] MEDS ORDERED: ONDA4TAB11 PO (11:48)
[2018-01-31] MEDS ORDERED: LEVO25TA4 PO (11:48)
[2018-01-31 15:00] VITALS: BP 122/74
[2018-01-31] MEDS: LORazepam 2 MG/ML VIAL IV PRN ×2 (16:00→22:10)
--- NOTE | 2018-01-31 16:04 | HP ---
ADMIT DATE: 01/31/2018 HISTORY OF PRESENT ILLNESS: The patient is a 77-year-old male patient, a resident at [facility] who apparently was sent to the Emergency Room on account of altered mental status. He was unresponsive this morning. According to the nursing staff, he is normally alert, awake, ambulatory independently and this morning, the nursing staff attempted to wake him up and he was unresponsive and therefore, he was brought to the Emergency Room, was extensively investigated. He was noted to have leukocytosis with a white cell count slightly high at 17,600. He has polycythemia vera, on hydroxyurea. His potassium was slightly elevated at 5.6 and he was noted to have marked erythema of both lower legs and was admitted with lower extremity cellulitis, hyperkalemia and a history of polycythemia vera. The patient himself is demented and apparently does not give any useful information. PAST MEDICAL HISTORY: Significant for vascular dementia with behavioral disturbances, polycythemia vera, anxiety disorder, impulse disorder. He has muscle weakness, dysphagia and difficulty walking. He has aphasia. PAST SURGICAL HISTORY: Unobtainable. FAMILY HISTORY: Probably noncontributory. SOCIAL HISTORY: He is a resident at [facility] [place], only daughter he has. He does not smoke, drink alcohol or use any recreational drugs. REVIEW OF SYSTEMS: Again, unobtainable. ALLERGIES: HE IS ALLERGIC TO HALDOL. MEDICATIONS: He is currently on following medications: He is on hydroxyurea 1000 mg once a day, analgesic balm applied topically 4 times a day as needed, acetaminophen 650 mg every 6 hours, Mylanta 15 mL as needed, milk of magnesia 30 mL p.o. daily p.r.n. for constipation, ondansetron 4 mg every 6 hours as needed for nausea and vomiting, scopolamine patch 1 patch topically every 3 days and levothyroxine sodium 25 mcg daily. PHYSICAL EXAMINATION: GENERAL: When I examined him, he was resting slightly flat in bed, in no apparent respiratory distress, pale, but no jaundice, cyanosis, or thyromegaly. No jugular venous distention. No limb edema. VITAL SIGNS: His heart rate was 79, blood pressure 120/75, temperature was 97.6, respiratory rate was 16, and oxygen saturation was 96% on room air. HEAD, EYES, EARS, NOSE AND THROAT: Showed normocephalic, atraumatic. NECK: Supple. HEART: Showed normal first and second heart sounds with no gallop, rub or murmur. CHEST: Clear to auscultation. No crepitation or rhonchi. ABDOMEN: Scaphoid, soft, nontender. No guarding or rigidity. No organomegaly. Hernial orifice intact. Bowel sounds normal. NEUROLOGIC: He was sleepy, but arousable. All cranial nerves intact. EXTREMITIES: He moves all extremities without difficulty. According to nursing staff, the patient is able to ambulate without assistance or assistive devices. LABORATORY DATA: On arrival to the Emergency Room, he apparently was very combative and aggressive. His lab work showed a serum sodium 140, potassium 5.6, chloride 103, bicarbonate 28, anion gap of 9, BUN 25, creatinine 1.2, estimated GFR was 58 mL per minute. His glucose was 96, calcium was 9.4, lactic acid is 1.8, magnesium was 1.8. Total bilirubin 1.7. AST, ALT were normal. Alkaline phosphatase slightly elevated. His total protein was 7.2, albumin was 3.4. His prothrombin time was 13.3, INR 1.3. IMPRESSION: In summary, this is a 77-year-old male patient, a resident at [facility], who was admitted here with altered mental status and apparently was unresponsive this morning, although by the time he arrived to the Emergency Room, he was actually aggressive, combative. He was found to have erythema of both lower extremities consistent with probably bilateral lower extremity cellulitis. He has leukocytosis, although he is known to have polycythemia vera for which he is on hydroxyurea. He has hyperkalemia and thrombocytosis. PLAN: To continue with IV antibiotic. Repeat his labs and decide on further management accordingly. His daughter did not want any psych consult or admission to [facility]. VENU TOVAR MD DR: PORSHA/jose alberto JOB#: [id number] / [id number]
[2018-01-31 16:41] LABS: BARBITURATES NEG (NEG); BENZODIAZEPINES NEG (NEG); CANNABINOIDS NEG (NEG); COCAINE NEG (NEG); METHADONE NEG (NEG); OPIATES NEG (NEG); PHENCYCLIDINE NEG (NEG)
[2018-01-31 16:42] LABS: BACTERIA,URINE 0 /HPF (0-FEW); BILIRUBIN,URINE NEG (NEG); CLARITY,URINE CLEAR; COLOR,URINE AMBER; GLUCOSE,URINE NEG (NEG); NITRITE,URINE NEG (NEG); RBC,URINE OCC /HPF (0-2); SQUAMOUS EPITHELIAL CELL,UR OCC /LPF; UROBILINOGEN,URINE 0.2 mg/dL (0.2 mg/dL); WBC,URINE OCC /HPF (0-4)
[2018-01-31 16:45] LABS: AMPHETAMINE/METHAMPHETAMINE NEG (NEG)
--- NOTE | 2018-01-31 18:25 | NUR ---
Pt is a 77 year old male admitted for cellulitis/ams. Pt arrived on unit via gurney accompanied by EMS. Pt belongings were checked, vitals taken, head to toe assessment completed. Pt is resting comfortably.
[2018-01-31 20:06] VITALS: BP 121/78
[2018-01-31 22:14] VITALS: BP 136/76
--- NOTE | 2018-01-31 22:30 | NUR ---
Patient very agitated, attempted to change patient, he became very combative. PRN ativan given per order. Changed patient and repositioned for comfort. Bed alarm set.
[2018-01-31] MEDS ORDERED: MAGNESIUM HYDROXIDE 2,400 MG/30 ML ORAL.SUSP. PO PRN (23:00)
[2018-01-31] MEDS ORDERED: METHYL SALICYLATE/MENTHOL TOPICAL OINTMENT 29GM TUBE. TP PRN (23:00)
[2018-01-31] MEDS ORDERED: ACETAMINOPHEN 325 MG TABLET PO PRN (23:00)
[2018-01-31] MEDS ORDERED: MAG HYDROX/AL HYDROX/SIMETH 30 ML ORAL.SUSP PO PRN (23:00)
[2018-01-31] MEDS ORDERED: ONDANSETRON ODT 4 MG TAB.RAPDIS PO PRN (23:00)
--- NOTE | 2018-01-31 23:00 | NUR ---
hotel night auditor sitting with patient at this time.
[2018-02-01] MEDS: LORazepam 2 MG/ML VIAL IV PRN ×2 (05:06→20:37)
[2018-02-01 05:14] VITALS: BP 149/55
[2018-02-01] MEDS: LEVOTHYROXINE 25 MCG TABLET. PO SCH ×2 (06:13→15:50)
[2018-02-01 06:32] LABS: BASO # 0.1 x10^3/uL (0.0-0.2); BASO % 1 % (0-3); EOS # 0.3 x10^3/uL (0.0-0.7); EOS % 2 % (0-3); LYMPH % 7 % (24-48); MEAN CORPUSCULAR HEMOGLOBIN 26 pg (25-35); MEAN CORPUSCULAR HGB CONC 32 g/dL (31-37); MEAN CORPUSCULAR VOLUME 81 fL (79-100); MONO # 0.8 x10^3/uL (0.0-1.1); MONO % 6 % (0-9); NEUT # 11.7 x10^3uL (1.8-7.7); NEUT % 84 % (31-73); PLATELET COUNT 486 x10^3/uL (140-400); RED BLOOD COUNT 5.79 x10^6/uL (4.30-5.70); RED CELL DISTRIBUTION WIDTH 19.1 % (11.5-14.5); WHITE BLOOD COUNT 13.9 x10^3/uL (4.0-11.0)
[2018-02-01 06:46] LABS: ALBUMIN/GLOBULIN RATIO 0.7 (1.0-1.7); CALCIUM 8.6 mg/dL (8.5-10.1); GFR 72.3; POTASSIUM 3.7 mmol/L (3.5-5.1); TOTAL BILIRUBIN 0.9 mg/dL (0.2-1.0); TOTAL PROTEIN 7.2 g/dL (6.4-8.2)
[2018-02-01 08:10] VITALS: BP 146/63
[2018-02-01] MEDS ORDERED: HYDROXYUREA 500 MG CAPSULE PO SCH (09:00)
[2018-02-01] MEDS ORDERED: PIP/TAZO PER PHARMACY MC PRN (09:15)
[2018-02-01] MEDS: VANCOMYCIN PER PHARMACY MC PRN (09:27)
--- NOTE | 2018-02-01 09:32 | NUR ---
Pharmacy Vancomycin Dosing Note S:Consulted to monitor and dose vancomycin started 02/01/18. O:BRITTANY HOLLINGSWORTH is a 77 year old M with Cellulitis . Height: 5 feet, 6 inches Weight: 68.659091 kg [place] Body Weight: 63.80 Adjusted Body Weight: 65.72 Dosing Weight: Actual Other Antibiotics: ZOSYN LABS: Last BUN: 21 Last Creatinine: 1.0 Creatinine Clearance: 54.9 Last WBC: 13.9 Last Platelets: 486 Vancomycin Dosing: Loading Dose: 1750 mg x1 Dosing Weight: Actual Target Trough: 10-20 A: Initial dosing is based on height, actual weight, renal function and indication. P: 1. Give Vanco 1750mg IV initially, then Vancomycin 1000 mg IV q24h 2. Follow up Trough level on 02/03/18 at 0930. 3. Pharmacy will continue to monitor, follow and adjust therapy as needed. LUCAS SCHAFER Adiel 02/01/18 0982
[2018-02-01] MEDS ORDERED: VANCOMYCIN 1.75 GM in IV NORMAL SALINE 500ML 500 ML IV ONE (10:00)
[2018-02-01 12:30] VITALS: BP 150/72
[2018-02-01] MEDS: PIPERACILLIN/TAZOBACTAM 3.375 GM in IV NORMAL SALINE 50ML 50 ML IV SCH ×3 (13:37→23:42)
[2018-02-01 14:53] VITALS: BP 159/78
[2018-02-01 19:38] VITALS: BP 155/78
--- NOTE | 2018-02-02 01:16 | NUR ---
Daughter at bedside at this time. Patient sleeping with call light by his side, bed alarm set for safety.
--- NOTE | 2018-02-02 05:00 | PN ---
DATE: 02/01/2018 SUBJECTIVE: The patient is resting slightly propped up in his recliner, sleeping comfortably, in no apparent distress. He seems to be very sleepy. He received his Ativan about 5:00 a.m. this morning. ____ woke up for his breakfast this morning. PHYSICAL EXAMINATION: GENERAL: When I examined him; however, he looked pale, no jaundice, cyanosis, or thyromegaly. No jugular venous distension. No lower limb edema. VITAL SIGNS: His heart rate was 82, blood pressure 149/55, temperature was 97.4, respiratory rate was 16, and oxygen saturation was 95% on room air. HEAD, EYES, EARS, NOSE AND THROAT: Showed normocephalic, atraumatic. NECK: Supple. HEART: Showed normal first and second heart sounds with no gallop, rub or murmur. CHEST: Clear to auscultation. No crepitation or rhonchi. ABDOMEN: Distended, soft, nontender. No guarding or rigidity. No organomegaly. All hernial orifices are intact. Bowel sounds normal. NEUROLOGIC: He was very lethargic and sleepy; however, all his cranial nerves are intact. He moves extremities without difficulty. He apparently is able to ambulate without assistance or assistive devices at least as by the account of the nursing staff when I spoke to her at [facility]. SKIN: Showed that he has still marked erythema on the left leg and foot, the erythema on the right side has largely subsided. His intake over the last 24 hours was incompletely recorded. LABORATORY DATA: As of this morning showed his white cell count is down to 13,900, hemoglobin 15, hematocrit 47, MCV 81 and platelet count of 486,000. His chemistry showed a serum sodium 140, potassium 3.7, chloride 104, bicarbonate 27, anion gap of 9, BUN 21, creatinine 1, estimated GFR was 72 mL per minute. His glucose was 92, calcium was 8.6. Total bilirubin, AST, ALT, alkaline phosphatase were normal. Total protein 7.2, albumin 3.1. His prothrombin time and INR are normal. His urinalysis was essentially unremarkable and his urine toxicology screen was negative. His blood culture has grown large gram-positive rods 1 and 2 bottles, most likely contaminant. ASSESSMENT: 1. Altered mental status, the patient continued to be lethargic; however, he has received Ativan at 5 o'clock this morning. 2. Left lower extremity cellulitis, responding to the IV antibiotic. 3. The patient has also noted to have polycythemia vera for which he has been on hydroxyurea. 4. Hypokalemia, resolved. 5. Acute kidney injury, improving. His creatinine is down from 1.2 to 1. PLAN: My plan is to continue with the IV antibiotic. Continue hydroxyurea. Continue with levothyroxine for hypothyroidism. Continue to monitor his lab work. VENU TOVAR MD DR: PORSHA/jose alberto JOB#: [id number] / [id number]
[2018-02-02] MEDS: LEVOTHYROXINE 25 MCG TABLET. PO SCH (05:19)
[2018-02-02] MEDS: PIPERACILLIN/TAZOBACTAM 3.375 GM in IV NORMAL SALINE 50ML 50 ML IV SCH ×4 (05:20→23:56)
[2018-02-02 06:00] VITALS: BP 145/77
[2018-02-02 06:55] LABS: RED BLOOD COUNT 5.83 x10^6/uL (4.30-5.70); RED CELL DISTRIBUTION WIDTH 19.6 % (11.5-14.5); WHITE BLOOD COUNT 10.5 x10^3/uL (4.0-11.0)
[2018-02-02 07:09] LABS: CREATININE 1.1 mg/dL (0.7-1.3); GFR 64.7; POTASSIUM 3.6 mmol/L (3.5-5.1)
[2018-02-02] MEDS: VANCOMYCIN 1 GM in IV NORMAL SALINE 250ML 250 ML IV SCH (10:13)
[2018-02-02 10:51] VITALS: BP 145/82
[2018-02-02 15:05] VITALS: BP 143/80
[2018-02-02 18:58] VITALS: BP 124/74
--- NOTE | 2018-02-02 20:11 | PN ---
DATE: 02/02/2018 SUBJECTIVE: The patient is resting slightly propped up in bed, in no apparent distress. He is definitely more awake and alert, although confused. The erythema and swelling of his left leg has largely subsided. According to his daughter, he is actually normally ambulatory, walks around without assistance or assistive devices. He is able to feed himself; however, requires cueing. PHYSICAL EXAMINATION: GENERAL: When I examined him today, he looked pale, but no jaundice, cyanosis, or thyromegaly. No jugular venous distention. No limb edema. VITAL SIGNS: Her heart rate was 79, blood pressure was 145/82, temperature was 98.3, respiratory rate was 18 and oxygen saturation was 97%. HEAD, EYES, EARS, NOSE AND THROAT: Showed normocephalic, atraumatic. NECK: Supple. HEART: Showed normal first and second heart sounds with no gallop, rub or murmur. CHEST: Clear to auscultation. No crepitation or rhonchi. ABDOMEN: Distended, soft, nontender. No guarding or rigidity. No organomegaly. Hernial orifice intact. Bowel sounds normal. NEUROLOGIC: He is awake, alert, but confused. All cranial nerves intact. He moves extremities without difficulty. His intake over the last 24 hours was incompletely recorded. LABORATORY DATA: As of this morning showed a white cell count is down to 10,500, hemoglobin 15, hematocrit 47, MCV was 81 and platelet count of 490,000. His chemistry showed a serum sodium 142, potassium 3.6, chloride 105, bicarbonate 29, anion gap of 11, BUN 18, creatinine 1.1, estimated GFR was 65 mL per minute, his glucose was 86, calcium was 9. Total bilirubin, AST, ALT, alkaline phosphatase were normal. Total protein was 7.2, albumin 3. His blood culture showed growth of ____ recovered from aerobic bottle only. The identification and sensitivity is still pending at the time of this dictation. ASSESSMENT AND PLAN: 1. Altered mental status. The patient continued to be lethargic, although he is much more awake, alert today. His last Ativan dose was last night. 2. Left lower extremity cellulitis responding to the IV antibiotic. 3. Polycythemia vera for which he is on hydroxyurea. 4. Hypokalemia, resolved. In fact, his potassium this morning was 3.6. 5. Acute kidney injury that is improving. VENU TOVAR MD DR: PORSHA/jose alberto JOB#: [id number] / [id number]
[2018-02-02] MEDS ORDERED: HYDROXYUREA 500 MG CAPSULE PO SCH (21:00)
[2018-02-03] MEDS: LEVOTHYROXINE 25 MCG TABLET. PO SCH (05:36)
[2018-02-03] MEDS: PIPERACILLIN/TAZOBACTAM 3.375 GM in IV NORMAL SALINE 50ML 50 ML IV SCH ×2 (05:37→12:49)
[2018-02-03 09:25] LABS: CREATININE 1.2 mg/dL (0.7-1.3); GFR 58.6
[2018-02-03 09:31] LABS: VANC TR 8.1 mcg/mL (10.0-20.0)
[2018-02-03] MEDS: VANCOMYCIN PER PHARMACY MC PRN (10:10)
--- NOTE | 2018-02-03 10:11 | NUR ---
Pharmacy Vancomycin Dosing Note S:Consulted to monitor and dose vancomycin started 02/01/18. O:BRITTANY HOLLINGSWORTH is a 77 year old M with Cellulitis . Height: 5 feet, 6 inches Weight: 68.081777 kg [place] Body Weight: 63.80 Adjusted Body Weight: 65.72 Dosing Weight: Actual Other Antibiotics: ZOSYN LABS: Last BUN: 15 Last Creatinine: 1.2 Creatinine Clearance: 45.8 Last WBC: 10.5 Last Platelets: 490 Drug Levels: Last Trough level: 8.1 on 02/03/18 at 0930 Last dose given 02/02/18 at 1000 Vancomycin Dosing: Loading Dose: 1750 mg x1 Dosing Weight: Actual Target Trough: 10-20 A: Based on the vanco trough of 8.1, will increase frequency to q12hr. Will recheck trough prior to 4th dose, and monitor SCr. P: 1. Increase Vancomycin 1000 mg to IV q12h 2. Follow up Trough level on 02/04/18 at 2130 3. Pharmacy will continue to monitor, follow and adjust therapy as needed. LUCAS SCHAFER Adiel 02/03/18 1011
[2018-02-03] MEDS: VANCOMYCIN 1 GM in IV NORMAL SALINE 250ML 250 ML IV SCH (10:23)
[2018-02-03 11:47] VITALS: BP 128/76
--- NOTE | 2018-02-03 15:03 | DS ---
DATE OF DISCHARGE: 02/03/2018 HOSPITAL COURSE: The patient is a 77-year-old male patient who was admitted through the Emergency Room of [facility] with altered mental status. Further investigation showed that he has left lower extremity cellulitis that has responded to IV antibiotic. His blood culture grew gram-positive rods that felt to be contaminant as it grew only in 1/2 bottles and I did speak with the lab at [facility] and the microbiologist felt that this is contaminant. The patient is now more awake, alert, able to walk. His white cell count is normal and a decision was made to discharge him back to [facility] to finish the antibiotic treatment orally. PHYSICAL EXAMINATION: GENERAL: When I saw him this afternoon, he was resting slightly propped up in bed, in no apparent respiratory distress, was somewhat pale, but no jaundice, cyanosis, lymphadenopathy or thyromegaly. No jugular venous distension. No lower limb edema. VITAL SIGNS: His heart rate was 64, blood pressure was 128/76, temperature was 98.3, respiratory rate 20, and oxygen saturation was 100%. HEAD, EYES, EARS, NOSE AND THROAT: Showed normocephalic, atraumatic. NECK: Supple. HEART: Showed normal first and second sounds. No gallop, rub or murmur. CHEST: Clear to auscultation. No crepitation or rhonchi. ABDOMEN: Distended, soft, nontender. No guarding or rigidity. No organomegaly. Hernial orifices intact. Bowel sounds normal. NEUROLOGIC: He was awake, alert, responds at times appropriately. He is demented; however, all his cranial nerves are intact. He moves extremities without difficulty, ambulates without assistance or assistive devices. His intake over the last 24 hours was 720, no output was recorded. LABORATORY DATA: As of this morning showed a serum sodium 144, potassium 4, chloride 107, bicarbonate 26, anion gap of 11, BUN 15, creatinine 1.2. His glucose was 98, calcium was 9. Total bilirubin, AST, ALT, alkaline phosphatase were normal. Total protein was 7.2, albumin 3. DISCHARGE MEDICATIONS: He will be discharged back to [facility] to continue on following medications: Doxycycline 100 mg twice a day for 7 days, acetaminophen 650 mg every 6 hours, hydroxyurea 1000 mg daily, levothyroxine sodium 25 mcg once a day, Mylanta 30 mL as needed, 15 mL as needed after meals for dyspepsia, magnesium hydroxide for milk of magnesia 30 mL p.o. daily p.r.n. for constipation, analgesic balm applied topically 4 times a day as needed for pain, ondansetron 4 mg every 6 hours as needed for nausea and vomiting, scopolamine transdermal patch 1 patch topically every 3 days. FINAL DISCHARGE DIAGNOSES: 1. Altered mental status, resolved 2. Left lower extremity cellulitis responded, all the erythema and swelling has completely subsided. 3. Polycythemia vera for which hydroxyurea and his white cell count and platelet count are within normal range. 4. Hypothyroidism. He seemed to be both clinically and biochemically euthyroid. He is on Synthroid 25 mcg once a day. 5. Hyperkalemia, resolved. His most recent serum potassium as of this morning was 4. 6. Protein calorie malnutrition with serum albumin of only 3 g/dL. 7. Acute kidney injury has improved. VENU TOVAR MD DR: PORSHA/jose alberto JOB#: [id number] / [id number]
--- NOTE | 2018-02-03 16:14 | NUR ---
Report given to [facility] [place]. IV out, daughter aware of transfer and transferring patient POV. Pt taken off unit via wheelchair.
[2018-02-03] MEDS ORDERED: VANCOMYCIN 1 GM in IV NORMAL SALINE 250ML 250 ML IV SCH (22:00)
== END 2018-02-03 16:00 | disposition home or self-care (01) | DRG 871 ==
LOC: ER 08:15 → 1 SOUTH 10:20
PROVIDERS: ADMIT Internal Medicine; ATTEND Internal Medicine
DX: A41.9 Sepsis, unspecified organism (principal); G93.41 Metabolic encephalopathy; N17.9 Acute kidney failure, unspecified; E46 Unspecified protein-calorie malnutrition; L03.116 Cellulitis of left lower limb; F01.51 Vascular dementia, unspecified severity, with behavioral disturbance; E87.5 Hyperkalemia; D45 Polycythemia vera; E03.9 Hypothyroidism, unspecified; F63.9 Impulse disorder, unspecified; D72.829 Elevated white blood cell count, unspecified; I10 Essential (primary) hypertension; D47.3 Essential (hemorrhagic) thrombocythemia; F41.9 Anxiety disorder, unspecified; Z68.24 Body mass index [BMI] 24.0-24.9, adult; Z88.8 Allergy status to other drugs, medicaments and biological substances
CPT/HCPCS: 36415; 70450; 71045; 80048; 80053; 80202; 80307; 81001; 82553; 83605; 83735; 83880; 84484; 85007; 85025; 85027; 85610; 87040; 87205; 87641; 93005; 94640; 96374; 96375; J0696; J2060; J2543; J3370; J7040; J7050; 97110; 97116; 97530; 97535; 99285-25; G0479

== ENCOUNTER 2018-03-14 19:49 | Inpatient (IN) | payer MEDICARE, MEDICAID ==
[~2018-03-14] VITALS: Ht 167.6 cm; Wt 63.1 kg
[~2018-03-14 19:49] MED LIST changes: +LEVO25TA4 PO; +ONDA4TAB11 PO; +SCOP1PAT11 TP
[2018-03-14] MEDS ORDERED: IV RINGERS SOLUTION,LACTATED 1,000 ML IV SCH (19:58)
--- NOTE | 2018-03-14 19:58 | ED.ADGEN ---
Past History Past Medical History: Anxiety, CVA, Dementia, Depression, Hypertension, Other Additional Past Medical Histor: polycythemia vera Past Surgical History: Tonsillectomy Smoking: Non-smoker Alcohol Use: None Drug Use: None Adult General Chief Complaint Chief Complaint ".. I worried he may be getting septic.. and that his platelets are up .. He has polycythemia... And he was running temperature of 101.2, had elevated white count of 15.1, and platelet counts were excess of 800, 000. He usually runs around 400, 000. He does have dementia and has not been eating.. I am a nurse.. he was in here before under Dr. Gamez... He currently at [place] at [facility]... (Daughter) HPI HPI Patient is a 77 year old male who presents with above hx and complaints of nausea, vomiting. Pt. reports abd. normal blood work at [facility]. Pt. has history of polycythemia. Pt. recently increased edema Rt. ankle and erythema in site of previous cellulitis. Pt. had poor intake, and frequent nausea and vomiting. Pt. Has hx of dementia, HTN, CVA , and deconditioning. Pt. previous admitted to Dr. Gamez for similar complaints. Review of Systems Review of Systems Constitutional: History of fever or chills [] Eyes: Denies change in visual acuity, redness, or eye pain [] HENT: Denies nasal congestion or sore throat [] Respiratory: Denies cough or shortness of breath [] Cardiovascular: No additional information not addressed in HPI [] GI: Denies abdominal pain, , bloody stools or diarrhea []history of nausea and vomiting : Denies dysuria or hematuria [] Musculoskeletal: Denies back pain or joint pain [] Integument: Denies rash or skin lesions [] Neurologic: Denies headache, focal weakness or sensory changes [] Endocrine: Denies polyuria or polydipsia [] All other systems were reviewed and found to be within normal limits, except as documented in this note. Family History Family History Non-contributory Current Medications Current Medications Current Medications Medications (Trade) Dose Ordered Sig/Velasquez Start Time Stop Time Status Last Admin Dose Admin Ceftriaxone Sodium 1 gm/ Sodium Chloride 50 ml @ 100 mls/hr 1X ONCE 03/14/18 23:00 03/14/18 23:29 UNV Ceftriaxone Sodium (Rocephin) 1 gm 1X ONCE 03/14/18 23:30 03/14/18 23:31 Furosemide (Lasix) 40 mg 1X ONCE 03/14/18 23:15 03/14/18 23:16 Lactated Ringer's 1,000 ml @ 1,000 mls/hr Q1H 03/14/18 19:58 03/14/18 20:57 DC 03/14/18 20:53 1,000 MLS/HR Lorazepam (Ativan) 2 mg 1X ONCE 03/14/18 22:00 03/14/18 22:01 DC 03/14/18 21:35 2 MG Allergies Allergies Allergies Coded Allergies Type Severity Reaction Last Updated Verified haloperidol Allergy Mild 05/02/17 Yes Physical Exam Physical Exam Constitutional: moderate distress, non-toxic appearance. [] HENT: Normocephalic, atraumatic, bilateral external ears normal, oropharynx moist, no oral exudates, nose normal. [] Eyes: PERRLA, EOMI, conjunctiva normal, no discharge. [] Neck: Normal range of motion, no tenderness, supple, no stridor. [] Cardiovascular:Heart rate regular rhythm, no murmur , PMI to Lt. Lungs & Thorax: Bilateral breath sounds equal at apex with crackles bilateral bases on auscultation [] Abdomen: Bowel sounds normal, soft, no tenderness, no masses, no pulsatile masses. [] Skin: Warm, dry, Rt. ankle and lower leg erythema, no rash. [] Back: No tenderness, no CVA tenderness. [] Extremities: Rt. lower leg tenderness, no cyanosis, no clubbing, ROM intact, Rt leg edema. [] Neurologic: Alert x1 name, generalize motor weakness, []Shuffling gait. Psychologic: Affect flat, judgement limited insight, mood depressed. Current Patient Data Vital Signs Vital Signs Date Time Temp Pulse Resp B/P (MAP) Pulse Ox O2 Delivery O2 Flow Rate FiO2 03/14/18 19:50 83 18 97 Room Air Lab Results Laboratory Tests Test 03/14/18 20:28 03/14/18 20:45 Urine Collection Type Unknown Urine Color Yellow Urine Clarity Clear Urine pH 6.0 Urine Specific [place] 1.025 Urine Protein Neg (NEG-TRACE) Urine Glucose (UA) Neg mg/dL (NEG) Urine Ketones (Stick) Neg mg/dL (NEG) Urine Blood Neg (NEG) Urine Nitrite Neg (NEG) Urine Bilirubin Neg (NEG) Urine Urobilinogen Dipstick 0.2 mg/dL (0.2 mg/dL) Urine Leukocyte Esterase Neg (NEG) Urine RBC 0 /HPF (0-2) Urine WBC Occ /HPF (0-4) Urine Squamous Epithelial Cells Occ /LPF Urine Bacteria 0 /HPF (0-FEW) White Blood Count 15.7 x10^3/uL (4.0-11.0) H Red Blood Count 6.27 x10^6/uL (4.30-5.70) H Hemoglobin 16.4 g/dL (13.0-17.5) Hematocrit 50.9 % (39.0-53.0) Mean Corpuscular Volume 81 fL (79-100) Mean Corpuscular Hemoglobin 26 pg (25-35) Mean Corpuscular Hemoglobin Concent 32 g/dL (31-37) Red Cell Distribution Width 20.1 % (11.5-14.5) H Platelet Count 1121 x10^3/uL (140-400) *H Neutrophils (%) (Auto) 90 % (31-73) H Lymphocytes (%) (Auto) 4 % (24-48) L Monocytes (%) (Auto) 4 % (0-9) Eosinophils (%) (Auto) 1 % (0-3) Basophils (%) (Auto) 0 % (0-3) Neutrophils # (Auto) 14.2 x10^3uL (1.8-7.7) H Lymphocytes # (Auto) 0.7 x10^3/uL (1.0-4.8) L Monocytes # (Auto) 0.6 x10^3/uL (0.0-1.1) Eosinophils # (Auto) 0.1 x10^3/uL (0.0-0.7) Basophils # (Auto) 0.1 x10^3/uL (0.0-0.2) Segmented Neutrophils % 86 % (35-66) H Lymphocytes % 8 % (24-48) L Monocytes % 5 % (0-10) Basophils % 1 % (0-3) Platelet Estimate Increased (ADEQUATE) Large Platelets Few Giant Platelets Occ Anisocytosis Mod Ovalocytes Occ Prothrombin Time 12.1 SEC (9.4-11.4) H Prothrombin Time INR 1.2 (0.9-1.1) H PTT 33 SEC (23-33) D-Dimer (Fabi) 0.39 mg/L (0.00-0.50) Sodium Level 137 mmol/L (136-145) Potassium Level 4.5 mmol/L (3.5-5.1) Chloride Level 100 mmol/L (98-107) Carbon Dioxide Level 29 mmol/L (21-32) Anion Gap 8 (6-14) Blood Urea Nitrogen 17 mg/dL (8-26) Creatinine 1.4 mg/dL (0.7-1.3) H Estimated GFR (Cockcroft-Gault) 49.0 Glucose Level 130 mg/dL (70-99) H Calcium Level 9.0 mg/dL (8.5-10.1) Magnesium Level 1.8 mg/dL (1.8-2.4) Total Bilirubin 0.4 mg/dL (0.2-1.0) Direct Bilirubin 0.1 mg/dL (0.0-0.2) Aspartate Amino Transferase (AST) 17 U/L (15-37) Alanine Aminotransferase (ALT) 19 U/L (16-63) Alkaline Phosphatase 138 U/L (46-116) H Creatine Kinase 56 U/L (39-308) Creatine Kinase MB (Mass) 3.7 ng/mL (0.0-3.6) H Creatine Kinase MB Relative Index 6.6 % (0-4) H Troponin I Quantitative < 0.017 ng/mL (0-0.055) RM-[id number]-[id number]-Type Natriuretic Peptide 1070 pg/mL (0-449) H Total Protein 8.4 g/dL (6.4-8.2) H Albumin 3.8 g/dL (3.4-5.0) Amylase Level 46 U/L (25-115) Lipase 107 U/L (73-393) EKG EKG My interpretation of EKG shows a sinus rhythm at 83 bpm. His bimodal P-wave's. Leftward axis. No findings acute STEMI with contralateral changes[] Radiology/Procedures Radiology/Procedures I interpretation chest and abd.. x-ray shows borderline cardiomegaly. Increased cephalization consistent with CHF. Some patchy infiltrates. Degenerative joint changes. []Nonobstructive bowel gas pattern. Course & Med Decision Making Course & Med Decision Making Pertinent Labs and Imaging studies reviewed. (See chart for details) Discussed presentation, testing and tx. plan with Dr. Muñoz.- Admit for further eval and tx. Suspect Sepsis [] Final Impression Final Impression 1. Nausea and Vomiting.[] 2. Polycythemia- Plat. = 1,121 3. Leukocytosis 4. Hx. of Fever 5. Suspect sepsis 6. Cellulitis Rt. leg 7. CHF- BNP 1070 8. Dementia 9. Nausea and vomiting 10. Elevated Creat. Dragon Disclaimer Dragon Disclaimer This electronic medical record was generated, in whole or in part, using a voice recognition dictation system. MIGUELITO ROBERTS MD March 14, 2018 19:58
[2018-03-14 20:53] LABS: BACTERIA,URINE 0 /HPF (0-FEW); BILIRUBIN,URINE NEG (NEG); CLARITY,URINE CLEAR; COLOR,URINE YELLOW; GLUCOSE,URINE NEG (NEG); NITRITE,URINE NEG (NEG); RBC,URINE 0 /HPF (0-2); SQUAMOUS EPITHELIAL CELL,UR OCC /LPF; UROBILINOGEN,URINE 0.2 mg/dL (0.2 mg/dL); WBC,URINE OCC /HPF (0-4)
[2018-03-14] MEDS ORDERED: LORazepam 2 MG/ML VIAL ONE (20:57)
[2018-03-14] MEDS ORDERED: LORazepam 2 MG/ML VIAL IV ONE ×2 (21:00→22:00)
[2018-03-14 21:11] LABS: BASO # 0.1 x10^3/uL (0.0-0.2); BASO % 0 % (0-3); EOS # 0.1 x10^3/uL (0.0-0.7); EOS % 1 % (0-3); HEMATOCRIT 50.9 % (39.0-53.0); HEMOGLOBIN 16.4 g/dL (13.0-17.5); LYMPH # 0.7 x10^3/uL (1.0-4.8); LYMPH % 4 % (24-48); MEAN CORPUSCULAR HEMOGLOBIN 26 pg (25-35); MEAN CORPUSCULAR HGB CONC 32 g/dL (31-37); MEAN CORPUSCULAR VOLUME 81 fL (79-100); MONO # 0.6 x10^3/uL (0.0-1.1); MONO % 4 % (0-9); NEUT # 14.2 x10^3uL (1.8-7.7); NEUT % 90 % (31-73); RED BLOOD COUNT 6.27 x10^6/uL (4.30-5.70); RED CELL DISTRIBUTION WIDTH 20.1 % (11.5-14.5); WHITE BLOOD COUNT 15.7 x10^3/uL (4.0-11.0)
--- NOTE | 2018-03-14 21:40 | EKG ---
[address] [address] Test Date: 2018-03-14 Test Time: 20:31:07 Pat Name: BRITTANY HOLLINGSWORTH Department: Room: Gender: M [employer] Director: SUNNI : 1940 Requested By: MIGUELITO ROBERTS Order Number: [id number] Reading MD: Jose Corral MD Measurements Intervals [place] Rate: 83 P: 40 MN: 140 QRS: -5 QRSD: 96 T: 31 QT: 354 QTc: 421 Interpretive Statements SINUS RHYTHM Electronically Signed On 03-22-2018 11:58:51 CDT by Jose Corral MD
[2018-03-14 21:44] LABS: PLATELET COUNT 1121 x10^3/uL (140-400)
[2018-03-14 21:45] LABS: ALBUMIN 3.8 g/dL (3.4-5.0); CREATININE 1.4 mg/dL (0.7-1.3); DIRECT BILIRUBIN 0.1 mg/dL (0.0-0.2); MAGNESIUM 1.8 mg/dL (1.8-2.4); POTASSIUM 4.5 mmol/L (3.5-5.1); TOTAL BILIRUBIN 0.4 mg/dL (0.2-1.0); TOTAL PROTEIN 8.4 g/dL (6.4-8.2)
[2018-03-14 22:15] LABS: % BASOS 1 % (0-3); % LYMPHS 8 % (24-48); % MONOS 5 % (0-10); PLT ESTIMATE INCREASED (ADEQUATE)
[2018-03-14 22:16] LABS: ANISOCYTOSIS MOD
[2018-03-14 22:17] LABS: OVALOCYTES OCC
[2018-03-14] MEDS ORDERED: LORazepam 2 MG/ML VIAL IV PRN (23:15)
[2018-03-14] MEDS ORDERED: ONDANSETRON PF 4 MG/2 ML VIAL. IV PRN (23:15)
[2018-03-14] MEDS ORDERED: FUROSEMIDE 40 MG/4 ML VIAL IVP ONE (23:15)
[2018-03-14] MEDS ORDERED: VANCOMYCIN 1.5 GM in IV NORMAL SALINE 500ML 500 ML IV ONE (23:30)
[2018-03-14] MEDS ORDERED: cefTRIAXone IV Push 1 GM VIAL. IVP ONE (23:30)
[2018-03-14] MEDS ORDERED: VANCOMYCIN 1 GM VIAL. ONE (23:32)
[2018-03-14] MEDS ORDERED: IV NORMAL SALINE 500ML 500 ML ONE (23:32)
[2018-03-15] VITALS (22 sets, daily range): BP systolic 140–188; BP diastolic 64–99
[2018-03-15] MEDS: VANCOMYCIN PER PHARMACY MC PRN (00:47)
[2018-03-15] MEDS ORDERED: ONDANSETRON ODT 4 MG TAB.RAPDIS PO PRN (01:00)
[2018-03-15] MEDS ORDERED: ACETAMINOPHEN 325 MG TABLET PO PRN (01:00)
[2018-03-15] MEDS ORDERED: MAGNESIUM HYDROXIDE 2,400 MG/30 ML ORAL.SUSP. PO PRN (01:00)
[2018-03-15] MEDS ORDERED: MAG HYDROX/AL HYDROX/SIMETH 30 ML ORAL.SUSP PO PRN (01:00)
[2018-03-15] MEDS ORDERED: METHYL SALICYLATE/MENTHOL TOPICAL OINTMENT 29GM TUBE. TP PRN (01:00)
[2018-03-15 06:31] LABS: BASO # 0.1 x10^3/uL (0.0-0.2); BASO % 1 % (0-3); EOS # 0.1 x10^3/uL (0.0-0.7); EOS % 0 % (0-3); HEMATOCRIT 52.8 % (39.0-53.0); LYMPH # 0.3 x10^3/uL (1.0-4.8); LYMPH % 2 % (24-48); MEAN CORPUSCULAR HEMOGLOBIN 26 pg (25-35); MEAN CORPUSCULAR HGB CONC 32 g/dL (31-37); MEAN CORPUSCULAR VOLUME 80 fL (79-100); MONO # 0.5 x10^3/uL (0.0-1.1); MONO % 2 % (0-9); NEUT # 19.2 x10^3uL (1.8-7.7); NEUT % 95 % (31-73); RED BLOOD COUNT 6.58 x10^6/uL (4.30-5.70); RED CELL DISTRIBUTION WIDTH 20.3 % (11.5-14.5); WHITE BLOOD COUNT 20.2 x10^3/uL (4.0-11.0)
[2018-03-15 06:33] LABS: ALBUMIN 3.4 g/dL (3.4-5.0); ALBUMIN/GLOBULIN RATIO 0.8 (1.0-1.7); CALCIUM 8.9 mg/dL (8.5-10.1); CREATININE 1.6 mg/dL (0.7-1.3); POTASSIUM 3.7 mmol/L (3.5-5.1); TOTAL BILIRUBIN 0.5 mg/dL (0.2-1.0); TOTAL PROTEIN 7.9 g/dL (6.4-8.2)
[2018-03-15 06:36] LABS: PLATELET COUNT 1182 x10^3/uL (140-400)
[2018-03-15] MEDS: LEVOTHYROXINE 25 MCG TABLET. PO SCH (07:00)
--- NOTE | 2018-03-15 07:33 | RAD ---
Acute abdomen series with chest, 3 views, 03/14/2018: HISTORY: Nausea and vomiting There is gas and stool scattered throughout the colon in a nonspecific pattern. No free is air seen in the abdomen. The spleen appears to be mildly enlarged. Scattered vascular calcifications are present. There is moderate spurring in the spine. The heart size is normal. No pulmonary infiltrate is seen. There is no evidence of pleural fluid. IMPRESSION: 1. Splenomegaly. 2. No acute abdominal abnormality is detected. Electronically signed by: Leonidas Wharton MD (03/15/2018 7:30 AM) [facility]
[2018-03-15] MEDS: HYDROXYUREA 500 MG CAPSULE PO SCH ×3 (09:00→18:38)
[2018-03-15] MEDS: LACTOBACILLUS RHAMNOSUS GG 1 CAPSULE. PO SCH ×2 (09:00→20:32)
[2018-03-15] MEDS ORDERED: HEPARIN PF for SUB-Q USE 5,000 UNIT/0.5 ML VIAL. SQ SCH (09:00)
[2018-03-15] MEDS: SCOPOLAMINE 1.5MG PATCH. TD SCH ×2 (10:24→10:54)
[2018-03-15] MEDS ORDERED: LABETALOL 20 MG/4 ML DISP.SYRIN. IVP PRN (13:45)
[2018-03-15] MEDS: HEPARIN PF for SUB-Q USE 5,000 UNIT/0.5 ML VIAL. SQ SCH ×2 (14:06→21:47)
[2018-03-15] MEDS: POTASSIUM CL 20MEQ D5-0.9%NACL 1,000 ML IV SCH ×2 (14:07→23:26)
--- NOTE | 2018-03-15 14:10 | HP ---
ADMIT DATE: 03/14/2018 HISTORY OF PRESENT ILLNESS: The patient is a 77-year-old male patient, a resident at [facility], who was brought to the Emergency Room yesterday and apparently has fever. White cell count was up at 15,000, his platelet up at 800,000. He does have right lower extremity cellulitis and his leg was markedly swollen, erythematous, according to his daughter, for which they start him on Bactrim. He was seen in the Emergency Room and was extensively evaluated. He was found to have leukocytosis, erythrocytosis as well as thrombocytopenia with the platelet count of 121,000; however, he was extremely combative, restless, agitated, and received 2 mg of Ativan twice overnight. He was, however, started on IV vancomycin as well as Rocephin and was admitted to the ICU for further evaluation and treatment. PAST MEDICAL HISTORY: His past medical history is significant for vascular dementia with behavioral disturbances, polycythemia vera, anxiety disorder, impulse disorder, has muscle weakness, dysphagia and difficulty walking. He has aphasia. PAST SURGICAL HISTORY: Unremarkable. FAMILY HISTORY: Also noncontributory. SOCIAL HISTORY: A resident at [facility]. He has only 1 daughter. He does not smoke, drink alcohol or use any recreational drugs. REVIEW OF SYSTEMS: Unobtainable. ALLERGIES: HE IS ALLERGIC TO HALDOL. MEDICATIONS: He is currently on following medications at the [facility]. He is on hydroxyurea 1000 mg once a day, analgesic balm 1 application topically 4 times a day, Tylenol 650 mg every 6 hours, Mylanta 15 mL after meals, magnesium hydroxide for Milk of Magnesia 30 mL p.o. daily p.r.n. for constipation, ondansetron 4 mg every 6 hours, scopolamine patch transdermal 1 every 72 hours, and levothyroxine 25 mcg once a day. PHYSICAL EXAMINATION: GENERAL: On arrival to the Emergency Room, he apparently looked well and was clearly in no apparent respiratory distress. No pallor, jaundice, cyanosis, or thyromegaly. No jugular venous distension. No lower limb edema. VITAL SIGNS: His heart rate was 83, blood pressure was 160/84, temperature was 97.5, respiratory rate was 18, and oxygen saturation was 96% on room air. HEAD, EYES, EARS, NOSE AND THROAT: Showed normocephalic, atraumatic. NECK: Supple. HEART: Showed normal first and second heart sounds. No gallop, rub or murmur. CHEST: Clear to auscultation. No crepitation or rhonchi. ABDOMEN: Distended, soft, nontender. No guarding or rigidity. No organomegaly. Hernial orifice is intact and bowel sounds normal. NEUROLOGIC: He is obviously demented, but otherwise has no evidence of any lateralizing sign. He is awake, alert, able to ambulate without assistance or assistive devices, according to his daughter. He actually [facility] with an medical laboratory assistant [facility]. LABORATORY AND DIAGNOSTIC DATA: His lab work initially showed a white cell count of 15,700, hemoglobin 16.4, hematocrit 50.9, MCV 81, and platelet count of 121,000 with manual differential showed 90% polymorphs, 4% lymphocytes, and 4% monocytes. His chemistry showed a serum sodium 137, potassium 4.5, chloride 100, bicarbonate 29, anion gap of 8, BUN 17, creatinine 1.4. Estimated GFR was 49 mL per minute. His glucose was 130. Calcium was 9, magnesium was 1.8. Total bilirubin, AST, ALT, alkaline phosphatase were normal. His total protein was 8.4, albumin was 3.8, beta natriuretic peptide was 1070. His amylase and lipase was normal. His prothrombin time was 12.1, INR 1.2, PTT was 33, and D-dimer was 0.39. His urinalysis showed the urine was yellow, clear with a pH of 5 6, specific gravity of 1.025. The urine was negative for protein, glucose, ketones, blood, nitrite, and leukocyte esterase. There were 0 RBC, 0 WBC, and no bacteria. His acute abdomen series showed that there is gas and stool scattered throughout the colon in a nonspecific pattern. No free air is presently seen in the abdomen. The spleen appears to be mildly enlarged, scattered vascular calcification present. There is moderate swelling in the spine. The heart size is normal. No pulmonary infiltrate is seen. There is no evidence of pleural fluid. PLAN: The patient was started on IV vancomycin and Rocephin. We will follow his labs closely and decide on further management accordingly. VENU TOVAR MD DR: PORSHA/jose alberto JOB#: [id number] / [id number]
[2018-03-15] MEDS ORDERED: LORazepam 2 MG/ML VIAL IV PRN (19:00)
[2018-03-15] MEDS ORDERED: cefTRIAXone IV Push 1 GM VIAL. IVP SCH (21:00)
[2018-03-15] MEDS ORDERED: VANCOMYCIN 1 GM in IV NORMAL SALINE 250ML 250 ML IV SCH (23:00)
[2018-03-16] VITALS (19 sets, daily range): BP systolic 109–163; BP diastolic 56–82
[2018-03-16] MEDS: HEPARIN PF for SUB-Q USE 5,000 UNIT/0.5 ML VIAL. SQ SCH ×3 (06:07→21:27)
[2018-03-16 06:48] LABS: BASO # 0.1 x10^3/uL (0.0-0.2); BASO % 1 % (0-3); EOS % 0 % (0-3); HEMATOCRIT 50.1 % (39.0-53.0); HEMOGLOBIN 16.2 g/dL (13.0-17.5); LYMPH # 0.6 x10^3/uL (1.0-4.8); LYMPH % 3 % (24-48); MEAN CORPUSCULAR HEMOGLOBIN 26 pg (25-35); MEAN CORPUSCULAR HGB CONC 32 g/dL (31-37); MEAN CORPUSCULAR VOLUME 81 fL (79-100); MONO # 0.9 x10^3/uL (0.0-1.1); MONO % 4 % (0-9); NEUT # 19.4 x10^3uL (1.8-7.7); NEUT % 92 % (31-73); RED CELL DISTRIBUTION WIDTH 20.6 % (11.5-14.5)
[2018-03-16 06:58] LABS: PLATELET COUNT 1036 x10^3/uL (140-400)
[2018-03-16 07:08] LABS: ALBUMIN 2.8 g/dL (3.4-5.0); ALBUMIN/GLOBULIN RATIO 0.7 (1.0-1.7); CREATININE 2.7 mg/dL (0.7-1.3); POTASSIUM 4.5 mmol/L (3.5-5.1); TOTAL BILIRUBIN 0.4 mg/dL (0.2-1.0); TOTAL PROTEIN 6.9 g/dL (6.4-8.2)
[2018-03-16 08:25] LABS: % BANDS 1 % (0-9); % BASOS 1 % (0-3); % EOS 1 % (0-5); % LYMPHS 2 % (24-48); % MONOS 3 % (0-10); % SEGS 92 % (35-66); PLT ESTIMATE INCREASED (ADEQUATE)
[2018-03-16 08:26] LABS: ANISOCYTOSIS SLIGHT; OVALOCYTES OCC; SCHISTOCYTES OCC; TEAR DROP CELLS OCC; TOXIC GRANULATION SLIGHT
[2018-03-16] MEDS: POTASSIUM CL 20MEQ D5-0.9%NACL 1,000 ML IV SCH (09:07)
--- NOTE | 2018-03-16 09:25 | PN ---
DATE: 03/15/2018 SUBJECTIVE: The patient is very lethargic, sleeping, unresponsive, apparently has been very combative and has received 2 mg of Ativan twice overnight. By the time I saw him this morning, he was basically unresponsive. His platelet count has risen further as well as his white cell count. Unfortunately, it is not safe for him to swallow anything. I did speak with his blower room attendant who recommended increasing his hydroxyurea to 1500. suggested doing a plateletpheresis but his daughter is reluctant to take him to [facility] as he had some pressing family issues, would like to keep him here and she understands that here we have to wait for him to wake up before we can treat him with increased dose of hydroxyurea. OBJECTIVE: GENERAL: When I examined him this afternoon, he was resting slightly propped up in bed, in no apparent respiratory distress, pale, but no jaundice, cyanosis, or thyromegaly. No jugular venous distention. No limb edema. VITAL SIGNS: Her heart rate was 77, blood pressure was 168/81, temperature was 98, respiratory rate was 20, and oxygen saturation was 95% on room air. HEAD, EARS, EARS, NOSE, AND THROAT: Normocephalic, atraumatic. NECK: Supple. HEART: Showed normal first and second heart sounds with no gallop, rub, or murmur. CHEST: Clear to auscultation. No crepitation or rhonchi. ABDOMEN: Distended, soft, nontender. NEUROLOGIC: He is basically lethargic, unresponsive, although he has no obvious lateralizing sign. All his cranial nerves are intact. He moves extremities without difficulty normally. His intake was 1000, no output was recorded. LABORATORY DATA: His lab work this morning showed that his white cell count went up higher to 20,000, hemoglobin 17, hematocrit 52, MCV was 80, and platelet count of 182,000. His chemistry showed a serum sodium of 139, potassium 3.7, chloride 101, bicarbonate 26, anion gap of 12, BUN 16, creatinine 1.6, estimated GFR was 42 mL per minute. His glucose was 133. Calcium was 8.9. Total bilirubin, AST, ALT were normal. Alkaline phosphatase slightly elevated. Total protein was 7.9, albumin 3.4. ASSESSMENT AND PLAN: 1. Altered mental status, most likely drug induced due to Ativan 2 mg given twice. 2. Right lower extremity cellulitis, apparently improving according to his daughter because now there is no swelling and no erythema. He is currently on vancomycin and Rocephin. 3. Polycythemia vera with marked leukocytosis, erythrocytosis as well as thrombocythemia. His platelet count almost 1.2 million for which we will increase his hydroxyurea to be given 1500 mg once probably overnight once his level of consciousness is improved and meanwhile, I will start him on IV fluid, continue with vancomycin and Rocephin. Repeat his labs tomorrow. VENU TOVAR MD DR: PORSHA/jose alberto JOB#: [id number] / [id number]
[2018-03-16 09:47] LABS: % SEGS 86 % (35-66)
[2018-03-16] MEDS: LEVOTHYROXINE 25 MCG TABLET. PO SCH (10:17)
[2018-03-16] MEDS: LACTOBACILLUS RHAMNOSUS GG 1 CAPSULE. PO SCH ×2 (10:17→20:56)
[2018-03-16] MEDS: HYDROXYUREA 500 MG CAPSULE PO SCH (10:18)
--- NOTE | 2018-03-16 11:06 | RAD ---
CT of the abdomen and pelvis without contrast, 03/16/2018: HISTORY: Abdominal distention, biliary emesis Noncontrast scans were obtained as requested. There are moderate streak and respiratory artifacts on these images. There is moderate patchy infiltrate posteriorly in both lung bases. There are small bilateral pleural effusions. The unopacified liver is unremarkable. No dense gallstones are seen. No pericholecystic edema is evident. The pancreas cannot be clearly from unopacified bowel. No pancreatic mass is evident. The spleen is enlarged measuring 15.8 cm in craniocaudad extent. The unopacified kidneys show no evidence of obstruction or mass. There is mild bilateral perinephric edema. Moderate aortoiliac calcific plaquing is present without evidence of aneurysm. There appears to be mild dilatation of the distal left ureter. No abdominal or pelvic adenopathy is seen. A Cazares catheter is present in the collapsed urinary bladder. There is moderate amount of gas and stool scattered throughout the colon in a nonspecific pattern. The small bowel loops are not significantly dilated. No free air is evident in the abdomen or pelvis. There is a tiny amount of free fluid in the abdomen and pelvis. Moderate multilevel degenerative changes are present in the spine. IMPRESSION: 1. Mild splenomegaly. 2. Minimal free fluid in the abdomen and pelvis. 3. Mild bilateral perinephric edema. 4. No evidence of bowel obstruction. 5. Moderate bibasilar infiltrate with small bilateral pleural effusions. Electronically signed by: Leonidas Wharton MD (03/16/2018 11:02 AM) [facility]
[2018-03-16 14:16] LABS: HEMATOCRIT 47.8 % (39.0-53.0); HEMOGLOBIN 15.2 g/dL (13.0-17.5); RED BLOOD COUNT 5.94 x10^6/uL (4.30-5.70); RED CELL DISTRIBUTION WIDTH 20.5 % (11.5-14.5); WHITE BLOOD COUNT 19.3 x10^3/uL (4.0-11.0)
[2018-03-16 14:23] LABS: CALCIUM 8.6 mg/dL (8.5-10.1); CREATININE 2.2 mg/dL (0.7-1.3); GFR 29.1; POTASSIUM 5.2 mmol/L (3.5-5.1)
[2018-03-16] MEDS ORDERED: PIP/TAZO PER PHARMACY MC PRN (15:30)
[2018-03-16] MEDS: PIPERACILLIN/TAZOBACTAM 2.25 GM in IV NORMAL SALINE 50ML 50 ML IV SCH ×2 (16:05→20:56)
[2018-03-16] MEDS: IV DEXTROSE 5 %-0.45 % NACL 1,000 ML IV SCH (16:08)
[2018-03-16] MEDS: LORazepam 2 MG/ML VIAL IV PRN (21:13)
[2018-03-16 22:14] LABS: VANC TR 12.6 mcg/mL (10.0-20.0)
[2018-03-16] MEDS: VANCOMYCIN PER PHARMACY MC PRN (22:55)
--- NOTE | 2018-03-16 22:58 | PN ---
DATE: SUBJECTIVE: The patient is resting slightly propped up in bed, in no apparent distress. He is definitely more awake, alert. He has episodes of nausea, vomiting, abdominal distention and apparently an indwelling Cazares catheter drained about 2000 mL of urine. He did have a CT scan of the abdomen and pelvis without contrast, which showed that he has mild splenomegaly, minimal free fluid in the abdomen and pelvis, mild bilateral perinephric edema. No evidence of bowel obstruction, moderate bibasilar infiltrate with small bilateral pleural effusion, and unopacified kidney showed no evidence of obstruction or mass. There is mild bilateral perinephric edema. His lab work this morning showed that his BUN and creatinine has risen to 25 and 2.7 and after relieve of the obstruction, his creatinine came down from 2.7 to 2.2. He actually more awake last night and managed to take his hydroxyurea and his platelet count came down from ____ and platelet count came down to 19,300; however, his CT scan showed that he has moderate patchy infiltrate ____ in both lung bases. There are small bilateral pleural effusions. PHYSICAL EXAMINATION: GENERAL: When I examined him this afternoon, he looked well and was clearly in no apparent respiratory distress, pale, but no jaundice, cyanosis or thyromegaly. No jugular venous distension. No limb edema. VITAL SIGNS: His heart rate was 80, blood pressure was 132/66, temperature was 98.1, respiratory rate was 15 and oxygen saturation was 93% on 2 liters of oxygen. HEAD, EYES, EARS, NOSE AND THROAT: Showed normocephalic, atraumatic. NECK: Supple. HEART: Showed normal first and second sounds. No gallop, rub or murmur. CHEST: Clear to auscultation. No crepitation or rhonchi. ABDOMEN: Distended, soft. No guarding or rigidity. No organomegaly. All hernial orifices are intact. Bowel sounds normal. NEUROLOGIC: Tends to be confused, restless, and uncooperative, but generally has no evidence of any lateralizing sign. All cranial nerves are intact. He moves extremities without difficulty, has an indwelling Cazares catheter. His intake over the last 24 hours was 1000, no output was recorded. LABORATORY DATA: His lab work this morning showed a white cell count of 19,300, hemoglobin 15, hematocrit 47, MCV 80 and platelet count of 869,000. His chemistry showed a serum sodium 141, potassium 5.2, chloride 109, bicarbonate 21, anion gap of 11, BUN 26, creatinine 2.2, estimated GFR was 29 mL per minute. His glucose was 139, calcium was 8.6. His TSH was high at 8.277. PLAN: My plan is to broaden his antibiotic coverage, discontinue Rocephin and switch him to Zosyn. I discontinued his IV fluid with potassium and I will check his T3 and T4 and repeat all his lab works tomorrow. VENU TOVAR MD DR: PORSHA/jose alberto JOB#: [id number] / [id number]
[2018-03-16] MEDS ORDERED: VANCOMYCIN 1.25 GM in IV NORMAL SALINE 250ML 250 ML IV SCH (23:00)
[2018-03-17 04:03] VITALS: BP 159/78
[2018-03-17] MEDS: PIPERACILLIN/TAZOBACTAM 2.25 GM in IV NORMAL SALINE 50ML 50 ML IV SCH ×4 (04:13→21:36)
[2018-03-17] MEDS: IV DEXTROSE 5 %-0.45 % NACL 1,000 ML IV SCH ×2 (04:14→18:16)
[2018-03-17 06:04] VITALS: BP 155/81
[2018-03-17] MEDS: HEPARIN PF for SUB-Q USE 5,000 UNIT/0.5 ML VIAL. SQ SCH ×3 (06:47→21:32)
[2018-03-17 06:56] LABS: HEMATOCRIT 42.2 % (39.0-53.0); HEMOGLOBIN 13.4 g/dL (13.0-17.5); RED BLOOD COUNT 5.17 x10^6/uL (4.30-5.70); RED CELL DISTRIBUTION WIDTH 21.1 % (11.5-14.5); WHITE BLOOD COUNT 12.1 x10^3/uL (4.0-11.0)
[2018-03-17 07:15] VITALS: BP 155/90
[2018-03-17 07:59] LABS: ALBUMIN 2.6 g/dL (3.4-5.0); ALBUMIN/GLOBULIN RATIO 0.7 (1.0-1.7); CALCIUM 8.4 mg/dL (8.5-10.1); TOTAL PROTEIN 6.5 g/dL (6.4-8.2)
[2018-03-17 08:00] LABS: CREATININE 1.4 mg/dL (0.7-1.3); POTASSIUM 4.2 mmol/L (3.5-5.1); TOTAL BILIRUBIN 0.7 mg/dL (0.2-1.0)
[2018-03-17] MEDS: HYDROXYUREA 500 MG CAPSULE PO SCH (08:15)
[2018-03-17] MEDS: LACTOBACILLUS RHAMNOSUS GG 1 CAPSULE. PO SCH ×2 (08:15→20:46)
[2018-03-17] MEDS: LEVOTHYROXINE 25 MCG TABLET. PO SCH (08:15)
[2018-03-17 12:57] VITALS: BP 109/56
[2018-03-17 13:04] VITALS: BP 109/56
[2018-03-17] MEDS: LORazepam 2 MG/ML VIAL IV PRN ×2 (13:34→20:46)
[2018-03-17 19:19] VITALS: BP 115/63
[2018-03-17 20:08] LABS: THYROXINE 5.5 ug/dL (4.5-12.0)
[2018-03-17] MEDS: TAMSULOSIN 0.4 MG CAP.ER.24H. PO SCH (20:46)
[2018-03-18 01:00] VITALS: BP 130/71
[2018-03-18] MEDS: PIPERACILLIN/TAZOBACTAM 2.25 GM in IV NORMAL SALINE 50ML 50 ML IV SCH ×4 (04:02→22:01)
--- NOTE | 2018-03-18 04:57 | PN ---
DATE: 03/17/2018 SUBJECTIVE: The patient is resting slightly propped in bed, clearly very restless, agitated continued to require Ativan and become very combative, hitting the nurses, resisting care. However, his platelet count and white cell count are trending down. His kidney function is back to baseline, although obviously he has still indwelling Cazares catheter. OBJECTIVE: GENERAL: When I examined him this afternoon, he looked pale, but no jaundice, cyanosis, lymphadenopathy or thyromegaly. No jugular venous distension. No lower limb edema. VITAL SIGNS: Her heart rate was 66, blood pressure was 109/56, temperature was 97.8, respiratory rate was 20, and oxygen saturation was 95% on room air. HEAD, EYES, EARS, NOSE AND THROAT: Showed normocephalic, atraumatic. NECK: Supple. HEART: Showed normal first and second sounds. No gallop, rub or murmur. CHEST: Clear to auscultation. No crepitation or rhonchi. ABDOMEN: Slightly distended, soft, nontender. NEUROLOGIC: He is very confused, hallucinating, but without any obvious lateralizing sign. All his cranial nerves are intact. He moves extremities without difficulty. He has an indwelling Cazares catheter. His intake over the last 24 hours was 3100, output was 3875. LABORATORY DATA: Her lab work this morning showed a white cell count of 12,100, hemoglobin 13.4, hematocrit 42, MCV 82 and platelet count of 656,000. His chemistry showed a serum sodium 141, potassium 4.2, chloride 107, bicarbonate 24, anion gap of 10, BUN 21, creatinine 1.4, estimated GFR was 49 mL per minute. His glucose was 107, calcium was 8.4. Total bilirubin, AST, ALT, alkaline phosphatase were normal. Total protein was 6.5, albumin 2.6. His TSH was high; however, free T4 was normal at 1.04. His blood cultures showed no growth for more than 2 days. ASSESSMENT: 1. Altered mental status, most likely drug-induced due to Ativan. The patient continued to be very confused and hallucinating. 2. Right lower extremity cellulitis. Apparently, all the swelling and erythema has subsided. He is currently on vancomycin and Rocephin. 3. Polycythemia vera with marked leukocytosis, erythrocytosis with a thrombocytopenia. His platelet count was almost 1.2 for which we increased his hydroxyurea to 1500. 4. Acute kidney injury due to obstructive nephropathy, resolved by indwelling Cazares catheter and IV fluids. His creatinine is back to 1.2. As is. His blood cultures were negative, I will discontinue the vancomycin. I will start him also Flomax and hopefully eventually we could be able to remove the Cazares. VENU TOVAR MD DR: PORSHA/jose alberto JOB#: [id number] / [id number]
[2018-03-18] MEDS: HEPARIN PF for SUB-Q USE 5,000 UNIT/0.5 ML VIAL. SQ SCH ×3 (06:17→22:02)
[2018-03-18 06:42] LABS: BASO # 0.6 x10^3/uL (0.0-0.2); BASO % 5 % (0-3); EOS # 0.1 x10^3/uL (0.0-0.7); EOS % 1 % (0-3); HEMATOCRIT 44.6 % (39.0-53.0); HEMOGLOBIN 14.5 g/dL (13.0-17.5); LYMPH # 0.9 x10^3/uL (1.0-4.8); LYMPH % 7 % (24-48); MEAN CORPUSCULAR HEMOGLOBIN 26 pg (25-35); MEAN CORPUSCULAR HGB CONC 33 g/dL (31-37); MEAN CORPUSCULAR VOLUME 80 fL (79-100); MONO # 0.4 x10^3/uL (0.0-1.1); MONO % 3 % (0-9); NEUT # 10.2 x10^3uL (1.8-7.7); NEUT % 84 % (31-73); PLATELET COUNT 695 x10^3/uL (140-400); RED BLOOD COUNT 5.57 x10^6/uL (4.30-5.70); RED CELL DISTRIBUTION WIDTH 20.3 % (11.5-14.5); WHITE BLOOD COUNT 12.2 x10^3/uL (4.0-11.0)
[2018-03-18 06:52] LABS: ALBUMIN 2.7 g/dL (3.4-5.0); ALBUMIN/GLOBULIN RATIO 0.7 (1.0-1.7); CALCIUM 8.4 mg/dL (8.5-10.1); CREATININE 1.1 mg/dL (0.7-1.3); GFR 64.7; POTASSIUM 3.7 mmol/L (3.5-5.1); TOTAL PROTEIN 6.8 g/dL (6.4-8.2)
[2018-03-18] MEDS: SCOPOLAMINE 1.5MG PATCH. TD SCH (09:00)
[2018-03-18] MEDS: LACTOBACILLUS RHAMNOSUS GG 1 CAPSULE. PO SCH ×2 (09:05→19:52)
[2018-03-18] MEDS: LEVOTHYROXINE 25 MCG TABLET. PO SCH (09:05)
[2018-03-18] MEDS: HYDROXYUREA 500 MG CAPSULE PO SCH (09:23)
[2018-03-18] MEDS: IV DEXTROSE 5 %-0.45 % NACL 1,000 ML IV SCH ×2 (09:24→20:50)
[2018-03-18 17:56] VITALS: BP 131/63
[2018-03-18] MEDS: TAMSULOSIN 0.4 MG CAP.ER.24H. PO SCH (19:52)
[2018-03-18 20:24] VITALS: BP 157/70
--- NOTE | 2018-03-18 22:32 | PN ---
DATE: 03/18/2018 SUBJECTIVE: The patient is definitely more awake, alert, though somewhat confused. The nursing staff states that he has ____ food and then spit it out. OBJECTIVE: GENERAL: On examining him, he looked well and was clearly in no apparent respiratory distress. No pallor, jaundice, or cyanosis. No lymphadenopathy, no thyromegaly. No jugular venous distension. No lower limb edema. VITAL SIGNS: His heart rate was 67, blood pressure was 130/71. His temperature was 97.8, respiratory rate was 18, and oxygen saturation was 96%. HEAD, EYES, EARS, NOSE, AND THROAT: Shows normocephalic, atraumatic. NECK: Supple. HEART: Showed normal first and second heart sounds with no gallop, rub, or murmur. CHEST: Clear to auscultation. No crepitation or rhonchi. ABDOMEN: Distended, soft, nontender. Has an indwelling Cazares catheter. NEUROLOGIC: He is definitely more awake, alert, although continued to be somewhat confused. All cranial nerves intact. He moves extremities without difficulty. His intake over the last 24 hours was 3100, output was 3875. LABORATORY DATA: His lab work this morning showed a serum sodium 139, potassium 3.7, chloride 104, bicarbonate 25, anion gap of 10, BUN 17, creatinine 1.1, estimated GFR was 64 mL per minute. His glucose was 98. Calcium was 8.4. Total bilirubin, AST, ALT, alkaline phosphatase were normal. Total protein 6.8, albumin was 0.7. His white cell count is down to 12,200, hemoglobin 14.5, hematocrit 44, MCV 80, and platelet count of 695,000. ASSESSMENT: 1. Altered mental status, most likely drug induced as he has received multiple doses of Ativan. The patient seems to be much better, more awake today, although he continued to be somewhat confused. 2. Right lower extremity cellulitis. Apparently, all swelling and erythema has subsided. He was on vancomycin and Zosyn. 3. Polycythemia vera with marked leukocytosis, erythrocytosis, and thrombocytopenia. His platelet count was almost 1.2 million for which we increased his hydroxyurea 1500 mg once a day. His platelet counts are down to 695. 4. Acute kidney injury due to obstructive nephropathy, resolved. Indwelling Cazares catheter and IV fluid. His creatinine is back to 1.1. PLAN: The plan is to continue with Flomax, continue with hydroxyurea 1500 mg once a day. Continue with indwelling Cazares catheter and hopefully tomorrow we can discontinue the Cazares catheter and if the platelet counts are down to around 400, we can consider discharging him back to [facility] and/or home with home health. VENU TOVAR MD DR: PORSHA/jose alberto JOB#: [id number] / [id number]
[2018-03-19] MEDS: PIPERACILLIN/TAZOBACTAM 2.25 GM in IV NORMAL SALINE 50ML 50 ML IV SCH ×2 (03:40→09:20)
[2018-03-19] MEDS: HEPARIN PF for SUB-Q USE 5,000 UNIT/0.5 ML VIAL. SQ SCH ×2 (06:00→14:00)
[2018-03-19 06:20] VITALS: BP 122/63
[2018-03-19 08:37] LABS: ALBUMIN 2.5 g/dL (3.4-5.0); ALBUMIN/GLOBULIN RATIO 0.6 (1.0-1.7); CALCIUM 8.3 mg/dL (8.5-10.1); CREATININE 1.1 mg/dL (0.7-1.3); GFR 64.7; POTASSIUM 4.3 mmol/L (3.5-5.1); TOTAL BILIRUBIN 0.7 mg/dL (0.2-1.0); TOTAL PROTEIN 6.5 g/dL (6.4-8.2)
[2018-03-19 08:52] LABS: BASO # 0.1 x10^3/uL (0.0-0.2); BASO % 1 % (0-3); EOS # 0.2 x10^3/uL (0.0-0.7); EOS % 2 % (0-3); HEMATOCRIT 46.8 % (39.0-53.0); HEMOGLOBIN 14.8 g/dL (13.0-17.5); LYMPH # 0.6 x10^3/uL (1.0-4.8); LYMPH % 6 % (24-48); MEAN CORPUSCULAR HEMOGLOBIN 25 pg (25-35); MEAN CORPUSCULAR HGB CONC 32 g/dL (31-37); MEAN CORPUSCULAR VOLUME 81 fL (79-100); MONO # 0.3 x10^3/uL (0.0-1.1); MONO % 3 % (0-9); NEUT # 9.8 x10^3uL (1.8-7.7); NEUT % 88 % (31-73); PLATELET COUNT 675 x10^3/uL (140-400); RED BLOOD COUNT 5.81 x10^6/uL (4.30-5.70); WHITE BLOOD COUNT 11.2 x10^3/uL (4.0-11.0)
[2018-03-19] MEDS: LACTOBACILLUS RHAMNOSUS GG 1 CAPSULE. PO SCH (09:19)
[2018-03-19] MEDS: LEVOTHYROXINE 25 MCG TABLET. PO SCH (09:19)
[2018-03-19] MEDS: HYDROXYUREA 500 MG CAPSULE PO SCH (09:20)
[2018-03-19] MEDS: IV DEXTROSE 5 %-0.45 % NACL 1,000 ML IV SCH (09:20)
[2018-03-19 09:42] VITALS: BP 113/65
[2018-03-19] MEDS ORDERED: AMOX1TAB58 PO (18:59)
[2018-03-19] MEDS ORDERED: TAMS0.4C97 PO (18:59)
[2018-03-19] MEDS ORDERED: HYDR500C16 PO (18:59)
[2018-03-19] MEDS ORDERED: LACT1CAP21 PO (19:03)
--- NOTE | 2018-03-19 21:00 | DS ---
DATE OF DISCHARGE: 03/19/2018 HOSPITAL COURSE: The patient is a 77-year-old male patient, who was originally admitted on 03/15/2018. He was brought from [facility] with altered mental status. He has right lower extremity cellulitis, leukocytosis and platelet count was extremely high. He was started on Bactrim at the care home and in the Emergency Room, he was extensively investigated and was found to have marked leukocytosis, erythrocytosis and thrombocythemia. His platelet count was 121,000. He was also extremely combative, restless, agitated, received multiple doses of Ativan. He was started on vancomycin as well as Rocephin and was admitted to the ICU. We did consult the aml analyst, who recommended increasing his hydroxyurea to 1500 mg; however, while in the ICU, he also has had multiple episodes of nausea and vomiting. He developed pneumonia and urinary retention requiring placement of an indwelling Cazares catheter. His kidney function was dramatically deteriorated with the creatinine has risen to 2.2. With placement of the Cazares catheter, his kidney function improved. We did broaden the spectrum antibiotic to Zosyn and vancomycin. We pancultured him and continued with hydroxyurea 1500 mg after his level of consciousness improved and his platelet count, white cell count as well as kidney function are all improving. He continued to have problem with urinary retention and a decision was made to discharge him to swing bed to continue the process of rehabilitation and also to scan his bladder. He might require straight catheterization. PHYSICAL EXAMINATION: GENERAL: On examining him today, he looked well and was clearly in no apparent respiratory distress, pale, but no jaundice, cyanosis or thyromegaly. No jugular venous distension. No lower limb edema. VITAL SIGNS: His heart rate was 76, blood pressure was 113/65, temperature was 98.2, respiratory rate was 18 and oxygen saturation was 93% on room air. HEAD, EYES, EARS, NOSE AND THROAT: Showed he is normocephalic, atraumatic. NECK: Supple. HEART: Showed normal first and second heart sounds with no gallop, rub or murmur. CHEST: Clear to auscultation. No crepitation or rhonchi. ABDOMEN: Distended, soft, nontender. NEUROLOGIC: He is awake, alert, obviously very confused, but without any lateralizing sign. All his cranial nerves are intact. He moves extremities without difficulty, ambulates with assistance. His intake over the last 24 hours was 1335, output was 1425. LABORATORY DATA: His lab work as of this morning showed a white cell count down to 11,200, hemoglobin 14.8, hematocrit 46.8, MCV 81 and platelet count of 675,000. His chemistry showed serum sodium 139, potassium 4.3, chloride 106, bicarbonate 24, anion gap of 9, BUN 15. Creatinine 1.1. Estimated GFR was 65 mL per minute. His glucose was 95, calcium was 8.3. Total bilirubin, AST, ALT, alkaline phosphatase were normal. Total protein was 6.5. Albumin 2.5. Prothrombin time was 12.1, INR of 1.2, aPTT 33. D-dimer was 0.39. His blood cultures showed no growth after 4 days. DISCHARGE MEDICATIONS: The patient was discharged to swing bed, to continue on Flomax 0.4 mg at bedtime. His Zosyn was switched to Augmentin. We continued him on hydroxyurea 1500 mg daily, lactobacillus rhamnosus 1 capsule twice a day, scopolamine patch 1 patch every 3 days, levothyroxine 25 mcg once a day, Zofran 4 mg every 4 hours, magnesium hydroxide 30 mL p.o. daily p.r.n. for constipation, Tylenol 650 mg daily. PLAN: We will obviously scan his bladder at least 3 times a day to measure his postvoid volume and he might require catheterization of his retaining urine. Continue with physical and occupational therapy. We will monitor his CBC and CMP on a daily basis and we will cut down his hydroxyurea down to 1000 mg once his platelet count was approximately 450,000. VENU TOVAR MD DR: PORSHA/jose alberto JOB#: [id number] / [id number]
== END 2018-03-19 17:40 | disposition swing bed (61) | DRG 871 ==
LOC: ER 19:49 → ICU 23:00 → ER 23:40
PROVIDERS: ADMIT Family Medicine; ATTEND Family Medicine
DX: A41.9 Sepsis, unspecified organism (principal); J18.9 Pneumonia, unspecified organism; N17.9 Acute kidney failure, unspecified; I11.0 Hypertensive heart disease with heart failure; I50.9 Heart failure, unspecified; L03.115 Cellulitis of right lower limb; D45 Polycythemia vera; N13.8 Other obstructive and reflux uropathy; R47.01 Aphasia; R44.3 Hallucinations, unspecified; D47.3 Essential (hemorrhagic) thrombocythemia; F01.50 Vascular dementia, unspecified severity, without behavioral disturbance, psychotic disturbance, mood disturbance, and anxiety; F32.9 Major depressive disorder, single episode, unspecified; F41.9 Anxiety disorder, unspecified; Z86.73 Personal history of transient ischemic attack (TIA), and cerebral infarction without residual deficits; Z90.89 Acquired absence of other organs; Z88.8 Allergy status to other drugs, medicaments and biological substances; Z79.899 Other long term (current) drug therapy
CPT/HCPCS: 36415; 74022; 74176; 80048; 80053; 80076; 80202; 81001; 82150; 82553; 82947; 83605; 83690; 83735; 83880; 84436; 84439; 84443; 84480; 84484; 85007; 85025; 85027; 85379; 85610; 85730; 87040; 87641; 93005; 96361; 96374; 96375; 96376; J0696; J1940; J2060; J2543; J3370; J3490; J7040; J7050; J7120; 99285-25

== ENCOUNTER 2018-03-19 17:16 | Inpatient (IN) | payer MEDICARE, MEDICAID ==
[~2018-03-19] VITALS: Ht 167.6 cm; Wt 63.1 kg
[2018-03-19 18:14] VITALS: BP 122/63
[2018-03-19] MEDS ORDERED: HYDR500C16 PO (18:59)
[2018-03-19] MEDS ORDERED: AMOX1TAB58 PO (18:59)
[2018-03-19] MEDS ORDERED: TAMS0.4C97 PO (18:59)
[2018-03-19] MEDS ORDERED: METHYL SALICYLATE/MENTHOL TOPICAL OINTMENT 29GM TUBE. TP PRN (19:00)
[2018-03-19] MEDS ORDERED: ACETAMINOPHEN 325 MG TABLET PO PRN (19:00)
[2018-03-19] MEDS ORDERED: MAGNESIUM HYDROXIDE 2,400 MG/30 ML ORAL.SUSP. PO PRN (19:00)
[2018-03-19] MEDS ORDERED: MAG HYDROX/AL HYDROX/SIMETH 30 ML ORAL.SUSP PO PRN (19:00)
[2018-03-19] MEDS ORDERED: LACT1CAP21 PO (19:03)
[2018-03-19] MEDS ORDERED: ONDANSETRON ODT 4 MG TAB.RAPDIS PO PRN (19:15)
[2018-03-19] MEDS: LACTOBACILLUS RHAMNOSUS GG 1 CAPSULE. PO SCH (22:00)
[2018-03-19] MEDS: AMOXICILLIN/K CLAV 500/125MG TABLET. PO SCH (22:00)
[2018-03-20 05:58] VITALS: BP 161/67
[2018-03-20] MEDS ORDERED: SCOPOLAMINE 1.5MG PATCH. TD SCH (09:00)
[2018-03-20] MEDS ORDERED: TAMSULOSIN 0.4 MG CAP.ER.24H. PO SCH (09:00)
[2018-03-20 09:47] LABS: BASO # 0.1 x10^3/uL (0.0-0.2); BASO % 1 % (0-3); EOS # 0.3 x10^3/uL (0.0-0.7); EOS % 3 % (0-3); HEMATOCRIT 46.8 % (39.0-53.0); HEMOGLOBIN 15.4 g/dL (13.0-17.5); LYMPH # 0.7 x10^3/uL (1.0-4.8); LYMPH % 7 % (24-48); MEAN CORPUSCULAR HEMOGLOBIN 27 pg (25-35); MEAN CORPUSCULAR HGB CONC 33 g/dL (31-37); MEAN CORPUSCULAR VOLUME 81 fL (79-100); MONO # 0.4 x10^3/uL (0.0-1.1); MONO % 4 % (0-9); NEUT # 8.4 x10^3uL (1.8-7.7); NEUT % 84 % (31-73); PLATELET COUNT 768 x10^3/uL (140-400); RED BLOOD COUNT 5.78 x10^6/uL (4.30-5.70); RED CELL DISTRIBUTION WIDTH 20.1 % (11.5-14.5)
[2018-03-20 09:59] LABS: ALBUMIN 3.1 g/dL (3.4-5.0); ALBUMIN/GLOBULIN RATIO 0.7 (1.0-1.7); CALCIUM 9.2 mg/dL (8.5-10.1); CREATININE 1.1 mg/dL (0.7-1.3); GFR 64.7; POTASSIUM 3.7 mmol/L (3.5-5.1); TOTAL BILIRUBIN 0.7 mg/dL (0.2-1.0); TOTAL PROTEIN 7.7 g/dL (6.4-8.2)
[2018-03-20] MEDS: LEVOTHYROXINE 25 MCG TABLET. PO SCH (10:48)
[2018-03-20] MEDS: LACTOBACILLUS RHAMNOSUS GG 1 CAPSULE. PO SCH ×2 (10:48→21:43)
[2018-03-20] MEDS: HYDROXYUREA 500 MG CAPSULE PO SCH (10:50)
[2018-03-20] MEDS: AMOXICILLIN/K CLAV 500/125MG TABLET. PO SCH ×2 (10:51→21:43)
[2018-03-20 18:12] VITALS: BP 117/66
[2018-03-21 06:05] VITALS: BP 115/74
[2018-03-21] MEDS: LEVOTHYROXINE 25 MCG TABLET. PO SCH (06:19)
[2018-03-21 08:31] LABS: BASO # 0.5 x10^3/uL (0.0-0.2); BASO % 7 % (0-3); EOS # 0.3 x10^3/uL (0.0-0.7); EOS % 4 % (0-3); HEMATOCRIT 43.1 % (39.0-53.0); HEMOGLOBIN 13.8 g/dL (13.0-17.5); LYMPH # 0.8 x10^3/uL (1.0-4.8); LYMPH % 13 % (24-48); MEAN CORPUSCULAR HEMOGLOBIN 26 pg (25-35); MEAN CORPUSCULAR HGB CONC 32 g/dL (31-37); MEAN CORPUSCULAR VOLUME 80 fL (79-100); MONO # 0.4 x10^3/uL (0.0-1.1); MONO % 6 % (0-9); NEUT # 4.6 x10^3uL (1.8-7.7); NEUT % 71 % (31-73); PLATELET COUNT 618 x10^3/uL (140-400); RED BLOOD COUNT 5.37 x10^6/uL (4.30-5.70); RED CELL DISTRIBUTION WIDTH 20.3 % (11.5-14.5); WHITE BLOOD COUNT 6.5 x10^3/uL (4.0-11.0)
[2018-03-21 08:45] LABS: ALBUMIN 2.8 g/dL (3.4-5.0); ALBUMIN/GLOBULIN RATIO 0.7 (1.0-1.7); CALCIUM 8.5 mg/dL (8.5-10.1); GFR 72.3; TOTAL BILIRUBIN 0.7 mg/dL (0.2-1.0); TOTAL PROTEIN 6.8 g/dL (6.4-8.2)
[2018-03-21] MEDS: TAMSULOSIN 0.4 MG CAP.ER.24H. PO SCH (09:10)
[2018-03-21] MEDS: AMOXICILLIN/K CLAV 500/125MG TABLET. PO SCH ×2 (09:11→22:16)
[2018-03-21] MEDS: HYDROXYUREA 500 MG CAPSULE PO SCH (09:18)
[2018-03-21] MEDS: LACTOBACILLUS RHAMNOSUS GG 1 CAPSULE. PO SCH ×2 (09:18→22:16)
[2018-03-21 18:29] VITALS: BP 122/70
[2018-03-22 06:04] VITALS: BP 136/74
[2018-03-22] MEDS: LEVOTHYROXINE 25 MCG TABLET. PO SCH (06:18)
[2018-03-22 08:06] LABS: BASO # 0.3 x10^3/uL (0.0-0.2); BASO % 4 % (0-3); EOS # 0.3 x10^3/uL (0.0-0.7); EOS % 3 % (0-3); HEMATOCRIT 44.3 % (39.0-53.0); HEMOGLOBIN 14.4 g/dL (13.0-17.5); LYMPH # 0.9 x10^3/uL (1.0-4.8); LYMPH % 10 % (24-48); MEAN CORPUSCULAR HEMOGLOBIN 26 pg (25-35); MEAN CORPUSCULAR HGB CONC 33 g/dL (31-37); MEAN CORPUSCULAR VOLUME 81 fL (79-100); MONO # 0.3 x10^3/uL (0.0-1.1); MONO % 3 % (0-9); NEUT # 7.6 x10^3uL (1.8-7.7); NEUT % 81 % (31-73); PLATELET COUNT 642 x10^3/uL (140-400); RED BLOOD COUNT 5.46 x10^6/uL (4.30-5.70); RED CELL DISTRIBUTION WIDTH 20.3 % (11.5-14.5); WHITE BLOOD COUNT 9.4 x10^3/uL (4.0-11.0)
[2018-03-22 08:42] LABS: ALBUMIN 3.3 g/dL (3.4-5.0); ALBUMIN/GLOBULIN RATIO 0.8 (1.0-1.7); CALCIUM 8.8 mg/dL (8.5-10.1); CREATININE 1.1 mg/dL (0.7-1.3); GFR 64.7; POTASSIUM 4.2 mmol/L (3.5-5.1); TOTAL BILIRUBIN 0.7 mg/dL (0.2-1.0); TOTAL PROTEIN 7.7 g/dL (6.4-8.2)
[2018-03-22] MEDS: AMOXICILLIN/K CLAV 500/125MG TABLET. PO SCH (08:52)
[2018-03-22] MEDS: TAMSULOSIN 0.4 MG CAP.ER.24H. PO SCH (08:53)
[2018-03-22] MEDS: LACTOBACILLUS RHAMNOSUS GG 1 CAPSULE. PO SCH (08:53)
[2018-03-22] MEDS: HYDROXYUREA 500 MG CAPSULE PO SCH (08:55)
[2018-03-22 09:54] LABS: PLT ESTIMATE INCREASED (ADEQUATE)
[2018-03-22 09:58] LABS: ANISOCYTOSIS MOD; OVALOCYTES FEW; TEAR DROP CELLS OCC
[2018-03-22 09:59] LABS: POLYCHROMASIA SLIGHT
[2018-03-22 10:00] LABS: MICROCYTOSIS SLIGHT
[2018-03-22 10:01] LABS: TOXIC GRANULATION SLIGHT
--- NOTE | 2018-03-22 22:48 | DS ---
DATE OF DISCHARGE: 03/22/2018 HOSPITAL COURSE: The patient is a 77-year-old male patient who was admitted to [facility], apparently has fever. His white cell count was high up to 15,000 and his platelet count were up to 800,000. He does have also right lower extremity cellulitis and his leg was markedly swollen, erythematous. According to his daughter for which, he was started on Bactrim; however, he was seen in the Emergency Room and was extensively evaluated and was found to have leukocytosis, erythrocytosis, and thrombocytopenia with a platelet count of 1,000,000 and 121,000. However, he was extremely combative, restless, agitated, and was given 2 mg of Ativan. We did start him on vancomycin as well as Rocephin and was admitted to the ICU for further evaluation and treatment. We did contact his human capital consultant to increase his hydroxyurea to 1500 mg, he developed urine retention and his kidney function has dramatically worsened. In fact, his creatinine has risen to 2.5 and we have to put an indwelling Cazares catheter. Unfortunately, after we talked, he continued to have urinary retention despite increasing his Flomax to 0.8 mg. Eventually, he was transferred to swing bed and we continued him on his hydroxyurea 1500 mg as his platelet count continued to be high and as of this morning, his platelet count continued to be at 642,000. He has another episode of urinary retention again with the postvoid volume more than 900. He is very combative as initially we were straight catheterizing him every 8 hours and a decision was made to put a Cazares catheter and the leg bag. PHYSICAL EXAMINATION: GENERAL: When I saw him today, he looked well and was clearly in no apparent respiratory distress, pale, no pallor, jaundice, cyanosis, or thyromegaly. No jugular venous distension. No limb edema. VITAL SIGNS: His heart rate was 72, blood pressure was 136/74, temperature was 98.4, respiratory rate was 18, and oxygen saturation was 94%. HEAD, EYES, EARS, NOSE AND THROAT: Showed normocephalic, atraumatic. NECK: Supple. HEART: Showed normal first and second heart sounds. No gallop, rub or murmur. CHEST: Clear to auscultation, no crepitation or rhonchi. ABDOMEN: Distended, soft, and nontender. NEUROLOGIC: He is confused, but without any obvious localizing sign. His intake was 920, output was 1850. LABORATORY DATA: His lab work this morning showed a white cell count of 9400, hemoglobin 14.4, hematocrit 44, MCV 81, and platelet count of 642,000. His chemistry showed a serum sodium 139, potassium 4.2, chloride 103, bicarbonate 27, anion gap of 9, BUN 18, creatinine 1.1, estimated GFR was 65 mL per minute, his glucose was 87. Calcium was 8.8. Total bilirubin, AST, ALT, alkaline phosphatase were normal. Total protein 7.7, albumin was 3.3. His blood cultures were negative. DISCHARGE MEDICATIONS: He was discharged to [facility] to continue on the following medication, Flomax 0.8 mg at bedtime, hydroxyurea 1500 mg once a day, scopolamine patch 1.5 mg every 3 hours, levothyroxine 25 mg daily, lactobacillus rhamnosus 1 capsule twice a day, Augmentin 500/125 twice a day for 6 more days, magnesium hydroxide for milk of magnesia 30 mL p.o. daily p.r.n. for constipation, acetaminophen 650 mg every 6 hours. FINAL DISCHARGE DIAGNOSES: 1. Polycythemia relapse with marked thrombocythemia with a platelet count of more than 121,000 for which we increased his hydroxyurea to 1500 mg as per human capital consultant's recommendation, his platelet counts are down to 640,000. We will continue with the still her platelet count is down 450,000, and cut back down to 1000 mg. 2. Aspiration pneumonia for which he was treated with intravenous Zosyn as well as vancomycin and resolved. We will finish the treatment in the form of Augmentin for six more days. 3. Left lower extremity cellulitis, treated initially with Bactrim. I will continue with vancomycin resolved. 4. Benign prostatic hypertrophy with bladder outlet obstruction with an episode of acute retention and acute kidney injury, resolved by indwelling Cazares catheter. Despite treatment with Flomax, he continued to have retention of the urine and the patient is very combative. He does not allow us to catheterize him, so we ended up placing a Cazares catheter with leg bag. 5. Hypothyroidism, for which he was on Levothyroxine. VENU TOVAR MD DR: PORSHA/jose alberto JOB#: [id number] / [id number]
== END 2018-03-22 16:35 | DRG 814 ==
LOC: LND 17:44
PROVIDERS: ADMIT Family Medicine; ATTEND Family Medicine
DX: D75.1 Secondary polycythemia (principal); J69.0 Pneumonitis due to inhalation of food and vomit; N17.9 Acute kidney failure, unspecified; L03.115 Cellulitis of right lower limb; L03.116 Cellulitis of left lower limb; N13.8 Other obstructive and reflux uropathy; D47.3 Essential (hemorrhagic) thrombocythemia; E03.9 Hypothyroidism, unspecified; R33.8 Other retention of urine; N40.1 Benign prostatic hyperplasia with lower urinary tract symptoms
CPT/HCPCS: 36415; 80053; 85025

== ENCOUNTER 2018-03-29 19:06 | Emergency (ER) | payer MEDICARE, MEDICAID ==
[~2018-03-29] VITALS: Ht 167.6 cm; Wt 60.7 kg
[~2018-03-29 19:06] MED LIST changes: +AMOX1TAB58 PO; +LACT1CAP21 PO; +TAMS0.4C97 PO
[2018-03-29] MEDS ORDERED: IV RINGERS SOLUTION,LACTATED 1,000 ML IV SCH (19:42)
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
[2018-03-29] MEDS ORDERED: LORazepam 2 MG/ML VIAL IV ONE ×2 (19:45→23:45)
--- NOTE | 2018-03-29 19:55 | EKG ---
[address] [address] Test Date: 2018-03-29 Test Time: 19:50:24 Pat Name: BRITTANY HOLLINGSWORTH Department: Room: Gender: M Airplane Electrical Repairer: MARIO : 1940 Requested By: MIGUELITO ROBERTS Order Number: [id number] Reading MD: Measurements Intervals [place] Rate: 66 P: 54 DE: 158 QRS: 22 QRSD: 94 T: 42 QT: 390 QTc: 411 Interpretive Statements SINUS RHYTHM NO SPECIFIC ECG ABNORMALITIES RI6.01 Compared to ECG 03/14/2018 20:31:07 No significant changes
[2018-03-29 20:40] LABS: BASO # 0.3 x10^3/uL (0.0-0.2); BASO % 5 % (0-3); EOS # 0.2 x10^3/uL (0.0-0.7); EOS % 3 % (0-3); HEMATOCRIT 47.1 % (39.0-53.0); LYMPH # 1.2 x10^3/uL (1.0-4.8); LYMPH % 20 % (24-48); MEAN CORPUSCULAR HEMOGLOBIN 27 pg (25-35); MEAN CORPUSCULAR HGB CONC 32 g/dL (31-37); MEAN CORPUSCULAR VOLUME 84 fL (79-100); MONO # 0.2 x10^3/uL (0.0-1.1); MONO % 4 % (0-9); NEUT % 68 % (31-73); PLATELET COUNT 433 x10^3/uL (140-400); RED BLOOD COUNT 5.64 x10^6/uL (4.30-5.70); RED CELL DISTRIBUTION WIDTH 22.7 % (11.5-14.5); WHITE BLOOD COUNT 5.9 x10^3/uL (4.0-11.0)
[2018-03-29 20:58] LABS: ALBUMIN 3.4 g/dL (3.4-5.0); CALCIUM 8.5 mg/dL (8.5-10.1); CREATININE 1.2 mg/dL (0.7-1.3); DIRECT BILIRUBIN 0.2 mg/dL (0.0-0.2); GFR 58.6; MAGNESIUM 1.8 mg/dL (1.8-2.4); POTASSIUM 4.4 mmol/L (3.5-5.1); TOTAL BILIRUBIN 0.4 mg/dL (0.2-1.0); TOTAL PROTEIN 7.4 g/dL (6.4-8.2)
[2018-03-29 22:39] LABS: ANISOCYTOSIS MOD; OVALOCYTES FEW; PLT ESTIMATE INCREASED (ADEQUATE); TEAR DROP CELLS FEW
[2018-03-29 22:51] LABS: BACTERIA,URINE 0 /HPF (0-FEW); BILIRUBIN,URINE NEG (NEG); CLARITY,URINE CLEAR; COLOR,URINE YELLOW; GLUCOSE,URINE NEG (NEG); NITRITE,URINE NEG (NEG); RBC,URINE 0 /HPF (0-2); SQUAMOUS EPITHELIAL CELL,UR OCC /LPF; UROBILINOGEN,URINE 0.2 mg/dL (0.2 mg/dL); WBC,URINE OCC /HPF (0-4)
[2018-03-30] MEDS ORDERED: cefTRIAXone IV Push 1 GM VIAL. IVP ONE (00:30)
[2018-03-30 02:00] VITALS: BP 141/64
--- NOTE | 2018-03-30 08:19 | RAD ---
Chest, 2 views, 03/29/2018: HISTORY: Chest and abdominal pain The heart size is normal. Attenuation of the upper lobe pulmonary vessels suggests emphysema. No pulmonary consolidation is seen. There is no evidence of pleural fluid. Mild scattered degenerative changes are present in the spine. IMPRESSION: 1. Emphysema. 2. No acute cardiopulmonary abnormality is detected. Abdomen, 2 views, 03/29/2018: The abdominal gas pattern is unremarkable. No free air is seen in the abdomen. The spleen appears to be mildly enlarged. Lower pelvic calcifications are probably vascular. Moderate spurring is present in the spine. IMPRESSION: No acute abdominal abnormality is detected. Electronically signed by: Leonidas Wharton MD (03/30/2018 8:16 AM) [facility]
== END 2018-03-30 02:13 | disposition short-term general hospital (02) ==
LOC: ER 19:06
DX: R33.9 Retention of urine, unspecified (principal); R07.9 Chest pain, unspecified; R10.30 Lower abdominal pain, unspecified; F41.9 Anxiety disorder, unspecified; F03.90 Unspecified dementia, unspecified severity, without behavioral disturbance, psychotic disturbance, mood disturbance, and anxiety; F32.9 Major depressive disorder, single episode, unspecified; I10 Essential (primary) hypertension; Z87.440 Personal history of urinary (tract) infections; Z86.73 Personal history of transient ischemic attack (TIA), and cerebral infarction without residual deficits; Z88.8 Allergy status to other drugs, medicaments and biological substances
CPT/HCPCS: 36415; 51702; 71046; 74021; 80048; 80076; 81001; 82553; 83690; 83735; 83880; 84443; 84484; 85025; 85379; 85610; 85730; 87086; 93005; 96374; 96375; 96376; 99285; J0696; J2060; J7120

== ENCOUNTER 2018-04-10 09:36 | Emergency (ER) | payer MEDICARE, MEDICAID ==
[~2018-04-10] VITALS: Ht 167.6 cm; Wt 61.0 kg
[2018-04-10 09:56] VITALS: BP 147/85
[2018-04-10] MEDS: risperiDONE 0.25 MG TABLET. PO ONE (10:00)
[2018-04-10] MEDS ORDERED: LORazepam 1 MG TABLET PO ONE (10:00)
--- NOTE | 2018-04-10 10:13 | PHYS DOC ---
Past History Past Medical History: Anxiety, CVA, Dementia, Depression, Hypertension, Prostatitis, UTI, Other Additional Past Medical Histor: polycythemia vera Past Surgical History: Tonsillectomy Smoking: Non-smoker Alcohol Use: None Drug Use: None Adult General Chief Complaint Chief Complaint: PSYCH EVALUATION HPI HPI Patient is a 77 yo m with behavioral problem. pt has hx of dementia two reent admits for pna and urinary retention apparently has dementia and this am assauletd a member of senior living staff when sullivan bag was Being changed. police and ems were called but then daughter brought patient out of the senior living APPARENTLY LEAVING AMA OFFICIALLY and then to the er for psych eval prior to returning to facility hx limited by demtnia however there is no cough or fever according to mom. Review of Systems Review of Systems limited by dementia Current Medications Current Medications Current Medications Medications (Trade) Dose Ordered Sig/Velasquez Start Time Stop Time Status Last Admin Dose Admin Lorazepam (Ativan) 2 mg 1X ONCE 04/10/18 10:00 04/10/18 10:01 UNV Risperidone (RisperDAL) 1 mg 1X ONCE 04/10/18 10:00 04/10/18 10:01 UNV Allergies Allergies Allergies Coded Allergies Type Severity Reaction Last Updated Verified haloperidol Allergy Mild 05/02/17 Yes Physical Exam Physical Exam Constitutional: Well developed,CACHECTIC, no acute distress, non-toxic appearance. [] HENT: Normocephalic, atraumatic, bilateral external ears normal, oropharynx moist, no oral exudates, nose normal. [] Eyes: PERRLA, EOMI, conjunctiva normal, no discharge. [] Neck: Normal range of motion, no tenderness, supple, no stridor. [] Cardiovascular:Heart rate regular rhythm, no murmur [] Lungs & Thorax: Bilateral breath sounds clear to auscultation [] Abdomen: Bowel sounds normal, soft, no tenderness, no masses, no pulsatile masses. [] Skin: Warm, dry, no erythema, no rash. [] Back: No tenderness, no CVA tenderness. [] Extremities: No tenderness, no cyanosis, no clubbing, ROM intact, no edema. [] Neurologic: Alert and responsive normal motor function, normal sensory function , no focal deficits noted. [] Psychologic: mood anxious affect very much on edge. BUT REDIRECTABLE BY DAUGHTER Current Patient Data Vital Signs Vital Signs Date Time Temp Pulse Resp B/P (MAP) Pulse Ox O2 Delivery O2 Flow Rate FiO2 04/10/18 09:56 98.0 88 20 99 Room Air Oral Blood Pressure Systolic * 147 mm Hg (100-140) H Blood Pressure Diastolic * 85 mm Hg (60-100) Blood Pressure Mean * 105 mm Hg Blood Pressure Location * Left Arm Blood Pressure Source * Automatic Cuff Pulse Rate * 88 beats per minute (60-90) Pulse Assessment Method * Monitor Respiratory Rate * 20 breaths per minute (12-24) Oxygen Delivery Method * Room Air Bedside Pulse Oximetry * 99 % Treatment Prior to Arrival * No Complaint of Pain * No Pain Assessment Label * Generalized * Pain Location EKG EKG [] Radiology/Procedures Radiology/Procedures [] Impressions: Comparison is made to a study from 03/29/2018. The heart size and pulmonary vascularity are normal. There is mild tortuosity of the thoracic aorta. No pulmonary infiltrate is seen. There is no evidence of pleural fluid. IMPRESSION: No acute cardiopulmonary abnormality is detected Electronically signed by: Leonidas Wharton MD (04/10/2018 10:38 AM) [facility] Course & Med Decision Making Course & Med Decision Making Pertinent Labs and Imaging studies reviewed. (See chart for details) []77 yo m hx thrombocythemia, dementiap/w behavioral problem. pt will have labwork followed by psych screnning. pt appears to potentially require low dose of anitanxiety and or antipsychotic for behavior control. 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 RECOMMEDNS ZYPREXA 1.25 AT NIGHT. UNFORTUNATELY NURSING FACILITY IS RELUCTANT TO READMIT THE PATIENT SINCE HE WAS SIGNED OUT AMA. pt and daughter spent several hours in the ER attempting to find disposition plan. nursing slot supervisor was heavily involved. pt does not meet criteria for inpt psych or medical admit. u Dragon Disclaimer Dragon Disclaimer This electronic medical record was generated, in whole or in part, using a voice recognition dictation system. Departure Departure: Impression: Primary Impression: Impulse control disorder Referrals: SATINDER ALBERTO MD (PCP) Scripts Olanzapine (ZYPREXA) 2.5 Mg Tablet 0.5 TAB PO QHS, #30 TAB 1 Refill Prov: TABATHA SWANSON MD 04/10/18 TABATHA SWANSON MD Apr 10, 2018 10:12
[2018-04-10 10:21] LABS: BASO # 0.2 x10^3/uL (0.0-0.2); BASO % 6 % (0-3); EOS % 1 % (0-3); HEMATOCRIT 47.1 % (39.0-53.0); HEMOGLOBIN 14.8 g/dL (13.0-17.5); LYMPH # 0.7 x10^3/uL (1.0-4.8); LYMPH % 24 % (24-48); MEAN CORPUSCULAR HEMOGLOBIN 27 pg (25-35); MEAN CORPUSCULAR HGB CONC 32 g/dL (31-37); MEAN CORPUSCULAR VOLUME 86 fL (79-100); MONO # 0.1 x10^3/uL (0.0-1.1); MONO % 4 % (0-9); NEUT # 1.9 x10^3uL (1.8-7.7); NEUT % 64 % (31-73); PLATELET COUNT 464 x10^3/uL (140-400); RED BLOOD COUNT 5.51 x10^6/uL (4.30-5.70); RED CELL DISTRIBUTION WIDTH 23.7 % (11.5-14.5)
[2018-04-10 10:36] LABS: ALBUMIN 3.3 g/dL (3.4-5.0); ALBUMIN/GLOBULIN RATIO 0.9 (1.0-1.7); CALCIUM 8.6 mg/dL (8.5-10.1); GFR 72.3; POTASSIUM 3.7 mmol/L (3.5-5.1); TOTAL BILIRUBIN 0.6 mg/dL (0.2-1.0)
--- NOTE | 2018-04-10 10:41 | RAD ---
Portable chest, 04/10/2018: HISTORY: Cough, pneumonia Comparison is made to a study from 03/29/2018. The heart size and pulmonary vascularity are normal. There is mild tortuosity of the thoracic aorta. No pulmonary infiltrate is seen. There is no evidence of pleural fluid. IMPRESSION: No acute cardiopulmonary abnormality is detected Electronically signed by: Leonidas Wharton MD (04/10/2018 10:38 AM) [facility]
[2018-04-10 10:42] LABS: CLARITY,URINE HAZY; COLOR,URINE YELLOW; GLUCOSE,URINE NEG (NEG)
[2018-04-10 10:43] LABS: NITRITE,URINE NEG (NEG); UROBILINOGEN,URINE 0.2 mg/dL (0.2 mg/dL)
[2018-04-10 10:49] LABS: BILIRUBIN,URINE NEG (NEG)
[2018-04-10 10:51] LABS: AMPHETAMINE/METHAMPHETAMINE NEG (NEG); BARBITURATES NEG (NEG); BENZODIAZEPINES NEG (NEG); CANNABINOIDS NEG (NEG); COCAINE NEG (NEG); METHADONE NEG (NEG); OPIATES NEG (NEG); PHENCYCLIDINE NEG (NEG)
[2018-04-10 11:12] LABS: PLT ESTIMATE INCREASED (ADEQUATE)
[2018-04-10 11:13] LABS: ANISOCYTOSIS MOD; OVALOCYTES MOD
[2018-04-10 11:14] LABS: POLYCHROMASIA SLIGHT; TARGET CELLS OCC
[2018-04-10 11:15] LABS: MICROCYTOSIS SLIGHT; TEAR DROP CELLS OCC
[2018-04-10] MEDS ORDERED: OLAN2.5T3 PO (13:13)
== END 2018-04-10 13:17 | disposition home or self-care (01) ==
LOC: ER 09:36
DX: F63.9 Impulse disorder, unspecified (principal); F03.90 Unspecified dementia, unspecified severity, without behavioral disturbance, psychotic disturbance, mood disturbance, and anxiety; F41.9 Anxiety disorder, unspecified; I10 Essential (primary) hypertension; Z87.440 Personal history of urinary (tract) infections; Z88.8 Allergy status to other drugs, medicaments and biological substances
CPT/HCPCS: 36415; 71045; 80053; 80307; 81003; 85025; 87086; 99285-25; G0479